=== PATIENT | male | born 1965 | race Caucasian/White ===

== ENCOUNTER → 2020-07-04 13:59 | Outpatient (BNVA) | payer OTHER, SELFPAY | PROVIDERS: PCP Internal Medicine; Visit Provider Internal Medicine | DX: I25.10 Atherosclerotic heart disease of native coronary artery without angina pectoris (principal); R06.02 Shortness of breath; E78.5 Hyperlipidemia, unspecified; I10 Essential (primary) hypertension; Z95.5 Presence of coronary angioplasty implant and graft | CPT/HCPCS: 93005; 99212 ==

== ENCOUNTER 2020-07-26 14:00 | Outpatient (RCR) | payer OTHER, SELFPAY ==
--- NOTE | 2020-06-22 17:19 | MHC.PT.EP ---
[facility] [place] Office [place] Office [place] Office [address] Last Garcia [address] [phone] F: [phone] F: [phone] F: [phone] F: [phone] Physical Therapy Plan of Care Date of Evaluation: 06/22/20 Date of Surgery: N/A Diagnosis: unspecified osteoarthritis, unspecified joint Assessment: pt presents to physical therapy with pain, decreased range of motion, decreased strength, impaired functional mobility, impaired postural awareness, and gait deviations. pt is a fair candidate for skilled PT due to age, potential remediation of impairments, typical disease/condition progression and prognosis, comorbidities, and motivation. pt would benefit from tailored strengthening and stretching exercise program, functional training, gait training, postural re-training, neuromuscular re-education, modalities as needed for pain, equipment safety demonstration. Frequency and Duration: The patient will be seen 2x/wk for 5 wks Short Term Goals: pt will be I w/ HEP to promote self-management of condition. pt will improve lumbar flexion by 15% to facilitate ease in reaching for objects on the ground. Senior Care Goals: pt will lift 15# object from knee height to waist level x5 reps to promote return to restrooms or lounges maid. pt will report statistically significant improvement in self-reported outcome measure, LEFI, to promote return to PLOF. Treatment Plan: Modalities to reduce pain, spasms and effusion. Manual therapy to restore motion and function. Therapeutic exercise to improve strength and flexibility. Neuromuscular re-education for posture and balance. Therapeutic activities to return to functional activities of daily living. Please sign and return to therapist. Thank you for your referral.
--- NOTE | 2020-07-31 09:54 | MHC.PT.DC ---
[facility] [place] Office [place] Office [employer] Office [address] Last Garcia [address] [phone] F: [phone] F: [phone] F: [phone] F: [phone] Physical Therapy Discharge Report Diagnosis: unspecified osteoarthritis, unspecified joint Date of Surgery: N/A Date of Evaluation: 06/22/20 Date of Discharge: 07/31/20 Treatments to Date: 9 Cancellations to Date: 2 No Shows to Date: 0 Discharge Status: Independent with HEP Recommend MD Follow-up Discharge Summary: The patient made little to no improvement regarding his back pain. He had significant difficulty with performance therapeutic exercises and activities in physical therapy due to poor cardiovascular endurance and poor tolerance for supine, hookyling, and prone positions. He reported best improvement of his symptoms with hot pack application so he was educated on hot pack use at home. He is independent with his home exercise program including posterior chain, core, and bilateral lower extremity strengthening and stretching. He would benefit from attending cardiac rehabilitation to work on his cardiovascular endurance to work on his functional mobility tolerance. He is discharged from this physical therapy plan of care at this time. Electronically signed by: Alma Delia Burgos PT, DPT Please sign and return to therapist. Thank you for your referral.
== END 2020-07-31 09:55 | disposition other institution (70) ==
LOC: HO.PT 14:00
PROVIDERS: PCP Internal Medicine; Visit Provider Internal Medicine
DX: M19.90 Unspecified osteoarthritis, unspecified site (principal)
CPT/HCPCS: 97110; 97112; 97140; 97162

== ENCOUNTER 2020-08-31 14:30 | Outpatient (RCR) | payer OTHER, SELFPAY ==
--- NOTE | 2020-09-01 10:25 | MHC.OT.DC ---
[address] [phone] F: [phone] Occupational Therapy Discharge Note Provider: DR. SALINAS Diagnosis: B/L CTS Date of Surgery: Date of Evaluation: 08/08/20 Date of Discharge: Treatments to Date: 6 Cancellations to Date: No Shows to Date: Discharge Status: Independent with HEP Recommend MD Follow-up Discharge Summary: Pt DENIES CTS SX AND REFUSES PRE HYACINTH AND CUSTOM NIGHT WRIST SPLINTS. C/O B/L MCPJ PAIN R >L UNCHANGED Pt IS AWARE OF JT PROTECTION PRINCIPLES AND HEP . REPORTS NO IMPROVEMENT WITH THERMAL MODALITIES OR THER EX. MAY BENEFIT FROM A CONSULT WITH RHEUMATOLOGY Electronically Signed By: MIRACLE JIMENEZ OT CHT CLT Reviewed/agree with student documentation: N/A Therapist: Please Sign and return to therapist, thank you for your referral.
== END 2020-09-01 10:20 | disposition other institution (70) ==
LOC: HO.OT 14:30
PROVIDERS: PCP Internal Medicine; Visit Provider Internal Medicine
DX: G56.03 Carpal tunnel syndrome, bilateral upper limbs (principal)
CPT/HCPCS: 29125; 97035; 97110; 97140; 97167; 97530; 97760

== ENCOUNTER 2020-10-24 10:50 | Outpatient (REF) | payer OTHER, SELFPAY ==
--- NOTE | ~2020-10-24 | XR_ITS ---
EXAMINATION: XR ELBOW, LEFT CLINICAL INFORMATION: Pain COMPARISON: None TECHNIQUE: AP, lateral, and oblique views of the left elbow. FINDINGS: Bone alignment is normal. No fracture or dislocation is seen. There is a small osteophyte at the coronoid process. The joint spaces are otherwise normal. There is no joint effusion. There is a small osteophyte at the triceps tendon insertion to the olecranon. There may be soft tissue calcification or ossification adjacent to the lateral humeral epicondyle. XR/XR elbow LT 2V IMPRESSION: Small coronoid process and olecranon osteophytes and soft tissue calcification or ossification adjacent to the lateral humeral epicondyle. Otherwise unremarkable exam.
--- NOTE | ~2020-10-24 | XR_ITS ---
EXAMINATION: XR CERVICAL SPINE CLINICAL INFORMATION: Pain COMPARISON: Previous x-ray most recent February 2020 TECHNIQUE: 4 views of the cervical spine were obtained. FINDINGS: There is mild curvature of the lower cervical and upper thoracic spine to the left. There is straightening of the cervical spine. Bone alignment is otherwise normal. No fracture or dislocation is seen. There is degenerative spondylosis and degenerative disc disease from C3-C4 to C6-C7. Prevertebral soft tissues are normal. There is a soft tissue calcification posteriorly in the suboccipital region. XR/XR cervical spine 2V IMPRESSION: Degenerative changes.
--- NOTE | ~2020-10-24 | XR_ITS ---
EXAMINATION: BILATERAL HAND X-RAY CLINICAL INFORMATION: Pain COMPARISON: Previous left hand x-ray December 2017 and right hand x-ray February 2009 TECHNIQUE: 3 views of each hand FINDINGS: Right: Bone alignment is normal. No fracture or dislocation is seen. There is arthritis at the first LONG-TERM joint. Joint spaces are otherwise normal. Soft tissues are normal. Left: Bone alignment is normal. No fracture or dislocation is seen. There is arthritis at the first LONG-TERM joint. Joint spaces are otherwise normal. Soft tissues are normal. XR/XR hand RT min 3V IMPRESSION: Bilateral arthritis at the first LONG-TERM joint.
--- NOTE | ~2020-10-24 | XR_ITS ---
EXAMINATION: BILATERAL HAND X-RAY CLINICAL INFORMATION: Pain COMPARISON: Previous left hand x-ray December 2017 and right hand x-ray February 2009 TECHNIQUE: 3 views of each hand FINDINGS: Right: Bone alignment is normal. No fracture or dislocation is seen. There is arthritis at the first SKILLED NURSING joint. Joint spaces are otherwise normal. Soft tissues are normal. Left: Bone alignment is normal. No fracture or dislocation is seen. There is arthritis at the first SKILLED NURSING joint. Joint spaces are otherwise normal. Soft tissues are normal. XR/XR hand LT min 3V IMPRESSION: Bilateral arthritis at the first SKILLED NURSING joint.
[2020-10-24 12:27] LABS: MANUAL DIFF FLAG NO
[2020-10-24 12:31] LABS: Basophils Percent Auto 0.6 % (0-2); Eosinophils Absolute Auto 0.3 X10*3/uL (0.0-0.4); Eosinophils Percent Auto 4.8 % (0-4); Hematocrit 45.7 % (42-52); Imm Gran Abs Auto 0.02 X10*3/uL (0.00-0.03); Imm Gran Pct Auto 0.3 % (0.0-0.4); Lymphocytes Absolute Auto 1.9 X10*3/uL (1.2-4.9); Lymphocytes Percent Auto 27.9 % (20-40); Mean Corpuscular HGB Conc 32.8 g/dl (31.0-36.0); Mean Corpuscular Hemoglobin 28.1 pg (27.0-33.0); Mean Corpuscular Volume 85.6 fL (80-98); Mean Platelet Volume 11.4 fL (9.4-12.4); Monocytes Absolute Auto 0.7 X10*3/uL (0.1-1.2); Monocytes Percent Auto 9.9 % (2-11); Neutrophils Absolute Auto 3.8 X10*3/uL (2.0-8.3); Neutrophils Percent Auto 56.5 % (45-73); Platelet Count 200 X10*3/uL (160-400); Red Blood Count 5.34 X10*6/uL (4.60-5.80); Red Cell Distribution Width 12.6 % (11.0-16.0); White Blood Count 6.6 X10*3/uL (4.8-10.8)
[2020-10-24 13:04] LABS: Alanine Aminotransferase 78 U/L (0-40); Albumin Level 4.5 g/dL (3.5-5.0); Alkaline Phosphatase 83 U/L (39-117); Anion Gap 12 (12-20); Aspartate Amino Transferase 39 U/L (5-37); Bilirubin Total 0.4 mg/dL (0.0-1.0); Blood Urea Nitrogen 13 mg/dL (9-16); C Reactive Protein 0.09 mg/dL (< or = 0.50); Calcium 9.6 mg/dL (8.4-10.2); Carbon Dioxide 26 mmol/L (22-29); Chloride 104 mmol/L (96-108); Estimated Glomerular Filt Rate > 60; Glucose Random 177 mg/dL (60-115); Potassium 4.5 mmol/L (3.3-5.1); Rheumatoid Factor < 15.0 IU/mL (<15.0); Sodium 137 mmol/L (135-145); Total Protein 7.4 g/dL (6.5-8.0)
[2020-10-24 13:25] LABS: Thyroid Stimulating Hormone 1.34 uIU/mL (0.32-4.0)
[2020-10-24 13:36] LABS: Erythrocyte Sedimentation Rate 5 MM/HR (0-15)
[2020-10-25 16:42] LABS: Cyclic Citrullinated Peptide <16 UNITS
[2020-10-28 13:06] LABS: Vitamin D 25-OH, D2 <4 ng/mL; Vitamin D 25-OH, D3 25 ng/mL; Vitamin D 25-OH, Total 25 ng/mL (30-100)
== END 2020-10-24 10:51 | disposition home or self-care (01) ==
LOC: HO.LAB 10:50
PROVIDERS: PCP Internal Medicine; Visit Provider Student in an Organized Health Care Education/Training Program
DX: M25.50 Pain in unspecified joint (principal); E66.9 Obesity, unspecified; Z79.899 Other long term (current) drug therapy
CPT/HCPCS: 36415; 72040; 73070; 73130; 80053; 82306; 84443; 85025; 85652; 86140; 86200; 86431; 99202

== ENCOUNTER → 2020-11-21 16:04 | Outpatient (BNVA) | payer OTHER, SELFPAY | PROVIDERS: Visit Provider Student in an Organized Health Care Education/Training Program | DX: M89.49 Other hypertrophic osteoarthropathy, multiple sites (principal) | CPT/HCPCS: 99212 ==

== ENCOUNTER 2021-01-02 11:55 | Outpatient (REF) | payer OTHER, SELFPAY ==
[2021-01-02 13:54] LABS: MANUAL DIFF FLAG NO
[2021-01-02 13:59] LABS: Glucose Urine UA NEG (NEG); Leukocyte Esterase Urine NEG (NEG); Nitrite Urine NEG (NEG); Specific Gravity - Urine 1.025 (1.005-1.025); Urine Blood NEG (NEG); Urine Ketones NEG (NEG); Urine Protein NEG (NEG-TRACE)
[2021-01-02 14:17] LABS: Appearance Urine CLEAR; Color Urine YELLOW
[2021-01-02 14:18] LABS: Basophils Percent Auto 0.6 % (0-2); Eosinophils Absolute Auto 0.3 X10*3/uL (0.0-0.4); Eosinophils Percent Auto 4.7 % (0-4); Hematocrit 46.8 % (42-52); Hemoglobin 15.3 g/dl (14.0-18.0); Imm Gran Abs Auto 0.02 X10*3/uL (0.00-0.03); Imm Gran Pct Auto 0.3 % (0.0-0.4); Lymphocytes Absolute Auto 2.1 X10*3/uL (1.2-4.9); Lymphocytes Percent Auto 29.2 % (20-40); Mean Corpuscular HGB Conc 32.7 g/dl (31.0-36.0); Mean Corpuscular Hemoglobin 28.3 pg (27.0-33.0); Mean Corpuscular Volume 86.5 fL (80-98); Mean Platelet Volume 11.6 fL (9.4-12.4); Monocytes Absolute Auto 0.7 X10*3/uL (0.1-1.2); Monocytes Percent Auto 10.2 % (2-11); Platelet Count 214 X10*3/uL (160-400); Red Blood Count 5.41 X10*6/uL (4.60-5.80); Red Cell Distribution Width 12.9 % (11.0-16.0); White Blood Count 7.3 X10*3/uL (4.8-10.8)
[2021-01-02 14:24] LABS: Estimated Average Glucose 157 mg/dL; Hemoglobin A1c % 7.1 %
[2021-01-02 14:27] LABS: Alanine Aminotransferase 66 U/L (0-40); Albumin Level 4.4 g/dL (3.5-5.0); Alkaline Phosphatase 79 U/L (39-117); Anion Gap 13 (12-20); Aspartate Amino Transferase 36 U/L (5-37); Bilirubin Total 0.6 mg/dL (0.0-1.0); Blood Urea Nitrogen 15 mg/dL (9-16); Calcium 9.6 mg/dL (8.4-10.2); Carbon Dioxide 24 mmol/L (22-29); Chloride 105 mmol/L (96-108); Cholesterol 132 mg/dL; Estimated Glomerular Filt Rate > 60; Glucose Random 139 mg/dL (60-115); HDL Cholesterol 32 mg/dL; LDL Cholesterol Calculated 64 mg/dl; Potassium 4.4 mmol/L (3.3-5.1); Sodium 138 mmol/L (135-145); Total Protein 7.3 g/dL (6.5-8.0); Triglycerides 184 mg/dL
[2021-01-02 14:37] LABS: Free T4 (Free Thyroxine) 0.85 ng/dL (0.71-1.85); Prostate Specific Antigen Scr 0.39 ng/mL (<0.05-4.0); Vitamin D 25-OH Total 25.5 ng/mL (>30)
[2021-01-02 14:49] LABS: RBC Urine 0 /HPF (0); Squamous Epithelial Cell Urine 1+ /LPF
[2021-01-02 14:50] LABS: Mucus Urine 2+ /LPF
[2021-01-02 14:52] LABS: Folate 10.7 ng/mL (> or = 4.0); Vitamin B12 499 pg/mL (200-900)
[2021-01-02 15:02] LABS: Creatinine Urine 262.26 mg/dL; Microalbum/Creatinine Ratio Ur 6.1 ug/mg cr
== END 2021-01-02 11:56 | disposition home or self-care (01) ==
LOC: HO.10HDL 11:55
PROVIDERS: Visit Provider Internal Medicine
DX: I25.10 Atherosclerotic heart disease of native coronary artery without angina pectoris (principal); I10 Essential (primary) hypertension; E78.5 Hyperlipidemia, unspecified; E78.00 Pure hypercholesterolemia, unspecified; Z95.5 Presence of coronary angioplasty implant and graft; Z79.899 Other long term (current) drug therapy; Z87.891 Personal history of nicotine dependence
CPT/HCPCS: 36415; 80053; 80061; 81001; 82043; 82306; 82607; 82746; 83036; 84153; 84439; 84443; 85025; 99212

== ENCOUNTER 2021-01-17 15:00 | Outpatient (RCR) | payer OTHER, SELFPAY ==
--- NOTE | 2021-01-05 13:44 | MHC.PT.EP ---
[facility] [place] [facility] [place] Office [place] Office [address] Last Garcia [address] [phone] F: [phone] F: [phone] F: [phone] F: [phone] Physical Therapy Plan of Care Date of Evaluation: Date of Surgery: Diagnosis: bilateral knee pain Assessment: The patient arrived reporting bilateral knee pain that has been slowly getting worse. He feels limited in almost all functional mobility such as squatting, getting up from chair, stairs, and getting dressed. The patient is severely deconditioned and he gets short of breath easily. The patient will benefit from skilled PT exercises that slowly and safely build activity tolerance and LE strength. Functional movements will be the focus to improve functional independence. Frequency and Duration: The patient will be seen 2x/week x 4 weeks Short Term Goals: 1. pt to be able to do all functional movements such as squatting, bending, and reaching overhead with good balance and motor control.. 2. Pt to be able to walk with a heel to toe reciprocal gait pattern with a symmetrical gait pattern. Prison Goals: 4 weeks. - to improve activity tolerance to help community ambulation distances demonstrated by tolerating at least 45 minutes of therapeutic activity with less than 3 resting breaks. 4 weeks- Pt will begin an exercise program that will facilitate weight loss. 4 weeks ? The patient to be able to participate in an exercise program greater than 45 min long to show improved activity tolerance. Treatment Plan: Modalities to reduce pain, spasms and effusion. Manual therapy to restore motion and function. Therapeutic exercise to improve strength and flexibility. Neuromuscular re-education for posture and balance. Therapeutic activities to return to functional activities of daily living. Electronically signed by: Jade Gonzales PT DPT Please sign and return to therapist. Thank you for your referral.
== END 2021-01-18 09:00 | disposition home or self-care (01) ==
LOC: HO.PT 15:00
PROVIDERS: PCP Student in an Organized Health Care Education/Training Program; Visit Provider Student in an Organized Health Care Education/Training Program
DX: M89.49 Other hypertrophic osteoarthropathy, multiple sites (principal)
CPT/HCPCS: 97110; 97162; 97530

== ENCOUNTER → 2021-05-25 11:03 | Outpatient (BNVA) | payer OTHER, SELFPAY | PROVIDERS: PCP Internal Medicine; Visit Provider Nurse Practitioner Family | DX: M89.49 Other hypertrophic osteoarthropathy, multiple sites (principal) | CPT/HCPCS: 99212 ==

== ENCOUNTER 2021-06-05 14:01 | Outpatient (REF) | payer OTHER, SELFPAY ==
--- NOTE | ~2021-06-05 | XR_ITS ---
EXAMINATION: XR KNEE, LEFT XR KNEE, RIGHT CLINICAL INFORMATION: Hypertrophic osteoarthropathy, multiple sites COMPARISON: None TECHNIQUE: Right knee, 4 views Left knee, 4 views FINDINGS: Left knee: Bones have normal alignment. The joint spaces are maintained. No fracture, subluxation or joint effusion. There are very small osteophytes of the patella. Bone island of the proximal tibial metaphysis. A well-corticated ossicle is noted near the patellar tendon attachment to the anterior tibial tubercle. Query if there is history of [place]-Schlatter disease during childhood. No acute osseous injury in this region. Right knee: Bones have normal alignment and joint spaces are maintained. Minimal osteophyte formation of the patella and medial tibial femoral compartment. No fracture, dislocation or joint effusion. No suspicious osseous lesion. XR/XR knee LT 4V IMPRESSION: * At the right knee, there is minimal osteoarthrosis of the patellofemoral and medial tibiofemoral compartments. * At the left knee, there is minimal osteoarthrosis of the patellofemoral compartment. * A prominent ossicle of the distal left patellar tendon is noted. Query if there is history of [place]-Schlatter disease during childhood.
--- NOTE | ~2021-06-05 | XR_ITS ---
EXAMINATION: XR KNEE, LEFT XR KNEE, RIGHT CLINICAL INFORMATION: Hypertrophic osteoarthropathy, multiple sites COMPARISON: None TECHNIQUE: Right knee, 4 views Left knee, 4 views FINDINGS: Left knee: Bones have normal alignment. The joint spaces are maintained. No fracture, subluxation or joint effusion. There are very small osteophytes of the patella. Bone island of the proximal tibial metaphysis. A well-corticated ossicle is noted near the patellar tendon attachment to the anterior tibial tubercle. Query if there is history of [place]-Schlatter disease during childhood. No acute osseous injury in this region. Right knee: Bones have normal alignment and joint spaces are maintained. Minimal osteophyte formation of the patella and medial tibial femoral compartment. No fracture, dislocation or joint effusion. No suspicious osseous lesion. XR/XR knee RT 4V IMPRESSION: * At the right knee, there is minimal osteoarthrosis of the patellofemoral and medial tibiofemoral compartments. * At the left knee, there is minimal osteoarthrosis of the patellofemoral compartment. * A prominent ossicle of the distal left patellar tendon is noted. Query if there is history of [place]-Schlatter disease during childhood.
== END 2021-06-05 14:02 | disposition home or self-care (01) ==
LOC: HO.XRAY 14:01
PROVIDERS: PCP Internal Medicine; Visit Provider Nurse Practitioner Family
DX: M89.49 Other hypertrophic osteoarthropathy, multiple sites (principal)
CPT/HCPCS: 73564

== ENCOUNTER → 2021-07-02 13:52 | Outpatient (BNVA) | payer OTHER, SELFPAY | PROVIDERS: PCP Internal Medicine; Visit Provider Anesthesiology | DX: M47.812 Spondylosis without myelopathy or radiculopathy, cervical region (principal); M47.816 Spondylosis without myelopathy or radiculopathy, lumbar region; G56.00 Carpal tunnel syndrome, unspecified upper limb | CPT/HCPCS: 99202 ==

== ENCOUNTER 2021-07-06 08:28 | Outpatient (REF) | payer OTHER, SELFPAY ==
--- NOTE | ~2021-07-06 | FL_ITS ---
EXAMINATION: XR FLUOROSCOPY UPPER GI WITH AIR CLINICAL INFORMATION: Gastroesophageal reflux disease without esophagitis. COMPARISON: None. TECHNIQUE: Routine upper GI air-contrast study was performed in upright and lying position. FINDINGS: Following oral administration of thick barium and effervescent granules, there is normal propagation of bolus from the oral cavity through the pharynx, esophagus into stomach without obstruction or narrowing. A slightly tight cricoesophageal sphincter is noted. It causes no obstruction. The mucosal pattern of the esophagus is normal. On placing patient supine and prone lying, the course, caliber and peristalsis of the stomach, duodenal bulb and the sweep is normal. The mucosal pattern of the stomach and the duodenum is normal. FLUOROSCOPY TIME: 1.6 minutes DOSE AREA PRODUCT: 42.482 uGy-m2 (microgray-meter squared) FL/FL upper GI w air IMPRESSION: Except for mild prominent cricoesophageal sphincter, the upper GI exam is unremarkable.
== END 2021-07-06 08:29 | disposition home or self-care (01) ==
LOC: HO.XRAY 08:28
PROVIDERS: Visit Provider Internal Medicine
DX: K21.9 Gastro-esophageal reflux disease without esophagitis (principal)
CPT/HCPCS: 74246

== ENCOUNTER 2021-09-03 08:01 | Outpatient (REF) | payer OTHER, SELFPAY ==
--- NOTE | ~2021-09-03 | US_ITS ---
EXAMINATION: US ABDOMEN COMPLETE CLINICAL INFORMATION: Other specified abnormal findings of blood chemistry. COMPARISON: Ultrasound abdomen complete dated 12/28/2008. TECHNIQUE: Real-time imaging of the abdominal viscera. FINDINGS: PANCREAS: Not well visualized due to bowel gas ABDOMINAL AORTA: The proximal, mid, and distal segments are normal in caliber. INFERIOR VENA CAVA: Visualized portions are normal. LIVER: Liver is enlarged. Liver echotexture is increased suggestive of fatty infiltration. There is a focal hypoechoic area adjacent to the gallbladder, characteristic location of focal fatty sparing. The liver contour is normal. There is a 1.3 x 0.6 x 1.2 cm peripheral or subcapsular cysts in the right lobe. No other focal liver lesion is seen. There is no intrahepatic biliary duct dilatation seen. GALLBLADDER: There are gallstones in the gallbladder neck. The gallbladder is otherwise normal. COMMON BILE DUCT: Normal in caliber measuring 0.3 cm in diameter. RIGHT KIDNEY: There are multiple cysts. The largest measures 4.3 x 3.9 x 3.7 cm. No hydronephrosis or renal calculi. The kidney measures 11.9 cm in maximum dimension. LEFT KIDNEY: There are multiple cysts. The largest measures 4.8 x 4.2 x 4.9 cm. No hydronephrosis or renal calculi. The kidney measures 13.7 cm in maximum dimension. SPLEEN: Normal. The spleen measures 12.3 cm in maximum dimension. FREE FLUID: None. US/US abdomen complete IMPRESSION: Gallstones. Enlarged echogenic liver suggestive of fatty infiltration. Small liver cyst. Bilateral renal cysts.
== END 2021-09-03 08:02 | disposition home or self-care (01) ==
LOC: HO.US 08:01
PROVIDERS: PCP Internal Medicine; Visit Provider Internal Medicine
DX: K21.9 Gastro-esophageal reflux disease without esophagitis (principal); K58.9 Irritable bowel syndrome, unspecified; R79.89 Other specified abnormal findings of blood chemistry
CPT/HCPCS: 76700

== ENCOUNTER 2021-09-03 08:38 | Outpatient (REF) | payer OTHER, SELFPAY ==
[2021-09-03 10:14] LABS: MANUAL DIFF FLAG NO
[2021-09-03 10:17] LABS: Basophils Percent Auto 0.5 % (0-2); Eosinophils Absolute Auto 0.5 X10*3/uL (0.0-0.4); Eosinophils Percent Auto 6.1 % (0-4); Hematocrit 44.4 % (42.0-52.0); Hemoglobin 14.7 g/dl (14.0-18.0); Imm Gran Abs Auto 0.02 X10*3/uL (0.00-0.03); Imm Gran Pct Auto 0.2 % (0.0-0.4); Lymphocytes Absolute Auto 2.3 X10*3/uL (1.2-4.9); Lymphocytes Percent Auto 28.7 % (20-40); Mean Corpuscular HGB Conc 33.1 g/dl (31.0-36.0); Mean Corpuscular Hemoglobin 28.7 pg (27.0-33.0); Mean Corpuscular Volume 86.7 fL (80.0-98.0); Mean Platelet Volume 11.9 fL (9.4-12.4); Monocytes Absolute Auto 0.8 X10*3/uL (0.1-1.2); Monocytes Percent Auto 9.9 % (2-11); Neutrophils Absolute Auto 4.4 x10*3/uL (2.0-8.3); Neutrophils Percent Auto 54.6 % (45-73); Platelet Count 213 X10*3/uL (160-400); Red Blood Count 5.12 X10*6/uL (4.60-5.80); Red Cell Distribution Width 12.7 % (11.0-16.0); White Blood Count 8.1 X10*3/uL (4.8-10.8)
[2021-09-03 10:26] LABS: Alanine Aminotransferase 57 U/L (0-40); Albumin Level 4.3 g/dL (3.5-5.0); Alkaline Phosphatase 75 U/L (39-117); Anion Gap 12 (12-20); Aspartate Amino Transferase 24 U/L (5-37); Bilirubin Total 0.5 mg/dL (0.0-1.0); Blood Urea Nitrogen 13 mg/dL (9-16); Calcium 9.5 mg/dL (8.4-10.2); Carbon Dioxide 25 mmol/L (22-29); Chloride 106 mmol/L (96-108); Cholesterol 117 mg/dL; Estimated Glomerular Filt Rate > 60; Glucose Random 118 mg/dL (60-115); HDL Cholesterol 29 mg/dL; LDL Cholesterol Calculated 55 mg/dl; Potassium 4.5 mmol/L (3.3-5.1); Sodium 138 mmol/L (135-145); Total Protein 7.1 g/dL (6.5-8.0); Triglycerides 166 mg/dL
[2021-09-03 10:36] LABS: Estimated Average Glucose 131 mg/dL; Hemoglobin A1c % 6.2 %
[2021-09-03 10:46] LABS: Free T4 (Free Thyroxine) 0.94 ng/dL (0.71-1.85); Thyroid Stimulating Hormone 1.35 uIU/mL (0.32-4.0)
[2021-09-03 11:14] LABS: Folate 7.6 ng/mL (> or = 4.0); Vitamin B12 366 pg/mL (200-900)
== END 2021-09-03 08:39 | disposition home or self-care (01) ==
LOC: HO.10HDL 08:38
PROVIDERS: Visit Provider Internal Medicine
DX: Z12.5 Encounter for screening for malignant neoplasm of prostate (principal); E78.00 Pure hypercholesterolemia, unspecified; E11.65 Type 2 diabetes mellitus with hyperglycemia
CPT/HCPCS: 36415; 80053; 80061; 82607; 82746; 83036; 84153; 84439; 84443; 85025

== ENCOUNTER 2021-10-22 09:27 | Outpatient (REF) | payer OTHER, SELFPAY ==
[2021-10-22 13:46] LABS: Blood Urea Nitrogen 14 mg/dL (9-16); Creatinine Clr Calc Pharmacy 131.9; Estimated Glomerular Filt Rate > 60
== END 2021-10-22 09:28 | disposition home or self-care (01) ==
LOC: HO.LNP 09:27
PROVIDERS: PCP Internal Medicine; Referring Provider Internal Medicine; Visit Provider Surgery
DX: K80.20 Calculus of gallbladder without cholecystitis without obstruction (principal); G89.29 Other chronic pain; R10.31 Right lower quadrant pain; R10.32 Left lower quadrant pain
CPT/HCPCS: 36415; 82565; 84520; 99202

== ENCOUNTER 2021-11-13 12:03 | Outpatient (REF) | payer OTHER, SELFPAY ==
--- NOTE | ~2021-11-13 | CT_ITS ---
EXAMINATION: CT ABDOMEN AND PELVIS WITH CONTRAST CLINICAL INFORMATION: Right lower quadrant pain. COMPARISON: None TECHNIQUE: Multidetector volumetric images were obtained from the superior aspect of the liver through the pubic symphysis following administration 85 mL of Omnipaque 350 intravenous contrast. Sagittal and coronal reformatted images were obtained on the technologist's workstation. Oral contrast: No This CT examination was performed using dose optimization techniques as appropriate, variously including the following: *Automated exposure control *Adjustment of mA and/or kV according to patient size (this includes techniques or standardized protocols for targeted exams where dose is matched to indication/reason for exam; i.e. extremities or head) *Use of iterative reconstruction technique DLP: 623 mGy-cm FINDINGS: LUNG BASES: The visualized lung bases are unremarkable. LIVER, GALLBLADDER, AND BILIARY TREE: The liver is normal in size, shape, and hypo-attenuation. No focal hepatic lesion or biliary ductal dilatation is present. There are several radiopaque gallstones with the largest gallstone measuring 5 mm. No gallbladder wall thickening seen. PANCREAS: Unremarkable. SPLEEN: Unremarkable. ADRENAL GLANDS: The left adrenal gland is slightly prominent without any focal nodule. The right adrenal gland is unremarkable. KIDNEYS AND URETERS: The kidneys are normal in size, shape, and attenuation. No hydronephrosis, hydroureter, or calculi seen. No perinephric stranding. There are bilateral non-enhancing renal cysts, largest in the upper pole left kidney measuring 5.6 cm in craniocaudad length. BLADDER: Unremarkable. GASTROINTESTINAL TRACT: There is scattered stool and gas seen throughout the colon without any distention. The small bowel loops are normal. Appendix is normal caliber. The stomach is nondistended and appears unremarkable. ABDOMINAL WALL: There is a small umbilical hernia containing fat. LYMPH NODES: Normal. VASCULAR: Unremarkable. PELVIC VISCERA: Unremarkable. OSSEOUS STRUCTURES: No lytic or sclerotic process seen. CT/CT abdomen pelvis w con IMPRESSION: 1. Hepatic steatosis without focal lesion. 2. Cholelithiasis. 3. Colonic diverticulosis without diverticulitis. Normal appendix with no inflammatory process seen in the abdomen. 4. Bilateral renal cysts. 5. Small umbilical hernia. Fleischner guidelines were followed.
[2021-11-13] MEDS: iohexoL 350 MG/ML 100 ML INFUS..BTL IV (13:04)
== END 2021-11-13 12:04 | disposition home or self-care (01) ==
LOC: HO.CT 12:03
PROVIDERS: PCP Internal Medicine; Visit Provider Surgery
DX: R10.31 Right lower quadrant pain (principal); R10.32 Left lower quadrant pain; G89.29 Other chronic pain
CPT/HCPCS: 74177; Q9967

== ENCOUNTER → 2021-11-21 15:04 | Outpatient (BNVA) | payer OTHER, SELFPAY | PROVIDERS: PCP Internal Medicine; Referring Provider Internal Medicine; Visit Provider Surgery | DX: R10.31 Right lower quadrant pain (principal); R10.32 Left lower quadrant pain; G89.29 Other chronic pain; E66.01 Morbid (severe) obesity due to excess calories; Z68.37 Body mass index [BMI] 37.0-37.9, adult | CPT/HCPCS: 99212 ==

== ENCOUNTER → 2021-11-22 12:25 | Outpatient (BNVA) | payer OTHER, SELFPAY | PROVIDERS: PCP Internal Medicine; Visit Provider Nurse Practitioner Family | DX: M89.49 Other hypertrophic osteoarthropathy, multiple sites (principal) | CPT/HCPCS: 99212 ==

== ENCOUNTER → 2022-01-03 13:12 | Outpatient (BNVA) | payer OTHER, SELFPAY | PROVIDERS: PCP Internal Medicine; Referring Provider Internal Medicine; Visit Provider Internal Medicine | DX: I25.10 Atherosclerotic heart disease of native coronary artery without angina pectoris (principal); I10 Essential (primary) hypertension; E11.8 Type 2 diabetes mellitus with unspecified complications; E78.5 Hyperlipidemia, unspecified; Z95.5 Presence of coronary angioplasty implant and graft | CPT/HCPCS: 93005; 99212 ==

== ENCOUNTER → 2022-05-24 12:07 | Outpatient (BNVA) | payer OTHER, SELFPAY | PROVIDERS: PCP Internal Medicine; Referring Provider Internal Medicine; Visit Provider Nurse Practitioner Family | DX: M79.671 Pain in right foot (principal); M79.672 Pain in left foot; M92.522 Juvenile osteochondrosis of tibia tubercle, left leg; M89.49 Other hypertrophic osteoarthropathy, multiple sites | CPT/HCPCS: 99212 ==

== ENCOUNTER 2022-10-11 11:17 | Outpatient (REF) | payer OTHER, SELFPAY ==
--- NOTE | ~2022-10-11 | XR_ITS ---
EXAMINATION: XR FEET, BILATERAL CLINICAL INDICATION: Bilateral foot pain. COMPARISON: Right ankle 12/13/2011. TECHNIQUE: 3 views each foot. FINDINGS: There is pes cavus bilaterally with a prominent arch. No fractures or significant degenerative changes are seen. Enthesopathy is present at the Achilles tendon insertion site on both sides. XR/XR foot LT 2V IMPRESSION: Bilateral pes cavus. No acute finding.
--- NOTE | ~2022-10-11 | XR_ITS ---
EXAMINATION: XR FEET, BILATERAL CLINICAL INDICATION: Bilateral foot pain. COMPARISON: Right ankle 12/13/2011. TECHNIQUE: 3 views each foot. FINDINGS: There is pes cavus bilaterally with a prominent arch. No fractures or significant degenerative changes are seen. Enthesopathy is present at the Achilles tendon insertion site on both sides. XR/XR foot RT 2V IMPRESSION: Bilateral pes cavus. No acute finding.
[2022-10-11 13:18] LABS: MANUAL DIFF FLAG NO
[2022-10-11 13:27] LABS: Basophils Absolute Auto 0.1 X10*3/uL (0.0-0.2); Basophils Percent Auto 0.5 % (0-2); Eosinophils Absolute Auto 0.5 X10*3/uL (0.0-0.4); Eosinophils Percent Auto 5.6 % (0-4); Hematocrit 46.1 % (42.0-52.0); Hemoglobin 15.2 g/dl (14.0-18.0); Imm Gran Abs Auto 0.01 X10*3/uL (0.00-0.03); Imm Gran Pct Auto 0.1 % (0.0-0.4); Lymphocytes Absolute Auto 1.9 X10*3/uL (1.2-4.9); Lymphocytes Percent Auto 21.2 % (20-40); Mean Corpuscular Volume 85.1 fL (80.0-98.0); Mean Platelet Volume 11.7 fL (9.4-12.4); Monocytes Absolute Auto 0.9 X10*3/uL (0.1-1.2); Monocytes Percent Auto 9.8 % (2-11); Neutrophils Absolute Auto 5.7 x10*3/uL (2.0-8.3); Neutrophils Percent Auto 62.8 % (45-73); Platelet Count 224 X10*3/uL (160-400); Red Blood Count 5.42 X10*6/uL (4.60-5.80); Red Cell Distribution Width 13.2 % (11.0-16.0); White Blood Count 9.1 X10*3/uL (4.8-10.8)
[2022-10-11 13:59] LABS: Creatinine Urine 340.91 mg/dL; Microalbum/Creatinine Ratio Ur 15.8 ug/mg cr
[2022-10-11 16:20] LABS: Alanine Aminotransferase 42 U/L (0-40); Albumin Level 4.4 g/dL (3.5-5.0); Alkaline Phosphatase 68 U/L (39-117); Anion Gap 17 (12-20); Aspartate Amino Transferase 24 U/L (5-37); Bilirubin Total 0.4 mg/dL (0.0-1.0); Blood Urea Nitrogen 12 mg/dL (9-16); Calcium 9.4 mg/dL (8.4-10.2); Carbon Dioxide 21 mmol/L (22-29); Chloride 107 mmol/L (96-108); Cholesterol 148 mg/dL; Estimated Glomerular Filt Rate > 60; Glucose Random 116 mg/dL (60-115); HDL Cholesterol 35 mg/dL; LDL Cholesterol Calculated 86 mg/dl; Potassium 4.1 mmol/L (3.3-5.1); Sodium 141 mmol/L (135-145); Total Protein 7.1 g/dL (6.5-8.0); Triglycerides 135 mg/dL
[2022-10-11 16:54] LABS: Free T4 (Free Thyroxine) 0.93 ng/dL (0.71-1.85); Thyroid Stimulating Hormone 2.01 uIU/mL (0.32-4.0); Vitamin B12 442 pg/mL (200-900)
[2022-10-11 20:27] LABS: Folate 10.9 ng/mL (> or = 4.0)
== END 2022-10-11 11:18 | disposition home or self-care (01) ==
LOC: HO.10HDL 11:17
PROVIDERS: Absent Provider Nurse Practitioner Family; PCP Internal Medicine; Visit Provider Internal Medicine
DX: E11.65 Type 2 diabetes mellitus with hyperglycemia (principal); M79.671 Pain in right foot; M79.672 Pain in left foot; E78.00 Pure hypercholesterolemia, unspecified; Z12.5 Encounter for screening for malignant neoplasm of prostate
CPT/HCPCS: 36415; 73620; 80053; 80061; 82043; 82607; 82746; 84153; 84439; 84443; 85025

== ENCOUNTER 2023-02-05 12:51 | Outpatient (REF) | payer OTHER, SELFPAY ==
[2023-02-05 15:28] LABS: Estimated Average Glucose 128 mg/dL; Hemoglobin A1c % 6.1 %
[2023-02-05 16:32] LABS: Creatinine Urine 218.83 mg/dL
[2023-02-06 02:37] LABS: Alanine Aminotransferase 45 U/L (0-40); Albumin Level 4.4 g/dL (3.5-5.0); Alkaline Phosphatase 68 U/L (39-117); Anion Gap 12 (12-20); Aspartate Amino Transferase 26 U/L (5-37); Bilirubin Total 0.4 mg/dL (0.0-1.0); Blood Urea Nitrogen 16 mg/dL (9-16); Calcium 9.7 mg/dL (8.4-10.2); Carbon Dioxide 24 mmol/L (22-29); Chloride 107 mmol/L (96-108); Cholesterol 118 mg/dL; Estimated Glomerular Filt Rate > 60; Glucose Random 102 mg/dL (60-115); HDL Cholesterol 35 mg/dL; LDL Cholesterol Calculated 56 mg/dl; Potassium 4.3 mmol/L (3.3-5.1); Sodium 139 mmol/L (135-145); Total Protein 7.3 g/dL (6.5-8.0); Triglycerides 137 mg/dL
== END 2023-02-05 12:52 | disposition home or self-care (01) ==
LOC: HO.LAB 12:51
PROVIDERS: PCP Internal Medicine; Visit Provider Internal Medicine
DX: E78.00 Pure hypercholesterolemia, unspecified (principal); E11.65 Type 2 diabetes mellitus with hyperglycemia
CPT/HCPCS: 36415; 80053; 80061; 83036

== ENCOUNTER 2023-02-10 13:30 | Outpatient (AMB) | payer OTHER, SELFPAY ==
[2023-02-10 13:50] VITALS: BP 130/80; PULSE 74; O2SAT 95; BMI 37.3
--- NOTE | 2023-02-10 13:50 | MHC.PC.OV ---
Vital Signs 02/10/23 13:50 Height 5 ft 10 in Weight 260 lb BMI 37.3 BP 130/80 Blood Pressure Location Lt brachial Position Sitting Pulse 74 Pulse Source Pulse Oximeter Pulse Oximetry (%) 95 Oxygen Delivery Method Room Air Intake Visit Reasons: 3mth f/u Allergies atorvastatin [Lipitor] Allergy (Unknown, Verified 02/10/23 13:51) does not remember fenofibric acid [Fibricor] Allergy (Unknown, Verified 02/10/23 13:51) does not remember Medication List - Last Reconciled 02/10/23 by Zahida King MD acetaminophen (Tylenol Extra Strength) 1,000 mg PO Q6H PRN amlodipine 5 mg PO DAILY 90 days aspirin (Adult Aspirin Regimen) 81 mg PO DAILY cane As directed carvedilol 6.25 mg PO BID 90 days dicyclomine 20 mg (2 x 10 mg) PO TID empagliflozin (Jardiance) 10 mg PO DAILY 90 days ezetimibe (Zetia) 10 mg PO DAILY fenofibrate 160 mg PO DAILY 90 days meloxicam 15 mg PO DAILY 90 days metformin 500 mg PO BID 90 days nitroglycerin 0.4 mg sublingual Q5M PRN omeprazole 40 mg PO DAILY rosuvastatin 40 mg PO DAILY 90 days Tobacco use date assessed: 11/11/22 Dental Screening Dental Screen Date: 02/10/23 Did you have a dental visit in the last 12 months?: Yes Did you have a dental problem in the last 6 months where you did not have access to dental care?: No Was dental information given to patient?: Patient has dentist HPI 3mth f/u HPI Details 57-year-old obese male with diabetes mellitus GERD hypertension coronary artery disease hypercholesterolemia and obstructive sleep apnea last seen in October 2022 patient is here for follow-up blood work was requested [facility] Medical History (Updated 11/11/22 @ 13:50 by Zahida King MD) Abdominal pain, chronic, bilateral lower quadrant Atherosclerotic cardiovascular disease CAD (coronary artery disease) Carpal tunnel syndrome Carpal tunnel syndrome on both sides Degenerative disc disease Depression Dislocation of ring finger Erectile dysfunction Essential hypertension GERD (gastroesophageal reflux disease) Hypercholesterolemia Morbid obesity Obesity (BMI 30-39.9) Obstructive sleep apnea [place]-Schlatter's disease of both knees Spondylosis of cervical spine Spondylosis of lumbar spine Type 2 diabetes mellitus Type 2 diabetes mellitus with unspecified complications Vitamin D deficiency Surgical History History of nasal surgery History of surgery History of vasectomy Stented coronary artery Family History (Updated 02/10/23 @ 13:52 by Lindy Singh CMA) Father Myocardial infarction Mother Myocardial infarction Social History Housing: House Alcohol intake: never Patient Tobacco Use Status: Former Tobacco user Quit Date: quit 2004 Tobacco use type: Cigarette e-Cigarette/Vaping Use: Never Used Second Hand Smoke Exposure: No service: No Current occupational status: employed Cognitive needs: No Hearing needs: No Vision needs: Yes Questionnaire PHQ-9 Over the last 2 weeks, how often have you been bothered by any of the following problems? 1. Little interest or pleasure in doing things: nearly every day 2. Feeling down, depressed, or hopeless: nearly every day 3. Trouble falling or staying asleep, or sleeping too much: not at all 4. Feeling tired or having little energy: not at all 5. Poor appetite or overeating: not at all 6. Feeling bad about yourself - or that you are a failure or have let yourself or your family down: not at all 7. Trouble concentrating on things, such as reading the newspaper or watching television: not at all 8. Moving or speaking so slowly that other people could have noticed. Or the opposite - being so fidgety or restless that you have been moving around a lot more than usual: not at all 9. Thoughts that you would be better off or of hurting yourself in some way: not at all Total score: 6 Depression Screening Interpretation: Positive Source: Developed by Drs. Blaise Lake, Vicki Hebert, Yordy Barnes and colleagues, with an educational kelsi from [employer]. Thrive Questionnaire Date Thrive assessed: 08/07/22 AUDIT C Alcohol Use Questionnaire (AUDIT-C) 1. How often do you have a drink containing alcohol?: Never 2. How many drinks containing alcohol do you have on a typical day when you are drinking?: 1 or 2 (0) 3. How often do you have six or more drinks on one occasion?: Never Total Score: 0 FLORENCIA-7 AMB Questionnaire FLORENCIA-7 Date FLORENCIA - 7 assessed: 08/07/22 Source: Developed by Drs. Blaise Lake, Vicki Hebert, Yordy Barnes and colleagues, with an educational kelsi from [employer]. Physical exam (Primary Care) Vital Signs: Last Vital Signs Pulse 74 02/10/23 13:50 BP 130/80 02/10/23 13:50 Pulse Ox 95 02/10/23 13:50 Oxygen Delivery Method Room Air 02/10/23 13:50 BMI result Body Mass Index 37.3 Tobacco/Smoking Status: Tobacco use Status Tobacco use date assessed 11/11/22 02/10/23 13:52 Patient Tobacco Use Status Former Tobacco user 02/10/23 13:52 Tobacco use type Cigarette 02/10/23 13:52 e-Cigarette/Vaping Use Never Used 02/10/23 13:52 PHQ-9: PHQ-9 Score PHQ-9: Total score 6 02/10/23 13:56 Depression Screening Interpretation: Positive Thrive Assessment: Date of Thrive Assessment Date Thrive assessed 08/07/22 02/10/23 13:52 Const General: alert; No acute distress Eyes Conjunctivae: conjunctivae normal Resp Auscultation: clear to auscultation bilaterally Cardio Rate: regular rate Rhythm: regular rhythm GI Inspection: Yes normal to inspection Extrem General: Yes normal to inspection and No edema Assessment and Plan Assessment & Plan (1) Morbid obesity: Code(s): E66.01 - Morbid (severe) obesity due to excess calories Plan: Diet and exercise noted weight loss continue (2) GERD (gastroesophageal reflux disease): Code(s): K21.9 - Gastro-esophageal reflux disease without esophagitis Plan: Avoid the foods that causes that usually spicy foods, tomato products, juices, coffee, soda and foods that your sensitive to. After eating do not lie down, allow 3-4 hours before in lie down. And keep the head of bed above 30 degrees to avoid the acid from going up. (3) Type 2 diabetes mellitus with hyperglycemia: Comment: Dr. 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 Hemoglobin A1c goal of less than 6.5 (4) Essential hypertension: Code(s): I10 - Essential (primary) hypertension Plan: Continue with blood pressure medication. Decrease salt intake and exercise patient is on amlodipine 5 mg once a day carvedilol 6.25 mg twice a day (5) Atherosclerotic cardiovascular disease: Code(s): I25.10 - Atherosclerotic heart disease of [place] coronary artery without angina pectoris Plan: Control the cholesterol, weight, blood pressure, diabetes (6) Hypercholesterolemia: Code(s): E78.00 - Pure hypercholesterolemia, unspecified Plan: Avoid fried foods, chicken skin, eggs, butter margarine, pastries and meat. Be it pork or beef they have a lot of cholesterol LDL goal of less than 70 patient is on rosuvastatin 40 mg once a day and Zetia Medications: New lisinopril 10 mg PO DAILY 90 tabs 2RF I10 - Essential (primary) hypertension Changed From metformin 500 mg (1/2 x 1,000 mg) PO BID 30 days 180 tabs 0RF E11.65 - Type 2 diabetes mellitus with hyperglycemia To metformin 500 mg PO BID 90 days 180 tabs 3RF E11.65 - Type 2 diabetes mellitus with hyperglycemia From empagliflozin (Jardiance) 10 mg PO DAILY 30 tabs 3RF E11.8 - Type 2 diabetes mellitus with unspecified complications To empagliflozin (Jardiance) 10 mg PO DAILY 90 days 90 tabs 3RF E11.8 - Type 2 diabetes mellitus with unspecified complications Refilled rosuvastatin 40 mg PO DAILY 90 days 90 tabs 3RF Discontinued amlodipine Discontinued Reason: Doctor's Order 5 mg PO DAILY 90 days 90 tabs 3RF I10 - Essential (primary) hypertension Coding Level of Care Code Est Pt Level 4 (70602) Diagnoses Morbid obesity E66.01 GERD (gastroesophageal reflux disease) K21.9 Type 2 diabetes mellitus with hyperglycemia E11.65 Diabetes mellitus 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
== END 2023-02-10 14:08 | disposition home or self-care (01) ==
PROVIDERS: PCP Internal Medicine; Visit Provider Internal Medicine
DX: K21.9 Gastro-esophageal reflux disease without esophagitis (principal); I10 Essential (primary) hypertension; E66.01 Morbid (severe) obesity due to excess calories; Z68.37 Body mass index [BMI] 37.0-37.9, adult; E11.65 Type 2 diabetes mellitus with hyperglycemia; I25.10 Atherosclerotic heart disease of native coronary artery without angina pectoris; E78.00 Pure hypercholesterolemia, unspecified
CPT/HCPCS: 99214

== ENCOUNTER 2023-02-11 12:16 | Outpatient (AMB) | payer OTHER, SELFPAY ==
[2023-02-11 12:33] VITALS: BP 118/70; PULSE 77; BMI 37.1
--- NOTE | 2023-02-11 12:33 | A.OFFVIS_ITS ---
Intake Vital Signs 02/11/23 12:33 Height 5 ft 10 in Weight 258 lb 6.108 oz BMI 37.1 BP 118/70 Blood Pressure Location Lt brachial Pulse 77 Intake Visit Reasons: 1 year follow up Intake Note: 1 year follow up w/ EKG Surveillance Dual Rate Officer Required: No Accompanied by: Self / Same As Patient Allergies atorvastatin [Lipitor] Allergy (Unknown, Verified 02/11/23 12:35) does not remember fenofibric acid [Fibricor] Allergy (Unknown, Verified 02/11/23 12:35) does not remember Medication List - Last Reconciled 02/11/23 by Ray Calzada MD acetaminophen (Tylenol Extra Strength) 1,000 mg PO Q6H PRN aspirin (Adult Aspirin Regimen) 81 mg PO DAILY cane As directed carvedilol 6.25 mg PO BID 90 days dicyclomine 20 mg (2 x 10 mg) PO TID empagliflozin (Jardiance) 10 mg PO DAILY 90 days ezetimibe (Zetia) 10 mg PO DAILY fenofibrate 160 mg PO DAILY 90 days lisinopril 10 mg PO DAILY meloxicam 15 mg PO DAILY 90 days metformin 500 mg PO BID 90 days nitroglycerin 0.4 mg sublingual Q5M PRN omeprazole 40 mg PO DAILY rosuvastatin 40 mg PO DAILY 90 days HPI HPI Comments History of Present Illness Details Blaise returns for follow-up regarding coronary disease. Overall, he is doing good. No cardiac symptoms whatsoever. [facility] Medical History (Updated 11/11/22 @ 13:50 by Zahida King MD) Abdominal pain, chronic, bilateral lower quadrant Atherosclerotic cardiovascular disease CAD (coronary artery disease) Carpal tunnel syndrome Carpal tunnel syndrome on both sides Degenerative disc disease Depression Dislocation of ring finger Erectile dysfunction Essential hypertension GERD (gastroesophageal reflux disease) Hypercholesterolemia Morbid obesity Obesity (BMI 30-39.9) Obstructive sleep apnea [place]-Schlatter's disease of both knees Spondylosis of cervical spine Spondylosis of lumbar spine Type 2 diabetes mellitus Type 2 diabetes mellitus with unspecified complications Vitamin D deficiency Surgical History History of nasal surgery History of surgery History of vasectomy Stented coronary artery Family History Father Myocardial infarction Mother Myocardial infarction Social History Housing: House Alcohol intake: never Patient Tobacco Use Status: Former Tobacco user Quit Date: quit 2004 Tobacco use type: Cigarette e-Cigarette/Vaping Use: Never Used Second Hand Smoke Exposure: No service: No Current occupational status: employed Cognitive needs: No Hearing needs: No Vision needs: Yes Review of Systems Const Denies weakness ENT Denies dizziness Card Denies chest pain, Denies chest pain with activity, Denies syncope, Denies rapid heart rate, Denies pedal edema, Denies edema, Denies leg edema, Denies lightheadedness, Denies palpitations, Denies dyspnea, Denies dyspnea on exertion and Denies orthopnea Resp Denies cough, Denies dyspnea and Denies dyspnea on exertion GI Denies hematochezia and Denies change in stool character Musc Denies abnormal gait, Denies muscle cramps, Denies muscle weakness, Denies numbness, Denies radiating pain into limb and Denies tingling Neuro Denies abnormal gait, Denies dizziness, Denies syncope, Denies numbness, Denies tingling and Denies weakness Endo Denies palpitations Physical Exam Vital Signs: Last Vital Signs Pulse 77 02/11/23 12:33 BP 118/70 02/11/23 12:33 BMI result Body Mass Index 37.1 Const General: comfortable and no acute distress Orientation/consciousness: patient oriented x3 HEENT Other: Unremarkable Head: Yes normal to inspection Neck Neck: Yes normal visual inspection Chest Chest palpation & inspection: normal inspection of the chest Resp Auscultation: clear to auscultation bilaterally Cardio Palpation: normal PMI Heart sounds: S1 normal heart sound present, S2 normal heart sound present, no gallops, no murmurs and no rubs GI Palpation (GI): Soft to palpation Back/Spine/Pelvis Other: unremarkable Skin General skin exam: no rashes or lesions noted Neuro General: patient oriented x3 Extrem General: Yes normal to inspection Psych Mental Status: mental status grossly normal Office Procedures EKG Details: EKG with sinus rhythm at 77/Min; no significant ST-T changes and otherwise [place]remarkable[place] [id number], Complete Assessment & Plan Assessment & Plan (1) Atherosclerotic cardiovascular disease: Code(s): I25.10 - Atherosclerotic heart disease of [place] coronary artery without angina pectoris (2) Stented coronary artery: Code(s): Z95.5 - Presence of coronary angioplasty implant and graft (3) Other and unspecified hyperlipidemia: Code(s): E78.5 - Hyperlipidemia, unspecified (4) Essential hypertension: Code(s): I10 - Essential (primary) hypertension (5) Type 2 diabetes mellitus with unspecified complications: Code(s): E11.8 - Type 2 diabetes mellitus with unspecified complications Plan Cardiac studies reviewed. In the past, myocardial perfusion imaging study showed basal and mid inferior wall ischemia in the right coronary artery territory. Cardiac catheterization showed 90% stenosis in the mid right coronary artery, stented with drug-eluting stent. No significant disease elsewhere. Overall, stable from cardiac. Continue long-term aspirin. Continue carvedilol/lisinopril for blood pressure. Blood pressure is normal range. Continue statins. LDL under good control. Last LDL is 56 mg/dL. Diabetes also well controlled on metformin. Most recent hemoglobin A1c is 6.1%. Coding Level of Care Code Est Pt Level 4 (08661) Diagnoses Atherosclerotic cardiovascular disease I25.10 Stented coronary artery Z95.5 Other and unspecified hyperlipidemia E78.5 Essential hypertension I10 Type 2 diabetes mellitus with unspecified complications E11.8 CPT Codes EKG - CPT: 06655-[id number], Complete ([id number])
== END 2023-02-11 12:50 | disposition home or self-care (01) ==
PROVIDERS: PCP Internal Medicine; Referring Provider Internal Medicine; Visit Provider Internal Medicine
DX: I25.10 Atherosclerotic heart disease of native coronary artery without angina pectoris (principal); Z95.5 Presence of coronary angioplasty implant and graft; E78.5 Hyperlipidemia, unspecified; I10 Essential (primary) hypertension; E11.8 Type 2 diabetes mellitus with unspecified complications
CPT/HCPCS: 93010; 99214

== ENCOUNTER → 2023-02-11 12:16 | Outpatient (BNVA) | payer OTHER, SELFPAY | PROVIDERS: PCP Internal Medicine; Referring Provider Internal Medicine; Visit Provider Internal Medicine | DX: I25.10 Atherosclerotic heart disease of native coronary artery without angina pectoris (principal); E78.5 Hyperlipidemia, unspecified; I10 Essential (primary) hypertension; E11.8 Type 2 diabetes mellitus with unspecified complications; Z79.84 Long term (current) use of oral hypoglycemic drugs; Z79.899 Other long term (current) drug therapy | CPT/HCPCS: 93005; 99212 ==

== ENCOUNTER 2023-05-22 13:51 | Outpatient (AMB) | payer OTHER, SELFPAY ==
--- NOTE | 2023-05-22 14:01 | MHC.PC.OV ---
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 Has diabetes mellitus controlled GERD hypertension coronary artery disease hypercholesterolemia. Last seen in January 2023. Patient is up-to-date with colonoscopy. Patient follows up with Cardiology doing good [facility] Medical History (Updated 11/11/22 @ 13:50 by Zahida King MD) Type 2 diabetes mellitus with unspecified complications Morbid obesity Abdominal pain, chronic, bilateral lower quadrant Carpal tunnel syndrome Spondylosis of lumbar spine Spondylosis of cervical spine Type 2 diabetes mellitus Essential hypertension Atherosclerotic cardiovascular disease Dislocation of ring finger [place]-Schlatter's disease of both knees Depression Degenerative disc disease CAD (coronary artery disease) Obstructive sleep apnea Vitamin D deficiency Erectile dysfunction GERD (gastroesophageal reflux disease) Hypercholesterolemia Obesity (BMI 30-39.9) Carpal tunnel syndrome on both sides Surgical History Stented coronary artery History of surgery History of vasectomy History of nasal surgery Family History Father Myocardial infarction Mother Myocardial infarction Social History Housing: House Alcohol intake: never Patient Tobacco Use Status: Former Tobacco user Quit Date: 2004 Tobacco use type: Cigarette e-Cigarette/Vaping Use: Never Used Second Hand Smoke Exposure: No service: No Current occupational status: employed Current occupational exposures/hazards: No Cognitive needs: No Hearing needs: No Vision needs: Yes Questionnaire Thrive Questionnaire Date Thrive assessed: 08/07/22 FLORENCIA-7 AMB Questionnaire FLORENCIA-7 Date FLORENCIA - 7 assessed: 08/07/22 Source: Developed by Drs. Blaise Lake, Vicki Hebert, Yordy Barnes and colleagues, with an educational kelsi from [employer]. Physical exam (Primary Care) Vital Signs: Last Vital Signs Pulse 85 05/22/23 14:12 BP 130/82 05/22/23 14:12 Pulse Ox 95 05/22/23 14:12 Oxygen Delivery Method Room Air 05/22/23 14:12 BMI result Body Mass Index 36.9 Tobacco/Smoking Status: Tobacco use Status Tobacco use date assessed 11/11/22 05/22/23 14:02 Patient Tobacco Use Status Former Tobacco user 05/22/23 14:02 Tobacco use type Cigarette 05/22/23 14:02 e-Cigarette/Vaping Use Never Used 05/22/23 14:02 Thrive Assessment: Date of Thrive Assessment Date Thrive assessed 08/07/22 05/22/23 14:02 Const General: alert; No acute distress Eyes Conjunctivae: conjunctivae normal Resp Auscultation: clear to auscultation bilaterally Cardio Rate: regular rate Rhythm: regular rhythm GI Inspection: Yes normal to inspection Extrem General: Yes normal to inspection and No edema Office Procedures Flu Questionnaire Does the patient have a severe egg allergy?: No Does the patient have severe life threatening allergies?: No Does the patient have a fever or illness today?: No Has the patient ever had Guillain-[place] Syndrome?: No Has the patient ever had any past reaction to a flu shot?: No Results AMB Hemoglobin A1c AMB Hemoglobin A1c 6.2 % Last Edit by FANTA Mariee on 05/22/23 14:21 Immunizations flu vacc [id number] 6mos up(PF) 60 mcg(15 mcgx4)/0.5 mL IM syringe Performing Provider: Zahida King MD Performing Location: [facility] Administered by: FANTA Mariee on 05/22/23 14:20 Dose Route Admin Location Dispensed Lot Number Expiration Date NDC Internal Consultant 0.5 mL IM Left Deltoid 0.5 mL [id number] 01/18/24 [id number] [employer] VIS Given Date VIS Provided VIS Publication Date 05/22/23 Single Vaccine 21 Eligibility Eligibility Date Funding Source Not VFC Eligible 05/22/23 Private Results Reviewed Results Reviewed: Laboratory Last Values Hgb A1c (Clinic) 6.2 % (4.0-6.0) H 05/22/23 14:20 Assessment and Plan Assessment & Plan (1) Type 2 diabetes mellitus with hyperglycemia: Comment: Dr. Hill Code(s): E11.65 - Type 2 diabetes mellitus with hyperglycemia Qualifiers: Diabetes mellitus nursing home insulin use: without intermediate school teacher use Qualified Code(s): E11.65 - Type 2 diabetes mellitus with hyperglycemia Plan: Decrease the amount of carbohydrate intake, pasta, bread, rice and potatoes are all sugar and that is aside from all the sweet stuff, remember that fruits are good but they are Sweet also. Hemoglobin A1c goal of less than 6.5 patient is taking metformin and Jardiance (2) Atherosclerotic cardiovascular disease: Code(s): I25.10 - Atherosclerotic heart disease of [place] coronary artery without angina pectoris Plan: Control the cholesterol, weight, blood pressure, diabetes (3) Hypercholesterolemia: Code(s): E78.00 - Pure hypercholesterolemia, unspecified Plan: Avoid fried foods, chicken skin, eggs, butter margarine, pastries and meat. Be it pork or beef they have a lot of cholesterol LDL goal of less than 70 and triglyceride of less than 150. Patient is on fenofibrate and rosuvastatin and Zetia January 2023 last blood work (4) Obstructive sleep apnea: Comment: cannot tolerate CPAP 02/2021 Code(s): G47.33 - Obstructive sleep apnea (adult) (pediatric) Plan: Discussed importance of sleep apnea treatment (5) Essential hypertension: Code(s): I10 - Essential (primary) hypertension Plan: Continue with blood pressure medication. Decrease salt intake and exercise patient takes lisinopril 10 mg once a day carvedilol 6.25 mg twice a day (6) Morbid obesity: Code(s): E66.01 - Morbid (severe) obesity due to excess calories Plan: Diet and exercise Orders: Orders Influenza [id number] Immunization Today Z23 - Encounter for immunization AMB Hemoglobin A1c Today E11.65 - Type 2 diabetes mellitus with hyperglycemia Coding Level of Care Code Est Pt Level 4 (54072) Diagnoses Type 2 diabetes mellitus with hyperglycemia, without long-term current use of insulin E11.65 Diabetes mellitus nursing home insulin use: without intermediate school teacher use Atherosclerotic cardiovascular disease I25.10 Hypercholesterolemia E78.00 Obstructive sleep apnea G47.33 Essential hypertension I10 Morbid obesity E66.01
[2023-05-22 14:12] VITALS: BP 130/82; PULSE 85; O2SAT 95; BMI 36.9
== END 2023-05-22 15:14 | disposition home or self-care (01) ==
PROVIDERS: PCP Internal Medicine; Visit Provider Internal Medicine
DX: Z23 Encounter for immunization (principal); E11.65 Type 2 diabetes mellitus with hyperglycemia; I25.10 Atherosclerotic heart disease of native coronary artery without angina pectoris; E66.01 Morbid (severe) obesity due to excess calories; Z68.36 Body mass index [BMI] 36.0-36.9, adult
CPT/HCPCS: 83036; 90471; 90686; 99214

== ENCOUNTER 2023-09-09 14:12 | Outpatient (AMB) | payer OTHER, SELFPAY ==
[2023-09-09 14:17] VITALS: BP 128/80; PULSE 76; O2SAT 94; BMI 36.3
--- NOTE | 2023-09-09 14:17 | MHC.PC.OV ---
Vital Signs 09/09/23 14:17 Height 5 ft 10 in Weight 253 lb BMI 36.3 BP 128/80 Blood Pressure Location Lt brachial Position Sitting Pulse 76 Pulse Source Pulse Oximeter Pulse Oximetry (%) 94 Oxygen Delivery Method Room Air Intake Visit Reasons: DM , Obesity Allergies atorvastatin [Lipitor] Allergy (Unknown, Verified 05/22/23 14:01) does not remember fenofibric acid [Fibricor] Allergy (Unknown, Verified 05/22/23 14:01) does not remember Tobacco use date assessed: 09/09/23 Dental Screening Dental Screen Date: 09/09/23 Did you have a dental visit in the last 12 months?: No Did you have a dental problem in the last 6 months where you did not have access to dental care?: No HPI DM , Obesity HPI Details 57-year-old obese male with controlled diabetes mellitus coronary artery disease hypercholesterolemia hypertension obstructive sleep apnea coming in for follow-up. Last seen in May 2023 patient is here for follow-up. [facility]- 08/05/2023 vomiting and chills , aches pain , diarrhea negative test- - x ray negative. , better now. cannot tolerate the CPAP [facility] Medical History (Updated 11/11/22 @ 13:50 by Zahida King MD) Type 2 diabetes mellitus with unspecified complications Morbid obesity Abdominal pain, chronic, bilateral lower quadrant Carpal tunnel syndrome Spondylosis of lumbar spine Spondylosis of cervical spine Type 2 diabetes mellitus Essential hypertension Atherosclerotic cardiovascular disease Dislocation of ring finger [place]-Schlatter's disease of both knees Depression Degenerative disc disease CAD (coronary artery disease) Obstructive sleep apnea Vitamin D deficiency Erectile dysfunction GERD (gastroesophageal reflux disease) Hypercholesterolemia Obesity (BMI 30-39.9) Carpal tunnel syndrome on both sides Surgical History (Updated 09/09/23 @ 14:21 by Zahida King MD) Stented coronary artery History of surgery History of vasectomy History of nasal surgery Family History Father Myocardial infarction Mother Myocardial infarction Social History Housing: House Alcohol intake: never Patient Tobacco Use Status: Former Tobacco user Quit Date: 2004 Tobacco use type: Cigarette e-Cigarette/Vaping Use: Never Used Second Hand Smoke Exposure: No service: No Current occupational status: employed Current occupational exposures/hazards: No Cognitive needs: No Hearing needs: No Vision needs: Yes Questionnaire Thrive Questionnaire Date Thrive assessed: 08/07/22 AUDIT C Alcohol Use Questionnaire (AUDIT-C) 1. How often do you have a drink containing alcohol?: Never 2. How many drinks containing alcohol do you have on a typical day when you are drinking?: 1 or 2 (0) 3. How often do you have six or more drinks on one occasion?: Never Total Score: 0 FLORENCIA-7 AMB Questionnaire FLORENCIA-7 Date FLORENCIA - 7 assessed: 08/07/22 Source: Developed by Drs. Blaise Lake, Vicki Hebert, Yordy Barnes and colleagues, with an educational kelsi from [employer]. Physical exam (Primary Care) Vital Signs: Last Vital Signs Pulse 76 09/09/23 14:17 BP 128/80 09/09/23 14:17 Pulse Ox 94 09/09/23 14:17 Oxygen Delivery Method Room Air 09/09/23 14:17 BMI result Body Mass Index 36.3 Tobacco/Smoking Status: Tobacco use Status Tobacco use date assessed 09/09/23 09/09/23 14:22 Patient Tobacco Use Status Former Tobacco user 09/09/23 14:22 Tobacco use type Cigarette 09/09/23 14:22 e-Cigarette/Vaping Use Never Used 09/09/23 14:22 Thrive Assessment: Date of Thrive Assessment Date Thrive assessed 08/07/22 09/09/23 14:22 Const General: alert; No acute distress Eyes Conjunctivae: conjunctivae normal Resp Auscultation: clear to auscultation bilaterally Cardio Rate: regular rate Rhythm: regular rhythm GI Inspection: Yes normal to inspection Extrem General: Yes normal to inspection and No edema Results AMB Hemoglobin A1c AMB Hemoglobin A1c 6.5 % Last Edit by FANTA Niño on 09/09/23 14:26 Immunizations Boostrix Tdap 2.5 Lf unit-8 mcg-5 Lf/0.5 mL intramuscular syringe Performing Provider: Zahida King MD Performing Location: 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 Hill Code(s): E11.65 - Type 2 diabetes mellitus with hyperglycemia Qualifiers: Diabetes mellitus senior living insulin use: without terminal clerk use Qualified Code(s): E11.65 - Type 2 diabetes mellitus with hyperglycemia Plan: Decrease the amount of carbohydrate intake, pasta, bread, rice and potatoes are all sugar and that is aside from all the sweet stuff, remember that fruits are good but they are Sweet also. Hemoglobin A1c goal of less than 6.5. Patient is on Jardiance 10 mg once a day metformin 500 mg twice a day (2) Hypercholesterolemia: Code(s): E78.00 - Pure hypercholesterolemia, unspecified Plan: Avoid fried foods, chicken skin, eggs, butter margarine, pastries and meat. Be it pork or beef they have a lot of cholesterol LDL goal of less than 70 and triglyceride of less than 150 on rosuvastatin 40 mg once a day fenofibrate 160 mg once a day and Zetia 10 mg once a day (3) CAD (coronary artery disease): Comment: RCA stent 05/2019 Code(s): I25.10 - Atherosclerotic heart disease of eagle coronary artery without angina pectoris Qualifiers: Associated angina: without angina Coronary Disease-Associated Artery/Lesion type: eagle artery [place] vs. transplanted heart: eagle heart Qualified Code(s): I25.10 - Atherosclerotic heart disease of eagle coronary artery without angina pectoris Plan: Control the cholesterol, weight, blood pressure, diabetes continue with aspirin 81 mg once a day (4) GERD (gastroesophageal reflux disease): Code(s): K21.9 - Gastro-esophageal reflux disease without esophagitis Plan: Avoid the foods that causes that usually spicy foods, tomato products, juices, coffee, soda and foods that your sensitive to. After eating do not lie down, allow 3-4 hours before in lie down. And keep the head of bed above 30 degrees to avoid the acid from going up. Orders: Orders TDaP Immunization Today Z23 - Encounter for immunization AMB Hemoglobin A1c Today E11.65 - Type 2 diabetes mellitus with hyperglycemia Medications: Changed From empagliflozin (Jardiance) 10 mg PO DAILY 90 days 90 tabs 3RF E11.8 - Type 2 diabetes mellitus with unspecified complications To empagliflozin 25 mg PO DAILY 90 tabs 3RF 90 days E11.8 - Type 2 diabetes mellitus with unspecified complications Coding Level of Care Code Est Pt Level 4 (38257) Diagnoses Type 2 diabetes mellitus with hyperglycemia, without long-term current use of insulin E11.65 Diabetes mellitus senior living insulin use: without terminal clerk use Hypercholesterolemia E78.00 Coronary artery disease involving eagle coronary artery of eagle heart without angina pectoris I25.10 Associated angina: without angina Coronary Disease-Associated Artery/Lesion type: eagle artery [place] vs. transplanted heart: eagle heart GERD (gastroesophageal reflux disease) K21.9
== END 2023-09-09 14:52 | disposition home or self-care (01) ==
PROVIDERS: PCP Internal Medicine; Visit Provider Internal Medicine
DX: E11.65 Type 2 diabetes mellitus with hyperglycemia (principal); E78.00 Pure hypercholesterolemia, unspecified; I25.10 Atherosclerotic heart disease of native coronary artery without angina pectoris; K21.9 Gastro-esophageal reflux disease without esophagitis; Z23 Encounter for immunization
CPT/HCPCS: 83036; 90471; 90715; 99214

== ENCOUNTER 2023-12-11 14:38 | Outpatient (AMB) | payer OTHER, SELFPAY ==
[2023-12-11 14:40] VITALS: BP 122/74; PULSE 87; O2SAT 98; BMI 37.4
--- NOTE | 2023-12-11 14:40 | A.OFFPC_ITS ---
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 Noted weight gain again 8 lb,scolded with the weight gain. [facility] Medical History (Updated 11/11/22 @ 13:50 by Zahida King MD) Type 2 diabetes mellitus with unspecified complications Morbid obesity Abdominal pain, chronic, bilateral lower quadrant Carpal tunnel syndrome Spondylosis of lumbar spine Spondylosis of cervical spine Type 2 diabetes mellitus Essential hypertension Atherosclerotic cardiovascular disease Dislocation of ring finger [place]-Schlatter's disease of both knees Depression Degenerative disc disease CAD (coronary artery disease) Obstructive sleep apnea Vitamin D deficiency Erectile dysfunction GERD (gastroesophageal reflux disease) Hypercholesterolemia Obesity (BMI 30-39.9) Carpal tunnel syndrome on both sides Surgical History (Updated 09/09/23 @ 14:21 by Zahida King MD) Stented coronary artery History of surgery History of vasectomy History of nasal surgery Family History Father Myocardial infarction Mother Myocardial infarction Social History Housing: House Alcohol intake: never Patient Tobacco Use Status: Former Tobacco user Quit Date: quit 2004 Tobacco use type: Cigarette e-Cigarette/Vaping Use: Never Used Second Hand Smoke Exposure: No service: No Current occupational status: employed Current occupational exposures/hazards: No Cognitive needs: No Hearing needs: No Vision needs: Yes Questionnaire PHQ-9 Over the last 2 weeks, how often have you been bothered by any of the following problems? 1. Little interest or pleasure in doing things: nearly every day 2. Feeling down, depressed, or hopeless: nearly every day 3. Trouble falling or staying asleep, or sleeping too much: not at all 4. Feeling tired or having little energy: not at all 5. Poor appetite or overeating: not at all 6. Feeling bad about yourself - or that you are a failure or have let yourself or your family down: not at all 7. Trouble concentrating on things, such as reading the newspaper or watching television: not at all 8. Moving or speaking so slowly that other people could have noticed. Or the opposite - being so fidgety or restless that you have been moving around a lot more than usual: not at all 9. Thoughts that you would be better off or of hurting yourself in some way: not at all Total score: 6 Depression Screening Interpretation: Positive Depression Screening Done: Yes Source: Developed by Drs. Blaise Lake, Vicki Hebert, Yordy Barnes and colleagues, with an educational kelsi from [employer]. Thrive Questionnaire Date Thrive assessed: 12/11/23 AUDIT C Alcohol Use Questionnaire (AUDIT-C) 1. How often do you have a drink containing alcohol?: Never 2. How many drinks containing alcohol do you have on a typical day when you are drinking?: 1 or 2 (0) 3. How often do you have six or more drinks on one occasion?: Never Total Score: 0 FLORENCIA-7 AMB Questionnaire FLORENCIA-7 Date FLORENCIA - 7 assessed: 12/11/23 Feeling nervous, anxious, or on edge: 0 = Not at all Not being able to stop or control worryin = Not at all Worrying too much about different things: 0 = Not at all Trouble relaxin = Not at all Being so restless that it is hard to sit still: 0 = Not at all Becoming easily annoyed or irritable: 0 = Not at all Feeling afraid as if something awful might happen: 0 = Not at all Total FLORENCIA-7 score (0-4 normal; 5-9 mild; 10-14 moderate; 15-21 severe): 0 Source: Developed by Drs. Blaise Lake, Yordy Bolanos and colleagues, with an educational kelsi from [employer]. FLORENCIA-7 Assessment Billing FLORENCIA-7 Assessment Tool: FLORENCIA-7 Assessment 94799 Physical exam (Primary Care) Vital Signs: Last Vital Signs Pulse 87 12/11/23 14:40 BP 122/74 12/11/23 14:40 Pulse Ox 98 12/11/23 14:40 Oxygen Delivery Method Room Air 12/11/23 14:40 BMI result Body Mass Index 37.4 Tobacco/Smoking Status: Tobacco use Status Tobacco use date assessed 12/11/23 12/11/23 14:41 Patient Tobacco Use Status Former Tobacco user 12/11/23 14:41 Tobacco use type Cigarette 12/11/23 14:41 e-Cigarette/Vaping Use Never Used 12/11/23 14:41 PHQ-9: PHQ-9 Score PHQ-9: Total score 6 12/11/23 15:15 Depression Screening Interpretation: Positive Thrive Assessment: Date of Thrive Assessment Date Thrive assessed 12/11/23 12/11/23 14:41 Const General: alert; No acute distress Eyes Conjunctivae: conjunctivae normal Resp Auscultation: clear to auscultation bilaterally Cardio Rate: regular rate Rhythm: regular rhythm GI Inspection: Yes normal to inspection Extrem General: Yes normal to inspection and No edema Results AMB Hemoglobin A1c AMB Hemoglobin A1c 6.1 % Last Edit by FANTA Niño on 12/11/23 14:53 Results Reviewed Results Reviewed: Laboratory Last Values Hgb A1c (Clinic) 6.1 % (4.0-6.0) H 12/11/23 13:51 Assessment and Plan Assessment & Plan Orders: Orders Complete Blood Count Auto Diff 3 Months I25.10 - Atherosclerotic heart disease of [place] coronary artery without angina pectoris Free T4 (Free Thyroxine) 3 Months I25.10 - Atherosclerotic heart disease of [place] coronary artery without angina pectoris Thyroid Stimulating Hormone 3 Months I25.10 - Atherosclerotic heart disease of [place] coronary artery without angina pectoris Prostate Specific Antigen Scr 3 Months I25.10 - Atherosclerotic heart disease of [place] coronary artery without angina pectoris Hemoglobin A1c 3 Months I25.10 - Atherosclerotic heart disease of [place] coronary artery without angina pectoris AMB Hemoglobin A1c Today E11.65 - Type 2 diabetes mellitus with hyperglycemia Comprehensive Met. Panel 3 Months I25.10 - Atherosclerotic heart disease of [place] coronary artery without angina pectoris Vitamin B12 and Folate 3 Months I25.10 - Atherosclerotic heart disease of [place] coronary artery without angina pectoris Lipid Panel 3 Months E78.00 - Pure hypercholesterolemia, unspecified, I25.10 - Atherosclerotic heart disease of [place] coronary artery without angina pectoris Coding Level of Care Code Est Pt Level 4 (14209) Additional Codes FLORENCIA-7 Assessment Billing - FLORENCIA-7 Assessment Tool: FLORENCIA-7 Assessment [id number] ([id number])
== END 2023-12-11 15:29 | disposition home or self-care (01) ==
PROVIDERS: PCP Internal Medicine; Visit Provider Internal Medicine
DX: E11.65 Type 2 diabetes mellitus with hyperglycemia (principal)
CPT/HCPCS: 83036; 99214

== ENCOUNTER 2024-02-03 09:13 | Outpatient (REF) | payer OTHER, SELFPAY ==
[2024-02-03 10:18] LABS: MANUAL DIFF FLAG NO
[2024-02-03 10:26] LABS: Basophils Percent Auto 0.4 % (0-2); Eosinophils Absolute Auto 0.4 X10*3/uL (0.0-0.4); Eosinophils Percent Auto 5.4 % (0-4); Hematocrit 46.5 % (42.0-52.0); Hemoglobin 15.5 g/dl (14.0-18.0); Imm Gran Abs Auto 0.01 X10*3/uL (0.00-0.03); Imm Gran Pct Auto 0.1 % (0.0-0.4); Lymphocytes Absolute Auto 2.4 X10*3/uL (1.2-4.9); Lymphocytes Percent Auto 33.3 % (20-40); Mean Corpuscular HGB Conc 33.3 g/dl (31.0-36.0); Mean Corpuscular Hemoglobin 28.5 pg (27.0-33.0); Mean Corpuscular Volume 85.6 fL (80.0-98.0); Mean Platelet Volume 11.2 fL (9.4-12.4); Monocytes Absolute Auto 0.7 X10*3/uL (0.1-1.2); Neutrophils Absolute Auto 3.6 x10*3/uL (2.0-8.3); Neutrophils Percent Auto 50.8 % (45-73); Platelet Count 203 X10*3/uL (160-400); Red Blood Count 5.43 X10*6/uL (4.60-5.80); White Blood Count 7.2 X10*3/uL (4.8-10.8)
[2024-02-03 10:36] LABS: Estimated Average Glucose 131 mg/dL; Hemoglobin A1c % 6.2 % (<6.0)
[2024-02-03 10:44] LABS: Alanine Aminotransferase 35 U/L (0-40); Albumin Level 4.4 g/dL (3.5-5.0); Alkaline Phosphatase 60 U/L (39-117); Anion Gap 14 (12-20); Aspartate Amino Transferase 21 U/L (5-37); Bilirubin Total 0.4 mg/dL (0.0-1.0); Blood Urea Nitrogen 16 mg/dL (9-16); Calcium 9.8 mg/dL (8.4-10.2); Carbon Dioxide 24 mmol/L (22-29); Chloride 106 mmol/L (96-108); Cholesterol 117 mg/dL (<200); Estimated Glomerular Filt Rate > 60; Glucose Random 118 mg/dL (60-115); HDL Cholesterol 34 mg/dL (>40); LDL Cholesterol Calculated 56 mg/dL (<100); Potassium 4.2 mmol/L (3.3-5.1); Sodium 140 mmol/L (135-145); Total Protein 7.2 g/dL (6.5-8.0); Triglycerides 137 mg/dL (<150)
[2024-02-03 10:54] LABS: Alanine Aminotransferase 35 U/L (0-40); Albumin Level 4.4 g/dL (3.5-5.0); Alkaline Phosphatase 61 U/L (39-117); Aspartate Amino Transferase 20 U/L (5-37); Bilirubin Direct 0.1 mg/dL (0.0-0.5); Bilirubin Total 0.4 mg/dL (0.0-1.0); Blood Urea Nitrogen 16 mg/dL (9-16); Estimated Glomerular Filt Rate > 60; Lipase 22 U/L (8-78); Total Protein 7.1 g/dL (6.5-8.0)
[2024-02-03 11:06] LABS: Free T4 (Free Thyroxine) 0.77 ng/dL (0.71-1.85); Thyroid Stimulating Hormone 1.88 uIU/mL (0.32-4.0)
[2024-02-03 11:22] LABS: Folate 8.8 ng/mL (> or = 4.0); Prostate Specific Antigen Scr 0.31 ng/mL (<0.05-4.0); Vitamin B12 373 pg/mL (200-900)
== END 2024-02-03 09:14 | disposition home or self-care (01) ==
LOC: HO.10HDL 09:13
PROVIDERS: Referring Provider Internal Medicine Gastroenterology; Visit Provider Internal Medicine
DX: I25.10 Atherosclerotic heart disease of native coronary artery without angina pectoris (principal); E78.00 Pure hypercholesterolemia, unspecified
CPT/HCPCS: 36415; 80053; 80061; 80076; 82565; 82607; 82746; 83036; 83690; 84153; 84439; 84443; 84520; 85025

== ENCOUNTER 2024-02-12 12:54 | Outpatient (AMB) | payer OTHER, SELFPAY ==
--- NOTE | 2024-02-12 12:55 | MHC.OFFVIS ---
Vital Signs 02/12/24 12:56 Height 5 ft 10 in Weight 256 lb 2.834 oz BMI 36.8 BP 116/80 Blood Pressure Location Lt brachial Position Sitting Pulse 74 Intake Visit Reasons: 1 yr f/up Delivery Driver Required: No Accompanied by: Spouse Allergies atorvastatin [Lipitor] Allergy (Unknown, Verified 12/11/23 14:45) does not remember fenofibric acid [Fibricor] Allergy (Unknown, Verified 12/11/23 14:45) does not remember Medication List - Last Reconciled 02/12/24 by Ray Calzada MD acetaminophen (Tylenol Extra Strength) 1,000 mg PO Q6H PRN aspirin (Adult Aspirin Regimen) 81 mg PO DAILY cane As directed carvedilol 6.25 mg PO BID 90 days dicyclomine 20 mg (2 x 10 mg) PO TID empagliflozin 25 mg PO DAILY 90 days ezetimibe (Zetia) 10 mg PO DAILY fenofibrate 160 mg PO DAILY 90 days lisinopril 10 mg PO DAILY meloxicam 15 mg PO DAILY 90 days metformin 500 mg PO BID 90 days nitroglycerin 0.4 mg sublingual Q5M PRN omeprazole 40 mg PO DAILY rosuvastatin 40 mg PO DAILY 90 days HPI Comments Details: Blaise returns for follow-up regarding coronary disease. Overall, no major concerns. He does get some shortness of breath off and on but he believes it is because of obesity and deconditioning. He really never exercises much. Otherwise, he also has obstructive sleep apnea and does not use CPAP. [facility] Medical History (Updated 11/11/22 @ 13:50 by Zahida King MD) Type 2 diabetes mellitus with unspecified complications Morbid obesity Abdominal pain, chronic, bilateral lower quadrant Carpal tunnel syndrome Spondylosis of lumbar spine Spondylosis of cervical spine Type 2 diabetes mellitus Essential hypertension Atherosclerotic cardiovascular disease Dislocation of ring finger [place]-Schlatter's disease of both knees Depression Degenerative disc disease CAD (coronary artery disease) Obstructive sleep apnea Vitamin D deficiency Erectile dysfunction GERD (gastroesophageal reflux disease) Hypercholesterolemia Obesity (BMI 30-39.9) Carpal tunnel syndrome on both sides Surgical History Stented coronary artery History of surgery History of vasectomy History of nasal surgery Family History Father Myocardial infarction Mother Myocardial infarction Social History Housing: House Alcohol intake: never Patient Tobacco Use Status: Former Tobacco user Tobacco use type: Cigarette e-Cigarette/Vaping Use: Never Used Second Hand Smoke Exposure: No service: No Current occupational status: employed Current occupational exposures/hazards: No Cognitive needs: No Hearing needs: No Vision needs: Yes Review of Systems Const Denies chills, Denies fever(s), Denies weight gain and Denies weight loss ENT Denies dizziness Card Denies chest pain, Denies leg edema, Denies lightheadedness, Denies palpitations, Reports dyspnea on exertion, Denies orthopnea and Denies other Resp Denies cough and Reports dyspnea on exertion GI Denies hematochezia and Denies change in stool character Musc Denies abnormal gait, Denies muscle weakness, Denies numbness, Denies radiating pain into limb and Denies tingling Neuro Denies abnormal gait, Denies dizziness, Denies numbness and Denies tingling Endo Denies palpitations Physical Exam Vital Signs: Last Vital Signs Pulse 74 02/12/24 12:56 BP 116/80 02/12/24 12:56 BMI result Body Mass Index 36.8 Const General: comfortable and no acute distress Orientation/consciousness: patient oriented x3 HEENT Other: Unremarkable Head: Yes normal to inspection Neck Neck: Yes normal visual inspection Chest Chest palpation & inspection: normal inspection of the chest Resp Auscultation: clear to auscultation bilaterally Cardio Palpation: normal PMI Heart sounds: S1 normal heart sound present, S2 normal heart sound present, no gallops, no murmurs and no rubs GI Palpation (GI): Soft to palpation Back/Spine/Pelvis Other: unremarkable Skin General skin exam: no rashes or lesions noted Neuro General: patient oriented x3 Extrem General: Yes normal to inspection Psych Mental Status: mental status grossly normal Office Procedures EKG Details: EKG with sinus rhythm at 74/Min; no significant ST-T changes; normal [place] corrected [place]. [place]. [id number], Complete Assessment & Plan Assessment & Plan (1) Atherosclerotic cardiovascular disease: Code(s): I25.10 - Atherosclerotic heart disease of [place] coronary artery without angina pectoris Category: Medical (2) Stented coronary artery: Code(s): Z95.5 - Presence of coronary angioplasty implant and graft Category: Surgical (3) Other and unspecified hyperlipidemia: Code(s): E78.5 - Hyperlipidemia, unspecified Category: Medical (4) Essential hypertension: Code(s): I10 - Essential (primary) hypertension Category: Medical (5) Type 2 diabetes mellitus with unspecified complications: Code(s): E11.8 - Type 2 diabetes mellitus with unspecified complications Category: Medical (6) Obstructive sleep apnea: Comment: cannot tolerate CPAP 02/2021 Code(s): G47.33 - Obstructive sleep apnea (adult) (pediatric) Category: Medical Plan Cardiac studies reviewed. In the past, myocardial perfusion imaging study showed basal and mid inferior wall ischemia in the right coronary artery territory. Cardiac catheterization showed 90% stenosis in the mid right coronary artery, stented with drug-eluting stent. No significant disease elsewhere. Overall, stable coronary disease. Long-term aspirin. Continue Coreg and lisinopril and blood pressure seems stable. For diabetes, on metformin. Hemoglobin A1c is 6.2%. He is on statins. LDL is 56 mg/dL. With regard to question of shortness of breath, probably all from deconditioning and obesity. We will check an echocardiogram but doubt cardiomyopathy. With regard to untreated LALI, consequences discussed. Recommend a repeat home sleep study and may refer back to sleep Medicine. Orders: Orders CA echo transthoracic complete Today I25.10 - Atherosclerotic heart disease of crow coronary artery without angina pectoris RT home sleep study Today G47.33 - Obstructive sleep apnea (adult) (pediatric) Coding Level of Care Code Est Pt Level 4 (52398) Diagnoses Atherosclerotic cardiovascular disease I25.10 Stented coronary artery Z95.5 Other and unspecified hyperlipidemia E78.5 Essential hypertension I10 Type 2 diabetes mellitus with unspecified complications E11.8 Obstructive sleep apnea G47.33 CPT Codes EKG - CPT: 10907-[id number], Complete ([id number])
[2024-02-12 12:56] VITALS: BP 116/80; PULSE 74; BMI 36.8
== END 2024-02-12 13:24 | disposition home or self-care (01) ==
PROVIDERS: PCP Internal Medicine; Visit Provider Internal Medicine
DX: I25.10 Atherosclerotic heart disease of native coronary artery without angina pectoris (principal); Z95.5 Presence of coronary angioplasty implant and graft; E78.5 Hyperlipidemia, unspecified; I10 Essential (primary) hypertension; E11.8 Type 2 diabetes mellitus with unspecified complications; G47.33 Obstructive sleep apnea (adult) (pediatric)
CPT/HCPCS: 93010; 99214

== ENCOUNTER → 2024-02-12 12:54 | Outpatient (BNVA) | payer OTHER, SELFPAY | PROVIDERS: PCP Internal Medicine; Visit Provider Internal Medicine | DX: I25.10 Atherosclerotic heart disease of native coronary artery without angina pectoris (principal); I10 Essential (primary) hypertension; I49.3 Ventricular premature depolarization; E11.8 Type 2 diabetes mellitus with unspecified complications; E78.5 Hyperlipidemia, unspecified; G47.33 Obstructive sleep apnea (adult) (pediatric); Z95.5 Presence of coronary angioplasty implant and graft | CPT/HCPCS: 93005; 99212 ==

== ENCOUNTER → 2024-03-10 09:50 | Outpatient (REF) | payer OTHER, SELFPAY ==
--- NOTE | 2024-03-10 09:55 | CA_ITS ---
Transthoracic Echocardiogram Patient (Last, First, Middle): Blaise Nagel W Gender: Male Date of : 1965 Age: 58 Procedure Date: 03/10/2024 Procedure Type: Transthoracic Echocardiogram Location: OP Height: 177.8 cm Weight: 117.94 kg BSA: 2.33 m2 Heart Rate: bpm BP: 134 / 90 mmHg Electrician Helper: RAMY Referring MD: Ray Calzada MD Transporter Driver: Rodriguez Jacobs MD Symptoms: I25.10 - Atherosclerotic heart disease of [place] coronary artery without... Study Quality: Fair, contrast ECG Rhythm: Sinus Conclusions: - 1. Normal LV ejection fraction of 60-65% with impaired relaxation filling pattern 2. Normal cardiac valvular Dopplers Findings Procedure Information Contrast agent, definity, is being given per protocol without apparent complications. Left Ventricle Normal left ventricular size, thickness, and systolic function. The visually estimated ejection fraction is between 60-65%. Spectral Doppler is indicative of an impaired relaxation filling pattern. E/E prime ratio is between 8 and 15 consistent with indeterminate filling pressures. Right Ventricle The right ventricle was not well visualized. Atria The left atrium is normal in size. Interatrial shunt cannot be excluded. The right atrium was not well visualized. Aortic Valve Normal aortic valve structure and function. There is no aortic valve stenosis. There is no aortic valve regurgitation. Mitral Valve Likely normal mitral valve structure and function. There is no mitral valve regurgitation. There is no mitral valve stenosis. Pulmonic Valve The pulmonic valve was not well visualized. Tricuspid Valve The tricuspid valve was not well visualized. The right ventricular systolic pressure is normal. Normal right atrial pressure. There is no evidence of pulmonary hypertension. Great Vessels The aorta was not well visualized. The pulmonary artery was not well visualized. Venous The inferior vena cava is normal in size. Pericardium/Pleural The pericardium was not well visualized. Prior Study Comparison No significant change compared to prior study dated: 05/28/2019. Measurements 2D Linear Measurements IVSd: 0.86 0.6-0.9/0.6-1.0 cm LVIDd: 4.51 3.9-5.3/4.2-5.9 cm LVIDd Index: 1.94 2.4-3.2/2.2-3.1 cm/m2 LVIDs: 2.98 2.0-3.6 cm LVPWd: 0.99 0.7-1.1 cm LA Diam: 3.60 2.7-3.8/3.0-4.0 cm LAIDs Index: 1.55 1.5-2.3 cm/m2 LV Mass: 172.02 67-162/88-224 g LV Mass Index: 73.83 43-95/49-115 g/m2 LVOT Diam: 2.30 3.0+(-)1.3 cm 2D Systolic Function EF 4C: 57.10 >55% EF 2C: 65.00 >55% EF BiP: 62.50 >55% Mitral Valve MV Pk E: 0.50 MV PK A: 0.79 MV Decel Time: 239.00 E/A: 0.60 E'Lateral: 11.00 E'Medial: 5.44 E/E' Med: 9.20 E/E' Lat: 4.60 PHT: 70.00 MVA PHT: 3.14 Decel Pratt: 2.10 Aortic Valve AoV Pk Kostas: 1.26 AoV Mn Kostas: 0.86 AoV VTI: 0.27 AoV Pk Grad: 6.00 Aov Mn Grad: 3.00 SURINDER Cont.VTI: 2.86 LVOT LVOT Pk Kostas: 0.88 LVOT Mn Kostas: 0.58 LVOT VTI: 0.19 LVOT Pk Grad: 3.00 LVOT Mn Grad: 2.00 LVOT Diam: 2.30 LVOT Area: 4.15 Diastolic Function MV Pk E: 0.50 MV Pk A: 0.79 E/A: 0.60 E'Medial: 5.44 E/E' Med: 9.20 E' Laterial: 11.00 E/E' Lat: 4.60 Right Ventricle TAPSE (mm): 19.30 TVS' Kostas: 12.40 Tricuspid Valve TR Pk Kostas: 1.76 TR Pk Grad: 12.00 RA Press: 3.00 RVSP: 15.00 Great Vessels Aorta Sinus of Valsalva: 3.94 2.0-3.[address] [place]: 2.70 1.7-3.4 cm Ao Asc: 3.50 2.1-3.4 cm Updated in Other Vendor System with Status of Final Rodriguez Jacobs MD electronically signed on 03/10/2024 1:14:27 PM with status of Final
== END ==
LOC: HO.CARD 09:50
PROVIDERS: PCP Internal Medicine; Visit Provider Internal Medicine
DX: I25.10 Atherosclerotic heart disease of native coronary artery without angina pectoris (principal)
CPT/HCPCS: 93306; Q9957

== ENCOUNTER → 2024-03-10 09:55 | Outpatient (BNV) | payer OTHER, SELFPAY | PROVIDERS: PCP Internal Medicine; Visit Provider Internal Medicine Cardiovascular Disease | DX: I25.10 Atherosclerotic heart disease of native coronary artery without angina pectoris (principal) | CPT/HCPCS: 93306 ==

== ENCOUNTER 2024-04-02 06:01 | Outpatient (REF) | payer OTHER, SELFPAY ==
--- NOTE | ~2024-04-02 | CT_ITS ---
EXAMINATION: CT ABDOMEN AND PELVIS WITH CONTRAST CLINICAL INFORMATION: Abdominal pain. COMPARISON: CT abdomen/pelvis 11/13/2021. TECHNIQUE: Multidetector volumetric images were obtained from the superior aspect of the liver through the pubic symphysis following administration 85 mL of Omnipaque 350 intravenous contrast. Sagittal and coronal reformatted images were obtained on the technologist's workstation. Oral contrast: No This CT examination was performed using dose optimization techniques as appropriate, variously including the following: *Automated exposure control *Adjustment of mA and/or kV according to patient size (this includes techniques or standardized protocols for targeted exams where dose is matched to indication/reason for exam; i.e. extremities or head) *Use of iterative reconstruction technique DLP: 631 mGy-cm FINDINGS: LUNG BASES: No focal consolidation or pleural effusion. LIVER, GALLBLADDER, AND BILIARY TREE: Enlarged liver measuring 20 cm craniocaudally with decreased parenchymal attenuation most consistent with hepatic steatosis. There is a 2.5 cm simple fluid attenuating cyst in the inferior right hepatic lobe (3:35), otherwise no focal liver lesion. No biliary ductal dilatation is present. Gallbladder calculi layering in the neck. No evidence of gallbladder wall thickening or pericholecystic inflammatory changes to suspect acute cholecystitis. PANCREAS: Unremarkable. SPLEEN: Unremarkable. ADRENAL GLANDS: Unremarkable. KIDNEYS AND URETERS: Multiple bilateral simple appearing cortical cysts, as well as multiple bilateral too small to characterize cortical hypodensities. No enhancing renal mass. Symmetric nephrograms. No nephrolithiasis. No hydronephrosis. No perinephric fat stranding. BLADDER: Unremarkable. GASTROINTESTINAL TRACT: The stomach and the small bowel are nondilated. Normal appendix. Colonic diverticulosis is without significant pericolonic inflammatory changes. No evidence of bowel obstruction. ABDOMINAL WALL: Small fat-containing umbilical hernia. LYMPH NODES: No lymphadenopathy. VASCULAR: Severe atherosclerotic disease. Normal caliber of the abdominal aorta. PELVIC VISCERA: Unremarkable. OSSEOUS STRUCTURES: No acute or aggressive appearing osseous findings. CT/CT abdomen pelvis w IV con IMPRESSION: 1. Hepatomegaly and hepatic steatosis. 2. Cholelithiasis but no evidence of acute cholecystitis. 3. Diverticulosis but no evidence of acute diverticulitis. 4. Small fat containing umbilical hernia. Electronically signed by: Yue Tolentino MD 04/02/2024 11:23 AM EDT
[2024-04-02] MEDS: Barium Sulfate Oral (Berry) 450 ML ORAL.SUSP PO (08:46)
[2024-04-02] MEDS: iohexoL 350 MG/ML 100 ML INFUS..BTL 85 ML IV (08:46)
[2024-04-05 08:11] LABS: GFR POC > 60
== END 2024-04-02 06:02 | disposition home or self-care (01) ==
LOC: HO.CT 06:01
PROVIDERS: PCP Internal Medicine; Visit Provider Internal Medicine Gastroenterology
DX: R10.84 Generalized abdominal pain (principal)
CPT/HCPCS: 74177; 82565; Q9967

== ENCOUNTER → 2024-04-05 09:04 | Outpatient (REF) | payer OTHER, SELFPAY | LOC: HO.SL 09:04 | PROVIDERS: PCP Internal Medicine; Visit Provider Internal Medicine | DX: G47.33 Obstructive sleep apnea (adult) (pediatric) (principal) | CPT/HCPCS: 95806 ==

== ENCOUNTER → 2024-04-07 09:47 | Outpatient (BNV) | payer OTHER, SELFPAY | PROVIDERS: PCP Internal Medicine; Visit Provider Psychiatry & Neurology Neurology | DX: G47.33 Obstructive sleep apnea (adult) (pediatric) (principal) | CPT/HCPCS: 95806 ==

== ENCOUNTER 2024-04-27 14:25 | Outpatient (AMB) | payer OTHER, SELFPAY ==
--- NOTE | 2024-04-27 14:36 | MHC.PC.OV ---
Vital Signs 04/27/24 14:37 Height 5 ft 10 in Weight 256 lb 4 oz BMI 36.8 BP 120/76 Blood Pressure Location Lt brachial Position Sitting Pulse 84 Pulse Source Pulse Oximeter Pulse Oximetry (%) 94 Oxygen Delivery Method Room Air Intake Visit Reasons: 3 MON FUP- NEEDS REPEAT PHQ9 Intake Note: Patient is here to follow up on DM, IBS, HTN. Hardwood Finisher Required: No Cigarette Paper Tester: Not Required per policy Accompanied by: Self / Same As Patient Allergies atorvastatin [Lipitor] Allergy (Unknown, Verified 04/27/24 14:37) does not remember fenofibric acid [Fibricor] Allergy (Unknown, Verified 04/27/24 14:37) does not remember Tobacco use date assessed: 04/27/24 Dental Screening Dental Screen Date: 09/09/23 HPI 3 MON FUP- NEEDS REPEAT PHQ9 HPI Details 58-year-old obese male with coronary artery disease hypercholesterolemia sleep apnea with degenerative disc disease hypertension diabetes mellitus GERD coming in for follow-up. Patient is up-to-date with colonoscopy. Patient had a sleep study done in 04/09/2024 showing severe degree of obstructive sleep apnea with an AHI of 34 and hector oxygen 76% patient is advised to get CPAP titration study patient had a CT scan done of the abdomen because of abdominal pain showing hepatomegaly with spasm hepatic steatosis with cholelithiasis no evidence of cholecystitis diverticulosis and a small umbilical hernia fat containing. Patient had echocardiogram in February 2024Normal LV ejection fraction of 60-65% with impaired relaxation filling pattern 2. Normal cardiac valvular Dopplers [facility] Medical History (Updated 04/27/24 @ 15:04 by Zahida King MD) Obesity (BMI 30-39.9) Type 2 diabetes mellitus with unspecified complications Morbid obesity Abdominal pain, chronic, bilateral lower quadrant Carpal tunnel syndrome Spondylosis of lumbar spine Spondylosis of cervical spine Type 2 diabetes mellitus Essential hypertension Atherosclerotic cardiovascular disease Dislocation of ring finger [place]atter's disease of both knees Depression Degenerative disc disease CAD (coronary artery disease) Obstructive sleep apnea Vitamin D deficiency Erectile dysfunction GERD (gastroesophageal reflux disease) Hypercholesterolemia Carpal tunnel syndrome on both sides Surgical History Stented coronary artery History of surgery History of vasectomy History of nasal surgery Family History Father Myocardial infarction Mother Myocardial infarction Social History Housing: House Alcohol intake: never Patient Tobacco Use Status: Former Tobacco user Tobacco use type: Cigarette e-Cigarette/Vaping Use: Never Used Second Hand Smoke Exposure: No service: No Current occupational status: employed Current occupational exposures/hazards: No Cognitive needs: No Hearing needs: No Vision needs: Yes Questionnaire PHQ-9 Over the last 2 weeks, how often have you been bothered by any of the following problems? 1. Little interest or pleasure in doing things: not at all 2. Feeling down, depressed, or hopeless: nearly every day 3. Trouble falling or staying asleep, or sleeping too much: not at all 4. Feeling tired or having little energy: several days 5. Poor appetite or overeating: not at all 6. Feeling bad about yourself - or that you are a failure or have let yourself or your family down: not at all 7. Trouble concentrating on things, such as reading the newspaper or watching television: not at all 8. Moving or speaking so slowly that other people could have noticed. Or the opposite - being so fidgety or restless that you have been moving around a lot more than usual: not at all 9. Thoughts that you would be better off or of hurting yourself in some way: not at all Total score: 4 Depression Screening Interpretation: Positive Depression Screening Done: Yes 96825 - PHQ-9 Billing: Yes Source: Developed by Drs. Blaise Lake, Yordy Bolanos and colleagues, with an educational kelsi from [employer]. Thrive Questionnaire Date Thrive assessed: 12/11/23 Are you currently unemployed and looking for a job?: I choose not to answer this question FLORENCIA-7 AMB Questionnaire FLORENCIA-7 Date FLORENCIA - 7 assessed: 12/11/23 Source: Developed by Drs. Blaise Lake, Yordy Bolanos and colleagues, with an educational kelsi from [employer]. Physical exam (Primary Care) Vital Signs: Last Vital Signs Pulse 84 04/27/24 14:37 BP 120/76 04/27/24 14:37 Pulse Ox 94 04/27/24 14:37 Oxygen Delivery Method Room Air 04/27/24 14:37 BMI result Body Mass Index 36.8 Tobacco/Smoking Status: Tobacco use Status Tobacco use date assessed 04/27/24 04/27/24 14:45 Patient Tobacco Use Status Former Tobacco user 04/27/24 14:45 Tobacco use type Cigarette 04/27/24 14:45 e-Cigarette/Vaping Use Never Used 04/27/24 14:45 PHQ-9: PHQ-9 Score PHQ-9: Total score 4 04/27/24 14:52 Depression Screening Interpretation: Positive Thrive Assessment: Date of Thrive Assessment Date Thrive assessed 12/11/23 04/27/24 14:45 Const General: alert; No acute distress Eyes Conjunctivae: conjunctivae normal Resp Auscultation: clear to auscultation bilaterally Cardio Rate: regular rate Rhythm: regular rhythm GI Inspection: Yes normal to inspection Extrem General: Yes normal to inspection and No edema Office Procedures Flu Questionnaire Does the patient have a severe egg allergy?: No Does the patient have severe life threatening allergies?: No Does the patient have a fever or illness today?: No Has the patient ever had Guillain-Susan Syndrome?: No Has the patient ever had any past reaction to a flu shot?: No Results AMB Hemoglobin A1c AMB Hemoglobin A1c 6.3 % Last Edit by FANTA Spann on 04/27/24 14:50 Immunizations Fluarix Triv [id number] (PF) 45 mcg (15 mcg x 3)/0.5 mL IM syringe Performing Provider: Zahida King MD [place] [facility] Administered by: Morelia Sandhu LPN on 04/27/24 14:51 Dose Route Admin Location Dispensed Lot Number Expiration Date NDC Adoption Coordinator 0.5 mL IM Left Deltoid 0.5 mL [id number] 01/17/25 [id number] [employer] VIS Given Date VIS Provided VIS Publication Date 04/27/24 Single Vaccine 21 Eligibility Eligibility Date Funding Source Not [facility] Eligible 04/27/24 Private Results Reviewed Results Reviewed: Laboratory Last Values Hgb A1c (Clinic) 6.3 % (4.0-6.0) H 04/27/24 14:36 Coding Level of Care Code Est Pt Level 4 (41609) Diagnoses Obstructive sleep apnea G47.33 Coronary artery disease involving [place] coronary artery of [place] heart without angina pectoris I25.10 Coronary Disease-Associated Artery/Lesion type: [place] artery [place] vs. transplanted heart: [place] heart Associated angina: without angina Essential hypertension I10 Type 2 diabetes mellitus with hyperglycemia, without long-term current use of insulin E11.65 Diabetes mellitus parts counterman insulin use: without [facility] use Cholelithiasis K80.20 Obesity (BMI 30-39.9) E66.9 Hypercholesterolemia E78.00 Generalized anxiety disorder F41.1 Assessment & Plan Assessment & Plan (1) Obstructive sleep apnea: Comment: cannot tolerate CPAP 02/2021, sleep study March 2024 AHI of 44 Code(s): G47.33 - Obstructive sleep apnea (adult) (pediatric) Category: Medical Plan: Patient had the sleep study repeated and advised CPAP titration. (2) CAD (coronary artery disease): Comment: RCA stent 05/2019 Code(s): I25.10 - Atherosclerotic heart disease of [place] coronary artery without angina pectoris Category: Medical Qualifiers: Coronary Disease-Associated Artery/Lesion type: [place] artery [place] vs. transplanted heart: [place] heart Associated angina: without angina Qualified Code(s): I25.10 - Atherosclerotic heart disease of [place] coronary artery without angina pectoris Plan: Control the cholesterol, weight, blood pressure, diabetes continue with aspirin 81 mg once a day (3) Essential hypertension: Code(s): I10 - Essential (primary) hypertension Category: Medical Plan: Continue with blood pressure medication. Decrease salt intake and exercise carvedilol 6.25 mg twice a day lisinopril 10 mg once a day (4) Type 2 diabetes mellitus with hyperglycemia: Comment: Dr. Hill Code(s): E11.65 - Type 2 diabetes mellitus with hyperglycemia Category: Medical Qualifiers: Diabetes mellitus parts counterman insulin use: without parts counterman use Qualified Code(s): E11.65 - Type 2 diabetes mellitus with hyperglycemia Plan: Decrease the amount of carbohydrate intake, pasta, bread, rice and potatoes are all sugar and that is aside from all the sweet stuff, remember that fruits are good but they are Sweet also. Hemoglobin A1c goal of less than 6.5. On metformin 500 mg twice a day Jardiance 25 mg once a day (5) Cholelithiasis: Comment: August 2021 Code(s): K80.20 - Calculus of gallbladder without cholecystitis without obstruction Category: Medical Plan: Low-fat diet and exercise (6) Obesity (BMI 30-39.9): Code(s): E66.9 - Obesity, unspecified Category: Medical Plan: Diet and exercise (7) Hypercholesterolemia: Code(s): E78.00 - Pure hypercholesterolemia, unspecified Category: Medical Plan: Avoid fried foods, chicken skin, eggs, butter margarine, pastries and meat. Be it pork or beef they have a lot of cholesterol LDL goal of less than 70 and triglyceride of less than 150. 02/07/2024 last test patient on fenofibrate and rosuvastatin and Zetia (8) Generalized anxiety disorder: Code(s): F41.1 - Generalized anxiety disorder Category: Medical Plan: declined referral for counselling or medication Orders: Orders AMB Hemoglobin A1c Today E11.65 - Type 2 diabetes mellitus with hyperglycemia Influenza [id number] Immunization Today Z23 - Encounter for immunization RT PSG in-lab sleep titration Today G47.33 - Obstructive sleep apnea (adult) (pediatric)
[2024-04-27 14:37] VITALS: BP 120/76; PULSE 84; O2SAT 94; BMI 36.8
== END 2024-04-27 15:09 | disposition home or self-care (01) ==
PROVIDERS: PCP Internal Medicine; Visit Provider Internal Medicine
DX: G47.33 Obstructive sleep apnea (adult) (pediatric) (principal); E11.65 Type 2 diabetes mellitus with hyperglycemia; E66.812 Obesity, class 2; Z68.36 Body mass index [BMI] 36.0-36.9, adult; I25.10 Atherosclerotic heart disease of native coronary artery without angina pectoris; I10 Essential (primary) hypertension; K80.20 Calculus of gallbladder without cholecystitis without obstruction; E78.00 Pure hypercholesterolemia, unspecified; F41.1 Generalized anxiety disorder; Z23 Encounter for immunization

== ENCOUNTER → 2024-04-27 14:25 | Outpatient (BNVA) | payer OTHER, SELFPAY | PROVIDERS: PCP Internal Medicine; Visit Provider Internal Medicine | DX: Z23 Encounter for immunization (principal); E11.65 Type 2 diabetes mellitus with hyperglycemia; I10 Essential (primary) hypertension; I25.10 Atherosclerotic heart disease of native coronary artery without angina pectoris; K80.20 Calculus of gallbladder without cholecystitis without obstruction; E78.00 Pure hypercholesterolemia, unspecified; F41.1 Generalized anxiety disorder; E66.9 Obesity, unspecified; Z68.36 Body mass index [BMI] 36.0-36.9, adult; G47.33 Obstructive sleep apnea (adult) (pediatric); Z71.3 Dietary counseling and surveillance | CPT/HCPCS: 83036; 90471; 90656; 96127; 99212 ==

== ENCOUNTER 2024-08-02 14:31 | Outpatient (AMB) | payer OTHER, SELFPAY ==
--- NOTE | 2024-08-02 14:31 | A.OFFPC_ITS ---
Vital Signs 08/02/24 14:32 Height 5 ft 10 in Weight 253 lb 2 oz BMI 36.3 BP 128/88 Blood Pressure Location Lt brachial Position Sitting Pulse 84 Pulse Source Pulse Oximeter Pulse Oximetry (%) 94 Oxygen Delivery Method Room Air Intake Visit Reasons: 3 Month F/U Allergies atorvastatin [Lipitor] Allergy (Unknown, Verified 08/02/24 14:38) does not remember fenofibric acid [Fibricor] Allergy (Unknown, Verified 08/02/24 14:38) does not remember Tobacco use date assessed: 08/02/24 Dental Screening Dental Screen Date: 08/02/24 Did you have a dental visit in the last 12 months?: No Did you have a dental problem in the last 6 months where you did not have access to dental care?: No Was dental information given to patient?: Patient has dentist HPI 3 Month F/U HPI Details The patient is a 58-year-old male presenting for a follow-up visit concerning the management of his chronic conditions, including Type 2 Diabetes Mellitus and hypertension, along with a recent medication review. The patient reports a current weight of 250 pounds, noting successful weight loss since the last visit. He cites a recent A1c level of 6.2%, indicating good glycemic control, and mentions stable blood pressure levels. The patient had previously experienced symptoms related to his Type 2 Diabetes such as intermittent blurry vision, which seemed to correlate with episodes of elevated blood glucose. However, since optimizing his diabetes management and shedding some weight, these symptoms have lessened. He has also reported an improvement in gastrointestinal symptoms after discontinuing meloxicam and dicyclomine, previously prescribed for muscle pain and irritable bowel syndrome, respectively. The patient notes a reduction in episodes of diarrhea and generally feels better with these medications stopped. Additionally, the patient indicates symptom relief with lifestyle modifications including dietary changes and increased physical activity, using a treadmill regularly. The patient's engagement in these healthy lifestyle habits demonstrates his commitment to managing his obesity. His current exercise level includes regular treadmill workouts, although he occasionally experiences some exertional fatigue. There is no mention of any new or worsening chest pain or respiratory symptoms. [facility] Medical History Obesity (BMI 30-39.9) Type 2 diabetes mellitus with unspecified complications Morbid obesity Abdominal pain, chronic, bilateral lower quadrant Carpal tunnel syndrome Spondylosis of lumbar spine Spondylosis of cervical spine Type 2 diabetes mellitus Essential hypertension Atherosclerotic cardiovascular disease Dislocation of ring finger Creola-Schlatter's disease of both knees Depression Degenerative disc disease CAD (coronary artery disease) Obstructive sleep apnea Vitamin D deficiency Erectile dysfunction GERD (gastroesophageal reflux disease) Hypercholesterolemia Carpal tunnel syndrome on both sides Surgical History Stented coronary artery History of surgery History of vasectomy History of nasal surgery Family History Father Myocardial infarction Mother Myocardial infarction Social History Housing: House Alcohol intake: never Patient Tobacco Use Status: Former Tobacco user Tobacco use type: Cigarette e-Cigarette/Vaping Use: Never Used Second Hand Smoke Exposure: No service: No Current occupational status: employed Current occupational exposures/hazards: No Cognitive needs: No Hearing needs: No Vision needs: Yes Questionnaire PHQ-9 Over the last 2 weeks, how often have you been bothered by any of the following problems? 1. Little interest or pleasure in doing things: not at all 2. Feeling down, depressed, or hopeless: nearly every day 3. Trouble falling or staying asleep, or sleeping too much: not at all 4. Feeling tired or having little energy: several days 5. Poor appetite or overeating: not at all 6. Feeling bad about yourself - or that you are a failure or have let yourself or your family down: not at all 7. Trouble concentrating on things, such as reading the newspaper or watching television: not at all 8. Moving or speaking so slowly that other people could have noticed. Or the opposite - being so fidgety or restless that you have been moving around a lot more than usual: not at all 9. Thoughts that you would be better off or of hurting yourself in some way: not at all Total score: 4 Source: Developed by Drs. Blaise Lake, Vicki Hebert, Yordy Barnes and colleagues, with an educational kelsi from [employer]. Thrive Questionnaire Date Thrive assessed: 08/02/24 I am a: Patient What is your living situation today?: I have a steady place to live Within the past 12 months, did the food you bought not last and you didn't have the money to get more?: Never true Within the past 12 months, did you worry whether your food would run out before you got money to buy more?: Never true Are you currently unemployed and looking for a job?: I choose not to answer this question THRIVE Score: 0 AUDIT C Alcohol Use Questionnaire (AUDIT-C) 1. How often do you have a drink containing alcohol?: Never 3. How often do you have six or more drinks on one occasion?: Never Total Score: 0 FLORENCIA-7 AMB Questionnaire FLORENCIA-7 Date FLORENCIA - 7 assessed: 12/11/23 Feeling nervous, anxious, or on edge: 0 = Not at all Not being able to stop or control worryin = Not at all Worrying too much about different things: 0 = Not at all Trouble relaxin = Not at all Being so restless that it is hard to sit still: 0 = Not at all Becoming easily annoyed or irritable: 0 = Not at all Feeling afraid as if something awful might happen: 0 = Not at all Total FLORENCIA-7 score (0-4 normal; 5-9 mild; 10-14 moderate; 15-21 severe): 0 Source: Developed by Drs. Blaise Lake, Vicki Hebert, Yordy Barnes and colleagues, with an educational kelsi from [employer]. Physical exam (Primary Care) Vital Signs: Last Vital Signs Pulse 84 08/02/24 14:32 BP 128/88 08/02/24 14:32 Pulse Ox 94 08/02/24 14:32 Oxygen Delivery Method Room Air 08/02/24 14:32 BMI result Body Mass Index 36.3 Tobacco/Smoking Status: Tobacco use Status Tobacco use date assessed 08/02/24 08/02/24 14:39 Patient Tobacco Use Status Former Tobacco user 08/02/24 14:39 Tobacco use type Cigarette 08/02/24 14:39 e-Cigarette/Vaping Use Never Used 08/02/24 14:39 PHQ-9: PHQ-9 Score PHQ-9: Total score 4 08/02/24 14:39 Thrive Assessment: Date of Thrive Assessment Date Thrive assessed 08/02/24 08/02/24 14:39 Const General: alert; No acute distress Eyes Conjunctivae: conjunctivae normal Resp Auscultation: clear to auscultation bilaterally Cardio Rate: regular rate Rhythm: regular rhythm GI Inspection: Yes normal to inspection Extrem General: Yes normal to inspection and No edema Results AMB Hemoglobin A1c AMB Hemoglobin A1c 6.2 % Last Edit by Amy Adair CMA on 08/02/24 14:43 Coding Level of Care Code Est Pt Level 4 (81633) Complex EM visit Add On G2211 Diagnoses Obesity (BMI 30-39.9) E66.9 Type 2 diabetes mellitus with hyperglycemia, without long-term current use of insulin E11.65 Diabetes mellitus correction insulin use: without correction use Hypercholesterolemia E78.00 Coronary artery disease involving [place] coronary artery of [place] heart without angina pectoris I25.10 Associated angina: without angina Coronary Disease-Associated Artery/Lesion type: [place] artery [place] vs. transplanted heart: [place] heart Essential hypertension I10 Assessment & Plan Assessment & Plan (1) Obesity (BMI 30-39.9): Code(s): E66.9 - Obesity, unspecified Category: Medical (2) Type 2 diabetes mellitus with hyperglycemia: Comment: Dr. Hill Code(s): E11.65 - Type 2 diabetes mellitus with hyperglycemia Category: Medical Qualifiers: Diabetes mellitus correction insulin use: without long term care pharmacist use Quali fied Code(s): E11.65 - Type 2 diabetes mellitus with hyperglycemia (3) Hypercholesterolemia: Code(s): E78.00 - Pure hypercholesterolemia, unspecified Category: Medical (4) CAD (coronary artery disease): Comment: RCA stent 05/2019 Code(s): I25.10 - Atherosclerotic heart disease of [place] coronary artery without angina pectoris Category: Medical Qualifiers: Associated angina: without angina Coronary Disease-Associated Artery/Lesion type: [place] artery [place] vs. transplanted heart: [place] heart Qualified Code(s): I25.10 - Atherosclerotic heart disease of [place] coronary artery without angina pectoris (5) Essential hypertension: Code(s): I10 - Essential (primary) hypertension Category: Medical Plan 1. 2%: - Maintain antihypertensive therapy to manage and monitor blood pressure effectively. - Recommend ongoing weight management strategies, emphasizing regular physical activity and dietary changes to address overweight/obesity. - Discontinue meloxicam and dicyclomine given the patient's improved symptoms, and monitor for any recurrence of muscle pain or gastrointestinal issues. - Consider prescribing ibuprofen 800 mg for as-needed pain relief related to muscle discomfort, taking care to limit its use due to potential gastrointestinal side effects. - Encourage adherence to healthy lifestyle modifications, including regular exercise on the treadmill and weight management. Orders: Orders AMB Hemoglobin A1c Today Z13.9 - Encounter for screening, unspecified Comprehensive Met. Panel 6 Months E11.65 - Type 2 diabetes mellitus with hyperglycemia Free T4 (Free Thyroxine) 6 Months E11.65 - Type 2 diabetes mellitus with hyperglycemia Lipid Panel 6 Months E11.65 - Type 2 diabetes mellitus with hyperglycemia, E78.00 - Pure hypercholesterolemia, unspecified Prostate Specific Antigen Scr 6 Months E11.65 - Type 2 diabetes mellitus with hyperglycemia Creatinine Urine 6 Months E11.65 - Type 2 diabetes mellitus with hyperglycemia Complete Blood Count Auto Diff 6 Months E11.65 - Type 2 diabetes mellitus with hyperglycemia Thyroid Stimulating Hormone 6 Months E11.65 - Type 2 diabetes mellitus with hyperglycemia Vitamin B12 and Folate 6 Months E11.65 - Type 2 diabetes mellitus with hyperglycemia Hemoglobin A1c 6 Months E11.65 - Type 2 diabetes mellitus with hyperglycemia Microalbumin, Random (w Creat) 6 Months E11.65 - Type 2 diabetes mellitus with hyperglycemia Medications: Refilled empagliflozin 25 mg PO DAILY 90 days 90 tabs 3RF E11.8 - Type 2 diabetes mellitus with unspecified complications Discontinued dicyclomine Discontinued Reason: Doctor's Order 20 mg (2 x 10 mg) PO TID 180 caps 0RF K58.9 - Irritable bowel syndrome, unspecified meloxicam Discontinued Reason: Patient Completed Course 15 mg PO DAILY 90 days 90 tabs 2RF M89.49 - Other hypertrophic osteoarthropathy, multiple sites
[2024-08-02 14:32] VITALS: BP 128/88; PULSE 84; O2SAT 94; BMI 36.3
--- OUTSIDE RECORDS SUMMARY | 2024-08-02 18:31 | XMS_ITS ---
Author Organization [facility] Address [address] [place] [address] Care Team Providers Care Studio Coordinator Name Role Phone Po Zahida MCGEE Primary Care Provider Jess Rodrigues Jr, Catracho Arrington [phone] scan MEDICATIONS Medication SIG (Take, Route, Fr equency, Duration) Notes Start Date End Date Status Readi-Cat 2 2.1 % as directed Orally 02/23/2024 Active Encounters Encounter Location Date Provider Diagnosis [facility] [address] [place] [address] 02/23/2024 Catracho Rodrigues Jr PLAN OF TREATMENT Medication Medication Name Sig Start Date Stop Date Notes Readi-Cat 2 2.1 % as directed Orally 02/23/2024 Next Appt Details Provider Name:Catracho huddleston Jr, 02/02/2025 11:10:00 AM, [address], [address], [place], [address],
--- OUTSIDE RECORDS SUMMARY | 2024-08-02 18:31 | XMS_ITS ---
Author Organization [facility] Address [address] [place] [address] Care Team Providers Care Warp Yarn Sorter Name Role Phone Po Zahida MCGEE Primary Care Provider Jess Rodrigues Jr, Catracho Arrington [phone] REASON FOR VISIT CAT scan Encounters Encounter Location Date Provider Diagnosis [facility] [address] [place] [address] 04/08/2024 Catracho Rodrigues Jr PLAN OF TREATMENT Next Appt Details Provider Name:Catracho huddleston Jr, 02/02/2025 11:10:00 AM, [address], [address], [place], [address],
--- OUTSIDE RECORDS SUMMARY | 2024-08-02 18:32 | XMS_ITS ---
Author Organization [facility] Address [address] [place] [address] Care Team Providers Care Hand Knitter Name Role Phone Po Zahida MCGEE Primary Care Provider Catracho Parra Jr REASON FOR VISIT authorization # Encounters Encounter Location Date Provider Diagnosis [facility] [address] [place] [address] 02/16/2024 Catracho Rodrigues Jr PLAN OF TREATMENT Next Appt Details Provider Name:Catracho huddleston Jr, 02/02/2025 11:10:00 AM, [address], [address], [place], [address],
--- OUTSIDE RECORDS SUMMARY | 2024-08-02 18:32 | XMS_ITS | Patient Health Record ---
Author Organization [facility] Address [address] [place] [address] Care Team Providers Care Field Coordinator Name Role Phone Zahida King MD Primary Care Provider Catracho Parra Jr ALLERGIES Allergen (clinical drug ingredient) Drug/Non Drug Allergy documented on EMR Reaction Allergy Type Onset Date Status fenofibrate Fibricor Unknown Drug Allergy Activ e atorvastatin Lipitor Unknown Drug Allergy Acti ve RESULTS Component Value Reference Range Notes Liver Panel Reviewed date:02/05/2024 08:36:41 AM Interpretation: Performing Lab:[facility], [address] [place] [phone] Notes/Report: Bilirubin Total 0.4 0.0-1.0 mg/dL Bilirubin Direct 0.1 0.0-0.5 mg/dL Aspartate Amino Transferase 20 5-37 U/L Alanine Aminotransferase 35 0-40 U/L Total Protein 7.1 6.5-8.0 g/dL Albumin Level 4.4 3.5-5.0 g/dL Alkaline Phosphatase 61 39-117 U/L Blood Urea Nitrogen Reviewed date:02/05/2024 08:36:35 AM Interpretation: Performing Lab:[facility], [address] [place] [phone] Notes/Report: Blood Urea Nitrogen 16 9-16 mg/dL Creatinine Reviewed date:02/05/2024 08:36:29 AM Interpretation: Performing Lab:[facility], [address] [place] [phone] Notes/Report: Creatinine 0.86 0.5-1.4 mg/dL Estimated Glomerular Filt Rate > 60 NOTE: For -[place] individuals, multiply the result by 1.210. Chronic Kidney Disease: Estimated GFR < 60 mL/min/1.73m2 Severe Kidney Disease: Estimated GFR < 15 mL/min/1.73m2 Lipase Reviewed date:02/05/2024 08:36:21 AM Interpretation: Performing Lab:[facility], [address] [place] [phone] Notes/Report: Lipase 22 8-78 U/L Creatinine GFR POC Reviewed date:04/08/2024 10:15:22 AM Interpretation: Performing Lab:[facility], [address] [place] [phone] Notes/Report: [id number] 0.95 >60 0819 HO.THEBODA Creatinine POC 1.0 0.5-1.4 mg/dL GFR POC > 60 Chronic Kidney Disease: Estimated GFR < 60 mL/min/1.73m2 Severe Kidney Disease: Estimated GFR < 15 mL/min/1.73m2 CT abdomen pelvis w con Reviewed date:04/08/2024 10:18:10 AM Interpretation: Performing Lab: Notes/Report: [address] [address] [address] Scan Report Signed Patient: Theresa Nagel MR#: [id number] : 1965 Acct:[id number] Age/Sex: 58 / M ADM Date: 04/02/24 Loc: HO.CT Attending Dr: Catracho Rodrigues MD Ordering Physician: Catracho Rodrigues MD Date of Service: 04/02/24 Procedure(s): CT abdomen pelvis w IV con Accession Number(s): [id number] cc: Catracho Rodrigues MD; Zahida King MD EXAMINATION: CT ABDOMEN AND PELVIS WITH CONTRAST CLINICAL INFORMATION: Abdominal pain. COMPARISON: CT abdomen/pelvis 11/13/2021. TECHNIQUE: Multidetector volumetric images were obtained from the superior aspect of the liver through the pubic symphysis following administration 85 mL of Omnipaque 350 intravenous contrast. Sagittal and coronal reformatted images were obtained on the technologist's workstation. Oral contrast: No This CT examination was performed using dose optimization techniques as appropriate, variously including the following: *Automated exposure control *Adjustment of mA and/or kV according to patient size (this includes techniques or standardized protocols for targeted exams where dose is matched to indication/reason for exam; i.e. extremities or head) *Use of iterative reconstruction technique DLP: 631 mGy-cm FINDINGS: LUNG BASES: No focal consolidation or pleural effusion. LIVER, GALLBLADDER, AND BILIARY TREE: Enlarged liver measuring 20 cm craniocaudally with decreased parenchymal attenuation most consistent with hepatic steatosis. There is a 2.5 cm simple fluid attenuating cyst in the inferior right hepatic lobe (3:35), otherwise no focal liver lesion. No biliary ductal dilatation is present. Gallbladder calculi layering in the neck. No evidence of gallbladder wall thickening or pericholecystic inflammatory changes to suspect acute cholecystitis. PANCREAS: Unremarkable. SPLEEN: Unremarkable. ADRENAL GLANDS: Unremarkable. KIDNEYS AND URETERS: Multiple bilateral simple appearing cortical cysts, as well as multiple bilateral too small to characterize cortical hypodensities. No enhancing renal mass. Symmetric nephrograms. No nephrolithiasis. No hydronephrosis. No perinephric fat stranding. BLADDER: Unremarkable. GASTROINTESTINAL TRACT: The stomach and the small bowel are nondilated. Normal appendix. Colonic diverticulosis is without significant pericolonic inflammatory changes. No evidence of bowel obstruction. ABDOMINAL WALL: Small fat-containing umbilical hernia. LYMPH NODES: No lymphadenopathy. VASCULAR: Severe atherosclerotic disease. Normal caliber of the abdominal aorta. PELVIC VISCERA: Unremarkable. OSSEOUS STRUCTURES: No acute or aggressive appearing osseous findings. CT/CT abdomen pelvis w IV con IMPRESSION: 1. Hepatomegaly and hepatic steatosis. 2. Cholelithiasis but no evidence of acute cholecystitis. 3. Diverticulosis but no evidence of acute diverticulitis. 4. Small fat containing umbilical hernia. Electronically signed by: Yue Tolentino MD 04/02/2024 11:23 AM EDT Dictated By: Yue Tolentino Signed By: <Electronically signed by Yue Tolentino in OV> 04/02/24 1123 DD/ 0829 TD/TT: 04/02/24 0849 Separator Inserter: REASON FOR REFERRAL No Information MEDICATIONS Medication SIG (Take, Route, Frequency, Duration) Notes Start Date End Date Status Cane - as directed Active Omeprazole 40 MG 1 capsule Orally Onc e a day Active Jardiance 10 MG Oral for 30 Ac tive amLODIPine Besylate 5 MG Oral for 90 Active Meloxicam 15 MG Oral for 90 Ac tive Readi-Cat 2 2.1 % as directed Orally 02/23/2024 Active Fenofibrate 160 MG 1 capsule with a carmelo l Orally Once a day Active Dicyclomine HCl 20 MG TAKE 1 TABLET BY M OUTH 2 TO 4 TIMES DAILY. for 90 Active Carvedilol 6.25 MG Oral for 90 Active Fish Oil 1000 MG 1 capsule Orally Thr ee times a day for 30 day(s) Active Omeprazole 40 MG Oral for 90 A ctive Nitroglycerin Active metFORMIN HCl ER 500 MG Oral for 90 Active Vitamin D 400 UNIT 2 capsules Orally On ce a day for 30 day(s) Active metFORMIN HCl 1000 MG TAKE 1 TABLET BY M OUTH TWICE A DAY Oral for 90 Active Vitamin C & D3/Katelyn Hips 500-1000-20 MG-UNIT-MG as directed Orally Active Rosuvastatin Calcium 40 MG Oral for 90 Active Aspir-81 Active IMMUNIZATIONS Vaccine Route Administration Date Status Comme nts Influenza Unknown 03/21/2021 Administered Influenza Unknown 04/20/2022 Administered Influenza Unknown 05/13/2023 Administered SOCIAL HISTORY Tobacco Use: Social History Observation Description Date Details (start date - stop date) Former Smoker NA - NA Sex Assigned At : Social History Observation Description Sex Assigned At Unknown Tobacco Use/Smoking Question Answer Notes Patient is a former smoker How long has it been since you last smoked? > 10 years Alcohol Screen Question Answer Notes Did you have a drink containing alcohol in the p ast year? No Points 0 Interpretation Negative PROBLEMS Problem Type ICD Code Onset Dates Problem Status W/U Status Risk SNOMED Code Notes Problem Colon cancer screening (Z12.11) Active confirmed 412872430 Problem Gastroesophageal reflux disease without esophagitis (K21.9) Active confirmed 178430980 Problem Generalized abdominal pain (R10.84) Active confirmed 229669356 Problem Irritable bowel syndrome, unspecified type (K58.9) Active confirmed 11117165 VITAL SIGNS Temperature 97.5 degrees Fahrenheit 02/02/2024 Blood pressure diastolic 00 mm Hg 02/02/2024 Height 70 in 02/02/2024 Blood pressure systolic 000 mm Hg 02/02/2024 Weight 258 lb 6 oz lbs 02/02/2024 BMI 37.07 kg/m2 02/02/2024 Encounters Encounter Location Date Provider Diagnosis [facility] [address] [facility] [place] [address] 10/01/2023 Catracho Rodrigues Jr [facility] [address] [facility] [place] [address] 02/02/2024 Catracho Rodrigues Jr Generalized abdominal pain R10.84 ; Gastroesophageal reflux disease without esophagitis K21.9 and Irritable bowel syndrome, unspecified type K58.9 [facility] [address] [place] [address] 10/01/2023 Catracho Rodrigues Jr [facility] [address] [facility] [place] [address] 02/02/2024 Catracho Rodrigues Jr [facility] [address] [place] [address] 02/05/2024 Catracho Rodrigues Jr [facility] [address] [place] [address] 02/16/2024 Catracho Rodrigues Jr [facility] [address] [place] [address] 02/23/2024 Catracho Rodrigues Jr [facility] [address] [facility] [place] [address] 04/08/2024 Catracho Rodrigues Jr ASSESSMENTS Encounter Date Diagnosis Assessment Notes Treatment Notes Treatment Clinical Notes 02/02/2024 Generalized abdomina l pain (ICD-10 - R10.84) 02/02/2024 Gastroesophageal ref lux disease without esophagitis (ICD-10 - K21.9) 02/02/2024 Irritable bowel syndrome, unspecified type (ICD-10 - K58.9) PLAN OF TREATMENT Pending Test Test Name Order Date BUN 02/02/2024 CREATININE 02/02/2024 LIVER PROFILE 02/02/2024 LIPASE 02/02/2024 CBC w/o DIFF 02/02/2024 CT ABD & PELVIS WITH CONTRAST 02/02/2024 Future Test Test Name Order Date COLONOSCOPY 03/25/2018 Next Appt Details Provider Name:Catracho huddleston Jr, 02/02/2025 11:10:00 AM, [address], [address], [place], [address], Insurance Providers Payer Name Payer Address Payer Phone Subscriber Number Group Number Insured Name Patient Relationship to Insured Coverage Start Date Coverage End Date [facility] [address] [address] [place], [place] [id number] THERESA NAGEL Self - patient is the insured MEDICAID OF [facility] [address] [place] [address] [id number] THERESA NAGEL Self - patient is the insured MEDICAL (GENERAL) HISTORY Medical History History ICD Code elevated cholesterol sleep apnea gastroesophageal reflux dise ase, EGD 02/26/08, no Sultana's esophagus or H. pylori depression fatty liver allergic rhinitis [place]-Schlatter disease Coronary artery disease Hiatal hernia carpal tunnel gallstones type II diabetes Colonoscopy 07/05/18, hyperplastic polyp , ten-year followup Surgical History Surgery Date(Month/Year) deviated septum repair vasectomy Cardiac stent placement x3
== END 2024-08-02 15:01 | disposition home or self-care (01) ==
PROVIDERS: PCP Internal Medicine; Visit Provider Internal Medicine
DX: E11.65 Type 2 diabetes mellitus with hyperglycemia (principal); E66.9 Obesity, unspecified; Z68.36 Body mass index [BMI] 36.0-36.9, adult; E78.00 Pure hypercholesterolemia, unspecified; I25.10 Atherosclerotic heart disease of native coronary artery without angina pectoris; I10 Essential (primary) hypertension

== ENCOUNTER → 2024-08-02 14:31 | Outpatient (BNVA) | payer OTHER, SELFPAY | PROVIDERS: PCP Internal Medicine; Visit Provider Internal Medicine | DX: E66.9 Obesity, unspecified (principal); E11.65 Type 2 diabetes mellitus with hyperglycemia; E78.00 Pure hypercholesterolemia, unspecified; I25.10 Atherosclerotic heart disease of native coronary artery without angina pectoris; I10 Essential (primary) hypertension | CPT/HCPCS: 83036; 99212 ==

== ENCOUNTER 2025-01-27 10:46 | Outpatient (REF) | payer OTHER, SELFPAY ==
--- OUTSIDE RECORDS SUMMARY | 2023-10-01 07:15 | XMS_ITS ---
Author Organization [facility] Address [address] [place] [address] [place] [phone] Care Team Providers Care Spinner Hand Name Role Phone Zahida King MD Primary Care Provider Catracho Parra Jr REASON FOR VISIT Patient presents today for gerd Encounters Encounter Location Date Provider Diagnosis [facility] [address] [place] [address] [place] [phone] 10/01/2023 Catracho Rodrigues Jr Plan Of Treatment Next Appt Details Provider Name:Catracho huddleston Jr, 02/02/2025 11:00:00 AM, [address] [place] [address], Suite [facility], [place], [phone], Progress Notes * THERESA URBANO WDOB: [birth year] (59 yo M)Acc No.[id number]:10/01/2023 Progress Notes Patient: THERESA ESPINOZA Provider: Kenneth Rodrigues MD :1965 A ge:57 Y S ex:Male Date:10/01/2023 Address:[address] [place], [place] [id number] Pcp:Zahida King MD Subjective: * Chief Complaints: * 1 . Patient presents today for gerd. * Medical History: Objective: * Vitals: Assessment: Plan: * Treatment: * * The named appointment provid er may or may not be the originator of this progress note, and it is not deemed complete until electronically signed by the appointment provider. Sign off status: Pending * Provider: Kenneth Rodrigues MD Date: 0 10/01/2023 Generated for Eric melara/Mauricio/Terry on: 0 01/27/2025 11:26 AM EDT
[2025-01-27 13:06] LABS: MANUAL DIFF FLAG NO
[2025-01-27 13:09] LABS: Hematocrit 46.4 % (42.0-52.0); Hemoglobin 15.5 g/dl (14.0-18.0); Imm Gran Abs Auto 0.01 X10*3/uL (0.00-0.03); Imm Gran Pct Auto 0.1 % (0.0-0.4); Lymphocytes Absolute Auto 1.9 X10*3/uL (1.2-4.9); Mean Corpuscular HGB Conc 33.4 g/dl (31.0-36.0); Mean Corpuscular Hemoglobin 28.4 pg (27.0-33.0); Mean Corpuscular Volume 85.0 fL (80.0-98.0); NRBC Abs Auto 0.000 X10*3/uL (0.0-0.012); NRBC Pct Auto 0.0 /100WBC (0.0-0.2); Platelet Count 206 X10*3/uL (160-400); Red Blood Count 5.46 X10*6/uL (4.60-5.80); White Blood Count 6.8 X10*3/uL (4.8-10.8)
[2025-01-27 13:24] LABS: Hemoglobin A1C 178.1266 umol/L; Total Hemoglobin (HGBA1C) 4075.6889 umol/L
[2025-01-27 13:30] LABS: Alanine Aminotransferase 38 U/L (0-40); Albumin Level 4.5 g/dL (3.5-5.0); Alkaline Phosphatase 55 U/L (39-117); Anion Gap 9 (12-20); Aspartate Amino Transferase 33 U/L (5-37); Blood Urea Nitrogen 14 mg/dL (9-16); Calcium 9.2 mg/dL (8.4-10.2); Carbon Dioxide 24 mmol/L (22-29); Chloride 107 mmol/L (96-108); Cholesterol 108 mg/dL (<200); Estimated Glomerular Filt Rate > 60; HDL Cholesterol 34 mg/dL (>40); Potassium 4.4 mmol/L (3.3-5.1); Sodium 136 mmol/L (135-145); Total Protein 7.0 g/dL (6.5-8.0); Triglycerides 120 mg/dL (<150)
[2025-01-27 13:45] LABS: Free T4 (Free Thyroxine) 0.96 ng/dL (0.71-1.85); Thyroid Stimulating Hormone 2.35 uIU/mL (0.32-4.0)
[2025-01-27 13:56] LABS: Folate 8.9 ng/mL (> or = 4.0); Vitamin B12 470 pg/mL (200-900)
== END 2025-01-27 10:47 | disposition home or self-care (01) ==
LOC: HO.10HDL 10:46
PROVIDERS: Visit Provider Internal Medicine
DX: E11.65 Type 2 diabetes mellitus with hyperglycemia (principal); E78.00 Pure hypercholesterolemia, unspecified
CPT/HCPCS: 36415; 80053; 80061; 82570; 82607; 82746; 83036; 84153; 84439; 84443; 85025

== ENCOUNTER 2025-01-31 14:11 | Outpatient (AMB) | payer OTHER, SELFPAY ==
--- OUTSIDE RECORDS SUMMARY | 2023-10-01 07:15 | XMS_ITS ---
Author Organization [facility] Address [address] [facility] [address] [place] [phone] Care Team Providers Care Animal Treatment Investigator Name Role Phone Zahida King MD Primary Care Provider Catracho Parra Jr [phone] REASON FOR VISIT Patient presents today for gerd Encounters Encounter Location Date Provider Diagnosis [facility] [address] [place] [address] [place] [phone] 10/01/2023 Catracho Rodrigues Jr Plan Of Treatment Next Appt Details Provider Name:Catracho huddleston Jr, 02/02/2025 11:00:00 AM, [address] [place] [address], Suite [facility], [place], [phone], Progress Notes * THERESA URBANO WDOB: [birth year] (59 yo M)Acc No.[id number]:10/01/2023 Progress Notes Patient: THERESA ESPINOZA Provider: Kenneth Rodrigues MD :1965 A ge:57 Y S ex:Male Date:10/01/2023 Address:[address] [place], [place] [id number] Pcp:Zahida King MD Subjective: * Chief Complaints: [...] 10/01/2023 Generated for Eric melara/Mauricio/Terry on: 0 01/31/2025 03:33 PM EDT
[2025-01-31 14:13] VITALS: BP 94/68; PULSE 87; O2SAT 93; BMI 35.5
--- NOTE | 2025-01-31 14:13 | MHC.PC.OV ---
Vital Signs 01/31/25 14:13 Height 5 ft 10 in Weight 247 lb 8 oz BMI 35.5 BP 94/68 Blood Pressure Location Lt brachial Position Sitting Pulse 87 Pulse Source Pulse Oximeter Pulse Oximetry (%) 93 Oxygen Delivery Method Room Air Intake Visit Reasons: HTN, DM Health Teacher Required: No Accompanied by: Self / Same As Patient Allergies atorvastatin (Lipitor) Allergy (Unknown, Verified 01/31/25 14:39) does not remember fenofibric acid (Fibricor) Allergy (Unknown, Verified 01/31/25 14:39) does not remember Medication List - Last Reconciled 01/31/25 by Zahida King MD acetaminophen (Tylenol Extra Strength) 1,000 mg PO Q6H PRN aspirin (Adult Aspirin Regimen) 81 mg PO DAILY cane As directed carvedilol 6.25 mg PO BID 90 days empagliflozin 25 mg PO DAILY 90 days ezetimibe 10 mg PO DAILY fenofibrate 160 mg PO DAILY 90 days lisinopril 10 mg PO DAILY metformin 500 mg PO BID 90 days nitroglycerin 0.4 mg sublingual Q5M PRN omeprazole 40 mg PO DAILY rosuvastatin 40 mg PO DAILY 90 days tirzepatide (Mounjaro) 2.5 mg (0.5 mL) subcut QWEEK Tobacco use date assessed: 08/02/24 Dental Screening Dental Screen Date: 08/02/24 [facility] Medical History (Reviewed 08/02/24 @ 14:39 by Amy Adair [facility]) Obesity (BMI 30-39.9) Type 2 diabetes mellitus with unspecified complications Morbid obesity Abdominal pain, chronic, bilateral lower quadrant Carpal tunnel syndrome Spondylosis of lumbar spine Spondylosis of cervical spine Type 2 diabetes mellitus Essential hypertension Atherosclerotic cardiovascular disease Dislocation of ring finger Bear-Schlatter's disease of both knees Depression Degenerative disc disease CAD (coronary artery disease) Obstructive sleep apnea Vitamin D deficiency Erectile dysfunction GERD (gastroesophageal reflux disease) Hypercholesterolemia Carpal tunnel syndrome on both sides Surgical History Stented coronary artery History of surgery History of vasectomy History of nasal surgery Family History Father Myocardial infarction Mother Myocardial infarction Social History Housing: House Alcohol intake: never Patient Tobacco Use Status: Former Tobacco user Tobacco use type: Cigarette e-Cigarette/Vaping Use: Never Used Second Hand Smoke Exposure: No service: No Current occupational status: employed Current occupational exposures/hazards: No Cognitive needs: No Hearing needs: No Vision needs: Yes Questionnaire Thrive Questionnaire Date Thrive assessed: 08/02/24 FLORENCIA-7 AMB Questionnaire FLORENCIA-7 Date FLORENCIA - 7 assessed: 12/11/23 Source: Developed by Drs. Blaise Lake, Vicki Hebert, Yordy Barnes and colleagues, with an educational kelsi from [employer]. Physical exam (Primary Care) Vital Signs: Last Vital Signs Pulse 87 01/31/25 14:13 BP 94/68 01/31/25 14:13 Pulse Ox 93 01/31/25 14:13 Oxygen Delivery Method Room Air 01/31/25 14:13 BMI result Body Mass Index 35.5 Tobacco/Smoking Status: Tobacco use Status Tobacco use date assessed 08/02/24 01/31/25 14:13 Patient Tobacco Use Status Former Tobacco user 01/31/25 14:13 Tobacco use type Cigarette 01/31/25 14:13 e-Cigarette/Vaping Use Never Used 01/31/25 14:13 Thrive Assessment: Date of Thrive Assessment Date Thrive assessed 08/02/24 01/31/25 14:13 Const General: alert; No acute distress Eyes Conjunctivae: conjunctivae normal Resp Auscultation: clear to auscultation bilaterally Cardio Rate: regular rate Rhythm: regular rhythm GI Inspection: Yes normal to inspection Extrem General: Yes normal to inspection and No edema Coding Level of Care Code Est Pt Level 4 (00929) Complex EM visit Add On G2211 Diagnoses Coronary artery disease involving [place] coronary artery of [place] heart without angina pectoris I25.10 Associated angina: without angina Coronary Disease-Associated Artery/Lesion type: [place]key artery [place] vs. transplanted heart: pam[place]key heart Hypercholesterolemia E78.00 Essential hypertension I10 Type 2 diabetes mellitus with hyperglycemia, without long-term current use of insulin E11.65 Diabetes mellitus custodial insulin use: without custodial use Obesity (BMI 30-39.9) E66.9 GERD (gastroesophageal reflux disease) K21.9 Palpable mass of neck R22.1 Assessment & Plan Assessment & Plan (1) CAD (coronary artery disease): Comment: RCA stent 05/2019 Code(s): I25.10 - Atherosclerotic heart disease of [place] coronary artery without angina pectoris Category: Medical Qualifiers: Associated angina: without angina Coronary Disease-Associated Artery/Lesion type: [place] artery [place] vs. transplanted heart: [place]key heart Qualified Code(s): I25.10 - Atherosclerotic heart disease of [place] coronary artery without angina pectoris Plan: Control the cholesterol, weight, blood pressure, diabetes continue with aspirin 81 mg once a day (2) Hypercholesterolemia: Code(s): E78.00 - Pure hypercholesterolemia, unspecified Category: Medical Plan: Avoid fried foods, chicken skin, eggs, butter margarine, pastries and meat. Be it pork or beef they have a lot of cholesterol LDL goal of less than 70 and triglyceride of less than 150 on Zetia fenofibrate and rosuvastatin. January 2025 last blood work (3) Essential hypertension: Code(s): I10 - Essential (primary) hypertension Category: Medical Plan: Continue with blood pressure medication. Decrease salt intake and exercise on lisinopril 10 mg once a day carvedilol 6.25 mg twice a day (4) Type 2 diabetes mellitus with hyperglycemia: Comment: Dr. Hill Code(s): E11.65 - Type 2 diabetes mellitus with hyperglycemia Category: Medical Qualifiers: Diabetes mellitus custodial insulin use: without custodial use Qualified Code(s): E11.65 - Type 2 diabetes mellitus with hyperglycemia Plan: Decrease the amount of carbohydrate intake, pasta, bread, rice and potatoes are all sugar and that is aside from all the sweet stuff, remember that fruits are good but they are Sweet also. Hemoglobin A1c goal of less than 6.5. Patient on Jardiance 25 mg once a day metformin 500 mg twice a day (5) Obesity (BMI 30-39.9): Code(s): E66.9 - Obesity, unspecified Category: Medical Plan: Continue with diet and exercise (6) GERD (gastroesophageal reflux disease): Code(s): K21.9 - Gastro-esophageal reflux disease without esophagitis Category: Medical Plan: Avoid the foods that causes that usually spicy foods, tomato products, juices, coffee, soda and foods that your sensitive to. After eating do not lie down, allow 3-4 hours before in lie down. And keep the head of bed above 30 degrees to avoid the acid from going up. (7) Palpable mass of neck: Code(s): R22.1 - Localized swelling, mass and lump, neck Category: Medical Plan History of Present Illness The patient is a 59-year-old male presenting for management of chronic conditions including obesity, obstructive sleep apnea, hypercholesterolemia, coronary artery disease, diabetes mellitus, and gastroesophageal reflux disease. The patient has a history of obesity, with a recent weight loss of 6 pounds, but continues to struggle with weight management. He has obstructive sleep apnea but is unable to tolerate CPAP therapy. The patient has been diagnosed with hypercholesterolemia and coronary artery disease. His LDL cholesterol is well-controlled at 50 mg/dL, and he is on medications including Zetia, fenofibrate, and rosuvastatin to manage his lipid levels. The patient has diabetes mellitus with a hemoglobin A1c of 6.2, indicating good control. He is currently on Jardiance and metformin, and continues to follow a diet and exercise regimen. The patient also has gastroesophageal reflux disease and cholelithiasis. He is up to date with ophthalmology visits and has been noted to have cataracts, although they are not currently significant. His last colonoscopy was in 2018, and his recent blood work from January 27 showed normal blood count, electrolytes, renal function, and liver function. Health Maintenance - Colonoscopy last performed in 2017 - Ophthalmology follow-up is current - Blood work from January 27 shows normal results Social History Review of Systems Physical Exam Results - Labs: Normal blood count, electrolytes, renal function, liver function, hemoglobin A1c at 6.2, LDL at 50 mg/dL Plan The management plan for the patient's chronic conditions includes continuing current medications and lifestyle modifications. For coronary artery disease, the patient is advised to continue aspirin 81 mg daily and maintain LDL cholesterol below 70 mg/dL with the use of Zetia, fenofibrate, and rosuvastatin. For diabetes mellitus, the goal is to keep hemoglobin A1c below 6.5, with the patient continuing on Jardiance 25 mg daily and metformin 500 mg twice daily, along with diet and exercise. Blood pressure management includes lisinopril 10 mg daily and carvedilol 6.25 mg twice daily. Patient was informed and verbally consented to the use of an ambient scribe for clinic note documentation during this visit. Discussion Notes Patient Instructions - Continue taking all prescribed medications as directed. - Maintain a healthy diet and regular exercise routine. - Follow up with your healthcare provider as scheduled. Orders: Referrals General Surgery Referral R22.1 - Localized swelling, mass and lump, neck Medications: New tirzepatide (Mounjaro) for 4 weeks 2.5 mg (0.5 mL) subcut QWEEK 2 mL 2RF E11.65 - Type 2 diabetes mellitus with hyperglycemia
== END 2025-01-31 15:02 | disposition home or self-care (01) ==
LOC: HO.HMCH 14:12
PROVIDERS: PCP Internal Medicine; Visit Provider Internal Medicine
DX: I25.10 Atherosclerotic heart disease of native coronary artery without angina pectoris (principal); E11.65 Type 2 diabetes mellitus with hyperglycemia; E66.9 Obesity, unspecified; Z68.35 Body mass index [BMI] 35.0-35.9, adult; E78.00 Pure hypercholesterolemia, unspecified; I10 Essential (primary) hypertension; K21.9 Gastro-esophageal reflux disease without esophagitis; R22.1 Localized swelling, mass and lump, neck

== ENCOUNTER → 2025-01-31 14:11 | Outpatient (BNVA) | payer OTHER, SELFPAY | PROVIDERS: PCP Internal Medicine; Visit Provider Internal Medicine | DX: I25.10 Atherosclerotic heart disease of native coronary artery without angina pectoris (principal); E78.00 Pure hypercholesterolemia, unspecified; I10 Essential (primary) hypertension; E11.65 Type 2 diabetes mellitus with hyperglycemia; E66.9 Obesity, unspecified; K21.9 Gastro-esophageal reflux disease without esophagitis; R22.1 Localized swelling, mass and lump, neck; Z79.82 Long term (current) use of aspirin; Z79.84 Long term (current) use of oral hypoglycemic drugs; Z79.899 Other long term (current) drug therapy | CPT/HCPCS: 99212 ==

== ENCOUNTER 2025-02-10 12:43 | Outpatient (AMB) | payer OTHER, SELFPAY ==
--- NOTE | 2025-02-10 12:46 | A.OFFVIS_ITS ---
Vital Signs 02/10/25 12:47 Height 5 ft 11 in Weight 242 lb 8.136 oz BMI 33.8 BP 120/68 Blood Pressure Location Lt brachial Position Sitting Pulse 90 Pulse Source Monitor Intake Visit Reasons: 1 yr follow up Allergies atorvastatin (Lipitor) Allergy (Unknown, Verified 01/31/25 14:39) does not remember fenofibric acid (Fibricor) Allergy (Unknown, Verified 01/31/25 14:39) does not remember Medication List - Last Reconciled 02/10/25 by Ray Calzada MD acetaminophen (Tylenol Extra Strength) 1,000 mg PO Q6H PRN aspirin (Adult Aspirin Regimen) 81 mg PO DAILY cane As directed carvedilol 6.25 mg PO BID 90 days empagliflozin 25 mg PO DAILY 90 days ezetimibe 10 mg PO DAILY fenofibrate 160 mg PO DAILY 90 days lisinopril 10 mg PO DAILY metformin 500 mg PO BID 90 days nitroglycerin 0.4 mg sublingual Q5M PRN omeprazole 40 mg PO DAILY rosuvastatin 40 mg PO DAILY 90 days tirzepatide (Mounjaro) 2.5 mg (0.5 mL) subcut QWEEK HPI Comments Details: Blaise returns for follow-up regarding coronary disease. For the most part he is feeling fine. He has had subjective feelings of shortness of breath for a long time and he is just about the same as before. No clear-cut angina. No exertional symptoms of concern. Many comorbidities. Trying to lose weight. [facility] Medical History Obesity (BMI 30-39.9) Type 2 diabetes mellitus with unspecified complications Morbid obesity Abdominal pain, chronic, bilateral lower quadrant Carpal tunnel syndrome Spondylosis of lumbar spine Spondylosis of cervical spine Type 2 diabetes mellitus Essential hypertension Atherosclerotic cardiovascular disease Dislocation of ring finger Shelia-Schlatter's disease of both knees Depression Degenerative disc disease CAD (coronary artery disease) Obstructive sleep apnea Vitamin D deficiency Erectile dysfunction GERD (gastroesophageal reflux disease) Hypercholesterolemia Carpal tunnel syndrome on both sides Surgical History Stented coronary artery History of surgery History of vasectomy History of nasal surgery Family History Father Myocardial infarction Mother Myocardial infarction Social History Housing: House Alcohol intake: never Patient Tobacco Use Status: Former Tobacco user Tobacco use type: Cigarette e-Cigarette/Vaping Use: Never Used Second Hand Smoke Exposure: No service: No Current occupational status: employed Current occupational exposures/hazards: No Cognitive needs: No Hearing needs: No Vision needs: Yes Review of Systems Const Denies weakness ENT Denies dizziness Card Denies chest pain, Denies chest pain with activity, Denies syncope, Denies rapid heart rate, Denies pedal edema, Denies edema, Denies leg edema, Denies lightheadedness, Denies palpitations, Denies dyspnea, Denies dyspnea on exertion and Denies orthopnea Resp Denies cough, Denies dyspnea and Denies dyspnea on exertion GI Denies hematochezia and Denies change in stool character Musc Denies abnormal gait, Denies muscle cramps, Denies muscle weakness, Denies numbness, Denies radiating pain into limb and Denies tingling Neuro Denies abnormal gait, Denies dizziness, Denies syncope, Denies numbness, Denies tingling and Denies weakness Endo Denies palpitations Physical Exam Vital Signs: Last Vital Signs Pulse 90 02/10/25 12:47 BP 120/68 02/10/25 12:47 BMI result Body Mass Index 33.8 Const General: comfortable and no acute distress Orientation/consciousness: patient oriented x3 HEENT Other: Unremarkable Head: Yes normal to inspection Neck Neck: Yes normal visual inspection Chest Chest palpation & inspection: normal inspection of the chest Resp Auscultation: clear to auscultation bilaterally Cardio Palpation: normal PMI Heart sounds: S1 normal heart sound present, S2 normal heart sound present, no gallops, no murmurs and no rubs GI Palpation (GI): Soft to palpation Back/Spine/Pelvis Other: unremarkable Skin General skin exam: no rashes or lesions noted Neuro General: patient oriented x3 Extrem General: Yes normal to inspection Psych Mental Status: mental status grossly normal Office Procedures EKG Details: EKG with underlying sinus rhythm at 90/Min; rightward axis; no ischemic changes; [place] [address]-[id number], Complete Assessment & Plan Assessment & Plan (1) Atherosclerotic cardiovascular disease: Code(s): I25.10 - Atherosclerotic heart disease of [place] coronary artery without angina pectoris Category: Medical (2) Stented coronary artery: Code(s): Z95.5 - Presence of coronary angioplasty implant and graft Category: Surgical (3) Essential hypertension: Code(s): I10 - Essential (primary) hypertension Category: Medical (4) Type 2 diabetes mellitus with unspecified complications: Code(s): E11.8 - Type 2 diabetes mellitus with unspecified complications Category: Medical (5) Other and unspecified hyperlipidemia: Code(s): E78.5 - Hyperlipidemia, unspecified Category: Medical (6) Obstructive sleep apnea: Comment: cannot tolerate CPAP 02/2021, sleep study March 2024 AHI of 44 Code(s): G47.33 - Obstructive sleep apnea (adult) (pediatric) Category: Medical Plan Cardiac catheterization showed 90% stenosis in the mid right coronary artery, s/p drug-eluting stent. No significant disease elsewhere. Overall, stable coronary disease. Long-term aspirin. Continue statins. Last LDL 50 mg/dL and triglycerides 120 mg/dL. Blood pressure is stable and he is on carvedilol, lisinopril. For diabetes, on Metformin, Tirzepatide. Hemoglobin A1c is 6.2%. He is on statins. LDL is 50 mg/dL. Untreated sleep apnea. Shortness of breath most likely related to weight, deconditioning. There is no evidence of cardiomyopathy in the last echocardiogram. He is attempting to lose weight and that would definitely help. We will follow up in one year. In the interim, call with concerns. Discussion Notes During the consultation, I discussed the importance of weight management in alleviating symptoms of dyspnea and sleep apnea with the patient. We reviewed the potential benefits of dietary changes and further weight loss on respiratory function. I advised the patient to attempt using the CPAP mask again, highlighting that weight loss might improve its effectiveness and comfort. Patient was informed and verbally consented to the use of an ambient scribe for clinic note documentation during this visit. Patient Instructions: - Continue with weight loss. - Attempt using the CPAP mask again for sleep apnea management. - Monitor breathing and report any changes or worsening symptoms. Coding Level of Care Code Est Pt Level 4 (03258) Complex EM visit Add On G2211 Diagnoses Atherosclerotic cardiovascular disease I25.10 Stented coronary artery Z95.5 Essential hypertension I10 Type 2 diabetes mellitus with unspecified complications E11.8 Other and unspecified hyperlipidemia E78.5 Obstructive sleep apnea G47.33 CPT Codes EKG - CPT: 41816-Xkrzreljdroqgmhhp, Complete ([id number])
[2025-02-10 12:47] VITALS: BP 120/68; PULSE 90; BMI 33.8
--- OUTSIDE RECORDS SUMMARY | 2025-02-10 12:59 | XMS_ITS | Patient Health Record ---
Author Organization [facility] Address [address] [place] [address] Care Team Providers Care Salon Designer Name Role Phone Zahida King MD Primary Care Provider Catracho Parra Jr [phone] Allergies Allergen (clinical drug ingredient) Drug/Non Drug Allergy documented on EMR Reaction Allergy Type Onset Date Status Fibricor Unknown Drug Allergy Active atorvastatin Lipitor Unknown Drug Allergy Acti ve Results Component Value Reference Range Notes CT abdomen pelvis w con Reviewed date:04/08/2024 10:18:10 AM Interpretation: Performing Lab: Notes/Report: [facility] [address] [place] [address] CT Scan Report Signed Patient: Theresa Nagel MR#: [id number] : 1965 Acct:[id number] Age/Sex: 58 / M ADM Date: 04/02/24 Loc: HO.CT Attending Dr: Catracho Rodrigues MD Ordering Physician: Catracho Rodrigues MD Date of Service: 04/02/24 Procedure(s): CT abdomen pelvis w IV con Accession Number(s): [id number] cc: Catracho Rodrigues MD; Zahida King MD [...] 04/02/24 1123 DD/ 0829 TD/TT: 04/02/24 0849 Infectious Disease Technician: Creatinine GFR POC Reviewed date:04/08/2024 10:15:22 AM Interpretation: Performing Lab:[facility], [address] [facility], [place] [address] Notes/Report: [id number] 0.95 >60 0819 HOMandoTHEBODA Creatinine POC 1.0 0.5-1.4 mg/dL GFR POC > 60 Chronic Kidney Disease: Estimated GFR < 60 mL/min/1.73m2 Severe Kidney Disease: Estimated GFR < 15 mL/min/1.73m2 Reason For Referral No Information Medications Medication SIG (Take, Route, Frequency, Duration) Notes Start Date End Date Status Vitamin C & D3/Katelyn Hips 500-1000-20 MG-UNIT-MG as directed Orally Active Fish Oil 1000 MG 1 capsule Orally Thr ee times a day for 30 day(s) Active Nitroglycerin Active Aspir-81 Active Cane - as directed Active Omeprazole 40 MG 1 capsule Orally Onc e a day Active Fenofibrate 160 MG 1 capsule with a carmelo l Orally Once a day Active Carvedilol 6.25 MG Oral for 90 Active amLODIPine Besylate 5 MG Oral for 90 Active Mounjaro 2.5 MG/0.5ML as directed Subcutaneous Active Meloxicam 15 MG Oral for 90 Ac tive Vitamin D 400 UNIT 2 capsules Orally On ce a day for 30 day(s) Active metFORMIN HCl 1000 MG TAKE 1 TABLET BY M OUTH TWICE A DAY Oral for 90 Active Rosuvastatin Calcium 40 MG Oral for 90 Active Omeprazole 40 MG Oral for 90 A ctive metFORMIN HCl ER 500 MG Oral for 90 Active Jardiance 10 MG Oral for 30 Ac tive Readi-Cat 2 2.1 % as directed Orally 02/23/2024 Active Dicyclomine HCl 20 MG TAKE 1 TABLET BY M OUTH 2 TO 4 TIMES DAILY. for 90 Active Immunizations Vaccine Route Administration Date Status Comme nts Influenza Unknown 03/21/2021 Administered Influenza Unknown 04/20/2022 Administered Influenza Unknown 05/13/2023 Administered Influenza Unknown 05/12/2024 Administered Social History Tobacco Use: Social History Observation Description Date Details (start date - stop date) Former Smoker NA - NA Tobacco Use/Smoking Question Answer Notes Patient is a former smoker How long has it been since you last smoked? > 10 years Alcohol Screen Question Answer Notes Did you have a drink containing alcohol in the p ast year? No Points 0 Interpretation Negative Problems Problem Type SNOMED Code ICD Code Onset Dates Problem Status W/U Status Risk Notes Problem 174959183 Colon cancer screening (Z12.11) Active confirmed Problem 207709785 Generalized abdominal pain (R10.84) Active confirmed Problem 204311252 Gastroesophageal reflux disease without esophagitis (K21.9) Active confirmed Problem 84518172 Irritable bowel syndrome, unspecified type (K58.9) Active confirmed Vital Signs Temperature 98.7 degrees Fahrenheit 02/02/2025 Blood pressure diastolic 01 mm Hg 02/02/2025 Height 70 in 02/02/2025 Blood pressure systolic 001 mm Hg 02/02/2025 Weight 249.4 lbs 02/02/2025 BMI 35.78 kg/m2 02/02/2025 Encounters Encounter Location Date Provider Diagnosis [facility] [address] [place] [phone] 02/02/2025 Catracho Rodrigues Jr Gastroesophageal reflux disease without esophagitis K21.9 ; Irritable bowel syndrome, unspecified type K58.9 and Colon cancer screening Z12.11 [facility] [address] [place] [phone] 02/16/2024 Catracho Rodrigues Jr [facility] [address] [place] [phone] 02/23/2024 Catracho Rodrigues Jr [facility] [address] [place] [phone] 04/08/2024 Catracho Rodrigues Jr Assessments Encounter Date Diagnosis (ICD Code) Assessment Notes Treatment Notes Treatment Clinical Notes Section Notes 02/02/2025 Gastroesophageal reflux disease without esophagitis (ICD-10 - K21.9) At this time, he is doing well. Reflux symptoms are under good control. He will continue his present regimen of 40 mg daily. He is up-to-date on colorectal cancer screening. Follow-up is due in 2027. We reviewed this today. IBS symptoms are under good control. We discussed diet and foods to avoid that trigger his symptoms. Follow-up will be in 12 months, sooner if necessary. Today's visit was 30 minutes. 02/02/2025 Irritable bowel syndrome, unspecified type (ICD-10 - K58.9) At this time, he is doing well. Reflux symptoms are under good control. He will continue his present regimen of 40 mg daily. He is up-to-date on colorectal cancer screening. Follow-up is due in 2027. We reviewed this today. IBS symptoms are under good control. We discussed diet and foods to avoid that trigger his symptoms. Follow-up will be in 12 months, sooner if necessary. Today's visit was 30 minutes. 02/02/2025 Colon cancer screening (ICD-10 - Z12.11) At this time, he is doing well. Reflux symptoms are under good control. He will continue his present regimen of 40 mg daily. He is up-to-date on colorectal cancer screening. Follow-up is due in 2027. We reviewed this today. IBS symptoms are under good control. We discussed diet and foods to avoid that trigger his symptoms. Follow-up will be in 12 months, sooner if necessary. Today's visit was 30 minutes. Plan Of Treatment Pending Test Test Name Order Date BUN 02/02/2024 CREATININE 02/02/2024 LIVER PROFILE 02/02/2024 LIPASE 02/02/2024 CBC w/o DIFF 02/02/2024 CT ABD & PELVIS WITH CONTRAST 02/02/2024 Future Test Test Name Order Date COLONOSCOPY 03/25/2018 Next Appt Details Provider Name:Catracho huddleston Jr, 02/02/2026 01:55:00 PM, [address] [place] [address], [address], [place], [address], Insurance Providers Payer Name Payer Address Payer Phone Subscriber Number Group Number Insured Name Patient Relationship to Insured Coverage Start Date Coverage End Date [facility] [address] [address] [place], [place] [id number] THERESA NAGEL Self - patient is the insured MEDICAID OF [facility] [address] [place] [address] [id number] THERESA NAGEL Self - patient is the insured Medical (General) History Medical History History ICD Code elevated cholesterol sleep apnea gastroesophageal reflux dise ase, EGD 02/26/08, no Sultana's esophagus or H. pylori depression fatty liver allergic rhinitis Shelia-Schlatter disease Coronary artery disease Hiatal hernia carpal tunnel gallstones type II diabetes Colonoscopy 12/16/18, hyperplastic polyp , ten-year followup Surgical History Surgery Date(Month/Year) Cardiac stent placement x3 vasectomy deviated septum repair
== END 2025-02-10 13:17 | disposition home or self-care (01) ==
LOC: HO.HCS 12:43
PROVIDERS: PCP Internal Medicine; Visit Provider Internal Medicine
DX: I25.10 Atherosclerotic heart disease of native coronary artery without angina pectoris (principal); Z95.5 Presence of coronary angioplasty implant and graft; I10 Essential (primary) hypertension; E11.8 Type 2 diabetes mellitus with unspecified complications; E78.5 Hyperlipidemia, unspecified; G47.33 Obstructive sleep apnea (adult) (pediatric)
CPT/HCPCS: 93010; 99214; G2211

== ENCOUNTER → 2025-02-10 12:43 | Outpatient (BNVA) | payer OTHER, SELFPAY | PROVIDERS: PCP Internal Medicine; Visit Provider Internal Medicine | DX: I25.10 Atherosclerotic heart disease of native coronary artery without angina pectoris (principal); I10 Essential (primary) hypertension; E11.8 Type 2 diabetes mellitus with unspecified complications; E78.5 Hyperlipidemia, unspecified; G47.33 Obstructive sleep apnea (adult) (pediatric); Z95.5 Presence of coronary angioplasty implant and graft; M54.9 Dorsalgia, unspecified | CPT/HCPCS: 93005; 99212 ==

== ENCOUNTER 2025-02-10 13:28 | Outpatient (AMB) | payer OTHER, SELFPAY ==
[2025-02-10 13:38] VITALS: BP 102/90; PULSE 88; TEMP 36.6; O2SAT 96; BMI 33.7
--- NOTE | 2025-02-10 13:38 | MHC.OFFWIV ---
Intake Vital Signs 02/10/25 13:38 Height 5 ft 11 in Weight 242 lb BMI 33.7 BP 102/90 H Blood Pressure Location Lt brachial Position Standing Pulse 88 Pulse Source Pulse Oximeter Temp 97.9 F Temp Source Oral Pulse Oximetry (%) 96 Oxygen Delivery Method Room Air Intake Visit Reasons: EP-mid back pain Intake Note: presents with right mid-upper back pain Patient Tobacco Use Status: Former Tobacco user Allergies atorvastatin (Lipitor) Allergy (Unknown, Verified 01/31/25 14:39) does not remember fenofibric acid (Fibricor) Allergy (Unknown, Verified 01/31/25 14:39) does not remember Do you need a note to return to daycare/school/sports/work: No HPI HPI Comments History of Present Illness Details History - The patient is a 59-year-old male presenting with back pain. - The patient reports pulling something in his back, with the onset of symptoms occurring on Friday. - The pain is localized to the right side of the mid-back, with occasional exacerbation upon deep breathing. - The patient has attempted using leftover medications, including oxycodone with minimal relief. - He denies lower back pain, CP, SOB, dysuria, hematuria, fever, or chills. - He has no known injury or falls - He is not currently working. Physical Exam General: cooperative, healthy appearing and comfortable, patient oriented x3 Head: Normal to inspection, normocephalic/atraumatic Effort & Inspection: Normal respiratory effort and able to speak in complete sentences. Cardiac: RRR, no M/R/G noted. Normal S1 and S2. Respiratory: Clear to auscultation bilaterally. No w/r/r noted. Back/spine: No CVA tenderness bilaterally. Cervical, thoracic and lumbar spine normal to inspection. Cervical ROM normal, no midline spinous tenderness noted. Thoracic ROM normal, lumbar ROM normal. No midline vertebral spinous tenderness noted. No step offs noted. TTP of the right thoracic paravertebral, rhomboid, and lattisimus. No TTP of the lumbar paraspinous or paravertebral muscles. DTR are 2+ on the lower extremities noted. Ambulates with a steady gait. Neuro: Sensation intact. Patient was informed and verbally consented to the use of an ambient scribe for clinic note documentation during this visit. [facility]LY [facility] Medical History Obesity (BMI 30-39.9) Type 2 diabetes mellitus with unspecified complications Morbid obesity Abdominal pain, chronic, bilateral lower quadrant Carpal tunnel syndrome Spondylosis of lumbar spine Spondylosis of cervical spine Type 2 diabetes mellitus Essential hypertension Atherosclerotic cardiovascular disease Dislocation of ring finger [place]-Schlatter's disease of both knees Depression Degenerative disc disease CAD (coronary artery disease) Obstructive sleep apnea Vitamin D deficiency Erectile dysfunction GERD (gastroesophageal reflux disease) Hypercholesterolemia Carpal tunnel syndrome on both sides Surgical History Stented coronary artery History of surgery History of vasectomy History of nasal surgery Family History Father Myocardial infarction Mother Myocardial infarction Social History Housing: House Alcohol intake: never Patient Tobacco Use Status: Former Tobacco user Tobacco use type: Cigarette e-Cigarette/Vaping Use: Never Used Second Hand Smoke Exposure: No service: No Current occupational status: employed Current occupational exposures/hazards: No Cognitive needs: No Hearing needs: No Vision needs: Yes Review of Systems Const All systems reviewed & are unremarkable except as noted in HPI and below Physical Exam Vital Signs: Last Vital Signs Temp 97.9 F 02/10/25 13:38 Pulse 88 02/10/25 13:38 BP 102/90 H 02/10/25 13:38 Pulse Ox 96 02/10/25 13:38 Oxygen Delivery Method Room Air 02/10/25 13:38 BMI result Body Mass Index 33.7 Assessment & Plan Assessment & Plan (1) Mid back pain on right side: Code(s): M54.9 - Dorsalgia, unspecified Plan Most likely Muscle Strain vs spasm Plan - Rest, heat and/or ice to the area - Mobic, Flexeril as needed - Prednisone burst for 5 days - Consideration of muscle relaxants and pain management options. - follow up with PCP if no better Medications: New prednisone 50 mg PO QAM 5 tabs 0RF meloxicam 15 mg PO DAILY 14 tabs 0RF cyclobenzaprine 10 mg (2 x 5 mg) PO Q8H PRN 21 tabs 0RF Muscle Spasm 7 days Coding Level of Care Code Est Pt Level 4 (52614) Diagnoses Mid back pain on right side M54.9
== END 2025-02-10 15:48 | disposition home or self-care (01) ==
PROVIDERS: PCP Internal Medicine; Visit Provider Physician Assistant Medical
DX: M54.9 Dorsalgia, unspecified (principal)

== ENCOUNTER 2025-02-12 10:48 | Inpatient (IN) | payer OTHER, SELFPAY ==
[2025-02-12] VITALS (8 sets, daily range): BP systolic 108–153; BP diastolic 68–105; PULSE 69–101; RESP 16–19; TEMP 36.3–36.7; O2SAT 93–99; BMI 34.4; BMI 34.5
--- NOTE | ~2025-02-12 | CT_ITS ---
CLINICAL HISTORY: Left face and arm numbness Exam: CTA head and neck with IV contrast, 3D post-processing Comparison: None provided Findings: CTA neck: Three-vessel aortic arch. No focal occlusion. Mild atherosclerotic calcification of the included aortic arch and origins of left subclavian artery, innominate artery and left carotid bulb/ICA origin. Severe calcification of the right carotid bulb, origins of ICA/CCA, causing severe stenosis of the right carotid bulb and focal nearly occlusive stenosis of the ICA origin. The aortic arch, arch vessel origins, left common carotid and internal carotid arteries, bilateral vertebral arteries are patent, no aneurysm, dissection or flow-limiting stenosis. Mild left ICA origin stenosis less than 50%. Medialization course of bilateral distal CCA to proximal ICA without reaching midline. CTA head: Moderate atherosclerotic calcification of intracranial internal carotid arteries from cavernous to terminal segments, mild atherosclerotic calcification of the left vertebral artery V4, they are patent, no flow-limiting stenosis. Patent anterior and posterior circulation, no aneurysm, dissection or flow-limiting stenosis. Size asymmetry of anterior cerebral arteries, left is mildly smaller when compared to the right, variant anatomy. Others: Dural venous sinuses are patent. No abnormal intracranial enhancement. Please see separate CT head without IV contrast report. Mucoperiosteal thickening ethmoid sinuses and maxillary sinuses, mucous retention cysts of the maxillary sinuses. Subcutaneous lipoma of the right posterior neck 3.0 x 4.7 x 3.3 cm at the mandible level. The imaged neck soft tissue demonstrates no acute finding. Left thyroid nodules with calcification. Lung apices clear. Degenerative changes of cervical spine. No acute osseous abnormality. Impression: 1. No focal occlusion, aneurysm or dissection of major arteries in the head or neck. 2. Nearly occlusive stenosis of right ICA origin, severe stenosis of the right carotid bulb due to calcification. 3. Mild left ICA origin stenosis less than 50%. 4. Left thyroid nodules. 5. Additional ancillary findings. Carotid stenosis and measurements are in accordance with NASCET criteria. This document has been electronically signed by: Nicole Mattson MD on 02/12/2025 13:19:07
--- NOTE | ~2025-02-12 | CT_ITS ---
CLINICAL HISTORY: Left face and arm numbness CT head without contrast Comparison: None provided Findings: No intra-axial mass, midline shift, hydrocephalus, or acute hemorrhage. Cortical orellana-white differentiation is preserved. No significant atrophy-like change or white matter disease. Mucous retention cyst in the right maxillary sinus. Mild mucosal thickening of the ethmoid air cells. The orbits are unremarkable. No skull fracture. Wall calcifications in the carotid siphons. IMPRESSION: 1. No acute intracranial findings. This document has been electronically signed by: Nik Tyler MD on 02/12/2025 12:07:18
--- NOTE | ~2025-02-12 | CT_ITS ---
CLINICAL HISTORY: left side numbness; left facial droop CT head without contrast Comparison:02/12/2025 Findings: No intra-axial mass, midline shift, hydrocephalus, or acute hemorrhage. No significant atrophy-like change or white matter disease. Bilateral maxillary sinus polyp/retention cyst mild bilateral ethmoid sinus mucosal thickening The orbits are unremarkable. Small right occipital subcutaneous fat likely dystrophic calcification. No skull fracture. IMPRESSION: 1. No acute intracranial findings. This document has been electronically signed by: Brittaney Martinez MD on 02/13/2025 09:33:18
--- NOTE | ~2025-02-12 | MR_ITS ---
CLINICAL HISTORY: Left facial and left arm numbness MR Brain without gadolinium Comparison: CT/SR - VASCULAR CTA_STROKE (ADULT) - 02/12/25 11:[address]/SR - CT HEAD FOR STROKE - 02/12/25 11:44 EDT Findings: No restricted diffusion. No intra-axial mass or hemorrhage. No midline shift. No hydrocephalus. Vascular flow voids are intact. Small chronic lacunar infarct in the right cerebellum. The orbits are normal. Mild mucosal thickening in the maxillary sinuses. No focal bone lesion. IMPRESSION: No acute findings. This document has been electronically signed by: Richard Sampson MD on 02/12/2025 19:00:35
--- NOTE | ~2025-02-12 | US_ITS ---
EXAMINATION: US Soft Tiss Head And/or Neck CLINICAL INFORMATION: Right neck swelling Postendarterectomy performed today. COMPARISON: None available. TECHNIQUE: Linear transducer orellana-scale and color Doppler examination with attention to the region of the neck. FINDINGS: There is a heterogeneous isoechoic lobulated mass in the right neck measuring 6.0 x 2.6 x 4.4 cm (CC by AP by transverse). There is no central blood flow within the mass on color Doppler. US/US soft tiss head and/or neck IMPRESSION: Right neck mass favoring hematoma. Area was not optimally visualized due to bandages in this region. The patient's nurse informed the cardiac cath technologist that the bandages could not be removed for the study. Electronically signed by: Alec Lopez MD 02/14/2025 05:20 PM EDT
--- NOTE | 2025-02-12 11:02 | ECG_ITS ---
Test Reason : cp Blood Pressure : */* mmHG Vent. Rate : 81 BPM Atrial Rate : 81 BPM P-R Int : 182 ms QRS Dur : 94 ms QT Int : 340 ms P-R-T Axes : 42 67 70 degrees QTcB Int : 394 ms Normal sinus rhythm Normal ECG When compared with ECG of 08-Apr-2019 13:46, No significant change was found Referred By: Generic ED Physician Electronically Signed By: Ravi Ha
--- NOTE | 2025-02-12 11:07 | ED.NEUROSD ---
HPI - Neuro Symptoms/Deficit General Chief Complaint: Neuro Symptoms/Deficit Stated Complaint: fell at home left side numb Time Seen by Provider: 02/12/25 11:07 Source: patient and family (Girlfriend-Kayla) Mode of arrival: ambulatory Limitations: no limitations History of Present Illness ED Provider: Dr. Juan J Ibarra HPI Narrative: 59-year-old male with a history of diabetes mellitus, hypertension, hyperlipidemia, coronary artery disease with 3 stents, GERD, IBS, recent treatment with GLP 1 3 weeks prior who presents emergency department for evaluation of sudden onset of left arm and face numbness with incoordination of left arm. Patient states he was pulling on a socks at 10:20 when he had a sudden onset of numbness in the left side of his face and left arm. He states that he also developed left anterior chest pain but is vague in describing the pain. The pain did not radiate to his back. Patient states that he could not use his left arm and fell forward onto the bed. He was able to call his girlfriend who then brought him to the emergency department. At the time my evaluation he states the chest pain is resolved. The facial numbness in his were all resolved but he still having numbness to his left arm with no lack of coordination. He states that 2 weeks prior he may have had numbness to the left side of his face which resolved and he did not seek treatment. Patient does take 81 mg aspirin daily and he took today's dose. Related Data Home Medications ?Medication ?Instructions ?Recorded ?Confirmed aspirin 81 mg tablet,delayed 81 mg PO DAILY 06/12/20 02/12/25 release (Adult Aspirin Regimen) nitroglycerin 0.4 mg sublingual 0.4 mg sublingual Q5M PRN Chest 06/12/20 02/12/25 tablet Pain acetaminophen 500 mg tablet 1,000 mg PO Q6H PRN Fever Or Pain 10/24/20 02/12/25 (Tylenol Extra Strength) cholecalciferol (vitamin D3) 50 50 mcg PO DAILY 02/12/25 02/12/25 mcg (2,000 unit) tablet (Vitamin D3) empagliflozin 25 mg tablet 25 mg PO DAILY 02/12/25 02/12/25 (Jardiance) omeprazole 40 mg capsule,delayed 40 mg PO DAILY@0630 02/12/25 02/12/25 release prednisone 50 mg tablet 50 mg PO DAILY 02/12/25 02/12/25 tirzepatide 2.5 mg/0.5 mL 2.5 mg subcut MO 02/12/25 02/12/25 subcutaneous pen injector ([place]) Previous Rx's ?Medication ?Instructions ?Recorded cane #1 ea 05/25/21 rosuvastatin 40 mg tablet 40 mg PO DAILY 90 days #90 tabs 03/17/24 metformin 500 mg tablet 500 mg PO BID 90 days #180 tabs 04/28/24 lisinopril 10 mg tablet 10 mg PO DAILY #90 tabs 07/07/24 ezetimibe 10 mg tablet 10 mg PO DAILY #90 tabs 10/18/24 carvedilol 6.25 mg tablet 6.25 mg PO BID 90 days #180 tabs 12/15/24 fenofibrate 160 mg tablet 160 mg PO DAILY 90 days #90 tabs 01/13/25 cyclobenzaprine 5 mg tablet 10 mg (2 x 5 mg) PO Q8H PRN Muscle 02/10/25 Spasm 7 days #21 tabs meloxicam 15 mg tablet 15 mg PO DAILY #14 tabs 02/10/25 Allergies Allergy/AdvReac Type Severity Reaction Status Date / Time atorvastatin (Lipitor) Allergy Unknown does not Verified 02/12/25 10:59 remember fenofibric acid (Fibricor) Allergy Unknown does not Verified 02/12/25 10:59 remember Review of Systems Review of Systems: Yes all other systems are reviewed and are negative [facility] Past Medical History [facility] Narrative: Social history: He denies tobacco, alcohol and drug use Medical History Obesity (BMI 30-39.9) Type 2 diabetes mellitus with unspecified complications Morbid obesity Abdominal pain, chronic, bilateral lower quadrant Carpal tunnel syndrome Spondylosis of lumbar spine Spondylosis of cervical spine Type 2 diabetes mellitus Essential hypertension Atherosclerotic cardiovascular disease Dislocation of ring finger [place]-Schlatter's disease of both knees Depression Degenerative disc disease CAD (coronary artery disease) Obstructive sleep apnea Vitamin D deficiency Erectile dysfunction GERD (gastroesophageal reflux disease) Hypercholesterolemia Carpal tunnel syndrome on both sides Surgical History Stented coronary artery History of surgery History of vasectomy History of nasal surgery Family History Family History Father Myocardial infarction Mother Myocardial infarction Social History Social History Housing: House Alcohol intake: never Patient Tobacco Use Status: Former Tobacco user Tobacco use type: Cigarette Smoked in Last 30 Days: No e-Cigarette/Vaping Use: Never Used Second Hand Smoke Exposure: No Use of substances other than those prescribed or required for medical reasons: No Advance Directives: No Advance Directives Information Provided: No service: No Current occupational status: employed Current occupational exposures/hazards: No Cognitive needs: No Hearing needs: No Vision needs: Yes Physical Exam Vital Signs: Vital Signs: Last Vital Signs Temp 97.6 F 02/12/25 10:57 Pulse 98 02/12/25 12:05 Resp 18 02/12/25 12:05 BP 109/70 02/12/25 12:05 Pulse Ox 93 02/12/25 12:05 O2 Del Method Room Air 02/12/25 12:05 BMI result Body Mass Index 34.4 Vital signs revealed an elevated heart rate of 101 otherwise unremarkable Exam: General: Awake, alert in no distress Head: Normocephalic, atraumatic EENT: PERRL, Lids normal, sclera normal, conjunctiva normal, nose normal , ears normal, throat without erythema or exudates Neck: Supple, no adenopathy Lung: breath sounds symmetric, no wheezing, rales or rhonchi Chest: symmetric movement, nontender Heart: regular rate and rhythm, normal S1, S2 no murmurs or rubs Abdomen: soft, non-tender, nondistended, normal bowel sounds Back: no vertebral tenderness, no CVAT Extremities: no deformities, moves all extremities symmetrically Neuro: General: ?Awake, alert, oriented, normal speech Cranial nerves: ?Cranial nerves ?intact Strength: ?Moves all extremities symmetrically, strength 5/5 Cerebellar: ?Good hquckt-lc-axhf-to-finger, good rapid finger movement, normal heel to tatum Sensory: Normal light touch and normal noxious stimuli-symmetric Psych: Pleasant, cooperative Medications Administered Discontinued Medications Generic Name Dose Route Start Last Admin Trade Name Freq PRN Reason Stop Dose Admin Aspirin 243 mg 02/12/25 13:23 02/12/25 13:38 Aspirin 81 Mg Tab.Chew PO 02/12/25 13:24 243 mg ONCE ONE Administration Iohexol 70 ml 02/12/25 12:18 02/12/25 12:18 Iohexol 350 Mg/Ml 100 Ml Infus..Btl IV 02/12/25 12:19 70 ml ONCE ONE Administration Midazolam HCl 4 mg 02/12/25 11:47 02/12/25 12:02 Midazolam Hcl 2 Mg/2 Ml Vial IVPUSH 02/12/25 11:48 4 mg ONCE ONE Administration Medical Decision Making Medical Decision Making [facility] Narrative: 59-year-old male with a history of diabetes mellitus, hypertension, hyperlipidemia, coronary artery disease with 3 stents, GERD, IBS, recent treatment with GLP 1 3 weeks prior who presents emergency department for evaluation of sudden onset of left arm and face numbness with incoordination of left arm. Patient states he was pulling on a socks at 10:20 when he had a sudden onset of numbness in the left side of his face and left arm. He states that he also developed left anterior chest pain but is vague in describing the pain. The pain did not radiate to his back. Patient states that he could not use his left arm and fell forward onto the bed. He was able to call his girlfriend who then brought him to the emergency department. At the time my evaluation he states the chest pain is resolved. The facial numbness in his were all resolved but he still having numbness to his left arm with no lack of coordination.He states that 2 weeks prior he may have had numbness to the left side of his face which resolved and he did not seek treatment. Patient does take 81 mg aspirin daily and he took today's dose. Exam was unremarkable with no sensory deficit detectable. NIH stroke scale was 0. Differential diagnosis: ?Includes but is not limited to TIA, stroke, myocardial infarction, myocardial ischemia, anemia, electrolyte abnormalities Course: 11:42 The patient's presenting symptoms with left facial numbness and left arm numbness with incoordination of the left arm is concerning for possible stroke. The patient is within the TNK window therefore I ordered a stroke protocol CT of the head and CT angiogram. Patient's 12 EKG was normal with no ST segment elevation or depression no evidence for atrial fibrillation at this time. 13:29 My independent interpretation patient's laboratory evaluation is as follows: WBC elevated 12,500. BUN elevated 18. Coags were normal. Troponin less than 2.7-repeat 2 hour due at 13:30 hours. The patient is claustrophobic at CT scan and was treated with Versed 4 mg IV. When he returned from CT scan he states that his facial numbness completely resolved. The patient's CT scan without IV contrast revealed no acute findings. CT angiogram head and neck revealed no retrievable large vessel cerebral clot. The patient has nearly occlusive stenosis of the right ICA origin with severe stenosis of the right carotid bulb due to calcification. Patient has nonsignificant mid left IC origin stenosis less than 50%. The patient had left-sided numbness 1 or 2 weeks prior and left-sided numbness of his face and arm with uncoordination in his left arm today. CT scan was negative for stroke however CT angiogram head and neck is concerning for high-grade stenosis of the right ICA which could explain his left-sided symptoms. Patient may have had a small stroke versus TIA. Given the high-grade stenosis in the patient's right ICA, I believe the patient should be admitted for workup of stroke versus TIA and I did discuss this with the covering hospitalist, Dr. Damaso Saeed. She did evaluate the patient here in the emergency department. Patient did take his 81 mg aspirin today. Patient was ordered to get aspirin 243 mg orally. Patient will be admitted to the hospitalist service for further treatment and diagnostic workup. Given his resolution of symptoms and his NIH stroke scale of 0, the patient is not a TNK candidate. 14:01 I did discuss the patient's CT angiogram of the neck with our covering vascular surgeon, Dr. Bee and he recommended admitting the patient for further evaluation. He is also available to consult on the patient and he recommended that the patient be medically cleared for carotid artery surgery during this admission. I did discuss this recommendation over tiger text with the covering hospitalist, Dr. Damaso Saeed. Admission/Observation Consideration of admission/observation: Escalation of care including admission/observation considered Consult Healthcare Provider Management of the patient was discussed with: Hospitalist (Dr. Damaso Saeed) and Supervisor Film Processing (Vascular surgeon, Dr. Bee) Lab Data MDM Lab Attestation statement: I reviewed the patient's lab results. 02/12/25 11:40 02/12/25 11:40 Labs: Lab Results 02/12/25 02/12/25 02/12/25 Range/Units 11:40 13:39 13:49 WBC 12.5 H (4.8-10.8) X10*3/uL RBC 5.64 (4.60-5.80) X10*6/uL Hgb 16.0 (14.0-18.0) g/dl Hct 47.8 (42.0-52.0) % MCV 84.8 (80.0-98.0) fL MCH 28.4 (27.0-33.0) pg MCHC 33.5 (31.0-36.0) g/dl RDW 13.0 (11.0-16.0) % Plt Count 212 (160-400) X10*3/uL MPV 10.8 (9.4-12.4) fL Immature Gran % (Auto) 0.3 (0.0-0.4) % Neut % (Auto) 71.2 (45-73) % Lymph % (Auto) 17.9 L (20-40) % [place] % (Auto) 9.1 (2-11) % Eos % (Auto) 1.3 (0-4) % Baso % (Auto) 0.2 (0-2) % Lymph # (Auto) 2.2 (1.2-4.9) X10*3/uL [place] # (Auto) 1.1 (0.1-1.2) X10*3/uL Eos # (Auto) 0.2 (0.0-0.4) X10*3/uL Baso # (Auto) 0.0 (0.0-0.2) X10*3/uL Abs Immat Gran (auto) 0.04 H (0.00-0.03) X10*3/uL Absolute Neuts (auto) 8.9 H (2.0-8.3) x10*3/uL Absolute Nucleated RBC 0.000 (0.0-0.012) X10*3/uL Nucleated RBC % (auto) 0.0 (0.0-0.2) /100WBC PT 11.4 (10.9-12.4) SEC INR 1.0 (0.9-1.1) APTT 26.1 (26.0-36.8) SEC Sodium 138 (135-145) mmol/L Potassium 4.3 (3.3-5.1) mmol/L Chloride 108 (96-108) mmol/L Carbon Dioxide 22 (22-29) mmol/L Anion Gap 12 (12-20) BUN 18 H (9-16) mg/dL Creatinine 0.86 (0.5-1.4) mg/dL Estim Creat Clear Calc 115.6 Estimated GFR > 60 POC Glucose 101 (60-115) mg/dL Random Glucose 105 (60-115) mg/dL Calcium 9.7 (8.4-10.2) mg/dL Troponin I High Sens < 2.7 < 2.7 (<3.5-35.0) ng/L Triglycerides 116 (<150) mg/dL Cholesterol 101 (<200) mg/dL LDL Cholesterol, Calc 44 (<100) mg/dL HDL Cholesterol 34 L (>40) mg/dL Independent Interpretation I performed an independent interpretation of an: EKG Interpretation: My independent interpretation patient's 12 EKG done on 02/12/2025 at 11:00 hours is as follows: Normal sinus rhythm rate of 81, normal FL interval, QRS duration QTC interval, no ST segment elevation, no ST segment depression, no significant T-wave abnormalities, no PACs, no PVCs Radiology Impression Discussion of test interpretation with radiology: I discussed test interpretation with the radiologist and I have reviewed the radiologist's reading. Radiologist Impression: CT head without contrast Comparison: None provided Findings: No intra-axial mass, midline shift, hydrocephalus, or acute hemorrhage. Cortical orellana-white differentiation is preserved. No significant atrophy-like change or white matter disease. Mucous retention cyst in the right maxillary sinus. Mild mucosal thickening of the ethmoid air cells. The orbits are unremarkable. No skull fracture. Wall calcifications in the carotid siphons. IMPRESSION: 1. No acute intracranial findings. This document has been electronically signed by: Nik Tyler MD on 02/12/2025 12:07:18 Exam: CTA head and neck with IV contrast, 3D post-processing Impression: 1. No focal occlusion, aneurysm or dissection of major arteries in the head or neck. 2. Nearly occlusive stenosis of right ICA origin, severe stenosis of the right carotid bulb due to calcification. 3. Mild left ICA origin stenosis less than 50%. 4. Left thyroid nodules. 5. Additional ancillary findings. Carotid stenosis and measurements are in accordance with NASCET criteria. This document has been electronically signed by: Nicole Mattson MD on 02/12/2025 13:19:07 Independent Historian Clinical information obtained from an independent historian. History obtained from or confirmed by: Other (Girlfriend/significant other Kayla) Chronic Conditions Patient?s care impacted by: Diabetes, Hypertension and Other (Coronary artery disease) NIH Stroke Scale Internal: Initial- Upon Arrival Level of Consciousness: Alert Level of Consciousness Questions: Answers both questions correctly Level of Consciousness Commands: Performs both tasks correctly Best Gaze: Normal Visual: No visual loss Facial Palsy: Normal Motor Arm (Right): No drift Motor Arm (Left): No drift Motor Leg (Right): No drift Motor Leg (Left): No drift Limb Ataxia: Absent Sensory: Normal Best Language: No aphasia Dysarthia: Normal Extinction and Inattention: No abnormality Score: 0 Critical Care Time Critical Care Time Critical Care Time: Yes Total Critical Care Time: 45 Attestation: Critical Care: The patient was critically ill with a high probability of imminent or life threatening deterioration. I spent greater than 30 minutes of discontinuous time evaluating the patient,delivering critical care at the bedside, discussing and evaluating pertinent data with consultants. Critical care time does not include time spent performing separately billable procedures or teaching. Total time spent performing critical care was 45 minutes. Discharge Plan Discharge Clinical Impression: Transient ischemic attack Internal carotid artery stenosis Qualifiers: Laterality: right Qualified Code(s): I65.21 - Occlusion and stenosis of right carotid artery Patient Disposition: Admitted As Inpatient
--- OUTSIDE RECORDS SUMMARY | 2025-02-12 11:34 | XMS_ITS | Patient Health Record ---
Author Organization [facility] Address [address] [place] [address] Care Team Providers Care Sap Business Objects Developer Name Role Phone Zahida King MD Primary Care Provider Catracho Parra Jr Allergies Allergen (clinical drug ingredient) Drug/Non Drug Allergy documented on EMR Reaction Allergy Type Onset Date Status Fibricor Unknown Drug Allergy Active atorvastatin Lipitor Unknown Drug Allergy Acti ve Results Component Value Reference Range Notes CT abdomen pelvis w con Reviewed date:04/08/2024 10:18:10 AM Interpretation: Performing Lab: Notes/Report: [facility] [address] [place] [address] CT Scan Report Signed Patient: Theresa Nagel MR#: [id number] : 1965 Acct:[id number] Age/Sex: 58 / M ADM Date: 04/02/24 Loc: HO.CT Attending Dr: Catracho Rodrigues MD Ordering Physician: Catracho Rodrigues MD Date of Service: 04/02/24 Procedure(s): CT abdomen pelvis w IV con Accession Number(s): [id number] cc: Catracho Rodrigues MD; Zahida King MD [...] 04/02/24 1123 DD/ 0829 TD/TT: 04/02/24 0849 Jewel Bearing Grinder: Creatinine GFR POC Reviewed date:04/08/2024 10:15:22 AM Interpretation: Performing Lab:[facility], [address] [facility] [facility], [place] [address] Notes/Report: [phone] 0.95 >60 0819 [email or web address] Creatinine POC 1.0 [...] Problem Status W/U Status Risk Notes Problem 868724062 Colon cancer screening (Z12.11) Active confirmed Problem 215666928 Generalized abdominal pain (R10.84) Active confirmed Problem 121882095 Gastroesophageal reflux disease without esophagitis (K21.9) Active confirmed Problem 62074242 Irritable bowel syndrome, unspecified type (K58.9) Active confirmed Vital Signs Temperature 98.7 degrees Fahrenheit 02/02/2025 Blood pressure diastolic 01 mm Hg 02/02/2025 Height 70 in 02/02/2025 Blood pressure systolic 001 mm Hg 02/02/2025 Weight 249.4 lbs 02/02/2025 BMI 35.78 kg/m2 02/02/2025 Encounters Encounter Location Date Provider Diagnosis [facility] [address] [place] [phone] 02/02/2025 Catracho Rodrigues Jr Gastroesophageal reflux disease without esophagitis K21.9 ; Irritable bowel syndrome, unspecified type K58.9 and Colon cancer screening Z12.11 [facility] [address] [place] [id number] 02/16/2024 Catracho Rodrigues Jr [facility] [address] [place] [phone] 02/23/2024 Catracho Rodrigues Jr [facility] [address] [place] [phone] 04/08/2024 Catracho Rodrigues Jr Assessments Encounter Date [...] Provider Name:Catracho huddleston Jr, 02/02/2026 01:55:00 PM, [address] [place] [address], [address], [place], [address], Insurance Providers Payer Name Payer Address Payer Phone Subscriber Number Group Number Insured Name Patient Relationship to Insured Coverage Start Date Coverage End Date [facility] [address] [address] [place], [place] [id number] THERESA NAGEL Self - patient is the insured MEDICAID OF [facility] [address] [place] [address] [phone] [id number] THERESA NAGEL Self - patient is the [...]
[2025-02-12 11:45] LABS: MANUAL DIFF FLAG NO
[2025-02-12 11:50] LABS: Hematocrit 47.8 % (42.0-52.0); Hemoglobin 16.0 g/dl (14.0-18.0); Imm Gran Abs Auto 0.04 X10*3/uL (0.00-0.03); Imm Gran Pct Auto 0.3 % (0.0-0.4); Lymphocytes Absolute Auto 2.2 X10*3/uL (1.2-4.9); Mean Corpuscular HGB Conc 33.5 g/dl (31.0-36.0); Mean Corpuscular Hemoglobin 28.4 pg (27.0-33.0); Mean Corpuscular Volume 84.8 fL (80.0-98.0); NRBC Abs Auto 0.000 X10*3/uL (0.0-0.012); NRBC Pct Auto 0.0 /100WBC (0.0-0.2); Platelet Count 212 X10*3/uL (160-400); Red Blood Count 5.64 X10*6/uL (4.60-5.80); White Blood Count 12.5 X10*3/uL (4.8-10.8)
[2025-02-12 11:54] LABS: INTERNATIONAL NORM RATIO 1.0 (0.9-1.1); Prothrombin Time 11.4 SEC (10.9-12.4)
[2025-02-12 11:57] LABS: Partial Thromboplastin Time 26.1 SEC (26.0-36.8)
[2025-02-12 12:00] LABS: Stroke Lab Use COMPLETE
[2025-02-12 12:17] LABS: Anion Gap 12 (12-20); Blood Urea Nitrogen 18 mg/dL (9-16); Calcium 9.7 mg/dL (8.4-10.2); Carbon Dioxide 22 mmol/L (22-29); Chloride 108 mmol/L (96-108); Cholesterol 101 mg/dL (<200); Creatinine Clr Calc Pharmacy 115.6; Estimated Glomerular Filt Rate > 60; HDL Cholesterol 34 mg/dL (>40); Potassium 4.3 mmol/L (3.3-5.1); Sodium 138 mmol/L (135-145); Triglycerides 116 mg/dL (<150)
--- NOTE | 2025-02-12 12:17 | PC.NURSE ---
Pt to ED 2 from triage, reports left sided numbness and tingling. MD at bedside. Pt A/O x 3, PERRLA. Equal strength and sensation in bilateral upper/lower extremities. States at approx 1020 pt has sharp stabbing pain to left chest with numbness/tingling to left arm and face. EKG and labs obtained. #20 IV placed to R AC. Pt accompanied to CT scan. Pt unable to stay still for scan, MD notified and new medication ordered. Administered and pt able to tolerate scan well, results pending.
[2025-02-12] MEDS: iohexoL 350 MG/ML 100 ML INFUS..BTL 70 ML IV (12:18)
[2025-02-12 12:26] LABS: Troponin-I High Sensitivity < 2.7 ng/L (<3.5-35.0)
[2025-02-12 13:44] LABS: Glucose, Whole Blood 101 mg/dL (60-115)
--- NOTE | 2025-02-12 15:00 | PHA.MEDREC ---
Addendum entered by Diaz Coulter RPh 02/12/25 15:12: MED REC REVIEWED BY [facility] Original Note: Pharmacy Consult ? Medication Reconciliation Pharmacy has completed the medication reconciliation. Spoke to patient at bedside to confirm med list. had a list of patient medications on her phone. Patient confirmed Mounjaro 2.5 mg ever Friday, last dose 02/07/25. Prednisone 50 mg daily. patient has 3 days left. Patient had all his morning medications today.
[2025-02-12 15:09] LABS: Troponin-I High Sensitivity < 2.7 ng/L (<3.5-35.0)
--- NOTE | 2025-02-12 15:34 | PM.IMHP ---
History of Present Illness Date of Service: 02/12/25 Attending physician on admission: Carole Saeed Chief Complaint: Left face and upper extremity numbness Blaise Nagel is a 59 years old man with past medical history significant for CAD s/p stenting, type 2 diabetes mellitus on metformin, Jardiance and Mounjaro, hyperlipidemia, essential hypertension, GERD, LALI unable to tolerate CPAP and obesity presents to the ED after experiencing left facial and left upper extremity numbness that started around 10 20 a.m. while he was putting on his socks. He also experienced dizziness and fell forward onto his bed. He denied any witnessed to his left leg. He denied experiencing any headache, double vision, slurred speech, facial droop, drooling, swallowing difficulty or loss of consciousness. He mentioned that he has been experiencing events of blurry vision for a while and that he had a similar event one-week ago but not this severe. He called his girlfriend to ask for help. He denied any shortness on breath but was experiencing vague left-sided chest discomfort that resolved. He took his baby aspirin this morning. Patient has lost 30 lb over the last year. He was recently prescribed with prednisone and Flexeril for a lower back pain. He is a former tobacco smoker and quit many years ago. He does not have issues with alcohol abuse or illicit drug use. In the ED, his vital signs were found to be stable. His last BP is 109/70. Blood workup showed leukocytosis of 12.5. Hemoglobin and platelets are normal. INR is 1.0. There are no significant electrolyte imbalances. BUN is 18 and creatinine 0.86. His glucose 105. Troponin is < 2.7 x2. Lipid panel: Triglycerides 116, cholesterol 101, LDL [address] scan without IV contrast showed no acute intracranial findings. Head and neck CTA showed no focal occlusion, and a worrisome or dissection of major arteries in the head and neck. There is a nearly occlusive stenosis of the are ICA origin, severe stenosis of the right carotid bulb due to calcification. It also showed mild left ICA origin stenosis less than 50% and left thyroid nodules. ECG showed normal sinus rhythm without ischemic changes. ED tx: Versed 4 mg IV, aspirin 243 mg PO [facility] Medical History Obesity (BMI 30-39.9) Type 2 diabetes mellitus with unspecified complications Morbid obesity Abdominal pain, chronic, bilateral lower quadrant Carpal tunnel syndrome Spondylosis of lumbar spine Spondylosis of cervical spine Type 2 diabetes mellitus Essential hypertension Atherosclerotic cardiovascular disease Dislocation of ring finger [place]-Schlatter's disease of both knees Depression Degenerative disc disease CAD (coronary artery disease) Obstructive sleep apnea Vitamin D deficiency Erectile dysfunction GERD (gastroesophageal reflux disease) Hypercholesterolemia Carpal tunnel syndrome on both sides Family History Father Myocardial infarction Mother Myocardial infarction Surgical History Stented coronary artery History of surgery History of vasectomy History of nasal surgery Social History Housing: House Alcohol intake: never Patient Tobacco Use Status: Former Tobacco user Tobacco use type: Cigarette Smoked in Last 30 Days: No e-Cigarette/Vaping Use: Never Used Second Hand Smoke Exposure: No Use of substances other than those prescribed or required for medical reasons: No Advance Directives: No Advance Directives Information Provided: No service: No Current occupational status: employed Current occupational exposures/hazards: No Cognitive needs: No Hearing needs: No Vision needs: Yes Meds Allergies Allergy/AdvReac Type Severity Reaction Status Date / Time atorvastatin (Lipitor) Allergy Unknown does not Verified 02/12/25 10:59 remember fenofibric acid (Fibricor) Allergy Unknown does not Verified 02/12/25 10:59 remember Active Medications: Current Medications Acetaminophen (Acetaminophen 325 Mg Tablet) 975 mg PO Q6H PRN PRN Reason: Pain, Mild 1-3,fever,headache Aspirin (Aspirin Enteric Coated 81 Mg Tablet.Dr) 81 mg PO DAILY [facility] Carvedilol (Carvedilol 6.25 Mg Tablet) 6.25 mg PO BID SUMAYA; Protocol Cyclobenzaprine HCl (Cyclobenzaprine Hcl 10 Mg Tablet) 10 mg PO Q8H PRN PRN Reason: Muscle Spasm Dextrose (Dextrose 50 % 25 Gm/50 Ml Syringe) 25 gm IVPUSH Q15M PRN; Protocol PRN Reason: per Hypoglycemia Standing Ord. Ezetimibe (Ezetimibe 10 Mg Tablet) 10 mg PO DAILY [facility] Empagliflozin (Empagliflozin 25 Mg Tablet) 25 mg PO DAILY [facility] Fenofibrate (Fenofibrate 160 Mg Tablet) 160 mg PO DAILY [facility] Glucose (Glucose Gel 15 Gm Gel..Gram.) 15 gm PO Q15M PRN; Protocol PRN Reason: per Hypoglycemia Standing Ord. Insulin Human Lispro (Insulin Lispro 100 Unit/Ml 3 Ml Vial) 0 unit SUBCUT QIDACHS SUMAYA; Protocol Lisinopril (Lisinopril 10 Mg Tablet) 10 mg PO DAILY [facility]; Protocol Lorazepam (Lorazepam 1 Mg Tablet) 1 mg PO ONCE PRN PRN Reason: 15 minutes before MANUEL Nitroglycerin (Nitroglycerin 0.4 Mg Tab.Subl) 0.4 mg SUBLINGUAL Q5M PRN PRN Reason: Chest Pain Non-Formulary Medication (Rosuvastatin) 40 mg PO DAILY [facility] Omeprazole (Omeprazole 40 Mg Capsule.Dr) 40 mg PO DAILY@629 [facility] Vitamin D (Cholecalciferol (Vitamin D3) 25 Mcg Tablet) 50 mcg PO DAILY [facility] Home Medications ?Medication ?Instructions ?Recorded ?Confirmed ?Last Taken ?Type aspirin 81 mg tablet,delayed 81 mg PO DAILY 06/12/20 02/12/25 02/12/25 History release (Adult Aspirin Regimen) nitroglycerin 0.4 mg sublingual 0.4 mg sublingual Q5M PRN Chest 06/12/20 02/12/25 Unknown History tablet Pain acetaminophen 500 mg tablet 1,000 mg PO Q6H PRN Fever Or Pain 10/24/20 02/12/25 Unknown History (Tylenol Extra Strength) cholecalciferol (vitamin D3) 50 50 mcg PO DAILY 02/12/25 02/12/25 02/12/25 History mcg (2,000 unit) tablet (Vitamin D3) empagliflozin 25 mg tablet 25 mg PO DAILY 02/12/25 02/12/25 02/12/25 History (Jardiance) omeprazole 40 mg capsule,delayed 40 mg PO DAILY@30 02/12/25 02/12/25 02/12/25 History release prednisone 50 mg tablet 50 mg PO DAILY 02/12/25 02/12/25 02/12/25 History tirzepatide 2.5 mg/0.5 mL 2.5 mg subcut MO 02/12/25 02/12/25 02/07/25 History subcutaneous pen injector ([place]) Physical Exam Vital Signs and Narrative: Vital Signs: Last Vital Signs Temp 97.6 F 02/12/25 10:57 Pulse 98 02/12/25 12:05 Resp 18 02/12/25 12:05 BP 109/70 02/12/25 12:05 Pulse Ox 93 02/12/25 12:05 O2 Del Method Room Air 02/12/25 12:05 BMI result Body Mass Index 34.4 Results Labs 02/12/25 11:40 02/12/25 11:40 Labs: Laboratory Results - last 24 hr 02/12/25 02/12/25 11:40 13:39 MCV 84.8 MCH 28.4 MCHC 33.5 RDW 13.0 Plt Count 212 MPV 10.8 Immature Gran % (Auto) 0.3 Neut % (Auto) 71.2 Lymph % (Auto) 17.9 L [place] % (Auto) 9.1 Eos % (Auto) 1.3 Baso % (Auto) 0.2 Lymph # (Auto) 2.2 [place] # (Auto) 1.1 Eos # (Auto) 0.2 Baso # (Auto) 0.0 Abs Immat Gran (auto) 0.04 H Absolute Neuts (auto) 8.9 H Absolute Nucleated RBC 0.000 Nucleated RBC % (auto) 0.0 PT 11.4 INR 1.0 APTT 26.1 Anion Gap 12 Estim Creat Clear Calc 115.6 Estimated GFR > 60 POC Glucose 101 Random Glucose 105 Calcium 9.7 Triglycerides 116 Cholesterol 101 LDL Cholesterol, Calc 44 HDL Cholesterol 34 L Assessment and Plan (1) Transient ischemic attack: Status: Acute (2) Essential hypertension: Status: Acute Plan Blaise Nagel is a 59 y/o man presents with: Transient ischemic attack, rule out stroke, nearly occlusive stenosis of the right ICA and right carotid bulb. Symptoms resolved. Telemetry. Neuro checks every 2 hours. Continue aspirin and statin. PT/OT evaluation. TIA/stroke education. Check TTE and brain MRI with IV contrast. Neurology and vascular surgery consult (Dr. Bee contacted and will perform surgery). Type 2 diabetes mellitus. BG checks before meals and bedtime. Hold metformin (got IV constrast). Continue Jardiance. Patient received injections on Mounjaro -last dose February 07. Insulin sliding scale. Diabetic diet. Essential hypertension. Continue lisinopril and carvedilol. Hyperlipidemia. Continue rosuvastatin, Zetia and fenofibrate. GERD. Continue omeprazole. Obesity. BMI 34.4 kg/m2. Patient has been losing weight since using Mounjaro injection. Obstructive sleep apnea. Not tolerating CPAP. Back pain. Has been using prednisone, hold for now. Continue Flexeril as needed. DVT prophylaxis: Lovenox Code status: Full Patient will need hospitalization for at least 2 midnights for TIA symptoms + evaluation and treatment. Patient will need close monitoring of neurological status and evaluation by vascular surgeon for surgery. Quality Stroke Does the patient have a stroke diagnosis?: No VTE Prior VTE?: No VTE Risk Level:: Medical - moderate - high VTE Device Contraindication: Treatment Not Indicated VTE Drug Contraindication: N/A - Med Ordered
[2025-02-12 18:31] LABS: Glucose, Whole Blood 113 mg/dL (60-115)
[2025-02-12 20:47] LABS: Glucose, Whole Blood 139 mg/dL (60-115)
[2025-02-12] MEDS: PT OWN (Rosuvastatin 40 mg tablet) 40 EACH PO (22:05)
[2025-02-13 04:00] VITALS: BP 139/76; PULSE 71; RESP 16; TEMP 36.3; O2SAT 95
[2025-02-13 06:30] LABS: Anion Gap 13 (12-20); Blood Urea Nitrogen 20 mg/dL (9-16); Calcium 9.3 mg/dL (8.4-10.2); Carbon Dioxide 22 mmol/L (22-29); Chloride 106 mmol/L (96-108); Creatinine Clr Calc Pharmacy 119.9; Estimated Glomerular Filt Rate > 60; Potassium 4.1 mmol/L (3.3-5.1); Sodium 137 mmol/L (135-145)
[2025-02-13 06:34] LABS: Hemoglobin A1C 171.9795 umol/L; Total Hemoglobin (HGBA1C) 3942.5685 umol/L
[2025-02-13 07:09] VITALS: BP 139/88; PULSE 68; RESP 18; TEMP 36.4; O2SAT 97
[2025-02-13 07:18] LABS: Glucose, Whole Blood 85 mg/dL (60-115)
[2025-02-13] MEDS: Aspirin Enteric Coated 81 MG TABLET.DR PO (08:11)
[2025-02-13] MEDS: diazePAM 10 MG/2 ML CARTRIDGE 2.5 MG IVPUSH (09:03)
--- NOTE | 2025-02-13 09:41 | MHC.CM.PN ---
Pt. lives with his girlfriend, PCP confirmed: Dr. King. HCP discussed, form to be completed and added to chart, naming: Sharonda. Pt. does not use home health services, he has CPAP machine, does not use it. He can arrange transport home at [place]. DCP: home, self care, CM to follow for DC needs.
[2025-02-13 10:05] VITALS: BMI 34.2
--- NOTE | 2025-02-13 10:17 | PM.NEUROCN ---
History of Present Illness Data of Consult Service Date: 02/13/25 Primary Care Provider: Zahida King MD [facility] Reason for consult: TIA 59 years old man with obesity, diabetes, coronary artery disease status post bypass came to hospital with left-sided symptoms. He said that his left side of the face and arm got numb and weak to the point that he was using his right hand to lifted up. Symptoms lasted for few minutes. Since then symptoms have recurred few times including today. There was no associated pain or headache. There was no speech or language difficulty or recent trauma. Review of Systems Review of Systems: No associated cardiac symptoms PMFSH Past Medical History Medical History Obesity (BMI 30-39.9) Type 2 diabetes mellitus with unspecified complications Morbid obesity Abdominal pain, chronic, bilateral lower quadrant Carpal tunnel syndrome Spondylosis of lumbar spine Spondylosis of cervical spine Type 2 diabetes mellitus Essential hypertension Atherosclerotic cardiovascular disease Dislocation of ring finger [place]-Schlatter's disease of both knees Depression Degenerative disc disease CAD (coronary artery disease) Obstructive sleep apnea Vitamin D deficiency Erectile dysfunction GERD (gastroesophageal reflux disease) Hypercholesterolemia Carpal tunnel syndrome on both sides Family History Family History Father Myocardial infarction Mother Myocardial infarction Surgical History Surgical History Stented coronary artery History of surgery History of vasectomy History of nasal surgery Social History Social History Household Members: Spouse Housing: House Do you presently have visiting nurse or other home services: No Alcohol intake: never Patient Tobacco Use Status: Former Tobacco user Tobacco use type: Cigarette e-Cigarette/Vaping Use: Never Used Second Hand Smoke Exposure: No service: No Current occupational status: employed Current occupational exposures/hazards: No Cognitive needs: No Hearing needs: No Vision needs: Yes Meds Allergies Allergy/AdvReac Type Severity Reaction Status Date / Time atorvastatin (Lipitor) Allergy Unknown does not Verified 02/12/25 10:59 remember fenofibric acid (Fibricor) Allergy Unknown does not Verified 02/12/25 10:59 remember Active Medications: Current Medications Acetaminophen (Acetaminophen 325 Mg Tablet) 975 mg PO Q6H PRN PRN Reason: Pain, Mild 1-3,fever,headache Aspirin (Aspirin Enteric Coated 81 Mg Tablet.Dr) 81 mg PO DAILY [facility] Last Admin: 02/13/25 08:11 Dose: 81 mg Carvedilol (Carvedilol 6.25 Mg Tablet) 6.25 mg PO BID [facility]; Protocol Last Admin: 02/13/25 08:11 Dose: 6.25 mg Cyclobenzaprine HCl (Cyclobenzaprine Hcl 10 Mg Tablet) 10 mg PO Q8H PRN PRN Reason: Muscle Spasm Dextrose (Dextrose 50 % 25 Gm/50 Ml Syringe) 25 gm IVPUSH Q15M PRN; Protocol PRN Reason: per Hypoglycemia Standing Ord. Ezetimibe (Ezetimibe 10 Mg Tablet) 10 mg PO DAILY [facility] Last Admin: 02/13/25 08:11 Dose: 10 mg Empagliflozin (Empagliflozin 25 Mg Tablet) 25 mg PO DAILY [facility] On Hold: 02/13/25 09:05 Last Admin: 02/13/25 08:11 Dose: Not Given Fenofibrate (Fenofibrate 160 Mg Tablet) 160 mg PO DAILY [facility] Last Admin: 02/13/25 08:10 Dose: 160 mg Glucose (Glucose Gel 15 Gm Gel..Gram.) 15 gm PO Q15M PRN; Protocol PRN Reason: per Hypoglycemia Standing Ord. Heparin Sodium (Porcine) (Heparin Sodium,Porcine 5,000 Unit/Ml Vial) 4,300 unit 40 unit/kg (4300 unit) IVPUSH PROTOCOL BOLUS PRN; Protocol PRN Reason: 40 unit/kg - Heparin Protocol Heparin Sodium (Porcine) (Heparin Sodium,Porcine 5,000 Unit/Ml Vial) 8,600 unit 80 unit/kg (8600 unit) IVPUSH PROTOCOL BOLUS PRN; Protocol PRN Reason: 80 unit/kg - Heparin Protocol Heparin Sodium/Sodium Chloride (Heparin Sodium,Porcine/1/2ns) 25,000 unit in 250 mls @ 0 mls/hr IVCONT .Q0M [facility]; Protocol Insulin Human Lispro (Insulin Lispro 100 Unit/Ml 3 Ml Vial) 0 unit SUBCUT QIDACHS [facility]; Protocol Last Admin: 02/13/25 07:26 Dose: Not Given Lisinopril (Lisinopril 10 Mg Tablet) 10 mg PO DAILY [facility]; Protocol Last Admin: 02/13/25 08:11 Dose: 10 mg Lorazepam (Lorazepam 1 Mg Tablet) 1 mg PO ONCE PRN PRN Reason: 15 minutes before MANUEL Last Admin: 02/12/25 17:26 Dose: 1 mg Nitroglycerin (Nitroglycerin 0.4 Mg Tab.Subl) 0.4 mg SUBLINGUAL Q5M PRN PRN Reason: Chest Pain Pt Own (Rosuvastatin (40 Mg Tablet)) 40 mg PO BEDTIME [facility] Last Admin: 02/12/25 22:05 Dose: 40 mg Omeprazole (Omeprazole 40 Mg Capsule.Dr) 40 mg PO DAILY@06 [facility] Last Admin: 02/13/25 06:22 Dose: Not Given Vitamin D (Cholecalciferol (Vitamin D3) 25 Mcg Tablet) 50 mcg PO DAILY [facility] Last Admin: 02/13/25 08:11 Dose: 50 mcg Home Medications ?Medication ?Instructions ?Recorded ?Confirmed ?Last Taken ?Type aspirin 81 mg tablet,delayed 81 mg PO DAILY 06/12/20 02/12/25 02/12/25 History release (Adult Aspirin Regimen) nitroglycerin 0.4 mg sublingual 0.4 mg sublingual Q5M PRN Chest 06/12/20 02/12/25 Unknown History tablet Pain acetaminophen 500 mg tablet 1,000 mg PO Q6H PRN Fever Or Pain 10/24/20 02/12/25 Unknown History (Tylenol Extra Strength) cholecalciferol (vitamin D3) 50 50 mcg PO DAILY 02/12/25 02/12/25 02/12/25 History mcg (2,000 unit) tablet (Vitamin D3) empagliflozin 25 mg tablet 25 mg PO DAILY 02/12/25 02/12/25 02/12/25 History (Jardiance) omeprazole 40 mg capsule,delayed 40 mg PO DAILY@0630 02/12/25 02/12/25 02/12/25 History release prednisone 50 mg tablet 50 mg PO DAILY 02/12/25 02/12/25 02/12/25 History tirzepatide 2.5 mg/0.5 mL 2.5 mg subcut MO 02/12/25 02/12/25 02/07/25 History subcutaneous pen injector ([place]) Physical Exam Vital Signs: Vital Signs: Last Vital Signs Temp 97.5 F 02/13/25 07:09 Pulse 68 02/13/25 07:09 Resp 18 02/13/25 07:09 BP 139/88 02/13/25 07:09 Pulse Ox 97 02/13/25 07:09 O2 Del Method Room Air 02/13/25 07:09 BMI result Body Mass Index 34.2 Neuro: Other: He is alert and awake with normal spontaneity of speech fluency comprehension and affect. Face is symmetrical. Visual ludwig are full. There was no pronator drift. Deep tendon reflexes are trace to absent with flexor plantars. Speech is normal. Results Labs 02/12/25 11:40 02/13/25 05:43 Labs: Short CBC 02/12/25 Range/Units 11:40 WBC 12.5 H (4.8-10.8) X10*3/uL Hgb 16.0 (14.0-18.0) g/dl Hct 47.8 (42.0-52.0) % Plt Count 212 (160-400) X10*3/uL BMP 02/12/25 02/13/25 11:40 05:43 Sodium 138 137 Potassium 4.3 4.1 Chloride 108 106 Carbon Dioxide 22 22 BUN 18 H 20 H Creatinine 0.86 0.83 Calcium 9.7 9.3 CTA of brain and MRI of brain did not reveal any acute abnormality. Minimal chronic microvascular ischemic changes were noted. CTA revealed near occlusion of right internal carotid artery. Assessment and Plan (1) Transient ischemic attack: Status: Acute 59 years old man with multiple stereotypical episodes resulting in left face and arm numbness and weakness associated with near occlusion of right internal carotid artery with MRI not revealing any acute lesion. These set of symptoms are suggestive of hemodynamic transient ischemic attack from hypoperfusion resulting from internal carotid artery disease. My recommendation is to discontinue his blood pressure medicines as much as possible and avoid hypotension. Baby aspirin daily is recommended an urgent vascular surgery consultation is needed to take care of his right carotid. Risk of stroke is relatively high at this stage. Procedures Date of Service Date of Service: 02/13/25
[2025-02-13 10:27] LABS: INTERNATIONAL NORM RATIO 1.0 (0.9-1.1); Prothrombin Time 11.5 SEC (10.9-12.4)
[2025-02-13 10:30] LABS: PTT Heparin Drip 32.7 SEC (53-77.9)
[2025-02-13 10:47] LABS: Hematocrit 48.3 % (42.0-52.0); Hemoglobin 16.1 g/dl (14.0-18.0); Mean Corpuscular HGB Conc 33.3 g/dl (31.0-36.0); Mean Corpuscular Hemoglobin 28.2 pg (27.0-33.0); Mean Corpuscular Volume 84.6 fL (80.0-98.0); NRBC Abs Auto 0.000 X10*3/uL (0.0-0.012); NRBC Pct Auto 0.0 /100WBC (0.0-0.2); Platelet Count 214 X10*3/uL (160-400); Red Blood Count 5.71 X10*6/uL (4.60-5.80); White Blood Count 10.8 X10*3/uL (4.8-10.8)
--- NOTE | 2025-02-13 10:53 | MHC.SLORD ---
Speech Language Pathology Order Status: TELEVISION NEWS PHOTOGRAPHER swallow eval ordered this morning, RN swallow screen documented shortly afterwards indicating patient had passed. Patient presently NPO, neuro consult stating an urgent vascular surgery consultation is needed. Per PA, TELEVISION NEWS PHOTOGRAPHER consult ordered in error and no longer needed, order to be cancelled. Please re-refer if needed.
[2025-02-13 11:13] VITALS: BP 125/90; PULSE 63; RESP 18; TEMP 36.3; O2SAT 97
[2025-02-13] MEDS: Heparin Sodium,Porcine/1/2NS 25,000 UNIT/250 ML IV.SOLN 15.12 UNIT IVCONT (11:16)
[2025-02-13 11:27] LABS: Glucose, Whole Blood 86 mg/dL (60-115)
[2025-02-13] MEDS: Lactated Ringers 1,000 ML 100 ML IVCONT ×2 (11:49→21:26)
--- NOTE | 2025-02-13 12:26 | P.DS_ITS ---
DS: Providers Provider Date of Service: 02/13/25 Date of admission: 02/12/25 14:23 Date of discharge: 02/13/25 Primary care physician: Zahida King MD Consults: 02/12/25 14:23 Consult to Vascular Surgery Routine Consulting Provider: [facility] Reason for consultation: TIA, right ICA stenosis 02/12/25 14:25 Consult to Neurology Routine Consulting Provider: Braulio Bond Reason for consultation: TIA, right ICA near occlusion Has provider been notified: No 02/13/25 07:36 Consult to Cardiology Routine Consulting Provider: [facility] Reason for consultation: preop eval; TIA, ICA stenosis Attending physician on discharge: [facility] [place] Discharging clinician: Lindy Castro DS: Diagnosis Discharge Diagnosis (1) Transient ischemic attack: Status: Acute (2) Internal carotid artery stenosis: Status: Acute DS: Summary Hospital Course Hospital Course: From H&P on the day of admission Blaise Nagel is a 59 years old man with past medical history significant for CAD s/p stenting, type 2 diabetes mellitus on m etformin, Jardiance and Mounjaro, hyperlipidemia, essential hypertension, GERD, LALI unable to tolerate CPAP and obesity presents to the ED after experiencing left facial and left upper extremity numbness that started around 10 20 a.m. while he was putting on his socks. He also experienced dizziness and fell forward onto his bed. He denied any witnessed to his left leg. He denied experiencing any headache, double vision, slurred speech, facial droop, drooling, swallowing difficulty or loss of consciousness. He mentioned that he has been experiencing events of blurry vision for a while and that he had a similar event one-week ago but not this severe. He called his girlfriend to ask for help. He denied any shortness on breath but was experiencing vague left- sided chest discomfort that resolved. He took his baby aspirin this morning. Patient has lost 30 lb over the last year. He was recently prescribed with prednisone and Flexeril for a lower back pain. He is a former tobacco smoker and quit many years ago. He does not have issues with alcohol abuse or illicit drug use. In the ED, his vital signs were found to be stable. His last BP is 109/70. Blood workup showed leukocytosis of 12.5. Hemoglobin and platelets are normal. INR is 1.0. There are no significant electrolyte imbalances. BUN is 18 and creatinine 0.86. His glucose 105. Troponin is < 2.7 x2. Lipid panel: Triglycerides 116, cholesterol 101, LDL [address] scan without IV contrast showed no acute intracranial findings. Head and neck CTA showed no focal occlusion, and a worrisome or dissection of major arteries in the head and neck. There is a nearly occlusive stenosis of the are ICA origin, severe stenosis of the right carotid bulb due to calcification. It also showed mild left ICA origin stenosis less than 50% and left thyroid nodules. ECG showed normal sinus rhythm without ischemic changes. ED tx: Versed 4 mg IV, aspirin 243 mg PO Crescendo TIAs Patient presented to the emergency department with intermittent episodes of left-sided facial and left upper extremity numbness, symptoms intermittent over the past 1-2 weeks. head/neck CTA showing nearly occlusive stenosis of the right ICA and right carotid bulb. Brain MRI negative for acute stroke. Continued on aspirin and statin and admitted for planned carotid endarterectomy. Unfortunately patient began having multiple episodes of recurrent symptoms with left-sided facial and left arm numbness intermittent left facial droop consistent with crescendo TIAs. Anesthesia team unavailable for urgent surgery today and he will be transferred to outside facility for urgery surgery. Type 2 diabetes mellitus. Hold metformin (got IV constrast), hold Jardiance. Patient received injections on Mounjaro -last dose February 07 continue Insulin sliding scale. Diabetic diet. Essential hypertension. Continued on carvedilol, dose lowered to 3.125 and lisinpril placed on hold to prevent hypotension. Hyperlipidemia. Continue rosuvastatin, Zetia and fenofibrate. GERD. Continue omeprazole. Obesity. BMI 34.4 kg/m2. Patient has been losing weight since using Mounjaro injection. Obstructive sleep apnea. Not compliant with CPAP. Back pain. Has been using prednisone, hold for now. Continue Flexeril as needed. Time Attestation Discharge Coordination Time (in mins): 40 Quality: Safe Use of Opioids Does Pt have an Active Cancer Diagnosis on the Problem List?: No Quality: Stroke Does the patient have a stroke diagnosis?: No Physical Exam Vital Signs: Vital Signs: Last Vital Signs Temp 97.4 F 02/13/25 11:13 Pulse 63 02/13/25 11:13 Resp 18 07/27/25 11:13 BP 125/90 H 02/13/25 11:13 Pulse Ox 97 02/13/25 11:13 O2 Del Method Room Air 02/13/25 11:13 BMI result Body Mass Index 34.2 Const: General: cooperative Nutritional Appearance: overweight Orientation/consciousness: patient oriented x3 Eyes: Pupils: Equal, round and reactive pupils present Resp: Effort & Inspection: normal respiratory effort, able to speak in complete sentences, no respiratory distress and no use of accessory muscles Neuro: Other: intermittent left facial and LUE numbness, intermittent left facial droop speech clear General: patient oriented x3 and moves all extremities Cranial nerves: Yes Equal, round and reactive pupils present Extrem: General: No pedal edema DS: Data Data Completed and Pending Labs on day of discharge: Laboratory Results - last 24 hr 02/12/25 02/12/25 02/12/25 11:40 13:39 13:49 WBC RBC Hgb Hct MCV MCH MCHC RDW Plt Count MPV Absolute Nucleated RBC Nucleated RBC % (auto) PT INR aPTT Heparin Protocol Sodium Potassium Chloride Carbon Dioxide Anion Gap BUN Creatinine Estim Creat Clear Calc Estimated GFR POC Glucose 101 Random Glucose Estimat Average Glucose Hemoglobin A1c % Calcium Troponin I High Sens < 2.7 < 2.7 02/12/25 02/12/25 02/13/25 18:27 20:43 05:43 WBC RBC Hgb Hct MCV MCH MCHC RDW Plt Count MPV Absolute Nucleated RBC Nucleated RBC % (auto) PT INR aPTT Heparin Protocol Sodium 137 Potassium 4.1 Chloride 106 Carbon Dioxide 22 Anion Gap 13 BUN 20 H Creatinine 0.83 Estim Creat Clear Calc 119.9 Estimated GFR > 60 POC Glucose 113 139 H Random Glucose 86 Estimat Average Glucose 128 Hemoglobin A1c % 6.1 H Calcium 9.3 Troponin I High Sens 02/13/25 02/13/25 02/13/25 07:14 09:50 10:39 WBC 10.8 RBC 5.71 Hgb 16.1 Hct 48.3 MCV 84.6 MCH 28.2 MCHC 33.3 RDW 13.2 Plt Count 214 MPV 10.4 Absolute Nucleated RBC 0.000 Nucleated RBC % (auto) 0.0 PT 11.5 INR 1.0 aPTT Heparin Protocol 32.7 L Sodium Potassium Chloride Carbon Dioxide Anion Gap BUN Creatinine Estim Creat Clear Calc Estimated GFR POC Glucose 85 Random Glucose Estimat Average Glucose Hemoglobin A1c % Calcium Troponin I High Sens 02/13/25 11:04 WBC RBC Hgb Hct MCV MCH MCHC RDW Plt Count MPV Absolute Nucleated RBC Nucleated RBC % (auto) PT INR aPTT Heparin Protocol Sodium Potassium Chloride Carbon Dioxide Anion Gap BUN Creatinine Estim Creat Clear Calc Estimated GFR POC Glucose 86 Random Glucose Estimat Average Glucose Hemoglobin A1c % Calcium Troponin I High Sens Discharge Plan Discharge Anticipated Discharge Date/Time: 02/13/25 12:44 Patient Disposition: Xfer Acute Care Hospital Discharge Diagnosis: Crescendo TIAs with nearly occlusive right ICA stenosis Referrals: Po,Zahida Lopez MD [Primary Care Provider, Internal Medicine] - 1 Week Discharge Medications: New heparin (porcine) 5,000 unit/mL Solution 4,300 unit IVPUSH PROTOCOL BOLUS PRN (Reason: 40 Unit/Kg - Heparin Protocol) Qty: 25 0RF heparin (porcine) 5,000 unit/mL Solution 8,600 unit IVPUSH PROTOCOL BOLUS PRN (Reason: 80 Unit/Kg - Heparin Protocol) Qty: 25 0RF heparin(porcine) in 0.45% NaCl 25,000 unit/250 mL Parenteral Solution 25,000 unit continuous IV infusion .Q0M Qty: 6000 0RF carvedilol 3.125 mg Tablet 3.125 mg PO BID Qty: 1 0RF Protocol: Hold for SBP/HR < HOLD for SBP < : 90 HOLD for HR < : 60 Continued rosuvastatin 40 mg tablet 40 mg PO DAILY 90 Days Qty: 90 3RF ezetimibe 10 mg tablet 10 mg PO DAILY Qty: 90 1RF fenofibrate 160 mg tablet 160 mg PO DAILY 90 Days Qty: 90 2RF omeprazole 40 mg capsule,delayed release(DR/EC) 40 mg PO DAILY@0630 cholecalciferol (vitamin D3) [Vitamin D3] 50 mcg (2,000 unit) Tablet 50 mcg PO DAILY aspirin [Adult Aspirin Regimen] 81 mg tablet,delayed release (DR/EC) 81 mg PO DAILY acetaminophen [Tylenol Extra Strength] 500 mg tablet 1,000 mg PO Q6H PRN (Reason: Fever Or Pain) meloxicam 15 mg tablet 15 mg PO DAILY Qty: 14 0RF cyclobenzaprine 5 mg tablet 10 mg PO Q8H PRN (Reason: Muscle Spasm) 7 Days Qty: 21 0RF Held metformin 500 mg tablet 500 mg PO BID 90 Days Qty: 180 3RF Hold Instructions: hold due to recent IV contrast lisinopril 10 mg tablet 10 mg PO DAILY Qty: 90 2RF Hold Instructions: hold to prevent hypotension in the setting of severe right internal carotid stenosis Jardiance 25 mg tablet 25 mg PO DAILY Hold Instructions: Hold for surgery Mounjaro 2.5 mg/0.5 mL pen injector 2.5 mg SUBCUT MO Hold Instructions: hold inpatient prednisone 50 mg tablet 50 mg PO DAILY Hold Instructions: has been taking for back pain, resume as indicated nitroglycerin 0.4 mg tablet, sublingual 0.4 mg sublingual Q5M PRN (Reason: Chest Pain) Hold Instructions: Holter prevent hypotension Rx Instructions: do not exceed 3 doses per episode Discontinued carvedilol 6.25 mg tablet 6.25 mg PO BID 90 Days Qty: 180 2RF Rx Instructions: must administer with a meal/food No Action (DME) cane Device See Rx Instructions .Route Qty: 1 0RF Rx Instructions: As directed Diet: NPO Activity on Discharge: As tolerated Stand Alone Forms: Patient Portal Discharge page Print Language: Portuguese Care Plan Goals: See below Health Concerns: Crescendo TIAs with nearly occlusive right internal carotid stenosis Plan of Treatment: Continue aspirin statin, heparin drip Lisinopril placed on hold and Coreg dose reduced to 3.125 mg b.i.d. in order to prevent hypotension Transfer to tertiary care facility for urgent surgery due to ongoing symptoms Assessment: See discharge summary
--- NOTE | 2025-02-13 12:34 | P.CONCA_ITS ---
History of Present Illness History of Present Illness Date of Service: 02/13/25 Chief complaint: transient ischemic attack, right ICA stenosis Narrative: [age] year gentleman presenting with TIA and severe right internal carotid artery stenosis. We have been asked to see him for perioperative cardiovascular risk assessment. He has been experiencing left-sided facial numbness and arm numbness over the last few weeks. Yesterday had a severe episode where he had weakness in the left arm and shaking episode. He said these symptoms lasted only came to the ER. In the ER he had CTA performed which showed severe internal carotid artery stenosis on the right side and he has been seen by Neurology and it was felt that his symptoms are due to internal carotid artery stenosis. He had multiple TIAs in the last week. He has known history of coronary disease with previous PCI to right coronary artery. He has no anginal symptoms. In the last week or so he has walked with his close to 10,000 steps without any symptoms. [facility] Past Medical History Medical History Obesity (BMI 30-39.9) Type 2 diabetes mellitus with unspecified complications Morbid obesity Abdominal pain, chronic, bilateral lower quadrant Carpal tunnel syndrome Spondylosis of lumbar spine Spondylosis of cervical spine Type 2 diabetes mellitus Essential hypertension Atherosclerotic cardiovascular disease Dislocation of ring finger Shelia-Schlatter's disease of both knees Depression Degenerative disc disease CAD (coronary artery disease) Obstructive sleep apnea Vitamin D deficiency Erectile dysfunction GERD (gastroesophageal reflux disease) Hypercholesterolemia Carpal tunnel syndrome on both sides Family History Family History Father Myocardial infarction Mother Myocardial infarction Surgical History Surgical History Stented coronary artery History of surgery History of vasectomy History of nasal surgery Social History Social History Household Members: Spouse Housing: House Do you presently have visiting nurse or other home services: No Alcohol intake: never Patient Tobacco Use Status: Former Tobacco user Tobacco use type: Cigarette e-Cigarette/Vaping Use: Never Used Second Hand Smoke Exposure: No service: No Current occupational status: employed Current occupational exposures/hazards: No Cognitive needs: No Hearing needs: No Vision needs: Yes Meds Allergies Allergy/AdvReac Type Severity Reaction Status Date / Time atorvastatin (Lipitor) Allergy Unknown does not Verified 02/12/25 10:59 remember fenofibric acid (Fibricor) Allergy Unknown does not Verified 02/12/25 10:59 remember Active Medications: Current Medications Acetaminophen (Acetaminophen 325 Mg Tablet) 975 mg PO Q6H PRN PRN Reason: Pain, Mild 1-3,fever,headache Aspirin (Aspirin Enteric Coated 81 Mg Tablet.Dr) 81 mg PO DAILY [facility] Last Admin: 02/13/25 08:11 Dose: 81 mg Carvedilol (Carvedilol 3.125 Mg Tablet) 3.125 mg PO BID [facility]; Protocol Cyclobenzaprine HCl (Cyclobenzaprine Hcl 10 Mg Tablet) 10 mg PO Q8H PRN PRN Reason: Muscle Spasm Dextrose (Dextrose 50 % 25 Gm/50 Ml Syringe) 25 gm IVPUSH Q15M PRN; Protocol PRN Reason: per Hypoglycemia Standing Ord. Ezetimibe (Ezetimibe 10 Mg Tablet) 10 mg PO DAILY [facility] Last Admin: 02/13/25 08:11 Dose: 10 mg Fenofibrate (Fenofibrate 160 Mg Tablet) 160 mg PO DAILY [facility] Last Admin: 02/13/25 08:10 Dose: 160 mg Glucose (Glucose Gel 15 Gm Gel..Gram.) 15 gm PO Q15M PRN; Protocol PRN Reason: per Hypoglycemia Standing Ord. Heparin Sodium (Porcine) (Heparin Sodium,Porcine 5,000 Unit/Ml Vial) 4,300 unit 40 unit/kg (4300 unit) IVPUSH PROTOCOL BOLUS PRN; Protocol PRN Reason: 40 unit/kg - Heparin Protocol Heparin Sodium (Porcine) (Heparin Sodium,Porcine 5,000 Unit/Ml Vial) 8,600 unit 80 unit/kg (8600 unit) IVPUSH PROTOCOL BOLUS PRN; Protocol PRN Reason: 80 unit/kg - Heparin Protocol Heparin Sodium/Sodium Chloride (Heparin Sodium,Porcine/1/2ns) 25,000 unit in 250 mls @ 0 mls/hr IVCONT .Q0M SUMAYA; Protocol Last Admin: 02/13/25 11:16 Dose: 14 units/kg/hr, 15.12 mls/hr Lactated Ringer's (Lr) 1,000 mls @ 100 mls/hr IVCONT .Q10H SUMAYA Last Admin: 02/13/25 11:49 Dose: 100 mls/hr Insulin Human Lispro (Insulin Lispro 100 Unit/Ml 3 Ml Vial) 0 unit SUBCUT QIDACHS [facility]; Protocol Last Admin: 02/13/25 11:50 Dose: Not Given Lorazepam (Lorazepam 1 Mg Tablet) 1 mg PO ONCE PRN PRN Reason: 15 minutes before MANUEL Last Admin: 02/12/25 17:26 Dose: 1 mg Pt Own (Rosuvastatin (40 Mg Tablet)) 40 mg PO BEDTIME [facility] Last Admin: 02/12/25 22:05 Dose: 40 mg Omeprazole (Omeprazole 40 Mg Capsule.) 40 mg PO DAILY@0630 [facility] Last Admin: 02/13/25 06:22 Dose: Not Given Vitamin D (Cholecalciferol (Vitamin D3) 25 Mcg Tablet) 50 mcg PO DAILY [facility] Last Admin: 02/13/25 08:11 Dose: 50 mcg Home Medications ?Medication ?Instructions ?Recorded ?Confirmed ?Last Taken ?Type aspirin 81 mg tablet,delayed 81 mg PO DAILY 06/12/20 0 02/12/25 02/12/25 History release (Adult Aspirin Regimen) nitroglycerin 0.4 mg sublingual 0.4 mg sublingual Q5M PRN Chest 06/12/20 02/12/25 Unknown History tablet Pain Held on 02/13/25. Instructions: Holter prevent hypotension acetaminophen 500 mg tablet 1,000 mg PO Q6H PRN Fever Or Pain 10/24/20 02/12/25 Unknown History (Tylenol Extra Strength) cholecalciferol (vitamin D3) 50 50 mcg PO DAILY 02/12/25 02/12/25 History mcg (2,000 unit) tablet (Vitamin D3) empagliflozin 25 mg tablet 25 mg PO DAILY 02/12/2502/12/25 History (Jardiance) Held on 02/13/25. Instructions: Hold for surgery omeprazole 40 mg capsule,delayed 40 mg PO DAILY@0630 0 02/12/25 02/12/25 02/12/25 History release prednisone 50 mg tablet 50 mg PO DAILY 02/12/2501/1902/12/25 History Held on 02/13/25. Instructions: has been taking for back pain, resume as indicated tirzepatide 2.5 mg/0.5 mL 2.5 mg subcut MO 02/12/2502/07/25 History subcutaneous pen injector ([place]) Held on 02/13/25. Instructions: hold inpatient Physical Exam 2 Vital Signs: Vital Signs: Last Vital Signs Temp 97.4 F 02/13/25 11:13 Pulse 63 02/13/25 11:13 Resp 18 02/13/25 11:13 BP 125/90 H 02/13/25 11:13 Pulse Ox 97 02/13/25 11:13 O2 Del Method Room Air 02/13/25 11:13 BMI result Body Mass Index 34.2 GENERAL APPEARANCE: in no acute distress, pleasant. NECK: no carotid bruit, no jugular venous distention. SKIN: no suspicious lesions, warm and dry. HEART: no murmurs, regular rate and rhythm. LUNGS: clear to auscultation bilaterally. ABDOMEN: soft, nontender. EXTREMITIES: no edema. PERIPHERAL PULSES: equal. NEUROLOGIC: Left-sided facial droop, alert and oriented x3. Objective Labs and Meds 02/13/25 10:39 02/13/25 05:43 Lab results: Laboratory Results - last 24 hr 02/12/25 02/12/25 02/12/25 13:39 13:49 18:27 WBC RBC Hgb Hct MCV MCH MCHC RDW Plt Count MPV Absolute Nucleated RBC Nucleated RBC % (auto) PT INR aPTT Heparin Protocol Sodium Potassium Chloride Carbon Dioxide Anion Gap BUN Creatinine Estim Creat Clear Calc Estimated GFR POC Glucose 101 113 Random Glucose Estimat Average Glucose Hemoglobin A1c % Calcium Troponin I High Sens < 2.7 02/12/25 02/13/25 02/13/25 20:43 05:43 07:14 WBC RBC Hgb Hct MCV MCH MCHC RDW Plt Count MPV Absolute Nucleated RBC Nucleated RBC % (auto) PT INR aPTT Heparin Protocol Sodium 137 Potassium 4.1 Chloride 106 Carbon Dioxide 22 Anion Gap 13 BUN 20 H Creatinine 0.83 Estim Creat Clear Calc 119.9 Estimated GFR > 60 POC Glucose 139 H 85 Random Glucose 86 Estimat Average Glucose 128 Hemoglobin A1c % 6.1 H Calcium 9.3 Troponin I High Sens 02/13/25 02/13/25 02/13/25 09:50 10:39 11:04 WBC 10.8 RBC 5.71 Hgb 16.1 Hct 48.3 MCV 84.6 MCH 28.2 MCHC 33.3 RDW 13.2 Plt Count 214 MPV 10.4 Absolute Nucleated RBC 0.000 Nucleated RBC % (auto) 0.0 PT 11.5 INR 1.0 aPTT Heparin Protocol 32.7 L Sodium Potassium Chloride Carbon Dioxide Anion Gap BUN Creatinine Estim Creat Clear Calc Estimated GFR POC Glucose 86 Random Glucose Estimat Average Glucose Hemoglobin A1c % Calcium Troponin I High Sens Assessment and Plan (1) Internal carotid artery stenosis: Qualifiers: Laterality: right Qualified Code(s): I65.21 - Occlusion and stenosis of right carotid artery Status: Acute (2) Preop cardiovascular exam: Status: Acute Plan 59-year-old gentleman presenting with recurrent TIA and diagnosed with severe right ICA stenosis. He is on aspirin and heparin gtt is added. He has no anginal symptoms. He is intermediate risk for perioperative complications. Continue aspirin. I discussed with neurology for adding Plavix and neurology recommendation was to try heparin and aspirin currently. Avoid hypotension. If blood pressure is low then he may need pressors to keep his blood pressure up. I think we stopped all antihypertensives including beta-blockers currently. We will follow along with you. Thank you for allowing me to participate in the care of your patient. Please feel free to contact me if you have any questions. Procedures Date of Service Date of Service: 02/13/25
--- NOTE | 2025-02-13 14:03 | P.CONGS_ITS ---
History of Present Illness Consult details Consult date: 02/13/25 Reason for consult: other (Carotid stenosis) Narrative: Very pleasant 51-year-old gentleman with a history of diabetes and coronary artery disease presented to the hospital yesterday with an episode of left facial tingling and left arm weakness. He actually had an episode approximately 10 days prior which was not nearly as severe. He was okay in the interim and actually had an outpatient visit with his primary care doctor Dr. Maier in addition to his artifacts conservator Dr. Calzada. Yesterday a proximally 10:00 he had an acute event of left facial tingling and left arm weakness. It was to the point where he was requiring the use of his right arm to function. He subsequently presented to the emergency room for workup. On workup he was noted to have high-grade right carotid stenosis with no evidence of stroke. He now presents to us for vascular evaluation. At the time of my exam he reported no difficulty in any upper extremities and his face felt normal to him. Review of Systems 2 Review of Systems: Yes all other systems are reviewed and are negative Constitutional: Constitutional: Reports no additional constitutional complaints ENT: Reports Normal hearing present Cardiovascular: Cardiovascular: Denies chest pain, Denies chest pain at rest, Denies chest pain with activity and Denies pedal edema Respiratory: Respiratory: Denies cough Gastrointestinal: Gastrointestinal: Denies abdominal pain Musculoskeletal: Musculoskeletal: Denies abnormal gait, Denies muscle cramps and Denies radiating pain into limb Integumentary/Breasts: Skin/Breast: Denies skin ulcer and Denies wounds Neurologic: Reports Normal hearing present and Denies abnormal gait Psychiatric: Psychiatric: Reports no additional psychiatric complaints [facility] Past Medical History Medical History Obesity (BMI 30-39.9) Type 2 diabetes mellitus with unspecified complications Morbid obesity Abdominal pain, chronic, bilateral lower quadrant Carpal tunnel syndrome Spondylosis of lumbar spine Spondylosis of cervical spine Type 2 diabetes mellitus Essential hypertension Atherosclerotic cardiovascular disease Dislocation of ring finger Shelia-Schlatter's disease of both knees Depression Degenerative disc disease CAD (coronary artery disease) Obstructive sleep apnea Vitamin D deficiency Erectile dysfunction GERD (gastroesophageal reflux disease) Hypercholesterolemia Carpal tunnel syndrome on both sides Family History Family History Father Myocardial infarction Mother Myocardial infarction Surgical History Surgical History Stented coronary artery History of surgery History of vasectomy History of nasal surgery Social History Social History Household Members: Spouse Housing: House Do you presently have visiting nurse or other home services: No Alcohol intake: never Patient Tobacco Use Status: Former Tobacco user Tobacco use type: Cigarette e-Cigarette/Vaping Use: Never Used Second Hand Smoke Exposure: No service: No Current occupational status: employed Current occupational exposures/hazards: No Cognitive needs: No Hearing needs: No Vision needs: Yes Meds Allergies Allergy/AdvReac Type Severity Reaction Status Date / Time atorvastatin (Lipitor) Allergy Unknown does not Verified 02/12/25 10:59 remember fenofibric acid (Fibricor) Allergy Unknown does not Verified 02/12/25 10:59 remember Active Medications: Current Medications Acetaminophen (Acetaminophen 325 Mg Tablet) 975 mg PO Q6H PRN PRN Reason: Pain, Mild 1-3,fever,headache Aspirin (Aspirin Enteric Coated 81 Mg Tablet.Dr) 81 mg PO DAILY COUNT INCLUDES THE [facility] Last Admin: 02/13/25 08:11 Dose: 81 mg Cyclobenzaprine HCl (Cyclobenzaprine Hcl 10 Mg Tablet) 10 mg PO Q8H PRN PRN Reason: Muscle Spasm Dextrose (Dextrose 50 % 25 Gm/50 Ml Syringe) 25 gm IVPUSH Q15M PRN; Protocol PRN Reason: per Hypoglycemia Standing Ord. Ezetimibe (Ezetimibe 10 Mg Tablet) 10 mg PO DAILY COUNT INCLUDES THE [facility] Last Admin: 02/13/25 08:11 Dose: 10 mg Fenofibrate (Fenofibrate 160 Mg Tablet) 160 mg PO DAILY COUNT INCLUDES THE [facility] Last Admin: 02/13/25 08:10 Dose: 160 mg Glucose (Glucose Gel 15 Gm Gel..Gram.) 15 gm PO Q15M PRN; Protocol PRN Reason: per Hypoglycemia Standing Ord. Heparin Sodium (Porcine) (Heparin Sodium,Porcine 5,000 Unit/Ml Vial) 4,300 unit 40 unit/kg (4300 unit) IVPUSH PROTOCOL BOLUS PRN; Protocol PRN Reason: 40 unit/kg - Heparin Protocol Heparin Sodium (Porcine) (Heparin Sodium,Porcine 5,000 Unit/Ml Vial) 8,600 unit 80 unit/kg (8600 unit) IVPUSH PROTOCOL BOLUS PRN; Protocol PRN Reason: 80 unit/kg - Heparin Protocol Heparin Sodium/Sodium Chloride (Heparin Sodium,Porcine/1/2ns) 25,000 unit in 250 mls @ 0 mls/hr IVCONT .Q0M COUNT INCLUDES THE [facility]; Protocol Last Admin: 02/13/25 11:16 Dose: 14 units/kg/hr, 15.12 mls/hr Lactated Ringer's (Lr) 1,000 mls @ 100 mls/hr IVCONT .Q10H COUNT INCLUDES THE [facility] Last Admin: 02/13/25 11:49 Dose: 100 mls/hr Insulin Human Lispro (Insulin Lispro 100 Unit/Ml 3 Ml Vial) 0 unit SUBCUT QIDACHS COUNT INCLUDES THE [facility]; Protocol Last Admin: 02/13/25 11:50 Dose: Not Given Lorazepam (Lorazepam 1 Mg Tablet) 1 mg PO ONCE PRN PRN Reason: 15 minutes before MANUEL Last Admin: 02/12/25 17:26 Dose: 1 mg Pt Own (Rosuvastatin (40 Mg Tablet)) 40 mg PO BEDTIME COUNT INCLUDES THE [facility] Last Admin: 02/12/25 22:05 Dose: 40 mg Omeprazole (Omeprazole 40 Mg Capsule.Dr) 40 mg PO DAILY@0630 COUNT INCLUDES THE [facility] Last Admin: 02/13/25 06:22 Dose: Not Given Vitamin D (Cholecalciferol (Vitamin D3) 25 Mcg Tablet) 50 mcg PO DAILY COUNT INCLUDES THE [facility] Last Admin: 02/13/25 08:11 Dose: 50 mcg Home Medications ?Medication ?Instructions ?Recorded ?Confirmed ?Last Taken ?Type aspirin 81 mg tablet,delayed 81 mg PO DAILY 06/12/20 0 02/12/25 02/12/25 History release (Adult Aspirin Regimen) nitroglycerin 0.4 mg sublingual 0.4 mg sublingual Q5M PRN Chest 06/12/20 02/12/25 Unknown History tablet Pain Held on 02/13/25. Instructions: Holter prevent hypotension acetaminophen 500 mg tablet 1,000 mg PO Q6H PRN Fever Or Pain 10/24/20 02/12/25 Unknown History (Tylenol Extra Strength) cholecalciferol (vitamin D3) 50 50 mcg PO DAILY 02/12/25 02/12/25 History mcg (2,000 unit) tablet (Vitamin D3) empagliflozin 25 mg tablet 25 mg PO DAILY 02/12/2502/12/25 History (Jardiance) Held on 02/13/25. Instructions: Hold for surgery omeprazole 40 mg capsule,delayed 40 mg PO DAILY@0630 0 02/12/25 02/12/25 02/12/25 History release prednisone 50 mg tablet 50 mg PO DAILY 02/12/25 07/01/1202/12/25 History Held on 02/13/25. Instructions: has been taking for back pain, resume as indicated tirzepatide 2.5 mg/0.5 mL 2.5 mg subcut MO 02/12/2502/07/25 History subcutaneous pen injector ([place]) Held on 02/13/25. Instructions: hold inpatient Physical Exam 2 Vital Signs: Vital Signs: Last Vital Signs Temp 97.4 F 02/13/25 11:13 Pulse 63 02/13/25 11:13 Resp 18 02/13/25 11:13 BP 125/90 H 02/13/25 11:13 Pulse Ox 97 02/13/25 11:13 O2 Del Method Room Air 02/13/25 11:13 BMI result Body Mass Index 34.2 Const: General: cooperative, healthy appearing and comfortable O rientation/consciousness: oriented to person, oriented to place and oriented to time HEENT: Head: Yes normal to inspection Neck: Neck: Yes normal visual inspection Carotids: no bruits Chest: Chest palpation & inspection: normal inspection of the chest Resp: Effort & Inspection: normal respiratory effort and able to speak in complete sentences Auscultation: clear to auscultation bilaterally, no crackles, no rales, no rhonchi and no wheezes Cardio: Rate: regular rate Rhythm: regular rhythm Heart sounds: S1 normal heart sound present and S2 normal heart sound present Bruits: no carotid bruits Peripheral pulses: Peripheral pulses 2+ throughout GI: Inspection: Yes normal to inspection Skin: Wounds: no wounds Hair: normal Neuro: General: oriented to person, oriented to place and oriented to time Cranial nerves: Yes CN's II-XII intact bilaterally and Yes Normal hearing present Cognition (Neuro): normal cognition Motor exam (neuro): 5/5 motor strength present throughout Extrem: Other: Full motor and strength bilateral upper extremities. General: No clubbing, No cyanosis and No edema Psych: Appearance: grossly normal Mental Status: mental status grossly normal Speech and movement: Normal speech and movement present Results Labs 02/13/25 10:39 02/13/25 05:43 Labs: Abnormal lab results 02/12/25 02/13/25 02/13/25 Range/Units 20:43 05:43 09:50 aPTT Heparin Protocol 32.7 L (53-77.9) SEC BUN 20 H (9-16) mg/dL POC Glucose 139 H (60-115) mg/dL Hemoglobin A1c % 6.1 H (<6.0) % Short CBC 02/13/25 Range/Units 10:39 WBC 10.8 (4.8-10.8) X10*3/uL Hgb 16.1 (14.0-18.0) g/dl Hct 48.3 (42.0-52.0) % Plt Count 214 (160-400) X10*3/uL BMP 02/13/25 05:43 Sodium 137 Potassium 4.1 Chloride 106 Carbon Dioxide 22 BUN 20 H Creatinine 0.83 Calcium 9.3 All other labs normal. Imaging Additional studies: CT scan reviewed demonstrates high-grade right carotid stenosis Assessment and Plan (1) Carotid stenosis, right: Status: Acute In short patient has high-grade right carotid stenosis. Although not clear the concern is that the patient is having crescendo TIAs. It is increasing in frequency as he did have an episode overnight and another episode during the day today. He has been seen by the cardiology team and deemed intermediate risk for cardiac complications. The patient will require right carotid endarterectomy. Patient's family was at bedside. Risks benefits complications including but not limited to bleeding infection stroke and were discussed in detail with the patient. He does recognize that he is at an increased risk of stroke with these TIAs. In addition he is at increased risk of cardiac complications with out a full cardiac workup. Due to the crescendo TIAs this would be deemed as emergent surgery. Patient is in agreement and would like to move forward. Thank you for allowing us to assist in his care. If there are any questions or concerns please do not hesitate to contact us. (2) CAD (coronary artery disease): Qualifiers: Coronary Disease-Associated Artery/Lesion type: [place] artery [place] vs. transplanted heart: wainwright heart Associated angina: without angina Q ualified Code(s): I25.10 - Atherosclerotic heart disease of [place] coronary artery without angina pectoris Status: Acute Procedures Date of Service Date of Service: 02/13/25
[2025-02-13 15:01] VITALS: BP 154/84; PULSE 66; RESP 18; TEMP 36.2; O2SAT 95
[2025-02-13 15:07] LABS: Glucose, Whole Blood 77 mg/dL (60-115)
--- NOTE | 2025-02-13 15:07 | HO.PM.IMPN ---
Subjective Subjective Date of Service: 02/13/25 Interval History: Seen and examined this morning Follow-up for TIA During evaluation patient reported left-sided numbness and tingling in his left arm and left side of face. Left-sided facial droop was noted. Patient sent for stat brain CT which was ultimately negative for stroke. Had multiple recurrent episodes of symptoms throughout the morning Review of Systems Review of Systems: Yes all other systems are reviewed and are negative Constitutional Constitutional: Denies chills and Denies fever(s) Cardiovascular Cardiovascular: Denies chest pain and Denies dyspnea Respiratory Respiratory: Denies dyspnea Gastrointestinal Gastrointestinal: Denies abdominal pain and Denies vomiting Physical Exam Vital Signs: Vital Signs: Last Vital Signs Temp 97.2 F 02/13/25 15:01 Pulse 66 02/13/25 15:01 Resp 18 02/13/25 15:01 BP 154/84 H 02/13/25 15:01 Pulse Ox 95 02/13/25 15:01 O2 Del Method Room Air 02/13/25 15:01 BMI result Body Mass Index 34.2 Const: General: comfortable, alert and awake Nutritional Appearance: overweight Orientation/consciousness: patient oriented x3 Resp: Effort & Inspection: normal respiratory effort, able to speak in complete sentences, no respiratory distress and no use of accessory muscles Cardio: Rate: regular rate GI: Inspection: No distended Palpation (GI): Soft to palpation and nontender Neuro: Other: left side transient/intermittent mild facial droop, sensation changes to left face and left arm no pronator drift, tongue midline, speech clear; strength equal bilaterally General: patient oriented x3 Objective Data Active Medications Acetaminophen (Acetaminophen 325 Mg Tablet) 975 mg PO Q6H PRN PRN Reason: Pain, Mild 1-3,fever,headache Aspirin (Aspirin Enteric Coated 81 Mg Tablet.) 81 mg PO DAILY [facility] Last Admin: 02/13/25 08:11 Dose: 81 mg Documented By: DAYANARA Cyclobenzaprine HCl (Cyclobenzaprine Hcl 10 Mg Tablet) 10 mg PO Q8H PRN PRN Reason: Muscle Spasm Dextrose (Dextrose 50 % 25 Gm/50 Ml Syringe) 25 gm IVPUSH Q15M PRN; Protocol PRN Reason: per Hypoglycemia Standing Ord. Ezetimibe (Ezetimibe 10 Mg Tablet) 10 mg PO DAILY [facility] Last Admin: 02/13/25 08:11 Dose: 10 mg Documented By: DAYANARA Fenofibrate (Fenofibrate 160 Mg Tablet) 160 mg PO DAILY [facility] Last Admin: 02/13/25 08:10 Dose: 160 mg Documented By: DAYANARA Glucose (Glucose Gel 15 Gm Gel..Gram.) 15 gm PO Q15M PRN; Protocol PRN Reason: per Hypoglycemia Standing Ord. Heparin Sodium (Porcine) (Heparin Sodium,Porcine 5,000 Unit/Ml Vial) 4,300 unit 40 unit/kg (4300 unit) IVPUSH PROTOCOL BOLUS PRN; Protocol PRN Reason: 40 unit/kg - Heparin Protocol Heparin Sodium (Porcine) (Heparin Sodium,Porcine 5,000 Unit/Ml Vial) 8,600 unit 80 unit/kg (8600 unit) IVPUSH PROTOCOL BOLUS PRN; Protocol PRN Reason: 80 unit/kg - Heparin Protocol Heparin Sodium/Sodium Chloride (Heparin Sodium,Porcine/1/2ns) 25,000 unit in 250 mls @ 0 mls/hr IVCONT .Q0M [facility]; Protocol Last Admin: 02/13/25 11:16 Dose: 14 units/kg/hr, 15.12 mls/hr Documented By: DAYANARA Co-signed By: RUSS Lactated Ringer's (Lr) 1,000 mls @ 100 mls/hr IVCONT .Q10H [facility] Last Admin: 02/13/25 11:49 Dose: 100 mls/hr Documented By: DAYANARA Insulin Human Lispro (Insulin Lispro 100 Unit/Ml 3 Ml Vial) 0 unit SUBCUT QIDACHS [facility]; Protocol Last Admin: 02/13/25 11:50 Dose: Not Given Documented By: DAYANARA Non-Admin Reason: No Insulin Coverage Lorazepam (Lorazepam 1 Mg Tablet) 1 mg PO ONCE PRN PRN Reason: 15 minutes before MANUEL Last Admin: 02/12/25 17:26 Dose: 1 mg Documented By: YANI Pt Own (Rosuvastatin (40 Mg Tablet)) 40 mg PO BEDTIME [facility] Last Admin: 02/12/25 22:05 Dose: 40 mg Documented By: SYLWIA Omeprazole (Omeprazole 40 Mg Capsule.Dr) 40 mg PO DAILY@0630 [facility] Last Admin: 02/13/25 06:22 Dose: Not Given Documented By: SYLWIA Non-Admin Reason: NPO Vitamin D (Cholecalciferol (Vitamin D3) 25 Mcg Tablet) 50 mcg PO DAILY [facility] Last Admin: 02/13/25 08:11 Dose: 50 mcg Documented By: DAYANARA Labs 02/13/25 10:39 02/13/25 05:43 Labs: Laboratory Results - last 24 hr 02/12/25 02/12/25 02/13/25 18:27 20:43 05:43 MCV MCH MCHC RDW Plt Count MPV Absolute Nucleated RBC Nucleated RBC % (auto) PT INR aPTT Heparin Protocol Anion Gap 13 Estim Creat Clear Calc 119.9 Estimated GFR > 60 POC Glucose 113 139 H Random Glucose 86 Estimat Average Glucose 128 Hemoglobin A1c % 6.1 H Calcium 9.3 Blood Type Antibody Screen 02/13/25 02/13/25 02/13/25 07:14 09:50 10:39 MCV 84.6 MCH 28.2 MCHC 33.3 RDW 13.2 Plt Count 214 MPV 10.4 Absolute Nucleated RBC 0.000 Nucleated RBC % (auto) 0.0 PT 11.5 INR 1.0 aPTT Heparin Protocol 32.7 L Anion Gap Estim Creat Clear Calc Estimated GFR POC Glucose 85 Random Glucose Estimat Average Glucose Hemoglobin A1c % Calcium Blood Type Antibody Screen 02/13/25 02/13/25 11:04 13:47 MCV MCH MCHC RDW Plt Count MPV Absolute Nucleated RBC Nucleated RBC % (auto) PT INR aPTT Heparin Protocol Anion Gap Estim Creat Clear Calc Estimated GFR POC Glucose 86 Random Glucose Estimat Average Glucose Hemoglobin A1c % Calcium Blood Type O Positive Antibody Screen NEGATIVE Assessment and Plan (1) Transient ischemic attack: Status: Acute Plan This is a 59 y/o male with h/o coronary artery disease status post stent placement, type 2 diabetes, hypertension, hyperlipidemia, LALI noncompliant with CPAP who presents to the emergency department with left facial and left arm tingling found to have occlusive stenosis of the right ICA and concern for crescendo TIAs. TIA MRI negative for stroke nearly occlusive stenosis of the right ICA and right carotid bulb. Continue aspirin and statin Continue heparin drip seen by neurology, recommend to avoid hypotension, will hold lisinopril and decrease coreg seen by vascular surgery, plan for right carotid endarterectomy 02/14 NPO at midnight initially attempted transfer to tertiary care facility, but no bed availability at this time, as per vascular no urgent transfer required at this time Type 2 diabetes mellitus BG checks before meals and bedtime Hold metformin (got IV constrast) hold Jardiance last injections of Mounjaro -last dose February 07 Insulin sliding scale. Diabetic diet. Essential hypertension. Hold lisinopril for now Reduced dose of Coreg for now as above Hyperlipidemia. Continue rosuvastatin, Zetia and fenofibrate. GERD. Continue omeprazole. Obesity. BMI 34.4 kg/m2. Patient has been losing weight since using Mounjaro injection. Obstructive sleep apnea. Not tolerating CPAP. Back pain. Has been using prednisone, hold for now. Continue Flexeril as needed. DVT prophylaxis: heparin drip Code status: Full Requires ongoing inpatient stay for management of TIA including urgent surgical intervention/right carotid endarterectomy Quality Stroke Does the patient have a stroke diagnosis?: No VTE Prior VTE?: No VTE Risk Level:: Medical - moderate - high VTE Device Contraindication: Treatment Not Indicated VTE Drug Contraindication: N/A - Med Ordered
[2025-02-13 17:36] LABS: PTT Heparin Drip 58.0 SEC (53-77.9)
[2025-02-13 19:47] VITALS: BP 127/81; PULSE 72; RESP 18; TEMP 36.4; O2SAT 95
[2025-02-13 20:14] LABS: Glucose, Whole Blood 98 mg/dL (60-115)
[2025-02-13] MEDS: PT OWN (Rosuvastatin 40 mg tablet) 40 EACH PO (21:26)
[2025-02-13 23:58] VITALS: BP 129/84; PULSE 73; RESP 18; TEMP 36.3; O2SAT 93
[2025-02-13 23:58] LABS: PTT Heparin Drip 65.2 SEC (53-77.9)
[2025-02-14] VITALS (23 sets, daily range): BP systolic 97–169; BP diastolic 55–101; PULSE 55–103; RESP 13–20; TEMP 36–36.6; O2SAT 94–98
[2025-02-14] MEDS: Heparin Sodium,Porcine/1/2NS 25,000 UNIT/250 ML IV.SOLN 15.12 UNIT IVCONT (01:21)
[2025-02-14] MEDS: Lactated Ringers 1,000 ML 100 ML IVCONT ×2 (06:23→13:21)
[2025-02-14 06:51] LABS: Hematocrit 47.9 % (42.0-52.0); Hemoglobin 15.9 g/dl (14.0-18.0); Mean Corpuscular HGB Conc 33.2 g/dl (31.0-36.0); Mean Corpuscular Hemoglobin 28.6 pg (27.0-33.0); Mean Corpuscular Volume 86.2 fL (80.0-98.0); NRBC Abs Auto 0.000 X10*3/uL (0.0-0.012); NRBC Pct Auto 0.0 /100WBC (0.0-0.2); Platelet Count 175 X10*3/uL (160-400); Red Blood Count 5.56 X10*6/uL (4.60-5.80); White Blood Count 8.1 X10*3/uL (4.8-10.8)
[2025-02-14 07:06] LABS: INTERNATIONAL NORM RATIO 1.0 (0.9-1.1); Prothrombin Time 11.8 SEC (10.9-12.4)
[2025-02-14 07:09] LABS: PTT Heparin Drip 57.6 SEC (53-77.9)
[2025-02-14 07:11] LABS: Glucose, Whole Blood 93 mg/dL (60-115)
--- NOTE | 2025-02-14 07:13 | PC.NURSE ---
Received report for this pt during change of shift. Was told during report pt went down for surgery around 0650 and would be going to ICU post surgery. Pt off unit at this time.
--- NOTE | 2025-02-14 07:36 | HO.ANESPROP2 ---
HPI - Anesthesia Eval Consult details Narrative: right carotid endarterectomy , emergent Anesthesia Pre-Procedure Meds If yes to any meds - educate patient: Pt education - increased risk of aspiration and/or euvolemic DKA [facility] Active Problems Active Problems: All Active Problems Carotid stenosis, right (Acute) Preop cardiovascular exam (Acute) Internal carotid artery stenosis (Acute) Transient ischemic attack (Acute) Palpable mass of neck (Acute) Generalized anxiety disorder (Acute) Obesity (BMI 30-39.9) (Acute) Pes cavus of both feet (Acute) Morbid obesity (Acute) Abdominal pain, chronic, bilateral lower quadrant (Acute) Cholelithiasis (Acute) Dysuria (Acute) Irritable bowel syndrome (Acute) GERD (gastroesophageal reflux disease) (Acute) Carpal tunnel syndrome (Acute) Spondylosis of lumbar spine (Acute) Spondylosis of cervical spine (Acute) Back pain (Acute) Erectile dysfunction (Acute) Type 2 diabetes mellitus with hyperglycemia (Acute) Primary osteoarthritis involving multiple joints (Acute) Polyarthralgia (Acute) Essential hypertension (Acute) Precordial chest pain (Acute) Atherosclerotic cardiovascular disease (Acute) Degenerative disc disease (Acute) CAD (coronary artery disease) (Acute) Obstructive sleep apnea (Acute) Hypercholesterolemia (Acute) Carpal tunnel syndrome on both sides (Acute) Past Medical History Medical History Obesity (BMI 30-39.9) Type 2 diabetes mellitus with unspecified complications Morbid obesity Abdominal pain, chronic, bilateral lower quadrant Carpal tunnel syndrome Spondylosis of lumbar spine Spondylosis of cervical spine Type 2 diabetes mellitus Essential hypertension Atherosclerotic cardiovascular disease Dislocation of ring finger Shelia-Schlatter's disease of both knees Depression Degenerative disc disease CAD (coronary artery disease) Obstructive sleep apnea Vitamin D deficiency Erectile dysfunction GERD (gastroesophageal reflux disease) Hypercholesterolemia Carpal tunnel syndrome on both sides Family History Family History Father Myocardial infarction Mother Myocardial infarction Family history of problems with anesthesia: No Surgical History Surgical History Stented coronary artery History of surgery History of vasectomy History of nasal surgery History of Problems with Anesthesia: No Social History Social History Household Members: Spouse Housing: House Do you presently have visiting nurse or other home services: No Alcohol intake: never Comment: Patient declining bed alarm but has been ringing appropirately before walk Patient Tobacco Use Status: Former Tobacco user Tobacco use type: Cigarette e-Cigarette/Vaping Use: Never Used Second Hand Smoke Exposure: No service: No Current occupational status: employed Current occupational exposures/hazards: No Cognitive needs: No Hearing needs: No Vision needs: Yes Meds Allergies Allergy/AdvReac Type Severity Reaction Status Date / Time atorvastatin (Lipitor) Allergy Unknown does not Verified 02/12/25 10:59 remember fenofibric acid (Fibricor) Allergy Unknown does not Verified 02/12/25 10:59 remember Active Medications: Current Medications Acetaminophen (Acetaminophen 325 Mg Tablet) 975 mg PO Q6H PRN PRN Reason: Pain, Mild 1-3,fever,headache Aspirin (Aspirin Enteric Coated 81 Mg Tablet.Dr) 81 mg PO DAILY [facility] Last Admin: 02/13/25 08:11 Dose: 81 mg Cyclobenzaprine HCl (Cyclobenzaprine Hcl 10 Mg Tablet) 10 mg PO Q8H PRN PRN Reason: Muscle Spasm Dextrose (Dextrose 50 % 25 Gm/50 Ml Syringe) 25 gm IVPUSH Q15M PRN; Protocol PRN Reason: per Hypoglycemia Standing Ord. Ezetimibe (Ezetimibe 10 Mg Tablet) 10 mg PO DAILY [facility] Last Admin: 02/13/25 08:11 Dose: 10 mg Fenofibrate (Fenofibrate 160 Mg Tablet) 160 mg PO DAILY [facility] Last Admin: 02/13/25 08:10 Dose: 160 mg Glucose (Glucose Gel 15 Gm Gel..Gram.) 15 gm PO Q15M PRN; Protocol PRN Reason: per Hypoglycemia Standing Ord. Heparin Sodium (Porcine) (Heparin Sodium,Porcine 5,000 Unit/Ml Vial) 4,300 unit 40 unit/kg (4300 unit) IVPUSH PROTOCOL BOLUS PRN; Protocol PRN Reason: 40 unit/kg - Heparin Protocol Heparin Sodium (Porcine) (Heparin Sodium,Porcine 5,000 Unit/Ml Vial) 8,600 unit 80 unit/kg (8600 unit) IVPUSH PROTOCOL BOLUS PRN; Protocol PRN Reason: 80 unit/kg - Heparin Protocol Heparin Sodium/Sodium Chloride (Heparin Sodium,Porcine/1/2ns) 25,000 unit in 250 mls @ 0 mls/hr IVCONT .Q0M [facility]; Protocol Last Titration: 02/14/25 06:58 Dose: 14 units/kg/hr, 15.12 mls/hr Lactated Ringer's (Lr) 1,000 mls @ 100 mls/hr IVCONT .Q10H [facility] Last Admin: 02/14/25 06:23 Dose: 100 mls/hr Insulin Human Lispro (Insulin Lispro 100 Unit/Ml 3 Ml Vial) 0 unit SUBCUT QIDACHS [facility]; Protocol Last Admin: 02/13/25 21:26 Dose: Not Given Lorazepam (Lorazepam 1 Mg Tablet) 1 mg PO ONCE PRN PRN Reason: 15 minutes before MANUEL Last Admin: 02/12/25 17:26 Dose: 1 mg Pt Own (Rosuvastatin (40 Mg Tablet)) 40 mg PO BEDTIME [facility] Last Admin: 02/13/25 21:26 Dose: 40 mg Omeprazole (Omeprazole 40 Mg Capsule.) 40 mg PO DAILY@0630 [facility] Last Admin: 02/14/25 06:07 Dose: Not Given Vitamin D (Cholecalciferol (Vitamin D3) 25 Mcg Tablet) 50 mcg PO DAILY [facility] Last Admin: 02/13/25 08:11 Dose: 50 mcg Home Medications ?Medication ?Instructions ?Recorded ?Confirmed ?Last Taken ?Type aspirin 81 mg tablet,delayed 81 mg PO DAILY 06/12/20 02/12/25 02/12/25 History release (Adult Aspirin Regimen) nitroglycerin 0.4 mg sublingual 0.4 mg sublingual Q5M PRN Chest 06/12/20 02/12/25 Unknown History tablet Pain Held on 02/13/25. Instructions: Holter prevent hypotension acetaminophen 500 mg tablet 1,000 mg PO Q6H PRN Fever Or Pain 10/24/20 02/12/25 Unknown History (Tylenol Extra Strength) cholecalciferol (vitamin D3) 50 50 mcg PO DAILY 02/12/25 02/12/25 02/12/25 History mcg (2,000 unit) tablet (Vitamin D3) empagliflozin 25 mg tablet 25 mg PO DAILY 02/12/25 02/12/25 02/12/25 History (Jardiance) Held on 02/13/25. Instructions: Hold for surgery omeprazole 40 mg capsule,delayed 40 mg PO DAILY@0630 02/12/25 02/12/25 02/12/25 History release prednisone 50 mg tablet 50 mg PO DAILY 02/12/25 02/12/25 02/12/25 History Held on 02/13/25. Instructions: has been taking for back pain, resume as indicated tirzepatide 2.5 mg/0.5 mL 2.5 mg subcut MO 02/12/25 02/12/25 02/07/25 History subcutaneous pen injector ([place]) Held on 02/13/25. Instructions: hold inpatient Exam Height,Weight and Vital Signs: Height 5 ft 10 in Weight 108 kg Last Vital Signs Temp 97.8 F 02/14/25 07:03 Pulse 79 02/14/25 07:03 Resp 20 02/14/25 07:03 BP 169/101 H 02/14/25 07:03 Pulse Ox 96 02/14/25 07:03 O2 Del Method Room Air 02/14/25 07:03 Pertinent Lab Results Pertinent Lab Results: Laboratory Tests 02/12/25 02/12/25 02/12/25 11:40 13:39 13:49 WBC 12.5 H RBC 5.64 Hgb 16.0 Hct 47.8 MCV 84.8 MCH 28.4 MCHC 33.5 RDW 13.0 Plt Count 212 MPV 10.8 Immature Gran % (Auto) 0.3 Neut % (Auto) 71.2 Lymph % (Auto) 17.9 L [place] % (Auto) 9.1 Eos % (Auto) 1.3 Baso % (Auto) 0.2 Lymph # (Auto) 2.2 [place] # (Auto) 1.1 Eos # (Auto) 0.2 Baso # (Auto) 0.0 Abs Immat Gran (auto) 0.04 H Absolute Neuts (auto) 8.9 H Absolute Nucleated RBC 0.000 Nucleated RBC % (auto) 0.0 PT 11.4 INR 1.0 APTT 26.1 aPTT Heparin Protocol Sodium 138 Potassium 4.3 Chloride 108 Carbon Dioxide 22 Anion Gap 12 BUN 18 H Creatinine 0.86 Estim Creat Clear Calc 115.6 Estimated GFR > 60 POC Glucose 101 Random Glucose 105 Estimat Average Glucose Hemoglobin A1c % Calcium 9.7 Troponin I High Sens < 2.7 < 2.7 Triglycerides 116 Cholesterol 101 LDL Cholesterol, Calc 44 HDL Cholesterol 34 L Blood Type Antibody Screen 02/12/25 02/12/25 02/13/25 18:27 20:43 05:43 WBC RBC Hgb Hct MCV MCH MCHC RDW Plt Count MPV Immature Gran % (Auto) Neut % (Auto) Lymph % (Auto) [place] % (Auto) Eos % (Auto) Baso % (Auto) Lymph # (Auto) [place] # (Auto) Eos # (Auto) Baso # (Auto) Abs Immat Gran (auto) Absolute Neuts (auto) Absolute Nucleated RBC Nucleated RBC % (auto) PT INR APTT aPTT Heparin Protocol Sodium 137 Potassium 4.1 Chloride 106 Carbon Dioxide 22 Anion Gap 13 BUN 20 H Creatinine 0.83 Estim Creat Clear Calc 119.9 Estimated GFR > 60 POC Glucose 113 139 H Random Glucose 86 Estimat Average Glucose 128 Hemoglobin A1c % 6.1 H Calcium 9.3 Troponin I High Sens Triglycerides Cholesterol LDL Cholesterol, Calc HDL Cholesterol Blood Type Antibody Screen 02/13/25 02/13/25 02/13/25 07:14 09:50 10:39 WBC 10.8 RBC 5.71 Hgb 16.1 Hct 48.3 MCV 84.6 MCH 28.2 MCHC 33.3 RDW 13.2 Plt Count 214 MPV 10.4 Immature Gran % (Auto) Neut % (Auto) Lymph % (Auto) [place] % (Auto) Eos % (Auto) Baso % (Auto) Lymph # (Auto) [place] # (Auto) Eos # (Auto) Baso # (Auto) Abs Immat Gran (auto) Absolute Neuts (auto) Absolute Nucleated RBC 0.000 Nucleated RBC % (auto) 0.0 PT 11.5 INR 1.0 APTT aPTT Heparin Protocol 32.7 L Sodium Potassium Chloride Carbon Dioxide Anion Gap BUN Creatinine Estim Creat Clear Calc Estimated GFR POC Glucose 85 Random Glucose Estimat Average Glucose Hemoglobin A1c % Calcium Troponin I High Sens Triglycerides Cholesterol LDL Cholesterol, Calc HDL Cholesterol Blood Type Antibody Screen 02/13/25 02/13/25 02/13/25 11:04 13:47 15:03 WBC RBC Hgb Hct MCV MCH MCHC RDW Plt Count MPV Immature Gran % (Auto) Neut % (Auto) Lymph % (Auto) [place] % (Auto) Eos % (Auto) Baso % (Auto) Lymph # (Auto) [place] # (Auto) Eos # (Auto) Baso # (Auto) Abs Immat Gran (auto) Absolute Neuts (auto) Absolute Nucleated RBC Nucleated RBC % (auto) PT INR APTT aPTT Heparin Protocol Sodium Potassium Chloride Carbon Dioxide Anion Gap BUN Creatinine Estim Creat Clear Calc Estimated GFR POC Glucose 86 77 Random Glucose Estimat Average Glucose Hemoglobin A1c % Calcium Troponin I High Sens Triglycerides Cholesterol LDL Cholesterol, Calc HDL Cholesterol Blood Type O Positive Antibody Screen NEGATIVE 02/13/25 02/13/25 02/13/25 17:00 20:04 23:39 WBC RBC Hgb Hct MCV MCH MCHC RDW Plt Count MPV Immature Gran % (Auto) Neut % (Auto) Lymph % (Auto) [place] % (Auto) Eos % (Auto) Baso % (Auto) Lymph # (Auto) [place] # (Auto) Eos # (Auto) Baso # (Auto) Abs Immat Gran (auto) Absolute Neuts (auto) Absolute Nucleated RBC Nucleated RBC % (auto) PT INR APTT aPTT Heparin Protocol 58.0 D 65.2 Sodium Potassium Chloride Carbon Dioxide Anion Gap BUN Creatinine Estim Creat Clear Calc Estimated GFR POC Glucose 98 Random Glucose Estimat Average Glucose Hemoglobin A1c % Calcium Troponin I High Sens Triglycerides Cholesterol LDL Cholesterol, Calc HDL Cholesterol Blood Type Antibody Screen 02/14/25 02/14/25 06:15 06:57 WBC 8.1 RBC 5.56 Hgb 15.9 Hct 47.9 MCV 86.2 MCH 28.6 MCHC 33.2 RDW 12.9 Plt Count 175 MPV 10.9 Immature Gran % (Auto) Neut % (Auto) Lymph % (Auto) [place] % (Auto) Eos % (Auto) Baso % (Auto) Lymph # (Auto) [place] # (Auto) Eos # (Auto) Baso # (Auto) Abs Immat Gran (auto) Absolute Neuts (auto) Absolute Nucleated RBC 0.000 Nucleated RBC % (auto) 0.0 PT 11.8 INR 1.0 APTT aPTT Heparin Protocol 57.6 Sodium Potassium Chloride Carbon Dioxide Anion Gap BUN Creatinine Estim Creat Clear Calc Estimated GFR POC Glucose 93 Random Glucose Estimat Average Glucose Hemoglobin A1c % Calcium Troponin I High Sens Triglycerides Cholesterol LDL Cholesterol, Calc HDL Cholesterol Blood Type Antibody Screen Airway Heart: rrr Lungs: cta Assessment and Plan Assessment Anesthesia Assessment: Anesthesia Plan Discussed and Chart Reviewed Final Anesthetic Review Family History of Problems with Anesthesia: No History of Problems with Anesthesia: No NPO: Yes ASA Class: III and Emergency Final Preanesthetic Review: No Changes in Pt Med Stat, Meds/Allgs Chart Reviewed, Consent Obtained/Reviewed and Anes Risks/Benef Reviewed Patient Risk: High Procedure Risk: High Anesthetic Plan Anesthetic Plan: GA and Agree w/ Assess. and Plan Disposition: Inp. Admit - [facility]
--- NOTE | 2025-02-14 07:38 | PC.NURSE ---
telepack sent back to floor
--- NOTE | 2025-02-14 07:42 | MHC.SHP ---
Pre-Procedural Eval Section A - 24 Hr Update-Section A only Date of Service: 02/14/25 The patient is an INPATIENT: Yes Changes since office visit: Yes Patient answered all questions The patient has been examined within 24 hours of the surgical procedure. The History & Physical has been completed within 30 days and I have reviewed it.: Yes Section B - Complete if H&P > 30 days Chief Complaint: transient ischemic attack, right ICA stenosis Allergies: Allergies Allergy/AdvReac Type Severity Reaction Status Date / Time atorvastatin (Lipitor) Allergy Unknown does not Verified 02/12/25 10:59 remember fenofibric acid (Fibricor) Allergy Unknown does not Verified 02/12/25 10:59 remember Plan I have reviewed the history and physical and performed a pertinent physical examination on my patient. No changes have occurred unless specified. Time Spent With Patient Time: Total time managing care of this patient today ____ minutes.
--- NOTE | 2025-02-14 07:52 | PC.NURSE ---
0550 Report provided to short stay Tatum Cummins RN. Report updated at 0650 as PTT drawn but results are pending. Pt voiding at 0645 and surgical rn transporting patient to surgery. Pt alert and oriented, verbalizing readiness for surgery. Pt reporting he no longer has any left facial numbness and no neurological deficits in left arm.
--- NOTE | 2025-02-14 11:15 | W.PM.OPN ---
Operative Note Operative Note Date of Service: 02/14/25 Narrative: Operative note by [facility] Preoperative diagnosis:1. Right Carotid stenosis 2. Crescendo TIA Postoperative diagnosis: Same Procedure: Right Carotid endarterectomy with patch angioplasty Surgeon:Bakari Bee M.D. Belt Loop Cutter: Al LARSON Anesthesia: General Specimens: 1 Drains: 1 Estimated blood loss: 100 mL Indications: Very pleasant 51-year-old gentleman who presented to the hospital with TIA episodes. It actually happened a week prior to admission and it increased in intensity on Friday night. He had recurrent events throughout the weekend. He was seen by Cardiology and now presents for right carotid endarterectomy. The patient has signed the informed consent after reviewing risks, complications, benefits, and alternatives previously discussed with the patient. The patient was given the opportunity to ask any additional questions or voice any concerns. All questions were answered to the patient's satisfaction. Procedure in detail: Patient was taken to the operating room and placed in a supine position and prepped and draped in sterile manner with ChloraPrep. Longitudinal incision was made along the anterior border of the right sternocleidomastoid carried down through the subcutaneous fat and fascia. Hemostasis was obtained with electrocautery. The platysma muscle was then divided. The carotid sheath was identified in open. The vagus nerve, Ancef cervicalis, and hypoglossal nerves were identified and avoided. The common internal and external carotids were then freed from the surrounding tissue. At this point, 8000 units of heparin was administered and allowed to circulate for 5 minutes time to take effect. The internal, common, external carotids were clamped in that order. Once this was accomplished, we proceeded with the procedure. The carotid bulb was opened with an 11 blade and extended with Martinez scissors through the very tight lesion into normal internal carotid artery. This was then extended down into the common carotid artery. We then placed a Stubbs shunt. Then the plaque was sharply excised proximally and an eversion endarterectomy was performed successfully at the external. The plaque tapered nicely on to the internal and no tacking sutures were necessary. Heparinized saline was injected and no evidence of flapping or other debris was noted. The remaining carotid was examined, which showed no debris or flaps present. At this point a XenoSure patch was brought on to the field. This was anastomosed to the artery using a 6 0 Prolene in a running fashion. Once approximately 4/5 of the patch was sewn in the shunt was then removed. Prior to the last stitch the internal carotid was back bled through this. Heparinized saline was instilled into the carotid. The last stitch was tied. Hemostasis was excellent. The internal carotid was gently occluded while while of the external and internal were open in that order. Finally the internal was then opened and flow was restored to the entire system. Hemostasis was achieved with interrupted 7-0 Prolene sutures. The wound was irrigated thoroughly. Vistaseal was then used for hemostasis. Deep layer was reapproximated using a 2-0 poly Sorb and finally the superficial layer with a 3-0 Polysorb. The skin was closed in a subcuticular manner. The patient awoke and neurologic status was checked and appeared to be intact. Sponge, needle and instrument counts were correct. The patient tolerated the procedure well. Returned to recovery with stable vitals. This note is constructed using voice recognition software. While every effort has been made to ensure accuracy, marketing analytics manager errors may have been included. Thank you for allowing me to participate in the care of your patient. Yours sincerely, Bakari Bee MD, FACS, R.P.V.I.
[2025-02-14 11:51] LABS: Glucose, Whole Blood 109 mg/dL (60-115)
[2025-02-14] MEDS: oxyCODONE HCl Immed Release 5 MG TABLET PO ×2 (12:25→20:43)
[2025-02-14 13:33] LABS: Glucose, Whole Blood 101 mg/dL (60-115)
--- NOTE | 2025-02-14 13:36 | PC.NURSE ---
Addendum entered by Ankita Schmitz RN 02/14/25 16:37: Patient c/o 10/10 pain to R side of neck - Pt stating swallowing/neck feel tighter - Dressing C/D/I - ? slight increased swelling to right side of neck. Penciller notified and at bedside - Dr Bee notified of patient complaints and picture of neck edema sent via tigertext. Patient medicated with PRN Morphine - okay to administer early per Dr Stone. Stat carotid U/S ordered - ultrasound called to bedside and pending arrival. HR 86, sinus, RR12-15, 126/81 (106), 100% on 2L NC. Care ongoing. Original Note: Patient arrived to unit via bed from PACU at 1330. 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 SR, HR 80-90's; SBP maintaining 130-140's. Positive pulses. Patient c/o 10/10 pain to right surgical site - no relief from previous administration of PRN Oxycodone - MD notified - PRN Morphine administered - pending effectiveness. LS dim throughout - 99% on RA. Abdomen large, soft, no c/o N/V - last BM 02/13. Tolerating PO thin liquids - POC 101. Alvarez patent, draining pale yellow, approx 45cc/hr. No skin integrity concerns. Dressing to R neck C/D/I. High fall risk precautions in place. Family at bedside. Care ongoing.
[2025-02-14] MEDS: 0.9 % Sodium Chloride Flush 3 ML SYRINGE IVFLUSH (16:02)
[2025-02-14 16:10] LABS: Glucose, Whole Blood 94 mg/dL (60-115)
--- NOTE | 2025-02-14 16:45 | P.CONCC_ITS ---
History of Present Illness Data of Consult Service Date: 02/14/25 Primary Care Provider: MD CHRISTIE Stovall Reason for consult: Post carotid endarterectomy 59-year-old male with past medical history of hypertension, diabetes mellitus, CAD, obesity, LALI admitted to the hospitalist with symptoms of TIA. He had multiple episodes of right-sided weakness with facial droop yesterday for which CT head was done which was negative, further imaging showed near total occlusive carotid artery stenosis. So he was emergently taken for carotid endarterectomy this morning, transferred to ICU postprocedure for close monitoring. Review of Systems 2 Constitutional: Constitutional: Denies body ache(s), Denies chills and Reports weakness Eyes: Eyes: Reports blurry vision, Denies exophthalmos and Denies change in vision ENT: Reports Normal hearing present, Denies bleeding gums, Denies vertigo and Reports dizziness Cardiovascular: Cardiovascular: Denies Abdominal Cramping after Meds, Denies Abdominal Distension, Denies chest pain and Denies chest pain at rest Respiratory: Respiratory: Denies change in phlegm color and Denies cough Gastrointestinal: Gastrointestinal: Denies abdominal pain and Denies belching Genitourinary: Genitourinary: Denies change in libido and Denies hematuria Musculoskeletal: Musculoskeletal: Denies back pain, Denies myalgias and Reports numbness Neurologic: Reports Normal hearing present, Denies vertigo, Reports dizziness, Reports numbness, Reports Sensory deficit (Neuro) and Reports weakness Psychiatric: Psychiatric: Denies change in libido Endocrine: Endocrine: Denies change in libido [facility] Past Medical History Medical History Obesity (BMI 30-39.9) Type 2 diabetes mellitus with unspecified complications Morbid obesity Abdominal pain, chronic, bilateral lower quadrant Carpal tunnel syndrome Spondylosis of lumbar spine Spondylosis of cervical spine Type 2 diabetes mellitus Essential hypertension Atherosclerotic cardiovascular disease Dislocation of ring finger [place]-Schlatter's disease of both knees Depression Degenerative disc disease CAD (coronary artery disease) Obstructive sleep apnea Vitamin D deficiency Erectile dysfunction GERD (gastroesophageal reflux disease) Hypercholesterolemia Carpal tunnel syndrome on both sides Family History Family History Father Myocardial infarction Mother Myocardial infarction Surgical History Surgical History Stented coronary artery History of surgery History of vasectomy History of nasal surgery Social History Social History Household Members: Spouse Housing: House Do you presently have visiting nurse or other home services: No Alcohol intake: never Comment: COUNTS CORRECT Patient Tobacco Use Status: Former Tobacco user Tobacco use type: Cigarette e-Cigarette/Vaping Use: Never Used Second Hand Smoke Exposure: No service: No Current occupational status: employed Current occupational exposures/hazards: No Cognitive needs: No Hearing needs: No Vision needs: Yes Meds Allergies Allergy/AdvReac Type Severity Reaction Status Date / Time atorvastatin (Lipitor) Allergy Unknown does not Verified 02/12/25 10:59 remember fenofibric acid (Fibricor) Allergy Unknown does not Verified 02/12/25 10:59 remember Active Medications: Current Medications Acetaminophen (Acetaminophen 325 Mg Tablet) 975 mg PO Q6H PRN PRN Reason: Pain, Mild 1-3,fever,headache Aspirin (Aspirin Enteric Coated 81 Mg Tablet.Dr) 81 mg PO DAILY [facility] Last Admin: 02/14/25 13:12 Dose: Not Given Calcium Carbonate (Calcium Carbonate 750 Mg Tab.Chew) 750 mg PO Q4H PRN PRN Reason: Heartburn Cyclobenzaprine HCl (Cyclobenzaprine Hcl 10 Mg Tablet) 10 mg PO Q8H PRN PRN Reason: Muscle Spasm Dextrose (Dextrose 50 % 25 Gm/50 Ml Syringe) 25 gm IVPUSH Q15M PRN; Protocol PRN Reason: per Hypoglycemia Standing Ord. Ezetimibe (Ezetimibe 10 Mg Tablet) 10 mg PO DAILY [facility] Last Admin: 02/14/25 13:13 Dose: Not Given Fenofibrate (Fenofibrate 160 Mg Tablet) 160 mg PO DAILY [facility] Last Admin: 02/14/25 13:13 Dose: Not Given Glucose (Glucose Gel 15 Gm Gel..Gram.) 15 gm PO Q15M PRN; Protocol PRN Reason: per Hypoglycemia Standing Ord. Hydromorphone HCl (Hydromorphone Hcl 0.5 Mg/0.5 Ml Syringe) 0.5 mg IVPUSH Q4H PRN; Protocol PRN Reason: Pain, Severe (Pain Scale 7-10) Last Admin: 02/14/25 14:08 Dose: 0.5 mg Lactated Ringer's (Lr) 1,000 mls @ 100 mls/hr IVCONT .Q10H [facility] Last Admin: 02/14/25 13:21 Dose: 100 mls/hr Insulin Human Lispro (Insulin Lispro 100 Unit/Ml 3 Ml Vial) 0 unit SUBCUT QIDACHS [facility]; Protocol Last Admin: 02/14/25 16:12 Dose: Not Given Lorazepam (Lorazepam 1 Mg Tablet) 1 mg PO ONCE PRN PRN Reason: 15 minutes before MANUEL Last Admin: 02/12/25 17:26 Dose: 1 mg Melatonin (Melatonin 3 Mg Tablet) 6 mg PO BEDTIME PRN PRN Reason: Insomnia Morphine Sulfate (Morphine Sulfate 2 Mg/Ml Cartridge) 2 mg IVPUSH Q4H PRN; Protocol PRN Reason: Pain, Severe (Pain Scale 7-10) Last Admin: 02/14/25 16:30 Dose: 2 mg Pt Own (Rosuvastatin (40 Mg Tablet)) 40 mg PO BEDTIME [facility] Last Admin: 02/13/25 21:26 Dose: 40 mg Omeprazole (Omeprazole 40 Mg Capsule.Dr) 40 mg PO DAILY@0630 [facility] Last Admin: 02/14/25 06:07 Dose: Not Given Ondansetron HCl (Ondansetron Hcl 4 Mg/2 Ml Vial) 4 mg IVPUSH Q4H PRN PRN Reason: Nausea and Vomiting Last Admin: 02/14/25 14:21 Dose: 4 mg Oxycodone HCl (Oxycodone Hcl Immed Release 5 Mg Tablet) 5 mg PO Q4H PRN PRN Reason: Pain, Moderate(Pain Scale 4-6) Last Admin: 02/14/25 12:25 Dose: 5 mg Sodium Chloride (0.9 % Sodium Chloride Flush 3 Ml Syringe) 3 ml IVFLUSH QSHIFT [facility] Last Admin: 02/14/25 16:02 Dose: 3 ml Vitamin D (Cholecalciferol (Vitamin D3) 25 Mcg Tablet) 50 mcg PO DAILY [facility] On Hold: 02/14/25 13:11 Last Admin: 02/14/25 13:13 Dose: Not Given Home Medications ?Medication ?Instructions ?Recorded ?Confirmed ?Last Taken ?Type aspirin 81 mg tablet,delayed 81 mg PO DAILY 06/12/20 0 02/12/25 02/12/25 History release (Adult Aspirin Regimen) nitroglycerin 0.4 mg sublingual 0.4 mg sublingual Q5M PRN Chest 06/12/20 02/12/25 Unknown History tablet Pain Held on 02/13/25. Instructions: Holter prevent hypotension acetaminophen 500 mg tablet 1,000 mg PO Q6H PRN Fever Or Pain 10/24/20 02/12/25 Unknown History (Tylenol Extra Strength) cholecalciferol (vitamin D3) 50 50 mcg PO DAILY 02/12/25 02/12/25 History mcg (2,000 unit) tablet (Vitamin D3) empagliflozin 25 mg tablet 25 mg PO DAILY 02/12/2502/12/25 History (Jardiance) Held on 02/13/25. Instructions: Hold for surgery omeprazole 40 mg capsule,delayed 40 mg PO DAILY@0630 0 02/12/25 02/12/25 02/12/25 History release prednisone 50 mg tablet 50 mg PO DAILY 02/12/25 07/01/1202/12/25 History Held on 02/13/25. Instructions: has been taking for back pain, resume as indicated tirzepatide 2.5 mg/0.5 mL 2.5 mg subcut MO 02/12/2502/07/25 History subcutaneous pen injector (Mounjaro) Held on 02/13/25. Instructions: hold inpatient Physical Exam 2 Exam: Exam: General: Elderly male in severe acute distress, ill appearing and tired appearing Nutritional Appearance: well nourished and overweight Eyes: appearance normal, both eyes and all related structures; Alignment and Position: alignment normal and position normal Neck: No lymphadenopathy, no thyromegaly Resp: bilateral air entry equal, breath sounds slightly distended due to obesity Cardio: Regular rate, regular rhythm; Heart sounds: S1 normal heart sound present and S2 normal heart sound present GI: soft, nontender, no guarding, no hepatosplenomegaly : bladder normal to inspection, bladder normal to palpation, no renal angle tenderness Skin: no rashes or lesions noted and elasticity normal Neuro: oriented to person, oriented to place, oriented to time and moves all extremities Vital Signs: Vital Signs: Last Vital Signs Temp 96.8 F 02/14/25 16:00 Pulse 62 02/14/25 16:00 Resp 14 02/14/25 16:00 BP 120/69 02/14/25 16:00 Pulse Ox 95 02/14/25 16:00 O2 Del Method Nasal Cannula 02/14/25 16:00 O2 Flow Rate 2 02/14/25 16:00 BMI result Body Mass Index 34.2 Neuro: Cranial nerves: Yes Normal hearing present Sensory Exam: Sensory deficit (Neuro) Results Labs 02/14/25 06:15 02/13/25 05:43 Labs: Short CBC 02/14/25 Range/Units 06:15 WBC 8.1 (4.8-10.8) X10*3/uL Hgb 15.9 (14.0-18.0) g/dl Hct 47.9 (42.0-52.0) % Plt Count 175 (160-400) X10*3/uL Assessment and Plan (1) Essential hypertension: Status: Acute (2) Type 2 diabetes mellitus with hyperglycemia: Qualifiers: Diabetes mellitus terminal carman insulin use: without fdc use Q ualified Code(s): E11.65 - Type 2 diabetes mellitus with hyperglycemia Status: Acute (3) Morbid obesity: Status: Acute (4) Palpable mass of neck: Status: Acute (5) Transient ischemic attack: Status: Acute Plan Recurrent TIA: CT and MRI of the brain was normal CTA neck showed near total occlusion of right carotid Given his ongoing multiple symptoms patient was taken for emergent right carotid endarterectomy this morning. Procedure completed uneventful. Currently admitted to medical ICU for close neurological status monitoring Aspirin withheld this morning for the procedure, we will restart tomorrow if okay by vascular surgery We will closely monitor for any signs of neck hematoma or airway obstruction. Continue statins and ezetimibe Diabetes mellitus: Sugars under control, continue sliding scale insulin LALI: Not using home BiPAP, we will continue to closely monitor Prophylaxis: Anticoagulation witheld for surgery, SCD
[2025-02-14 17:36] LABS: Hematocrit 42.5 % (42.0-52.0); Hemoglobin 14.5 g/dl (14.0-18.0); Mean Corpuscular HGB Conc 34.1 g/dl (31.0-36.0); Mean Corpuscular Hemoglobin 29.0 pg (27.0-33.0); Mean Corpuscular Volume 85.0 fL (80.0-98.0); NRBC Abs Auto 0.000 X10*3/uL (0.0-0.012); NRBC Pct Auto 0.0 /100WBC (0.0-0.2); Platelet Count 164 X10*3/uL (160-400); Red Blood Count 5.00 X10*6/uL (4.60-5.80); White Blood Count 10.4 X10*3/uL (4.8-10.8)
[2025-02-14 21:22] LABS: Glucose, Whole Blood 95 mg/dL (60-115)
[2025-02-14] MEDS: PT OWN (Rosuvastatin 40 mg tablet) 40 EACH PO (21:33)
[2025-02-14 23:34] LABS: Hematocrit 41.1 % (42.0-52.0); Hemoglobin 14.0 g/dl (14.0-18.0)
[2025-02-14 23:55] LABS: Alanine Aminotransferase 30 U/L (0-40); Albumin Level 3.9 g/dL (3.5-5.0); Alkaline Phosphatase 49 U/L (39-117); Anion Gap 11 (12-20); Aspartate Amino Transferase 24 U/L (5-37); Blood Urea Nitrogen 12 mg/dL (9-16); Calcium 8.9 mg/dL (8.4-10.2); Carbon Dioxide 27 mmol/L (22-29); Chloride 106 mmol/L (96-108); Creatinine Clr Calc Pharmacy 117.9; Estimated Glomerular Filt Rate > 60; Potassium 4.6 mmol/L (3.3-5.1); Sodium 139 mmol/L (135-145); Total Protein 6.3 g/dL (6.5-8.0)
[2025-02-15] VITALS (15 sets, daily range): BP systolic 108–147; BP diastolic 46–95; PULSE 56–122; RESP 11–20; TEMP 36.1–36.4; O2SAT 93–97
[2025-02-15] MEDS: Lactated Ringers 1,000 ML 100 ML IVCONT (00:16)
[2025-02-15] MEDS: 0.9 % Sodium Chloride Flush 3 ML SYRINGE IVFLUSH ×2 (00:43→07:17)
[2025-02-15 05:30] LABS: MANUAL DIFF FLAG NO
[2025-02-15 05:34] LABS: Hematocrit 41.2 % (42.0-52.0); Hemoglobin 13.4 g/dl (14.0-18.0); Imm Gran Abs Auto 0.02 X10*3/uL (0.00-0.03); Imm Gran Pct Auto 0.3 % (0.0-0.4); Lymphocytes Absolute Auto 1.6 X10*3/uL (1.2-4.9); Mean Corpuscular HGB Conc 32.5 g/dl (31.0-36.0); Mean Corpuscular Hemoglobin 28.0 pg (27.0-33.0); Mean Corpuscular Volume 86.2 fL (80.0-98.0); NRBC Abs Auto 0.000 X10*3/uL (0.0-0.012); NRBC Pct Auto 0.0 /100WBC (0.0-0.2); Platelet Count 149 X10*3/uL (160-400); Red Blood Count 4.78 X10*6/uL (4.60-5.80); White Blood Count 7.4 X10*3/uL (4.8-10.8)
[2025-02-15 05:42] LABS: PTT Heparin Drip 29.2 SEC (53-77.9)
[2025-02-15 05:50] LABS: Anion Gap 11 (12-20); Blood Urea Nitrogen 10 mg/dL (9-16); Calcium 8.7 mg/dL (8.4-10.2); Carbon Dioxide 26 mmol/L (22-29); Chloride 106 mmol/L (96-108); Creatinine Clr Calc Pharmacy 128.6; Estimated Glomerular Filt Rate > 60; Potassium 4.3 mmol/L (3.3-5.1); Sodium 139 mmol/L (135-145)
[2025-02-15] MEDS: oxyCODONE HCl Immed Release 5 MG TABLET PO (05:50)
--- NOTE | 2025-02-15 07:00 | CA_ITS ---
Transthoracic Echocardiogram Patient (Last, First, Middle): Blaise Nagel W Gender: Male Date of : 1965 Age: 59 Procedure Date: 02/15/2025 Procedure Type: Transthoracic Echocardiogram Location: ICU Height: 177.8 cm Weight: 107.96 kg BSA: 2.25 m2 Heart Rate: bpm BP: 122 / 75 mmHg Unclaimed Property Manager: NEVAEH Referring MD: Lindy LARSON Substance Abuse Prevention Coordinator: Rodriguez Jacobs MD Symptoms: TIA/ Bubble done to assess pfo Study Quality: Adequate w Contrast ECG Rhythm: Sinus Conclusions: - 1. Normal LV ejection fraction of 65-70% with mild LVH with grade 1 diastolic dysfunction 2. Normal cardiac valvular Dopplers 3. Normal measured RV systolic pressure Findings Left Ventricle Normal left ventricular size and systolic function. There is mildly increased left ventricular wall thickness. The visually estimated ejection fraction is between 65-70%. Spectral Doppler is indicative of an impaired relaxation filling pattern. E/E prime ratio is <8, consistent with normal filling pressures. Evidence suggests grade I (mild) diastolic dysfunction. Right Ventricle Normal right ventricular cavity size. Atria The left atrium is likely dilated. There is no evidence of interatrial shunt by agitated saline. The right atrium was not well visualized. Aortic Valve The aortic valve structure and function is likely normal. There is no aortic valve stenosis. There is no aortic valve regurgitation. Mitral Valve Normal mitral valve structure and function. There is trace mitral valve regurgitation. There is no mitral valve stenosis. Pulmonic Valve The pulmonic valve was not well visualized. Tricuspid Valve Likely normal tricuspid valve structure and function. There is trace tricuspid valve regurgitation. The right ventricular systolic pressure is normal. The right ventricular systolic pressure is 19 mmHg. Normal right atrial pressure. There is no evidence of pulmonary hypertension. Great Vessels All visible segments of the aorta are normal in size. The pulmonary artery was not well visualized. Venous The inferior vena cava is normal in size and collapses greater than 50% with inspiration. Pericardium/Pleural The pericardium was not well visualized. Prior Study Comparison No significant change compared to prior study dated: 03/10/2024. Measurements 2D Linear Measurements IVSd: 1.24 0.6-0.9/0.6-1.0 cm LVIDd: 4.89 3.9-5.3/4.2-5.9 cm LVIDd Index: 2.17 2.4-3.2/2.2-3.1 cm/m2 LVIDs: 2.68 2.0-3.6 cm LVPWd: 1.23 0.7-1.1 cm Ao Root: 3.60 2.1-3.5 cm LA Diam: 3.70 2.7-3.8/3.0-4.0 cm LAIDs Index: 1.64 1.5-2.3 cm/m2 LV Mass: 293.03 67-162/88-224 g LV Mass Index: 130.23 43-95/49-115 g/m2 LVOT Diam: 2.40 3.0+(-)1.3 cm Mitral Valve MV Pk E: 0.64 MV PK A: 0.92 MV Decel Time: 163.00 E/A: 0.70 E'Lateral: 13.80 E'Medial: 6.09 E/E' Med: 10.60 E/E' Lat: 4.70 PHT: 48.00 MVA PHT: 4.58 Decel [place]: 3.94 Aortic Valve AoV Pk Kostas: 1.62 AoV Mn Kostas: 1.09 AoV VTI: 0.37 AoV Pk Grad: 10.00 Aov Mn Grad: 6.00 SURINDER Cont.VTI: 2.79 LVOT LVOT Pk Kostas: 1.02 LVOT Mn Kostas: 0.59 LVOT VTI: 0.23 LVOT Pk Grad: 4.00 LVOT Mn Grad: 2.00 LVOT Diam: 2.40 LVOT Area: 4.52 Diastolic Function MV Pk E: 0.64 MV Pk A: 0.92 E/A: 0.70 E'Medial: 6.09 E/E' Med: 10.60 E' Laterial: 13.80 E/E' Lat: 4.70 Tricuspid Valve TR Pk Kostas: 2.00 TR Pk Grad: 16.00 RA Press: 3.00 RVSP: 19.00 Great Vessels Aorta Ao Root-2D: 3.60 2.0-3.7 cm Ao Asc: 3.50 2.1-3.4 cm Pulmonary Valve PV Pk Kostas: 1.13 Peak PV Grad: 5.00 Updated in Other Vendor System with Status of Final Rodriguez Jacobs MD electronically signed on 02/15/2025 11:31:18 AM with status of Final
[2025-02-15 07:18] LABS: Glucose, Whole Blood 96 mg/dL (60-115)
--- NOTE | 2025-02-15 07:19 | PC.NURSE ---
pt alert and oriented x4, VS as noted in chart. Pt NSR to sinus michael on the monitor. Pt's R neck dsg remains c/d/i. It is notably swollen and measures at 59.5 cm and remained unchanged with several checks. Neck appears more swollen at times based on pt position. Pt states he feels like the swelling is going down and he required only 2 doses of oxycodone overnight and stated good pain relief. He refuses pillows to offset him from coccyx/buttocks but allows heels to be elevated and repositions himself frequently. no pressure related breakdown noted. air loss device in use.
--- NOTE | 2025-02-15 08:10 | HO.POSTANES ---
Post Anesthesia Evaluation Post Anesthesia Evaluation Date of Service: 02/15/25 Vital Signs: Vital Signs Temp Pulse Resp BP Pulse Ox O2 Del Method O2 Flow Rate 02/15/25 07:00 61 15 147/87 H 95 Room Air 02/15/25 06:00 75 11 L 129/80 97 Nasal Cannula 2 02/15/25 05:00 68 13 140/77 H 97 Nasal Cannula 2 02/15/25 04:00 97.0 F 92 15 112/63 94 Nasal Cannula 2 02/15/25 03:00 57 12 126/65 94 Nasal Cannula 2 02/15/25 02:00 61 12 118/65 96 Nasal Cannula 2 02/15/25 01:00 56 13 108/70 95 Nasal Cannula 2 02/15/25 00:00 96.9 F 70 15 125/77 96 Nasal Cannula 2 02/14/25 23:00 76 15 107/55 L 98 Nasal Cannula 2 02/14/25 22:00 55 13 106/62 96 Nasal Cannula 2 02/14/25 21:00 73 14 97/61 97 Nasal Cannula 2 Anesthesia: General Mental Status: Awake Pain Control: Satisfactory Nausea/Vomiting: None Hydration: Adequate Anesthesia-Related Issues: No Anes. Related Issues
[2025-02-15] MEDS: Aspirin Enteric Coated 81 MG TABLET.DR PO (08:49)
--- NOTE | 2025-02-15 08:59 | P.PNCC_ITS ---
Subjective Subjective Date of Service: 02/15/25 Interval History: No new events overnight Hemoglobin trend stable Critical Care Time (minutes): 8 Physical Exam 2 Vital Signs: Vital Signs: Last Vital Signs Temp 97.4 F 02/15/25 08:00 Pulse 57 02/15/25 08:00 Resp 20 02/15/25 08:00 BP 137/76 02/15/25 08:00 Pulse Ox 95 02/15/25 08:00 O2 Del Method Room Air 02/15/25 08:00 O2 Flow Rate 2 02/15/25 06:00 BMI result Body Mass Index 34.2 General: Elderly male not in any acute distress, ill appearing and tired appearing Nutritional Appearance: well nourished and overweight Eyes: appearance normal, both eyes and all related structures; Alignment and Position: alignment normal and position normal Neck: No lymphadenopathy, no thyromegaly Resp: bilateral air entry equal, occasional added sounds present Cardio: Regular rate, regular rhythm; Heart sounds: S1 normal heart sound present and S2 normal heart sound present GI: soft, nontender, no guarding, no hepatosplenomegaly : bladder normal to inspection, bladder normal to palpation, no renal angle tenderness Skin: no rashes or lesions noted and elasticity normal Neuro: oriented to person, oriented to place, oriented to time and moves all extremities Objective Data Labs 02/15/25 05:14 02/15/25 05:14 Labs: Laboratory Results - last 24 hr 02/14/25 02/14/25 02/14/25 11:40 13:20 16:06 WBC RBC Hgb Hct MCV MCH MCHC RDW Plt Count MPV Immature Gran % (Auto) Neut % (Auto) Lymph % (Auto) [facility] % (Auto) Eos % (Auto) Baso % (Auto) Lymph # (Auto) [facility] # (Auto) Eos # (Auto) Baso # (Auto) Abs Immat Gran (auto) Absolute Neuts (auto) Absolute Nucleated RBC Nucleated RBC % (auto) aPTT Heparin Protocol Sodium Potassium Chloride Carbon Dioxide Anion Gap BUN Creatinine Estim Creat Clear Calc Estimated GFR POC Glucose 109 101 94 Random Glucose Calcium Total Bilirubin AST ALT Alkaline Phosphatase Total Protein Albumin 02/14/25 02/14/25 02/14/25 17:17 21:19 23:18 WBC 10.4 RBC 5.00 Hgb 14.5 14.0 Hct 42.5 41.1 L MCV 85.0 MCH 29.0 MCHC 34.1 RDW 12.8 Plt Count 164 MPV 10.7 Immature Gran % (Auto) Neut % (Auto) Lymph % (Auto) [facility] % (Auto) Eos % (Auto) Baso % (Auto) Lymph # (Auto) [facility] # (Auto) Eos # (Auto) Baso # (Auto) Abs Immat Gran (auto) Absolute Neuts (auto) Absolute Nucleated RBC 0.000 Nucleated RBC % (auto) 0.0 aPTT Heparin Protocol Sodium 139 Potassium 4.6 Chloride 106 Carbon Dioxide 27 Anion Gap 11 L BUN 12 Creatinine 0.84 Estim Creat Clear Calc 117.9 Estimated GFR > 60 POC Glucose 95 Random Glucose 99 Calcium 8.9 Total Bilirubin 0.4 AST 24 ALT 30 Alkaline Phosphatase 49 Total Protein 6.3 L Albumin 3.9 02/15/25 02/15/25 05:14 07:14 WBC 7.4 RBC 4.78 Hgb 13.4 L Hct 41.2 L MCV 86.2 MCH 28.0 MCHC 32.5 RDW 13.0 Plt Count 149 L MPV 10.7 Immature Gran % (Auto) 0.3 Neut % (Auto) 62.9 Lymph % (Auto) 21.2 [facility] % (Auto) 13.5 H Eos % (Auto) 1.8 Baso % (Auto) 0.3 Lymph # (Auto) 1.6 [facility] # (Auto) 1.0 Eos # (Auto) 0.1 Baso # (Auto) 0.0 Abs Immat Gran (auto) 0.02 Absolute Neuts (auto) 4.7 Absolute Nucleated RBC 0.000 Nucleated RBC % (auto) 0.0 aPTT Heparin Protocol 29.2 L D Sodium 139 Potassium 4.3 Chloride 106 Carbon Dioxide 26 Anion Gap 11 L BUN 10 Creatinine 0.77 Estim Creat Clear Calc 128.6 Estimated GFR > 60 POC Glucose 96 Random Glucose 95 Calcium 8.7 Total Bilirubin AST ALT Alkaline Phosphatase Total Protein Albumin Progress Note: A&P Assessment and plan (1) Essential hypertension: Status: Acute (2) Type 2 diabetes mellitus with hyperglycemia: Status: Acute (3) Morbid obesity: Status: Acute (4) Transient ischemic attack: Status: Acute Plan Recurrent TIA: CT and MRI of the brain was normal CTA neck showed near total occlusion of right carotid Given his ongoing multiple symptoms patient was taken for emergent right carotid endarterectomy on 02/14/2025. Procedure completed uneventful. Currently admitted to medical ICU for close neurological status monitoring, he remained stable overnight. Hemoglobin trend stable Continue aspirin, statins and ezetimibe Diabetes mellitus: Sugars under control, continue sliding scale insulin LALI: Not using home BiPAP, we will continue to closely monitor Prophylaxis: Anticoagulation witheld for surgery, SCD Quality Stroke Does the patient have a stroke diagnosis?: No VTE Prior VTE?: No VTE Risk Level:: Medical - moderate - high VTE Device Contraindication: Treatment Not Indicated VTE Drug Contraindication: N/A - Med Ordered
--- NOTE | 2025-02-15 09:56 | PM.PNCARD ---
Subjective Subjective Date of Service: 02/15/25 Principal diagnosis: CAD status post carotid endarterectomy Interval history: Patient underwent carotid endarterectomy urgently yesterday for recurrent TIAs and significant right carotid stenosis. Tolerated well. Hemodynamically stable. He has no palpitations. No overnight arrhythmias. No chest pain. Has pain at the site with swelling suggestive of hematoma. Off heparin drip right now Review of Systems Constitutional: Reports no additional constitutional complaints Reports throat swelling Cardiovascular: Reports no additional cardiovascular complaints Respiratory: Reports no additional respiratory complaints Gastrointestinal: Reports no additional gastrointestinal complaints Genitourinary: Reports no additional male genitourinary complaints Musculoskeletal: Reports no additional musculoskeletal complaints Skin/Breast: Reports system reviewed and no additional complaints, except as docu Reports system reviewed and no additional complaints, except as documented Allergic/Immunologic: Reports throat swelling Physical Exam Vital Signs: Last Vital Signs Temp 97.4 F 02/15/25 08:00 Pulse 112 H 02/15/25 09:00 Resp 16 02/15/25 09:00 BP 127/86 02/15/25 09:00 Pulse Ox 93 02/15/25 09:00 O2 Del Method Room Air 02/15/25 09:00 O2 Flow Rate 2 02/15/25 06:00 BMI result Body Mass Index 34.2 Const General: cooperative, comfortable, no acute distress, alert and awake Nutritional Appearance: obese Orientation/consciousness: patient oriented x3 Neck Neck: Yes other (Significant swelling of the right carotid endarterectomy side with ecchymos) Resp Effort & Inspection: normal respiratory effort Auscultation: clear to auscultation bilaterally Cardio Jugular venous distension: no JVD Rate: regular rate Rhythm: regular rhythm Heart sounds: S1 normal heart sound present, S2 normal heart sound present, no click, no gallops and no murmurs Skin General skin exam: no rashes or lesions noted Neuro General: patient oriented x3 and no focal motor deficits Extrem General: Yes no clubbing, cyanosis or edema Objective Labs and Meds 02/15/25 05:14 02/15/25 05:14 Lab results: Laboratory Results - last 24 hr 02/14/25 02/14/25 02/14/25 11:40 13:20 16:06 WBC RBC Hgb Hct MCV MCH MCHC RDW Plt Count MPV Immature Gran % (Auto) Neut % (Auto) Lymph % (Auto) [place] % (Auto) Eos % (Auto) Baso % (Auto) Lymph # (Auto) [place] # (Auto) Eos # (Auto) Baso # (Auto) Abs Immat Gran (auto) Absolute Neuts (auto) Absolute Nucleated RBC Nucleated RBC % (auto) aPTT Heparin Protocol Sodium Potassium Chloride Carbon Dioxide Anion Gap BUN Creatinine Estim Creat Clear Calc Estimated GFR POC Glucose 109 101 94 Random Glucose Calcium Total Bilirubin AST ALT Alkaline Phosphatase Total Protein Albumin 02/14/25 02/14/25 02/14/25 17:17 21:19 23:18 WBC 10.4 RBC 5.00 Hgb 14.5 14.0 Hct 42.5 41.1 L MCV 85.0 MCH 29.0 MCHC 34.1 RDW 12.8 Plt Count 164 MPV 10.7 Immature Gran % (Auto) Neut % (Auto) Lymph % (Auto) [place] % (Auto) Eos % (Auto) Baso % (Auto) Lymph # (Auto) [place] # (Auto) Eos # (Auto) Baso # (Auto) Abs Immat Gran (auto) Absolute Neuts (auto) Absolute Nucleated RBC 0.000 Nucleated RBC % (auto) 0.0 aPTT Heparin Protocol Sodium 139 Potassium 4.6 Chloride 106 Carbon Dioxide 27 Anion Gap 11 L BUN 12 Creatinine 0.84 Estim Creat Clear Calc 117.9 Estimated GFR > 60 POC Glucose 95 Random Glucose 99 Calcium 8.9 Total Bilirubin 0.4 AST 24 ALT 30 Alkaline Phosphatase 49 Total Protein 6.3 L Albumin 3.9 02/15/25 02/15/25 05:14 07:14 WBC 7.4 RBC 4.78 Hgb 13.4 L Hct 41.2 L MCV 86.2 MCH 28.0 MCHC 32.5 RDW 13.0 Plt Count 149 L MPV 10.7 Immature Gran % (Auto) 0.3 Neut % (Auto) 62.9 Lymph % (Auto) 21.2 [place] % (Auto) 13.5 H Eos % (Auto) 1.8 Baso % (Auto) 0.3 Lymph # (Auto) 1.6 [place] # (Auto) 1.0 Eos # (Auto) 0.1 Baso # (Auto) 0.0 Abs Immat Gran (auto) 0.02 Absolute Neuts (auto) 4.7 Absolute Nucleated RBC 0.000 Nucleated RBC % (auto) 0.0 aPTT Heparin Protocol 29.2 L D Sodium 139 Potassium 4.3 Chloride 106 Carbon Dioxide 26 Anion Gap 11 L BUN 10 Creatinine 0.77 Estim Creat Clear Calc 128.6 Estimated GFR > 60 POC Glucose 96 Random Glucose 95 Calcium 8.7 Total Bilirubin AST ALT Alkaline Phosphatase Total Protein Albumin Imaging Radiologist's impression: Impressions Head/Neck Ultrasound 02/14/25 16:52 IMPRESSION: Right neck mass favoring hematoma. Area was not optimally visualized due to bandages in this region. The patient's nurse informed the pharmacy technologist that the bandages could not be removed for the study. Electronically signed by: Alec Lopez MD 02/14/2025 05:20 PM EDT RP Progress Note: A&P Assessment and plan (1) CAD (coronary artery disease): Status: Acute Assessment and Plan: Diffuse and significant atherosclerotic disease with prior CAD with RCA stent and now with critical right carotid stenosis undergoing right carotid endarterectomy with despite extremely well optimized LDL. Will need to consider further optimization of LDL cholesterol and will discuss outpatient. Given his recurrent TIA suggest unstable plaque in the carotid system would consider dual antiplatelet therapy with aspirin and Plavix for at least 6 months. Continue aggressive blood pressure control. Currently not having any cardiac complication. Continues usual cardiac medications. Continue aggressive diabetes management as well. Will sign of the case and will follow as need be. Will set up for outpatient follow up in 2-4 weeks Time Spent With Patient Time: Total time managing care of this patient today ____ minutes. Progress Note: Quality Stroke Does the patient have a stroke diagnosis?: No Procedures Date of Service Date of Service: 02/15/25
[2025-02-15 11:22] LABS: Glucose, Whole Blood 150 mg/dL (60-115)
--- NOTE | 2025-02-15 13:34 | MHC.CM.PN ---
Pt will d/c to home today with outpt and family support. Spouse will transport.
--- NOTE | 2025-02-20 11:32 | P.DS_ITS ---
DS: Providers Provider Date of Service: 02/15/25 Date of admission: 02/12/25 14:23 Date of discharge: 02/15/25 Primary care physician: Zahida King MD Consults: 02/12/25 14:23 Consult to Vascular Surgery Routine Consulting Provider: [facility] Reason for consultation: TIA, right ICA stenosis 02/12/25 14:25 Consult to Neurology Routine Consulting Provider: Braulio Bond Reason for consultation: TIA, right ICA near occlusion Has provider been notified: No 02/13/25 07:36 Consult to Cardiology Routine Consulting Provider: [facility] Reason for consultation: preop eval; TIA, ICA stenosis DS: Diagnosis Discharge Diagnosis (1) CAD (coronary artery disease): Status: Acute DS: Summary Hospital Course Hospital Course: 59-year-old male with past medical history of hypertension, diabetes mellitus, CAD, obesity, LALI admitted to the hospitalist with symptoms of TIA. He had multiple episodes of right-sided weakness with facial droop on 02/13/[address] head was done which was negative, further imaging showed near total occlusive carotid artery stenosis. So he was emergently taken for carotid endarterectomy 02/14/2025, transferred to ICU postprocedure for close monitoring. He did well postoperative with no complications and hemoglobin remained stable. He is discharged home on 02/15/2025 Status at Discharge Functional status at discharge: independent ambulation Time Attestation Total time managing care of this patient today: 35 mintues. Discharge Coordination Time (in mins): 35 Quality: Safe Use of Opioids Does Pt have an Active Cancer Diagnosis on the Problem List?: No Quality: Stroke Does the patient have a stroke diagnosis?: Yes Reason for No Anti-thrombotic at DC: N/A - Med Ordered Reason for No Anticoagulant at DC: N/A - Med Ordered Reason Not Initiating IV-Tpa: N/A - Med Ordered Reason for No Anti-thrombotic by Day Two: N/A - Med Ordered Reason for No Statin at DC: N/A - Med Ordered Physical Exam Vital Signs: Vital Signs: Last Vital Signs Temp 97.5 F 02/15/25 12:00 Pulse 108 H 02/15/25 13:00 Resp 20 02/15/25 13:00 BP 137/95 H 02/15/25 13:00 Pulse Ox 95 02/15/25 13:00 O2 Del Method Room Air 02/15/25 13:00 O2 Flow Rate 2 02/15/25 06:00 BMI result Body Mass Index 34.2 General: Middle-aged male in no distress, comfortable sitting in the chair Nutritional Appearance: well nourished and overweight Eyes: appearance normal, both eyes and all related structures; Alignment and Position: alignment normal and position normal Neck: No lymphadenopathy, no thyromegaly Resp: bilateral air entry equal, no added sounds present Cardio: Regular rate, regular rhythm; Heart sounds: S1 normal heart sound present and S2 normal heart sound present GI: soft, nontender, no guarding, no hepatosplenomegaly : bladder normal to inspection, bladder normal to palpation, no renal angle tenderness Skin: no rashes or lesions noted and elasticity normal Neuro: oriented to person, oriented to place, oriented to time and moves all extremities, mild facial droop DS: Data Data Completed and Pending Completed studies during hospitalization [Text1]: Pending at discharge 02/14/25 09:39 Surgical [PTH] Routine Discharge Plan Discharge Anticipated Discharge Date/Time: 02/13/25 12:44 Patient Disposition: Home, Self-Care Discharge Diagnosis: Crescendo TIAs with nearly occlusive right ICA stenosis Referrals: Po,Zahida Lopez MD [Primary Care Provider, Internal Medicine] - 1 Week Discharge Medications: New carvedilol 3.125 mg Tablet 3.125 mg PO BID Qty: 1 0RF Protocol: Hold for SBP/HR < HOLD for SBP < : 90 HOLD for HR < : 60 oxycodone-acetaminophen [Percocet] 5-325 mg tablet 1 tab PO Q8H PRN (Reason: pain) Qty: 10 0RF Rx Instructions: Partial Fill upon patient request. Continued rosuvastatin 40 mg tablet 40 mg PO DAILY 90 Days Qty: 90 3RF ezetimibe 10 mg tablet 10 mg PO DAILY Qty: 90 1RF fenofibrate 160 mg tablet 160 mg PO DAILY 90 Days Qty: 90 2RF omeprazole 40 mg capsule,delayed release(DR/EC) 40 mg PO DAILY@0630 cholecalciferol (vitamin D3) [Vitamin D3] 50 mcg (2,000 unit) Tablet 50 mcg PO DAILY aspirin [Adult Aspirin Regimen] 81 mg tablet,delayed release (DR/EC) 81 mg PO DAILY acetaminophen [Tylenol Extra Strength] 500 mg tablet 1,000 mg PO Q6H PRN (Reason: Fever Or Pain) meloxicam 15 mg tablet 15 mg PO DAILY Qty: 14 0RF cyclobenzaprine 5 mg tablet 10 mg PO Q8H PRN (Reason: Muscle Spasm) 7 Days Qty: 21 0RF Held metformin 500 mg tablet 500 mg PO BID 90 Days Qty: 180 3RF Hold Instructions: hold due to recent IV contrast lisinopril 10 mg tablet 10 mg PO DAILY Qty: 90 2RF Hold Instructions: hold to prevent hypotension in the setting of severe right internal carotid stenosis Jardiance 25 mg tablet 25 mg PO DAILY Hold Instructions: Hold for surgery Mounjaro 2.5 mg/0.5 mL pen injector 2.5 mg SUBCUT MO Hold Instructions: hold inpatient prednisone 50 mg tablet 50 mg PO DAILY Hold Instructions: has been taking for back pain, resume as indicated nitroglycerin 0.4 mg tablet, sublingual 0.4 mg sublingual Q5M PRN (Reason: Chest Pain) Hold Instructions: Holter prevent hypotension Rx Instructions: do not exceed 3 doses per episode Discontinued carvedilol 6.25 mg tablet 6.25 mg PO BID 90 Days Qty: 180 2RF Rx Instructions: must administer with a meal/food No Action (DME) cane Device See Rx Instructions .Route Qty: 1 0RF Rx Instructions: As directed Discharge Orders: Discharge Order (Routine); Ordered 02/15/25 Ordered By: Bakari Bee Diet: Advance to usual diet Activity on Discharge: As tolerated Print Language: Belarusian Activity Restrictions/Additional Instructions: Steri-Strips was used and you may shower as early as tomorrow. Take it easy today and you may ambulate around the house. Within 24 hours you can resume normal activity You may climb a flight of stairs as tolerated Do not lift anything heavier than a gallon of milk for [address] Bee in follow-up in approximately 2 weeks time. You should already have an appointment if not please call my office at [phone] Please take Tylenol as needed for pain and if needed Percocet If you notice excessive bleeding from the neck please immediately call my office or return to the emergency room. Care Plan Goals: Postop care Health Concerns: Crescendo TIAs with nearly occlusive right internal carotid stenosis Plan of Treatment: Postop care Assessment: See discharge summary Discharge Date/Time: 02/15/25 13:44
== END 2025-02-15 13:44 | disposition home or self-care (01) | DRG 24 ==
LOC: HO.ED 13:34 → HO.EDOVER 14:36 → HO.IMC 19:49 → HO.ICU 02-14 12:36
PROVIDERS: Internal Medicine; Physician Assistant Medical; Surgery Vascular Surgery; Admitting Provider Internal Medicine; Emergency Provider Emergency Medicine Emergency Medical Services; PCP Internal Medicine; Visit Provider Internal Medicine Critical Care Medicine
PROC: 03CH0ZZ Extirpation of Matter from Right Common Carotid Artery, Open Approach (ICD-10-PCS; CPT 35301; principal; 2025-02-14 07:30)
DX: I65.21 Occlusion and stenosis of right carotid artery (principal); E11.9 Type 2 diabetes mellitus without complications; E66.01 Morbid (severe) obesity due to excess calories; E78.5 Hyperlipidemia, unspecified; K21.9 Gastro-esophageal reflux disease without esophagitis; G47.33 Obstructive sleep apnea (adult) (pediatric); I10 Essential (primary) hypertension; Z68.34 Body mass index [BMI] 34.0-34.9, adult; I25.10 Atherosclerotic heart disease of native coronary artery without angina pectoris; Z71.3 Dietary counseling and surveillance; Z95.5 Presence of coronary angioplasty implant and graft; Z79.52 Long term (current) use of systemic steroids; Z79.82 Long term (current) use of aspirin; Z79.85 Long-term (current) use of injectable non-insulin antidiabetic drugs; Z87.891 Personal history of nicotine dependence; Z79.899 Other long term (current) drug therapy
CPT/HCPCS: 36415; 70450; 70496; 70498; 70552; 76536; 80048; 80053; 80061; 82947; 83036; 84484; 85014; 85018; 85025; 85027; 85610; 85730; 86850; 86900; 86901; 88304; 88311; 93005; 93306; 97162; 97166; 99285; C1768; C9250; J0131; J0690; J1171; J1644; J1650; J2003; J2250; J2270; J2371; J2405; J2704; J2795; J3010; J3360; J7120; Q9957; Q9967

== ENCOUNTER → 2025-02-12 11:30 | Outpatient (BNV) | payer OTHER, SELFPAY | PROVIDERS: Emergency Provider Emergency Medicine Emergency Medical Services; PCP Internal Medicine; Visit Provider Radiology Diagnostic Radiology | DX: R20.2 Paresthesia of skin (principal); I65.21 Occlusion and stenosis of right carotid artery; J33.8 Other polyp of sinus | CPT/HCPCS: 70450; 70496; 70498; 70552 ==

== ENCOUNTER 2025-02-12 14:23 | Outpatient (BNV) | payer OTHER, SELFPAY | END 2025-02-13 08:53 | PROVIDERS: Admitting Provider Internal Medicine; Emergency Provider Emergency Medicine Emergency Medical Services; PCP Internal Medicine; Visit Provider Radiology Diagnostic Radiology | DX: R29.810 Facial weakness (principal) | CPT/HCPCS: 70450 ==

== ENCOUNTER 2025-02-12 14:23 | Outpatient (BNV) | payer OTHER, SELFPAY | END 2025-02-14 16:52 | PROVIDERS: Admitting Provider Internal Medicine; Emergency Provider Emergency Medicine Emergency Medical Services; PCP Internal Medicine; Visit Provider Radiology Diagnostic Radiology | DX: R22.1 Localized swelling, mass and lump, neck (principal) | CPT/HCPCS: 76536 ==

== ENCOUNTER 2025-02-12 14:23 | Outpatient (BNV) | payer OTHER, SELFPAY | END 2025-02-15 07:00 | PROVIDERS: Admitting Provider Internal Medicine; Emergency Provider Emergency Medicine Emergency Medical Services; PCP Internal Medicine; Visit Provider Internal Medicine Cardiovascular Disease | DX: I51.89 Other ill-defined heart diseases (principal) | CPT/HCPCS: 93306 ==

== ENCOUNTER → 2025-02-12 14:23 | Outpatient (BNV) | payer OTHER, SELFPAY | PROVIDERS: Admitting Provider Internal Medicine; Emergency Provider Emergency Medicine Emergency Medical Services; PCP Internal Medicine; Visit Provider Internal Medicine Cardiovascular Disease | DX: I65.21 Occlusion and stenosis of right carotid artery (principal); Z01.810 Encounter for preprocedural cardiovascular examination | CPT/HCPCS: 93010; 99223 ==

== ENCOUNTER → 2025-02-12 14:23 | Outpatient (BNV) | payer OTHER, SELFPAY | PROVIDERS: Admitting Provider Internal Medicine; Emergency Provider Emergency Medicine Emergency Medical Services; PCP Internal Medicine; Visit Provider Surgery Vascular Surgery | DX: I65.21 Occlusion and stenosis of right carotid artery (principal) | CPT/HCPCS: 35301; 99222 ==

== ENCOUNTER → 2025-02-12 14:23 | Outpatient (BNV) | payer OTHER, SELFPAY | PROVIDERS: Admitting Provider Internal Medicine; Emergency Provider Emergency Medicine Emergency Medical Services; PCP Internal Medicine; Visit Provider Internal Medicine Critical Care Medicine | DX: I10 Essential (primary) hypertension (principal); E11.65 Type 2 diabetes mellitus with hyperglycemia; E66.01 Morbid (severe) obesity due to excess calories; G45.9 Transient cerebral ischemic attack, unspecified | CPT/HCPCS: 99232; 99233 ==

== ENCOUNTER → 2025-02-12 14:23 | Outpatient (BNV) | payer OTHER, SELFPAY | PROVIDERS: Admitting Provider Internal Medicine; Emergency Provider Emergency Medicine Emergency Medical Services; PCP Internal Medicine; Visit Provider Internal Medicine | DX: G45.9 Transient cerebral ischemic attack, unspecified (principal) | CPT/HCPCS: 99223; 99233 ==

== ENCOUNTER → 2025-02-12 14:23 | Outpatient (BNV) | payer OTHER, SELFPAY | PROVIDERS: Admitting Provider Internal Medicine; Emergency Provider Emergency Medicine Emergency Medical Services; PCP Internal Medicine; Visit Provider Psychiatry & Neurology Neurology | DX: G45.9 Transient cerebral ischemic attack, unspecified (principal) | CPT/HCPCS: 99223 ==

== ENCOUNTER 2025-03-03 14:38 | Outpatient (AMB) | payer OTHER, SELFPAY ==
--- NOTE | 2025-03-03 14:40 | A.OFFVIS_ITS ---
Intake Visit Reasons: 2 wk post CEA 02/14/25 Intake Note: 2 wk follow up Right CEA 02/14/25. Pt states he feels okay but has high anxiety about getting another TIA. Pt does have swelling on right neck Accompanied by: Self / Same As Patient Allergies atorvastatin (Lipitor) Allergy (Unknown, Verified 03/03/25 14:47) does not remember fenofibric acid (Fibricor) Allergy (Unknown, Verified 03/03/25 14:47) does not remember HPI HPI 2 wk post CEA 02/14/25: Details: The patient is a 59-year-old male presenting with a follow-up regarding his carotid artery surgery and associated symptoms. The patient initially presented with crescendo transient ischemic attacks (TIAs), leading to an emergent carotid artery surgery on February 14, 2025. Post- surgery, the patient reports doing well with minor complications such as slight swelling and bruising, which are resolving. The patient experiences anxiety, which he describes as significant and affecting his perception of his health status. He has been advised to work with his primary care physician and consider therapy to develop coping mechanisms. The patient reports episodes of blurred vision and facial numbness, which he associates with nerve damage post-surgery. He also experiences tingling in his arm, which was noted prior to the surgery. The patient's past cardiac history includes the placement of three stents and a family history of cardiac issues, including open-heart surgeries in both parents. He is currently on carvedilol, although there is some confusion regarding the correct dosage post-discharge. [facility] Medical History Transient ischemic attack Obesity (BMI 30-39.9) Type 2 diabetes mellitus with unspecified complications Morbid obesity Abdominal pain, chronic, bilateral lower quadrant Carpal tunnel syndrome Spondylosis of lumbar spine Spondylosis of cervical spine Type 2 diabetes mellitus Essential hypertension Atherosclerotic cardiovascular disease Dislocation of ring finger Shelia-Schlatter's disease of both knees Depression Degenerative disc disease CAD (coronary artery disease) Obstructive sleep apnea Vitamin D deficiency Erectile dysfunction GERD (gastroesophageal reflux disease) Hypercholesterolemia Carpal tunnel syndrome on both sides Surgical History Stented coronary artery History of surgery History of vasectomy History of nasal surgery Family History Father Myocardial infarction Mother Myocardial infarction Social History Household Members: Spouse Housing: House Do you presently have visiting nurse or other home services: No Alcohol intake: never Comment: COUNTS CORRECT Patient Tobacco Use Status: Former Tobacco user Tobacco use type: Cigarette e-Cigarette/Vaping Use: Never Used Second Hand Smoke Exposure: No service: No Current occupational status: employed Current occupational exposures/hazards: No Cognitive needs: No Hearing needs: No Vision needs: Yes Review of Systems Const All systems reviewed & are unremarkable except as noted in HPI and below Reports no additional complaints ENT Reports Normal hearing present Card Denies chest pain, Denies chest pain at rest, Denies chest pain with activity and Denies pedal edema Resp Denies cough GI Denies abdominal pain Musc Denies abnormal gait, Denies muscle cramps and Denies radiating pain into limb Skin/Breast Denies skin ulcer and Denies wounds Neuro Reports Normal hearing present and Denies abnormal gait Psych Reports no additional complaints Physical Exam Const General: cooperative, healthy appearing and comfortable Orientation/consciousness: oriented to person, oriented to place and oriented to time HEENT Head: Yes normal to inspection Neck Neck: Yes normal visual inspection Carotids: no bruits Chest Chest palpation & inspection: normal inspection of the chest Resp Effort & Inspection: normal respiratory effort and able to speak in complete sentences Auscultation: clear to auscultation bilaterally, no crackles, no rales, no rhonchi and no wheezes Cardio Rate: regular rate Rhythm: regular rhythm Heart sounds: S1 normal heart sound present and S2 normal heart sound present Bruits: no carotid bruits Peripheral pulses: Peripheral pulses 2+ throughout GI Inspection: Yes normal to inspection Skin Other: Right neck incision healing well Wounds: no wounds Hair: normal Neuro General: oriented to person, oriented to place and oriented to time Cranial nerves: Yes CN's II-XII intact bilaterally and Yes Normal hearing present Cognition (Neuro): normal cognition Motor exam (neuro): 5/5 motor strength present throughout Extrem Other: venous exam: No significant superficial varicosities or spider telangiectasias, minimal edema General: No clubbing, No cyanosis and No edema Psych Appearance: grossly normal Mental Status: mental status grossly normal Speech and movement: Normal speech and movement present Assessment & Plan Assessment & Plan (1) Carotid stenosis, right: Comment: 02/14/2025 - right carotid endarterectomy Code(s): I65.21 - Occlusion and stenosis of right carotid artery Category: Medical Plan: In short patient underwent emergent carotid endarterectomy due to the thoughts that this may be secondary to TIAs. In hind site this symptoms of his left face and arm tingling and numbness may be secondary to anxiety. Nonetheless due to the high-grade carotid stenosis the endarterectomy needed to be done. He has done well from a carotid standpoint. We did discuss the pathophysiology of carotid disease. He will need a three-month surveillance carotid ultrasound. (2) Generalized anxiety disorder: Code(s): F41.1 - Generalized anxiety disorder Category: Medical Plan: I do think his anxiety is significantly increasing. He may need referral to a therapist or psychiatry to develop better coping mechanisms for his anxiety. This was relayed in detail with the patient. He does seem to be doing relatively well post surgery. Once again we will continue to follow him for his carotid disease. Thank you for allowing us to assist in his care. Orders: Orders US carotid duplex BI 3 Months I65.21 - Occlusion and stenosis of right carotid artery Coding Level of Care Code Est Pt Level 4 (45682) Diagnoses Carotid stenosis, right I65.21 Generalized anxiety disorder F41.1
--- OUTSIDE RECORDS SUMMARY | 2025-03-03 15:19 | XMS_ITS | Patient Health Record ---
Author Organization [facility] Address [address] [place] [address] Care Team Providers Care School Cook Name Role Phone Zahida King MD Primary Care Provider Catracho Parra Jr Allergies Allergen (clinical drug ingredient) Drug/Non Drug Allergy documented on EMR Reaction Allergy Type Onset Date Status Fibricor Unknown Drug Allergy Active atorvastatin Lipitor Unknown Drug Allergy Acti ve Results Component Value Reference Range Notes CT abdomen pelvis w con Reviewed date:04/08/2024 10:18:10 AM Interpretation: Performing Lab: Notes/Report: [facility] [address] [place] [address] CT Scan Report Signed Patient: Theresa Nagel MR#: [id number] : 1965 Acct:[id number] Age/Sex: 58 / M ADM Date: 04/02/24 Loc: HO.CT Attending Dr: Catracho Rodrigues MD Ordering Physician: Catracho Rodrigues MD Date of Service: 04/02/24 Procedure(s): CT abdomen pelvis w IV con Accession Number(s): [id number] cc: Catracho Rodrigues MD; Zahida King MD [...] 04/02/24 1123 DD/ 0829 TD/TT: 04/02/24 0849 Gauge Machine Operator: Creatinine GFR POC Reviewed date:04/08/2024 10:15:22 AM Interpretation: Performing Lab:[facility], [address] [facility], [place] [address] Notes/Report: [id number] 0.95 >60 0819 [email or web address] Creatinine POC 1.0 [...] Problem Status W/U Status Risk Notes Problem 073236852 Colon cancer screening (Z12.11) Active confirmed Problem 934666725 Generalized abdominal pain (R10.84) Active confirmed Problem 390573994 Gastroesophageal reflux disease without esophagitis (K21.9) Active confirmed Problem 63154581 Irritable bowel syndrome, unspecified type (K58.9) Active confirmed Vital Signs Temperature 98.7 degrees Fahrenheit 02/02/2025 Blood pressure diastolic 01 mm Hg 02/02/2025 Height 70 in 02/02/2025 Blood pressure systolic 001 mm Hg 02/02/2025 Weight 249.4 lbs 02/02/2025 BMI 35.78 kg/m2 02/02/2025 Encounters Encounter Location Date Provider Diagnosis [facility] [address] [place] [phone] 02/02/2025 Catracho Rodrigues Jr Gastroesophageal reflux disease without esophagitis K21.9 ; Irritable bowel syndrome, unspecified type K58.9 and Colon cancer screening Z12.11 [facility] [address] [place] [phone] 04/08/2024 Catracho Rodrigues Jr Assessments Encounter Date [...] Provider Name:Catracho huddleston Jr, 02/02/2026 01:55:00 PM, [address] [place] [address], [address], [place], [phone], Insurance Providers Payer Name Payer Address Payer Phone Subscriber Number Group Number Insured Name Patient Relationship to Insured Coverage Start Date Coverage End Date [facility] [address] [address] [place], [place] [id number] THERESA NAGEL Self - patient is the insured MEDICAID OF [facility] [address] [place] [address] [id number] THERESA NAGEL Self - patient is the [...]
== END 2025-03-03 15:29 | disposition home or self-care (01) ==
LOC: HO.HVS 14:39
PROVIDERS: PCP Internal Medicine; Visit Provider Surgery Vascular Surgery
DX: I65.21 Occlusion and stenosis of right carotid artery (principal); F41.1 Generalized anxiety disorder; Z09 Encounter for follow-up examination after completed treatment for conditions other than malignant neoplasm
CPT/HCPCS: 99024

== ENCOUNTER → 2025-03-03 14:38 | Outpatient (BNVA) | payer OTHER, SELFPAY | PROVIDERS: PCP Internal Medicine; Visit Provider Surgery Vascular Surgery | DX: I65.21 Occlusion and stenosis of right carotid artery (principal); F41.1 Generalized anxiety disorder | CPT/HCPCS: 99212 ==

== ENCOUNTER 2025-03-04 15:42 | Outpatient (AMB) | payer OTHER, SELFPAY ==
--- NOTE | 2025-03-04 15:45 | A.OFFPC_ITS ---
Vital Signs 03/04/25 15:46 Height 5 ft 10 in Weight 238 lb 6 oz BMI 34.2 BP 112/60 Blood Pressure Location Lt brachial Position Sitting Pulse 87 Pulse Source Pulse Oximeter Temp 97.3 F Temp Source Temporal Artery Scan Pulse Oximetry (%) 96 Oxygen Delivery Method Room Air Intake Visit Reasons: follow up stroke Intake Note: Patient is here to follow up on Stroke . Accounts Payable Associate Required: No Animal Cytologist: Present Accompanied by: Spouse Allergies atorvastatin (Lipitor) Allergy (Unknown, Verified 03/04/25 15:46) does not remember fenofibric acid (Fibricor) Allergy (Unknown, Verified 03/04/25 15:46) does not remember Tobacco use date assessed: 03/04/25 Dental Screening Dental Screen Date: 08/02/24 [facility] Medical History Transient ischemic attack Obesity (BMI 30-39.9) Type 2 diabetes mellitus with unspecified complications Morbid obesity Abdominal pain, chronic, bilateral lower quadrant Carpal tunnel syndrome Spondylosis of lumbar spine Spondylosis of cervical spine Type 2 diabetes mellitus Essential hypertension Atherosclerotic cardiovascular disease Dislocation of ring finger [place]-Schlatter's disease of both knees Depression Degenerative disc disease CAD (coronary artery disease) Obstructive sleep apnea Vitamin D deficiency Erectile dysfunction GERD (gastroesophageal reflux disease) Hypercholesterolemia Carpal tunnel syndrome on both sides Surgical History Stented coronary artery History of surgery History of vasectomy History of nasal surgery Family History Father Myocardial infarction Mother Myocardial infarction Social History Household Members: Spouse Housing: House Do you presently have visiting nurse or other home services: No Alcohol intake: never Comment: COUNTS CORRECT Patient Tobacco Use Status: Former Tobacco user Tobacco use type: Cigarette e-Cigarette/Vaping Use: Never Used Second Hand Smoke Exposure: Yes service: No Current occupational status: employed Current occupational exposures/hazards: No Cognitive needs: No Hearing needs: No Vision needs: Yes Questionnaire Thrive Questionnaire Date Thrive assessed: 02/13/25 FLORENCIA-7 AMB Questionnaire FLORENCIA-7 Date FLORENCIA - 7 assessed: 03/04/25 Feeling nervous, anxious, or on edge: 0 = Not at all Not being able to stop or control worryin = Not at all Worrying too much about different things: 0 = Not at all Trouble relaxin = Not at all Being so restless that it is hard to sit still: 0 = Not at all Becoming easily annoyed or irritable: 0 = Not at all Feeling afraid as if something awful might happen: 0 = Not at all Total FLORENCIA-7 score (0-4 normal; 5-9 mild; 10-14 moderate; 15-21 severe): 0 Source: Developed by Drs. Blaise Lake, Vicki Hebert, Yordy Barnes and colleagues, with an educational kelsi from [employer]. Physical exam (Primary Care) Vital Signs: Last Vital Signs Temp 97.3 F 03/04/25 15:46 Pulse 87 03/04/25 15:46 BP 112/60 03/04/25 15:46 Pulse Ox 96 03/04/25 15:46 Oxygen Delivery Method Room Air 03/04/25 15:46 BMI result Body Mass Index 34.2 Tobacco/Smoking Status: Tobacco use Status Tobacco use date assessed 03/04/25 03/04/25 15:54 Patient Tobacco Use Status Former Tobacco user 03/04/25 15:54 Tobacco use type Cigarette 03/04/25 15:54 e-Cigarette/Vaping Use Never Used 03/04/25 15:54 Thrive Assessment: Date of Thrive Assessment Date Thrive assessed 02/13/25 03/04/25 15:54 Const General: alert; No acute distress Eyes Conjunctivae: conjunctivae normal Resp Auscultation: clear to auscultation bilaterally Cardio Rate: regular rate Rhythm: regular rhythm GI Inspection: Yes normal to inspection Extrem General: Yes normal to inspection and No edema Coding Level of Care Code Est Pt Level 4 (51519) Complex EM visit Add On G2211 Diagnoses Coronary artery disease involving [place] coronary artery of [place] heart without angina pectoris I25.10 Associated angina: without angina Coronary Disease-Associated Artery/Lesion type: [place] artery [place] vs. transplanted heart: [place]oon heart Carotid stenosis, right I65.21 Hypercholesterolemia E78.00 Type 2 diabetes mellitus with hyperglycemia, without long-term current use of insulin E11.65 Diabetes mellitus manager long term care insulin use: without manager long term care use Obesity (BMI 30-39.9) E66.9 GERD (gastroesophageal reflux disease) K21.9 Obstructive sleep apnea G47.33 Generalized anxiety disorder F41.1 Essential hypertension I10 Assessment & Plan Assessment & Plan (1) CAD (coronary artery disease): Comment: RCA stent 05/2019 Code(s): I25.10 - Atherosclerotic heart disease of [place] coronary artery without angina pectoris Category: Medical Qualifiers: Associated angina: without angina Coronary Disease-Associated Artery/Lesion type: [place] artery [place] vs. transplanted heart: [place] heart Qualified Code(s): I25.10 - Atherosclerotic heart disease of [place] coronary ar anna without angina pectoris Plan: Control the cholesterol, weight, blood pressure, diabetes continue with aspirin 81 mg once a day (2) Carotid stenosis, right: Comment: 02/14/2025 - right carotid endarterectomy Code(s): I65.21 - Occlusion and stenosis of right carotid artery Category: Medical Plan: Patient follows up with vascular presently on aspirin (3) Hypercholesterolemia: Code(s): E78.00 - Pure hypercholesterolemia, unspecified Category: Medical Plan: Avoid fried foods, chicken skin, eggs, butter margarine, pastries and meat. Be it pork or beef they have a lot of cholesterol LDL goal of less than 70 and triglyceride of less than 150 patient's last blood work was November (4) Type 2 diabetes mellitus with hyperglycemia: Comment: Dr. Hill Code(s): E11.65 - Type 2 diabetes mellitus with hyperglycemia Category: Medical Qualifiers: Diabetes mellitus manager long term care insulin use: without manager long term care use Qualified Code(s): E11.65 - Type 2 diabetes mellitus with hyperglycemia Plan: Decrease the amount of carbohydrate intake, pasta, bread, rice and potatoes are all sugar and that is aside from all the sweet stuff, remember that fruits are good but they are Sweet also. Hemoglobin A1c goal of less than 6.5. Patient on metformin [place] (5) Obesity (BMI 30-39.9): Code(s): E66.9 - Obesity, unspecified Category: Medical Plan: Diet and exercise (6) GERD (gastroesophageal reflux disease): Code(s): K21.9 - Gastro-esophageal reflux disease without esophagitis Category: Medical Plan: Avoid the foods that causes that usually spicy foods, tomato products, juices, coffee, soda and foods that your sensitive to. After eating do not lie down, allow 3-4 hours before in lie down. And keep the head of bed above 30 degrees to avoid the acid from going up. (7) Obstructive sleep apnea: Comment: cannot tolerate CPAP 02/2021, sleep study March 2024 AHI of 44 Code(s): G47.33 - Obstructive sleep apnea (adult) (pediatric) Category: Medical Plan: Discussed importance of treating obstructive sleep apnea (8) Generalized anxiety disorder: Code(s): F41.1 - Generalized anxiety disorder Category: Medical Plan: Discussed about counseling and therapy (9) Essential hypertension: Code(s): I10 - Essential (primary) hypertension Category: Medical Plan: Continue with blood pressure medication. Decrease salt intake and exercise patient on lisinopril 10 mg once a day carvedilol 3.125 mg twice a day Plan History of Present Illness The patient is a 59-year-old male presenting for a follow-up visit after a right carotid endarterectomy and to manage multiple chronic conditions. The patient has a history of diabetes mellitus, which has been managed with metformin, Mounjaro, and Jardiance, alongside dietary modifications and exercise. His last hemoglobin A1c was 6.1% as of February 13, 2025, indicating good glycemic control. He also has hypercholesterolemia, with a recent LDL cholesterol level of 44 mg/dL, which is below the target of less than 70 mg/dL. The patient is on a cholesterol management plan that includes dietary changes and medication. The patient suffers from obstructive sleep apnea but is unable to tolerate CPAP therapy. Weight loss has been discussed as a potential intervention to alleviate symptoms. He has a history of coronary artery disease and underwent drug-eluting stent placement in the mid-right coronary artery. The patient is currently on aspirin therapy and follows up with cardiology regularly. Hypertension is another chronic condition, managed with lisinopril and carvedilol. Recent adjustments were made to his medication regimen due to low blood pressure readings. The patient has cervical and lumbar spondylosis, contributing to episodes of mid-back pain. Gastroesophageal reflux disease (GERD) and irritable bowel syndrome are managed with dietary modifications and medications. The patient has a history of cholelithiasis and generalized anxiety disorder, the latter of which is being addressed with psychiatric support and medication. Symptoms of anxiety include tingling and numbness in the left face and arm, which may be exacerbated by stress. In January 2025, the patient experienced multiple episodes of transient ischemic attacks (TIA), characterized by right-sided weakness and facial droop. A CT scan was negative, but further imaging revealed near-total occlusion of the carotid artery, necessitating surgical intervention. The patient's last blood work showed mild anemia, with normal electrolytes, renal, and liver function. Health Maintenance - Discussed weight management and dietary modifications to manage diabetes and hypercholesterolemia - Emphasized the importance of treating obstructive sleep apnea - Recommended psychiatric support for anxiety management Social History - Exercise: Engages in regular physical activity as part of diabetes management - Diet: Following dietary modifications to manage diabetes, hypercholesterolemia, and GERD - Weight management: Actively working on weight loss to improve overall health and manage obstructive sleep apnea Review of Systems - Neurological: Reports tingling and numbness in the left face and arm - Cardiovascular: Denies chest pain or palpitations - Respiratory: Denies dyspnea or cough Physical Exam - Neurological: Observed facial and arm tingling and numbness Results - Labs: Hemoglobin A1c at 6.1% as of February 13, 2025 - Labs: LDL cholesterol at 44 mg/dL - Labs: Mild anemia noted in recent blood work - Imaging: CT scan negative for acute findings, but further imaging showed near- total occlusion of the carotid artery Plan The patient will continue with aspirin 81 mg daily as part of the management for coronary artery disease and to prevent further cardiovascular events. The cholesterol management plan aims for an LDL goal of less than 70 mg/dL, with the patient's last LDL being 44 mg/dL, indicating effective control. For diabetes management, the patient is on metformin, Mounjaro, and Jardiance, with a hemoglobin A1c goal of less than 6.5%. Diet and exercise are emphasized as part of the management strategy. The patient is advised to continue with lisinopril 5 mg and carvedilol 3.125 mg twice daily for hypertension management, with adjustments made due to low blood pressure readings. For anxiety, the patient is prescribed alprazolam for acute episodes and BuSpar for long-term management. Psychiatric support is recommended to address anxiety symptoms. The importance of treating obstructive sleep apnea was discussed, with weight loss as a potential intervention to improve symptoms. Patient was informed and verbally consented to the use of an ambient scribe for clinic note documentation during this visit. Discussion Notes I discussed with the patient the importance of continuing aspirin therapy to prevent further cardiovascular events and maintaining cholesterol levels with a target LDL of less than 70 mg/dL. We reviewed the diabetes management plan, emphasizing the role of diet and exercise alongside medications such as m etformin, Mounjaro, and Jardiance. For hypertension, I advised continuing lisinopril and carvedilol, with recent dose adjustments due to low blood pressure readings. We addressed anxiety management, prescribing alprazolam for acute episodes and BuSpar for long-term control, and recommended psychiatric support. The significance of treating obstructive sleep apnea was highlighted, with weight loss as a potential intervention. Patient Instructions - Continue taking aspirin 81 mg daily as prescribed. - Follow the cholesterol management plan and aim for an LDL goal of less than 70 mg/dL. - Maintain diabetes management with metformin, Mounjaro, and Jardiance, and aim for a hemoglobin A1c of less than 6.5%. - Engage in regular diet and exercise as part of diabetes and overall health management. - Continue lisinopril 5 mg and carvedilol 3.125 mg twice daily for hypertension management. - Use alprazolam for acute anxiety episodes and take BuSpar regularly for long- term anxiety management. - Seek psychiatric support for anxiety management. - Focus on weight loss to help manage obstructive sleep apnea. Medications: New lisinopril 5 mg PO DAILY 90 tabs 1RF I10 - Essential (primary) hypertension buspirone 5 mg PO BID 60 tabs 2RF F41.1 - Generalized anxiety disorder alprazolam 0.25 mg PO TID PRN 20 tabs 0RF anxiety F41.1 - Generalized anxiety disorder Refilled carvedilol 3.125 mg See Protocol PO BID 180 tabs 0RF I10 - Essential (primary) hypertension Discontinued lisinopril Discontinued Reason: Doctor's Order 10 mg PO DAILY 90 tabs 2RF I10 - Essential (primary) hypertension
--- OUTSIDE RECORDS SUMMARY | 2025-03-04 15:45 | XMS_ITS | Patient Health Record ---
Author Organization [facility] Address [address] [place] [address] Care Team Providers [facility] Director Name Role Phone Zahida King MD Primary Care Provider Catracho Parra Jr [phone] Allergies Allergen (clinical drug ingredient) Drug/Non Drug Allergy documented on EMR Reaction Allergy Type Onset Date Status Fibricor Unknown Drug Allergy Active atorvastatin Lipitor Unknown Drug Allergy Acti ve Results Component Value Reference Range Notes CT abdomen pelvis w con Reviewed date:04/08/2024 10:18:10 AM Interpretation: Performing Lab: Notes/Report: [facility] [address] [place] [address] CT Scan Report Signed Patient: Theresa Nagel MR#: [id number] : 1965 Acct:[id number] Age/Sex: 58 / M ADM Date: 04/02/24 Loc: HO.CT Attending Dr: Catracho Rodrigues MD Ordering Physician: Catracho Rodrigues MD Date of Service: 04/02/24 Procedure(s): CT abdomen pelvis w IV con Accession Number(s): [id number] cc: Catracho Rodrigues MD; Zahida King MD [...] 04/02/24 1123 DD/ 0829 TD/TT: 04/02/24 0849 Dogman/Woman: Creatinine GFR POC Reviewed date:04/08/2024 10:15:22 AM Interpretation: Performing Lab:[facility], [address], [place] [address] Notes/Report: [id number] 0.95 >60 0819 [email or web address] Creatinine POC 1.0 [...] Problem Status W/U Status Risk Notes Problem 151423293 Colon cancer screening (Z12.11) Active confirmed Problem 037485378 Generalized abdominal pain (R10.84) Active confirmed Problem 778046032 Gastroesophageal reflux disease without esophagitis (K21.9) Active confirmed Problem 63588550 Irritable bowel syndrome, unspecified type (K58.9) Active confirmed Vital Signs Temperature 98.7 degrees Fahrenheit 02/02/2025 Blood pressure diastolic 01 mm Hg 02/02/2025 Height 70 in 02/02/2025 Blood pressure systolic 001 mm Hg 02/02/2025 Weight 249.4 lbs 02/02/2025 BMI 35.78 kg/m2 02/02/2025 Encounters Encounter Location Date Provider Diagnosis [facility] [address] [place] [id number] 02/02/2025 Catracho Rodrigues Jr Gastroesophageal reflux disease without esophagitis K21.9 ; Irritable bowel syndrome, unspecified type K58.9 and Colon cancer screening Z12.11 [facility] [address] [place] [id number] 04/08/2024 Catracho Rodrigues Jr Assessments Encounter Date [...] Provider Name:Catracho huddleston Jr, 02/02/2026 01:55:00 PM, [address] [place] [address], [address], [place], [address], Insurance Providers Payer Name Payer Address Payer Phone Subscriber Number Group Number Insured Name Patient Relationship to Insured Coverage Start Date Coverage End Date [facility] [address] [address] [place], [place] [id number] THERESA NAGEL Self - patient is the insured MEDICAID OF [facility] [address] [place] [address] [id number] THERESA NAGEL Self - patient is the [...]
[2025-03-04 15:46] VITALS: BP 112/60; PULSE 87; TEMP 36.3; O2SAT 96; BMI 34.2
== END 2025-03-04 16:33 | disposition home or self-care (01) ==
LOC: HO.HMCH 15:43
PROVIDERS: PCP Internal Medicine; Visit Provider Internal Medicine
DX: E11.65 Type 2 diabetes mellitus with hyperglycemia (principal); E66.9 Obesity, unspecified; Z68.34 Body mass index [BMI] 34.0-34.9, adult; I25.10 Atherosclerotic heart disease of native coronary artery without angina pectoris; I65.21 Occlusion and stenosis of right carotid artery; E78.00 Pure hypercholesterolemia, unspecified; K21.9 Gastro-esophageal reflux disease without esophagitis; G47.33 Obstructive sleep apnea (adult) (pediatric); F41.1 Generalized anxiety disorder; I10 Essential (primary) hypertension

== ENCOUNTER → 2025-03-04 15:42 | Outpatient (BNVA) | payer OTHER, SELFPAY | PROVIDERS: PCP Internal Medicine; Visit Provider Internal Medicine | DX: I25.10 Atherosclerotic heart disease of native coronary artery without angina pectoris (principal); I65.21 Occlusion and stenosis of right carotid artery; E78.00 Pure hypercholesterolemia, unspecified; E11.65 Type 2 diabetes mellitus with hyperglycemia; E66.9 Obesity, unspecified; K21.9 Gastro-esophageal reflux disease without esophagitis; G47.33 Obstructive sleep apnea (adult) (pediatric); F41.1 Generalized anxiety disorder; I10 Essential (primary) hypertension; Z86.73 Personal history of transient ischemic attack (TIA), and cerebral infarction without residual deficits; Z79.899 Other long term (current) drug therapy | CPT/HCPCS: 99212 ==

== ENCOUNTER 2025-03-15 14:44 | Outpatient (AMB) | payer OTHER, SELFPAY ==
[2025-03-15 14:46] VITALS: BP 114/82; PULSE 78; BMI 35.2
--- NOTE | 2025-03-15 14:46 | MHC.OFFVIS ---
Vital Signs 03/15/25 14:46 Height 5 ft 10 in Weight 245 lb 2.464 oz BMI 35.2 BP 114/82 Blood Pressure Location Lt brachial Position Sitting Pulse 78 Pulse Source Pulse Oximeter Intake Visit Reasons: f/up [facility] [place] Public Information Coordinator Required: No Medical Device Sales Representative: Medical Device Sales Representative Present Allergies atorvastatin (Lipitor) Allergy (Unknown, Verified 03/15/25 14:48) does not remember fenofibric acid (Fibricor) Allergy (Unknown, Verified 03/15/25 14:48) does not remember Medication List - Last Reconciled 03/15/25 by Garrett Cai NP acetaminophen (Tylenol Extra Strength) 1,000 mg PO Q6H PRN alprazolam 0.25 mg PO TID PRN aspirin (Adult Aspirin Regimen) 81 mg PO DAILY cane As directed carvedilol 3.125 mg See Protocol PO BID cholecalciferol (vitamin D3) (Vitamin D3) 50 mcg PO DAILY empagliflozin (Jardiance) 25 mg PO DAILY Held on 02/13/25. Instructions: Hold for surgery ezetimibe 10 mg PO DAILY fenofibrate 160 mg PO DAILY 90 days lisinopril 5 mg PO DAILY metformin 500 mg PO BID 90 days Held on 02/13/25. Instructions: hold due to recent IV contrast nitroglycerin 0.4 mg sublingual Q5M PRN Held on 02/13/25. Instructions: Holter prevent hypotension omeprazole 40 mg PO DAILY@0630 oxycodone-acetaminophen 5-325 mg (Percocet) 1 tab PO Q8H PRN rosuvastatin 40 mg PO DAILY 90 days tirzepatide (Mounjaro) 2.5 mg (0.5 mL) subcut QWEEK HPI Comments Details: This is a 59-year-old male patient coming in for a hospital discharge follow-up, accompanied by his . Patient with a history of hypertension, hyperlipidemia, coronary artery disease with prior RCA stent, diabetes, obesity, and untreated sleep apnea. Patient was recently in the hospital for multiple TIAs and underwent emergent right carotid endarterectomy on 02/14/2025. Patient states that he has been having a lot of palpitations with racing heart intermittently which has been ongoing for couple of months now. Patient states that he gets diaphoretic with these but denies any exertional chest discomfort, shortness of breath, dizziness, orthopnea, PND, leg edema, presyncope, or syncope. Patient is reporting compliance with all his medications. [facility] Medical History Transient ischemic attack Obesity (BMI 30-39.9) Type 2 diabetes mellitus with unspecified complications Morbid obesity Abdominal pain, chronic, bilateral lower quadrant Carpal tunnel syndrome Spondylosis of lumbar spine Spondylosis of cervical spine Type 2 diabetes mellitus Essential hypertension Atherosclerotic cardiovascular disease Dislocation of ring finger [place]-Schlatter's disease of both knees Depression Degenerative disc disease CAD (coronary artery disease) Obstructive sleep apnea Vitamin D deficiency Erectile dysfunction GERD (gastroesophageal reflux disease) Hypercholesterolemia Carpal tunnel syndrome on both sides Surgical History Stented coronary artery History of surgery History of vasectomy History of nasal surgery Family History Father Myocardial infarction Mother Myocardial infarction Social History Household Members: Spouse Housing: House Do you presently have visiting nurse or other home services: No Alcohol intake: never Comment: COUNTS CORRECT Patient Tobacco Use Status: Former Tobacco user Tobacco use type: Cigarette e-Cigarette/Vaping Use: Never Used Second Hand Smoke Exposure: Yes service: No Current occupational status: employed Current occupational exposures/hazards: No Cognitive needs: No Hearing needs: No Vision needs: Yes Review of Systems ENT Reports dizziness Card Denies chest pain, Denies chest pain at rest, Denies chest pain with activity, Denies rapid heart rate, Denies pedal edema, Denies edema, Denies leg edema, Denies lightheadedness, Denies palpitations, Denies dyspnea, Denies dyspnea on exertion and Denies orthopnea Resp Denies cough, Denies dyspnea and Denies dyspnea on exertion GI Denies hematochezia and Denies change in stool character Musc Denies abnormal gait, Reports limited range of motion, Reports muscle cramps, Denies muscle weakness, Denies numbness, Denies radiating pain into limb, Denies stiffness and Denies tingling Neuro Denies abnormal gait, Reports dizziness, Denies numbness and Denies tingling Endo Denies palpitations Physical Exam Vital Signs: Last Vital Signs Pulse 78 03/15/25 14:46 BP 114/82 03/15/25 14:46 BMI result Body Mass Index 35.2 Const General: cooperative, healthy appearing, comfortable and no acute distress Orientation/consciousness: patient oriented x3 HEENT Head: Yes normal to inspection Neck Neck: Yes normal visual inspection, Yes trachea midline and Yes supple Chest Chest palpation & inspection: normal inspection of the chest Resp Effort & Inspection: normal respiratory effort Auscultation: clear to auscultation bilaterally, no crackles, no rales, no rhonchi and no wheezes Cardio Jugular venous distension: no JVD Palpation: normal PMI Rate: regular rate Rhythm: regular rhythm Heart sounds: S1 normal heart sound present, S2 normal heart sound present, no click, no gallops, no murmurs and no rubs Peripheral pulses: Peripheral pulses 2+ throughout GI Inspection: Yes normal to inspection Palpation (GI): Soft to palpation Auscultation: normal bowel sounds Skin General skin exam: no rashes or lesions noted Neuro General: patient oriented x3 Extrem General: Yes normal to inspection, No no pedal edema and No calf tenderness Psych Appearance: grossly normal Mental Status: mental status grossly normal Speech and movement: Normal speech and movement present Assessment & Plan Assessment & Plan (1) Palpitations: Code(s): R00.2 - Palpitations Category: Medical Plan: Patient underwent emergent right carotid endarterectomy on 02/14/[address] Bee. Patient has been healing well and is following with Dr. Bee. Given ongoing untreated sleep apnea and ongoing symptoms of palpitations with diaphoresis, we will proceed with a Holter study to look for any potential arrhythmias. Treatment based on findings. Emphasized on the need to use CPAP machine. Patient verbalizes understanding. (2) CAD (coronary artery disease): Comment: RCA stent 05/2019 Code(s): I25.10 - Atherosclerotic heart disease of [place] coronary artery without angina pectoris Category: Medical Qualifiers: Coronary Disease-Associated Artery/Lesion type: [place] artery [place] vs. transplanted heart: [place] heart Associated angina: without angina Qualified Code(s): I25.10 - Atherosclerotic heart disease of [place] coronary artery without angina pectoris Plan: History of coronary artery disease with previous PCI to the RCA. Most recent LDL within goal of less than 70. Continue statin and Zetia therapy. Continue lifelong aspirin therapy. (3) Essential hypertension: Code(s): I10 - Essential (primary) hypertension Category: Medical Plan: Blood pressure is well-controlled. Continue current regimen. Advised monitoring blood pressures at home with a goal less than 130/80. (4) Hypercholesterolemia: Code(s): E78.00 - Pure hypercholesterolemia, unspecified Category: Medical Plan: As above (5) Type 2 diabetes mellitus with hyperglycemia: Comment: Dr. Hill Code(s): E11.65 - Type 2 diabetes mellitus with hyperglycemia Category: Medical Qualifiers: Diabetes mellitus prison insulin use: without marine oil terminal superintendent use Qualified Code(s): E11.65 - Type 2 diabetes mellitus with hyperglycemia Plan: Continue diabetes management. (6) Obesity (BMI 30-39.9): Code(s): E66.9 - Obesity, unspecified Category: Medical Plan: Patient recently started back on Mounjaro with his PCP. Continue to focus on weight loss. (7) Obstructive sleep apnea: Comment: cannot tolerate CPAP 02/2021, sleep study March 2024 AHI of 44 Code(s): G47.33 - Obstructive sleep apnea (adult) (pediatric) Category: Medical Plan: Patient does not use a CPAP machine due to intolerance. Emphasize the need to treat sleep apnea for his cardiovascular as well as overall well-being. (8) Hospital discharge follow-up: Code(s): Z09 - Encounter for follow-up examination after completed treatment for conditions other than malignant neoplasm Plan: As above. Advised heart healthy diet, regular exercise, losing weight, med compliance, and aggressive management of vascular risk factors. Follow up in 3-4 months. In the interim, patient will call the office with any concerns or change in symptoms. This note was generated using voice recognition software. While every effort has been made to ensure accuracy and proper dope sprayer, there may be occasional errors that could affect the content or meaning of the described symptoms. Orders: Orders ECG 7 day holter monitor Today R00.2 - Palpitations Medications: New tirzepatide (Mounjaro) from PCP 2.5 mg (0.5 mL) subcut QWEEK 2 mL 0RF Coding Level of Care Code Est Pt Level 4 (73445) Complex EM visit Add On G2211 Diagnoses Palpitations R00.2 Coronary artery disease involving [place] coronary artery of [place] heart without angina pectoris I25.10 Coronary Disease-Associated Artery/Lesion type: [place] artery [place] vs. transplanted heart: [place] heart Associated angina: without angina Essential hypertension I10 Hypercholesterolemia E78.00 Type 2 diabetes mellitus with hyperglycemia, without long-term current use of insulin E11.65 Diabetes mellitus marine oil terminal superintendent insulin use: without prison use Obesity (BMI 30-39.9) E66.9 Obstructive sleep apnea G47.33 Hospital discharge follow-up Z09 Time Spent (min) 32 Comment Time spent in reviewing the chart, test results, assessment, counseling and documentation.
--- OUTSIDE RECORDS SUMMARY | 2025-03-15 15:37 | XMS_ITS | Patient Health Record ---
Author Organization [facility] Address [address] [place] [address] Care Team Providers Care Director Of Accounts Receivable Name Role Phone Zahida King MD Primary Care Provider Catracho Parra Jr Allergies Allergen (clinical drug ingredient) Drug/Non Drug Allergy documented on EMR Reaction Allergy Type Onset Date Status Fibricor Unknown Drug Allergy Active atorvastatin Lipitor Unknown Drug Allergy Acti ve Results Component Value Reference Range Notes CT abdomen pelvis w con Reviewed date:04/08/2024 10:18:10 AM Interpretation: Performing Lab: Notes/Report: [facility] [address] [place] [address] CT Scan Report Signed Patient: Theresa Nagel MR#: [id number] : 1965 Acct:[id number] Age/Sex: 58 / M ADM Date: 04/02/24 Loc: HO.CT Attending Dr: Catracho Rodrigues MD Ordering Physician: Catracho Rodrigues MD Date of Service: 04/02/24 Procedure(s): CT abdomen pelvis w IV con Accession Number(s): [id number] cc: Catracho Rodrigues MD; Zahida King MD [...] 04/02/24 1123 DD/ 0829 TD/TT: 04/02/24 0849 Civil Engineering Professional: Creatinine GFR POC Reviewed date:04/08/2024 10:15:22 AM Interpretation: Performing Lab:[facility], [address], [place] [address] Notes/Report: [id number] 0.95 >60 0819 HOMandoTHEBODA Creatinine POC 1.0 [...] Problem Status W/U Status Risk Notes Problem 643346835 Colon cancer screening (Z12.11) Active confirmed Problem 964618303 Generalized abdominal pain (R10.84) Active confirmed Problem 423172501 Gastroesophageal reflux disease without esophagitis (K21.9) Active confirmed Problem 96909842 Irritable bowel syndrome, unspecified type (K58.9) Active confirmed Vital Signs Temperature 98.7 degrees Fahrenheit 02/02/2025 Blood pressure diastolic 01 mm Hg 02/02/2025 Height 70 in 02/02/2025 Blood pressure systolic 001 mm Hg 02/02/2025 Weight 249.4 lbs 02/02/2025 BMI 35.78 kg/m2 02/02/2025 Encounters Encounter Location Date Provider Diagnosis [facility] [address] [place] [id number] 02/02/2025 Catracho Rodrigues Jr Gastroesophageal reflux disease without esophagitis K21.9 ; Irritable bowel syndrome, unspecified type K58.9 and Colon cancer screening Z12.11 [facility] [address] [place] [phone] 04/08/2024 Catracho Rodrigues Jr Assessments Encounter Date [...] Provider Name:Catracho huddleston Jr, 02/02/2026 01:55:00 PM, [address] [place] [address], [address], [place], [address], Insurance Providers Payer Name Payer Address Payer Phone Subscriber Number Group Number Insured Name Patient Relationship to Insured Coverage Start Date [facility]age End Date [facility] [address] [address] [place], [place] [id number] THERESA NAGEL Self - patient is the insured MEDICAID OF [facility] [address] [place] [address] [id number] THERESA NAGEL Self - patient is the [...]
== END 2025-03-15 15:17 | disposition home or self-care (01) ==
LOC: HO.HCS 14:45
PROVIDERS: PCP Internal Medicine
DX: R00.2 Palpitations (principal); I25.10 Atherosclerotic heart disease of native coronary artery without angina pectoris; I10 Essential (primary) hypertension; E78.00 Pure hypercholesterolemia, unspecified; E11.65 Type 2 diabetes mellitus with hyperglycemia; E66.9 Obesity, unspecified; G47.33 Obstructive sleep apnea (adult) (pediatric); Z09 Encounter for follow-up examination after completed treatment for conditions other than malignant neoplasm
CPT/HCPCS: 99214

== ENCOUNTER → 2025-03-15 14:44 | Outpatient (BNVA) | payer OTHER, SELFPAY | PROVIDERS: PCP Internal Medicine | DX: R00.2 Palpitations (principal); I25.10 Atherosclerotic heart disease of native coronary artery without angina pectoris; I10 Essential (primary) hypertension; E78.00 Pure hypercholesterolemia, unspecified; E11.65 Type 2 diabetes mellitus with hyperglycemia; Z68.35 Body mass index [BMI] 35.0-35.9, adult; G47.33 Obstructive sleep apnea (adult) (pediatric); E66.9 Obesity, unspecified; Z09 Encounter for follow-up examination after completed treatment for conditions other than malignant neoplasm | CPT/HCPCS: 99212 ==

== ENCOUNTER → 2025-04-14 13:07 | Outpatient (REF) | payer OTHER, SELFPAY ==
--- NOTE | 2025-04-14 13:12 | HM_ITS ---
Conclusion: 1. Patient was monitored for total period of 7 days 2. Baseline was normal sinus rhythm with average heart of 80 beats per minute 3. No significant pauses noted 4. Frequent PVCs noted with total burden of 6% without significant tachyarrhythmias 5. No patient reported events MTDD
--- OUTSIDE RECORDS SUMMARY | 2025-04-14 17:50 | XMS_ITS | Patient Health Record ---
Author Organization [facility] Address [address] [place] [address] Care Team Providers Care Press Box Custodian Name Role Phone Zahida King MD Primary Care Provider Catracho Parra Jr Unavailable Allergies Allergen (clinical drug ingredient) Drug/Non Drug Allergy documented on EMR Reaction Allergy Type Onset Date Status Fibricor Unknown Drug Allergy Active atorvastatin Lipitor Unknown Drug Allergy Acti ve Reason For Referral No Information Medications Medication [...] Problem Status W/U Status Risk Notes Problem 969304964 Colon cancer screening (Z12.11) Active confirmed Problem 501202649 Generalized abdominal pain (R10.84) Active confirmed Problem 018634696 Gastroesophageal reflux disease without esophagitis (K21.9) Active confirmed Problem 33538765 Irritable bowel syndrome, unspecified type (K58.9) Active confirmed Vital Signs Temperature 98.7 degrees Fahrenheit 02/02/2025 Blood pressure diastolic 01 mm Hg 02/02/2025 Height 70 in 02/02/2025 Blood pressure systolic 001 mm Hg 02/02/2025 Weight 249.4 lbs 02/02/2025 BMI 35.78 kg/m2 02/02/2025 Encounters Encounter Location Date Provider Diagnosis [facility] [address] [facility] [address] [place] [phone] 02/02/2025 Catracho Rodrigues Jr Gastroesophageal reflux disease without esophagitis K21.9 ; Irritable bowel syndrome, unspecified type K58.9 and Colon cancer screening Z12.11 Assessments Encounter Date Diagnosis (ICD Code) Assessment [...] 03/25/2018 Next Appt Details Provider Name:Catracho huddleston , 02/02/2026 01:55:00 PM, [address] [place] [address], [address], [place], [address], Insurance Providers Payer Name Payer Address Payer Phone Subscriber Number Group Number Insured Name Patient Relationship to Insured Coverage Start Date Coverage End Date [facility] [address] [address] [place], [place] [id number] THERESA URBANO Self - patient is the insured MEDICAID OF [facility] [address] [place] [address] [phone] [id number] THERESA URBANO Self - patient is the insured Medical (General) History Medical History History ICD Code elevated cholesterol sleep apnea gastroesophageal reflux dise ase, EGD 02/26/08, no Sultana's esophagus or H. pylori depression fatty liver allergic rhinitis [place]-Schlatter disease Coronary artery disease Hiatal hernia carpal tunnel gallstones type II diabetes Colonoscopy 07/05/18, hyperplastic polyp , ten-year followup Surgical History Surgery Date(Month/Year) Cardiac stent placement x3 vasectomy deviated septum repair
== END ==
LOC: HO.CARD 13:07
PROVIDERS: PCP Internal Medicine
DX: R00.2 Palpitations (principal)
CPT/HCPCS: 93242

== ENCOUNTER → 2025-04-14 13:12 | Outpatient (BNV) | payer OTHER, SELFPAY | PROVIDERS: PCP Internal Medicine; Visit Provider Internal Medicine Cardiovascular Disease | DX: I49.3 Ventricular premature depolarization (principal) | CPT/HCPCS: 93244 ==

== ENCOUNTER 2025-05-11 12:45 | Outpatient (AMB) | payer OTHER, SELFPAY ==
[2025-05-11 12:48] VITALS: BMI 34.5
--- NOTE | 2025-05-11 12:48 | MHC.OFFVIS ---
Vital Signs 05/11/25 12:48 Height 5 ft 10 in Weight 240 lb 6 oz BMI 34.5 Intake Visit Reasons: localized swelling mass and lump neck Intake Note: This patient presents for an assessment for localized swelling mass and lump of neck. Pt c/o; lipoma right posterior head, no pain, no discharge or drainage. Alarm Field Technician Required: No Accompanied by: Self / Same As Patient Allergies atorvastatin (Lipitor) Allergy (Unknown, Verified 05/11/25 13:01) does not remember fenofibric acid (Fibricor) Allergy (Unknown, Verified 05/11/25 13:01) does not remember Medication List - Last Reconciled 05/11/25 by Chad Nava MD acetaminophen (Tylenol Extra Strength) 1,000 mg PO Q6H PRN alprazolam 0.25 mg PO TID PRN aspirin (Adult Aspirin Regimen) 81 mg PO DAILY cane As directed carvedilol 3.125 mg See Protocol PO BID cholecalciferol (vitamin D3) (Vitamin D3) 50 mcg PO DAILY empagliflozin (Jardiance) 25 mg PO DAILY Held on 02/13/25. Instructions: Hold for surgery ezetimibe 10 mg PO DAILY fenofibrate 160 mg PO DAILY 90 days lisinopril 5 mg PO DAILY metformin 500 mg PO BID 90 days Held on 02/13/25. Instructions: hold due to recent IV contrast nitroglycerin 0.4 mg sublingual Q5M PRN Held on 02/13/25. Instructions: Holter prevent hypotension omeprazole 40 mg PO DAILY@0630 oxycodone-acetaminophen 5-325 mg (Percocet) 1 tab PO Q8H PRN rosuvastatin 40 mg PO DAILY 90 days HPI HPI localized swelling mass and lump neck: Details: 59-year-old male referred for a mass on the back of his neck on the right side. He said that he does not know how long this has been there but he feels that it has been over a year now. He describes this to be increasing in size and has been causing some discomfort. He wants this removed He did have a right carotid endarterectomy last January 2025 for 90% occlusion. He said he has recovered from that surgery. [facility] Medical History (Updated 05/11/25 @ 13:24 by Chad Nava MD) Neck mass Transient ischemic attack Obesity (BMI 30-39.9) Type 2 diabetes mellitus with unspecified complications Morbid obesity Abdominal pain, chronic, bilateral lower quadrant Carpal tunnel syndrome Spondylosis of lumbar spine Spondylosis of cervical spine Type 2 diabetes mellitus Essential hypertension Atherosclerotic cardiovascular disease Dislocation of ring finger [place]-Schlatter's disease of both knees Depression Degenerative disc disease CAD (coronary artery disease) Obstructive sleep apnea Vitamin D deficiency Erectile dysfunction GERD (gastroesophageal reflux disease) Hypercholesterolemia Carpal tunnel syndrome on both sides Surgical History Stented coronary artery History of surgery History of vasectomy History of nasal surgery Family History Father Myocardial infarction Mother Myocardial infarction Social History Household Members: Spouse Housing: House Do you presently have visiting nurse or other home services: No Alcohol intake: never Comment: COUNTS CORRECT Patient Tobacco Use Status: Former Tobacco user Tobacco use type: Cigarette e-Cigarette/Vaping Use: Never Used Second Hand Smoke Exposure: Yes service: No Current occupational status: employed Current occupational exposures/hazards: No Cognitive needs: No Hearing needs: No Vision needs: Yes Review of Systems Const Denies chills and Denies fever(s) Card Denies chest pain, Denies dyspnea and Denies dyspnea on exertion Resp Denies cough, Denies dyspnea and Denies dyspnea on exertion GI Denies hematochezia and Denies change in bowel habits Denies hematuria and Denies difficulty urinating Musc Denies back pain and Denies limited range of motion Neuro Denies focal weakness and Denies convulsions Psych Denies depression and Denies mood swings Physical Exam Vital Signs: BMI result Body Mass Index 34.5 Const General: comfortable and no acute distress Orientation/consciousness: patient oriented x3 HEENT Other: On the right side of the neck posteriorly the occipital area is note of a lipomatous mass, about 4 cm, mobile, well-defined Neck Neck: Yes no lymphadenopathy Resp Auscultation: clear to auscultation bilaterally Cardio Rhythm: regular rhythm GI Palpation (GI): Soft to palpation, nontender and no guarding Neuro General: patient oriented x3 Assessment & Plan Assessment & Plan (1) Neck mass: Code(s): R22.1 - Localized swelling, mass and lump, neck Category: Medical Plan: He has a mass on the posterior neck at the base of the occipital area as described above. This appears to be a lipoma He wants this removed I explained the technique of excision which may be under anesthesia in view of the size and location. I reviewed the risks including but not limited to bleeding, infections, poor healing, as well as the benefits and alternatives. He understands and wants to proceed This has be scheduled under anesthesia in the operating room. He seems to be doing well after urgent carotid enterectomy in the right side last January,. Coding Level of Care Code New Pt Level 3 (26670) Diagnoses Neck mass R22.1
--- OUTSIDE RECORDS SUMMARY | 2025-05-11 17:41 | XMS_ITS | Patient Health Record ---
Author Organization [facility] Address [address] [place] [address] Care Team Providers Care Education Teacher Name Role Phone Zahida King MD Primary Care Provider Catracho Parra Jr Unavailable [phone] Allergies Allergen (clinical drug ingredient) Drug/Non [...] 1 capsule Orally Thr ee times a day; Duration: 30 day(s) Active Nitroglycerin Active Aspir-81 Active Cane - as directed Active Omeprazole 40 MG 1 capsule Orally Onc e a day Active Fenofibrate 160 MG 1 capsule with a carmelo l Orally Once a day Active Carvedilol 6.25 MG Oral; Duration: 90 Active amLODIPine Besylate 5 MG Oral; Duration: 90 Active Mounjaro 2.5 MG/0.5ML as directed Subcutaneous Active Meloxicam 15 MG Oral; Duration: 90 Active Vitamin D 400 UNIT 2 capsules Orally On ce a day; Duration: 30 day(s) Active metFORMIN HCl 1000 MG TAKE 1 TABLET BY M OUTH TWICE A DAY Oral; Duration: 90 Active Rosuvastatin Calcium 40 MG Oral; Duration: 90 Active Omeprazole 40 MG Oral; Duration: 90 Active metFORMIN HCl ER 500 MG Oral; Duration: 90 Active Jardiance 10 MG Oral; Duration: 30 Active Readi-Cat 2 2.1 % as directed Orally 02/23/2024 Active Dicyclomine HCl 20 MG TAKE 1 TABLET BY M OUT 2 TO 4 TIMES DAILY.; Duration: 90 Active Immunizations Vaccine Route Administration Date [...] Problem Status W/U Status Risk Notes Problem Colon cancer screening (602654750) Colon cancer screening (Z12.11) Active confirmed Problem Generalized abdominal pain (221817250) Generalized abdominal pain (R10.84) Active confirmed Problem Gastroesophageal reflux disease without esophagitis (900830607) Gastroesophageal reflux disease without esophagitis (K21.9) Active confirmed Problem Irritable bowel syndrome (72994807) Irritable bowel syndrome, unspecified type (K58.9) Active confirmed Vital Signs Temperature 98.7 degrees Fahrenheit 02/02/2025 Blood pressure diastolic 01 mm Hg 02/02/2025 Height 70 in 02/02/2025 Blood pressure systolic 001 mm Hg 02/02/2025 Weight 249.4 lbs 02/02/2025 BMI 35.78 kg/m2 02/02/2025 Encounters Encounter Location Date Provider Diagnosis [facility] 10 [facility] [address] [place] [id number] 02/02/2025 Catracho Rodrigues Jr Gastroesophageal reflux disease [...] Provider Name:Catracho huddleston Jr, 02/02/2026 01:55:00 PM, [address] [place] [address], [address], [place], [address], Insurance Providers Payer Name Payer Address Payer Phone Subscriber Number Group Number Insured Name Patient Relationship to Insured Coverage Start Date Coverage End Date [facility] [address] [address] [place], [place] [id number] [phone] [id number] THERESA URBANO Self - patient is the insured MEDICAID OF [facility] [address] [place] [address] [phone] [id number] THERESA URBANO Self - patient is the insured Medical (General) History Medical History History ICD Code elevated cholesterol sleep apnea gastroesophageal reflux dise ase, EGD 02/26/08, no Sultana's esophagus or H. pylori depression fatty liver allergic rhinitis [place]-Schlatter disease Coronary artery disease Hiatal hernia carpal tunnel gallstones type II diabetes Colonoscopy 07/05/18, hyperplastic polyp , ten-year followup Surgical History Surgery Date(Month/Year) Cardiac stent placement x3 vasectomy deviated septum repair
== END 2025-05-11 13:48 | disposition home or self-care (01) ==
LOC: HO.HGS 12:46
PROVIDERS: PCP Internal Medicine; Visit Provider Surgery
DX: R22.1 Localized swelling, mass and lump, neck (principal)
CPT/HCPCS: 99203

== ENCOUNTER → 2025-05-11 12:45 | Outpatient (BNVA) | payer OTHER, SELFPAY | PROVIDERS: PCP Internal Medicine; Visit Provider Surgery | DX: R22.1 Localized swelling, mass and lump, neck (principal) | CPT/HCPCS: 99202 ==

== ENCOUNTER 2025-05-12 01:53 | Emergency (ER) | payer OTHER, SELFPAY ==
--- NOTE | ~2025-05-12 | CT_ITS ---
CLINICAL HISTORY: RUQ pain, cristobal?? CT abdomen and pelvis with contrast Comparison: CT/NE/SR - CT ABDOMEN PELVIS WITH IV CONTRAST - 04/02/24 08:29 EDT Findings: There is minimal atelectasis in the right middle lobe and inferior lingula. There is coronary artery calcification. There is cholelithiasis. Gallbladder is not distended and there is no pericholecystic fat stranding. There is a cyst in the right lobe of the liver. The pancreas, spleen, and adrenal glands are unremarkable. There are multiple bilateral renal cysts. There is a small ovoid focus of indurated fat with mild surrounding fat stranding in the right midabdomen lateral to the ascending colon consistent with epiploic appendagitis. The appendix is normal. There is mild diverticulosis in the left hemicolon. The remainder of the gastrointestinal tract is unremarkable. The aorta is within normal limits in diameter. IVC is widely patent. There are no enlarged lymph nodes. The bladder is unremarkable. There is no fracture or suspicious lytic or sclerotic lesion. IMPRESSION: 1. Findings consistent with epiploic appendagitis in the right midabdomen lateral to the ascending colon. 2. Cholelithiasis without evidence of acute cholecystitis. 3. Mild colonic diverticulosis. This document has been electronically signed by: Jairo Metzger MD on 05/12/2025 03:57:17
[2025-05-12 01:56] VITALS: BP 155/86; PULSE 99; RESP 20; TEMP 36.1; O2SAT 97; BMI 34.4
--- OUTSIDE RECORDS SUMMARY | 2025-05-12 02:06 | XMS_ITS | Patient Health Record ---
Author Organization [facility] Address [address] [place] [address] Care Team Providers Care Field Sales Executive Name Role Phone Zahida King MD Primary Care Provider Catracho Parra Jr Unavailable [phone] Allergies Allergen (clinical drug ingredient) Drug/Non Drug [...] Status Risk Notes Problem Colon cancer screening (188284416) Colon cancer screening (Z12.11) Active confirmed Problem Generalized abdominal pain (133267861) Generalized abdominal pain (R10.84) Active confirmed Problem Gastroesophageal reflux disease without esophagitis (843463595) Gastroesophageal reflux disease without esophagitis (K21.9) Active confirmed Problem Irritable bowel syndrome (29575105) Irritable bowel syndrome, unspecified type (K58.9) Active confirmed Vital Signs Temperature 98.7 degrees Fahrenheit 02/02/2025 Blood pressure diastolic 01 mm Hg 02/02/2025 Height 70 in 02/02/2025 Blood pressure systolic 001 mm Hg 02/02/2025 Weight 249.4 lbs 02/02/2025 BMI 35.78 kg/m2 02/02/2025 Encounters Encounter Location Date Provider Diagnosis [facility] 10 [facility] [address] [place] [id number] 02/02/2025 Catracho Rodrigues Jr Gastroesophageal reflux disease [...] Provider Name:Catracho huddleston Jr, 02/02/2026 01:55:00 PM, [address] [place] [address], [address], [place], [address], Insurance Providers Payer Name Payer Address Payer Phone Subscriber Number Group Number Insured Name Patient Relationship to Insured Coverage Start Date Coverage End Date [facility] [address] [address] [place], [place] [id number] [phone] [id number] THERESA URBANO Self - patient is the insured MEDICAID OF [facility] [address] [place] [address] [phone] [id number] THERESA URBANO Self - patient is the insured Medical (General) History Medical History History ICD Code elevated cholesterol sleep apnea gastroesophageal reflux dise ase, EGD 02/26/08, no Sultana's esophagus or H. pylori depression fatty liver allergic rhinitis [place]-Schlatter disease Coronary artery disease Hiatal hernia carpal tunnel gallstones type II diabetes Colonoscopy 07/05/18, hyperplastic polyp , ten-year followup Surgical History Surgery Date(Month/Year) Cardiac stent placement x3 vasectomy deviated septum repair
[2025-05-12 02:41] LABS: MANUAL DIFF FLAG NO
[2025-05-12 02:43] LABS: Hematocrit 46.5 % (42.0-52.0); Hemoglobin 15.2 g/dl (14.0-18.0); Imm Gran Abs Auto 0.02 X10*3/uL (0.00-0.03); Imm Gran Pct Auto 0.2 % (0.0-0.4); Lymphocytes Absolute Auto 2.0 X10*3/uL (1.2-4.9); Mean Corpuscular HGB Conc 32.7 g/dl (31.0-36.0); Mean Corpuscular Hemoglobin 27.4 pg (27.0-33.0); Mean Corpuscular Volume 83.8 fL (80.0-98.0); NRBC Abs Auto 0.000 X10*3/uL (0.0-0.012); NRBC Pct Auto 0.0 /100WBC (0.0-0.2); Platelet Count 221 X10*3/uL (160-400); Red Blood Count 5.55 X10*6/uL (4.60-5.80); White Blood Count 8.1 X10*3/uL (4.8-10.8)
[2025-05-12 03:03] LABS: Alanine Aminotransferase 27 U/L (0-40); Albumin Level 4.4 g/dL (3.5-5.0); Anion Gap 15 (12-20); Aspartate Amino Transferase 31 U/L (5-37); Blood Urea Nitrogen 13 mg/dL (9-16); Calcium 9.7 mg/dL (8.4-10.2); Carbon Dioxide 20 mmol/L (22-29); Chloride 109 mmol/L (96-108); Creatinine Clr Calc Pharmacy 114.3; Estimated Glomerular Filt Rate > 60; Lipase 29 U/L (8-78); Magnesium 2.0 mg/dL (1.6-2.6); Potassium 4.9 mmol/L (3.3-5.1); Sodium 139 mmol/L (135-145); Total Protein 7.3 g/dL (6.5-8.0)
--- NOTE | 2025-05-12 03:10 | ED.GENADULT ---
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 Patient has been having intermittent episodes of right upper quadrant discomfort. The pain fluctuates in intensity, becoming severe at times, is nonradiating. Patient can not describe the nature of his discomfort. He does state that the pain is worse with lying flat. Associated poor p.o. intake secondary to the pain. Denies nausea vomiting fever. Denies diarrhea. Related Data Home Medications ?Medication ?Instructions ?Recorded ?Confirmed aspirin 81 mg tablet,delayed 81 mg PO DAILY 06/12/20 05/11/25 release (Adult Aspirin Regimen) nitroglycerin 0.4 mg sublingual 0.4 mg sublingual Q5M PRN Chest 06/12/20 05/11/25 tablet Pain Held on 02/13/25. Instructions: Holter prevent hypotension acetaminophen 500 mg tablet 1,000 mg PO Q6H PRN Fever Or Pain 10/24/20 05/11/25 (Tylenol Extra Strength) cholecalciferol (vitamin D3) 50 50 mcg PO DAILY 02/12/25 05/11/25 mcg (2,000 unit) tablet (Vitamin D3) empagliflozin 25 mg tablet 25 mg PO DAILY 02/12/25 05/11/25 (Jardiance) Held on 02/13/25. Instructions: Hold for surgery omeprazole 40 mg capsule,delayed 40 mg PO DAILY@0630 02/12/25 05/11/25 release Previous Rx's ?Medication ?Instructions ?Recorded cane #1 ea 05/25/21 metformin 500 mg tablet 500 mg PO BID 90 days #180 tabs 04/28/24 Held on 02/13/25. Instructions: hold due to recent IV contrast fenofibrate 160 mg tablet 160 mg PO DAILY 90 days #90 tabs 01/13/25 oxycodone-acetaminophen 5 mg-325 1 tab PO Q8H PRN pain #10 tabs 02/15/25 mg tablet (Percocet) alprazolam 0.25 mg tablet 0.25 mg PO TID PRN anxiety #20 tabs 03/04/25 carvedilol 3.125 mg tablet 3.125 mg PO BID #180 tabs 03/04/25 lisinopril 5 mg tablet 5 mg PO DAILY #90 tabs 03/04/25 rosuvastatin 40 mg tablet 40 mg PO DAILY 90 days #90 tabs 03/07/25 ezetimibe 10 mg tablet 10 mg PO DAILY #90 tabs 04/12/25 ketorolac 10 mg tablet 10 mg PO Q6H PRN pain #20 tabs 05/12/25 oxycodone 5 mg tablet 5 mg PO Q8H PRN pain #10 tabs 05/12/25 Allergies Allergy/AdvReac Type Severity Reaction Status Date / Time atorvastatin (Lipitor) Allergy Unknown does not Verified 05/12/25 01:57 remember fenofibric acid (Fibricor) Allergy Unknown does not Verified 05/12/25 01:57 remember Review of Systems Review of Systems: Yes all other systems are reviewed and are negative Constitutional: Constitutional: Denies fatigue and Denies fever(s) Cardiovascular: Cardiovascular: Denies chest pain and Denies dyspnea Respiratory: Respiratory: Denies dyspnea Gastrointestinal: Gastrointestinal: Reports abdominal pain, Denies diarrhea, Denies nausea and Denies vomiting Endocrine: Endocrine: Denies fatigue PMFSH Past Medical History Attestation statement: The following information was validated with the patient. Medical History (Updated 05/12/25 @ 04:31 by MARSHA Herrera) Neck mass Transient ischemic attack Obesity (BMI 30-39.9) Type 2 diabetes mellitus with unspecified complications Morbid obesity Abdominal pain, chronic, bilateral lower quadrant Carpal tunnel syndrome Spondylosis of lumbar spine Spondylosis of cervical spine Type 2 diabetes mellitus Essential hypertension Atherosclerotic cardiovascular disease Dislocation of ring finger [employer]-Schlatter's disease of both knees Depression Degenerative disc disease CAD (coronary artery disease) Obstructive sleep apnea Vitamin D deficiency Erectile dysfunction GERD (gastroesophageal reflux disease) Hypercholesterolemia Carpal tunnel syndrome on both sides Surgical History Stented coronary artery History of surgery History of vasectomy History of nasal surgery Family History Family History Father Myocardial infarction Mother Myocardial infarction Social History Social History Household Members: Spouse Housing: House Do you presently have visiting nurse or other home services: No Alcohol intake: never Comment: COUNTS CORRECT Patient Tobacco Use Status: Former Tobacco user Tobacco use type: Cigarette Smoked in Last 30 Days: No e-Cigarette/Vaping Use: Never Used Second Hand Smoke Exposure: Yes Use of substances other than those prescribed or required for medical reasons: No Advance Directives: No Advance Directives Information Provided: Yes service: No Current occupational status: employed Current occupational exposures/hazards: No Cognitive needs: No Hearing needs: No Vision needs: Yes Physical Exam ED Vital Signs: Vital Signs - 24 hr 05/12/25 01:56 05/12/25 03:33 Temperature 97 F 97.6 F Pulse Rate 99 86 Respiratory Rate 20 Blood Pressure 155/86 H 139/92 H Pulse Oximetry 97 95 Oxygen Delivery Method Room Air Room Air BMI result Body Mass Index 34.4 Const Other: Alert, ill-appearing, diaphoretic at times Orientation/consciousness: patient oriented x3 Resp Effort & Inspection: normal respiratory effort Cardio Other: Normal peripheral perfusion GI Other: Abdomen is soft, distended and obese, moderate tenderness right upper quadrant with mild involuntary guarding, positive Waters's on my exam Skin Other: Warm dry no rash Neuro General: patient oriented x3, gait normal, no focal motor deficits and CN's II-XI intact bilaterally Psych Other: Cooperative Medications Administered Discontinued Medications Generic Name Dose Route Start Last Admin Trade Name Freq PRN Reason Stop Dose Admin Sodium Chloride 500 mls @ 500 mls/hr 05/12/25 02:20 05/12/25 03:59 Ns IV 05/12/25 03:19 Infused .Q1H ONE Infusion Iohexol 100 ml 05/12/25 03:29 05/12/25 03:30 Iohexol 350 Mg/Ml 100 Ml Infus..Btl IV 05/12/25 03:30 100 ml ONCE ONE Administration Morphine Sulfate 4 mg 05/12/25 02:20 05/12/25 02:41 Morphine Sulfate 4 Mg/Ml Cartridge IVPUSH 05/12/25 02:21 4 mg ONCE ONE Administration Protocol Morphine Sulfate 4 mg 05/12/25 03:58 05/12/25 04:03 Morphine Sulfate 4 Mg/Ml Cartridge IVPUSH 05/12/25 03:59 4 mg ONCE ONE Administration Protocol Ondansetron HCl 4 mg 05/12/25 03:58 05/12/25 04:03 Ondansetron Hcl 4 Mg/2 Ml Vial IVPUSH 05/12/25 03:59 4 mg ONCE ONE Administration Medical Decision Making Medical Decision Making [facility] Narrative: 59-year-old male with a history of morbid obesity, hypertension, hyperlipidemia, diabetes, coronary artery disease, 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 Patient has been having intermittent episodes of right upper quadrant discomfort. The pain fluctuates in intensity, becoming severe at times, is nonradiating. Patient can not describe the nature of his discomfort. He does state that the pain is worse with lying flat. Associated poor p.o. intake secondary to the pain. Denies nausea vomiting fever. Denies diarrhea. Problem: Known vascular disease, known cholelithiasis, obesity History: Per patient I have considered the following differential diagnoses: Biliary colic, cholecystitis, GERD, pancreatitis Plan: Given distribution of discomfort in nature of pain, I am considering underlying biliary versus gastric versus pancreatic etiology as cause for symptoms. I am most concerned for biliary source given he has known cholelithiasis. We will screen basic labs including fractionated bilirubin, obtaining a CT scan. I did attempt bedside ultrasound, but secondary to the patient's habitus and bowel gas, I was unable to visualize the right upper abdomen, furthermore he was not tolerant of the ultrasound. We will be giving fluid and morphine. I have independently reviewed the following tests: Labs: No leukocytosis, not anemic, no electrolyte abnormality, LFTs stable, CT abdomen and pelvis:IMPRESSION: 1. Findings consistent with epiploic appendagitis in the right midabdomen lateral to the ascending colon. 2. Cholelithiasis without evidence of acute cholecystitis. 3. Mild colonic diverticulosis. Differential Diagnosis Differential Diagnoses: The differential diagnosis associated with the presentation includes See medical decision-making Admission/Observation Consideration of admission/observation: Escalation of care including admission/observation considered Lab Data [facility] Lab Attestation statement: I reviewed the patient's lab results. 05/12/25 02:37 05/12/25 02:37 Labs: Lab Results 05/12/25 Range/Units 02:37 WBC 8.1 (4.8-10.8) X10*3/uL RBC 5.55 (4.60-5.80) X10*6/uL Hgb 15.2 (14.0-18.0) g/dl Hct 46.5 (42.0-52.0) % MCV 83.8 (80.0-98.0) fL MCH 27.4 (27.0-33.0) pg MCHC 32.7 (31.0-36.0) g/dl RDW 12.7 (11.0-16.0) % Plt Count 221 D (160-400) X10*3/uL MPV 10.8 (9.4-12.4) fL Immature Gran % (Auto) 0.2 (0.0-0.4) % Neut % (Auto) 56.8 (45-73) % Lymph % (Auto) 25.2 (20-40) % [place] % (Auto) 12.0 H (2-11) % Eos % (Auto) 5.3 H (0-4) % Baso % (Auto) 0.5 (0-2) % Lymph # (Auto) 2.0 (1.2-4.9) X10*3/uL [place] # (Auto) 1.0 (0.1-1.2) X10*3/uL Eos # (Auto) 0.4 (0.0-0.4) X10*3/uL Baso # (Auto) 0.0 (0.0-0.2) X10*3/uL Abs Immat Gran (auto) 0.02 (0.00-0.03) X10*3/uL Absolute Neuts (auto) 4.6 (2.0-8.3) x10*3/uL Absolute Nucleated RBC 0.000 (0.0-0.012) X10*3/uL Nucleated RBC % (auto) 0.0 (0.0-0.2) /100WBC Sodium 139 (135-145) mmol/L Potassium 4.9 (3.3-5.1) mmol/L Chloride 109 H (96-108) mmol/L Carbon Dioxide 20 L (22-29) mmol/L Anion Gap 15 (12-20) BUN 13 (9-16) mg/dL Creatinine 0.87 (0.5-1.4) mg/dL Estim Creat Clear Calc 114.3 Estimated GFR > 60 Random Glucose 116 H (60-115) mg/dL Calcium 9.7 D (8.4-10.2) mg/dL Magnesium 2.0 (1.6-2.6) mg/dL Total Bilirubin 0.3 (0.0-1.0) mg/dL Direct Bilirubin 0.1 (0.0-0.5) mg/dL AST 31 (5-37) U/L ALT 27 (0-40) U/L Alkaline Phosphatase 70 (39-117) U/L Total Protein 7.3 (6.5-8.0) g/dL Albumin 4.4 (3.5-5.0) g/dL Lipase 29 (8-78) U/L Radiology Impression Discussion of test interpretation with radiology: I have reviewed the radiologist's reading. Discharge Plan Discharge Clinical Impression: Epiploic appendagitis Patient Disposition: Home, Self-Care Additional Instructions: You were found to have a region of intra-abdominal fat that was inflamed. This is called epiploic appendagitis. This is a self-limiting inflammatory process. Take the ketorolac as directed for pain, take it with food, this is an anti-inflammatory. Use the oxycodone for further breakthrough pain. To note this medication will cause constipation, you should take concurrent Colace while using the medication. You can follow up with your gospel worker as needed for this condition. We do not expect you to have sequelae from this inflammatory process. Return precautions if you develop severe constant abdominal pain, fever, intractable vomiting, seek medical attention. Prescriptions: New ketorolac 10 mg tablet 10 mg PO Q6H PRN (Reason: pain) Qty: 20 0RF Rx Instructions: maximum total duration of 5 days from all oral, intranasal, or parenteral formulations. Patient received an IV dose of Toradol here in the emergency room oxycodone 5 mg tablet 5 mg PO Q8H PRN (Reason: pain) Qty: 10 0RF Rx Instructions: Partial Fill upon patient request. No Action metformin 500 mg tablet 500 mg PO BID 90 Days Qty: 180 3RF fenofibrate 160 mg tablet 160 mg PO DAILY 90 Days Qty: 90 2RF rosuvastatin 40 mg tablet 40 mg PO DAILY 90 Days Qty: 90 3RF ezetimibe 10 mg tablet 10 mg PO DAILY Qty: 90 1RF Jardiance 25 mg tablet 25 mg PO DAILY omeprazole 40 mg capsule,delayed release(DR/EC) 40 mg PO DAILY@0630 cholecalciferol (vitamin D3) [Vitamin D3] 50 mcg (2,000 unit) Tablet 50 mcg PO DAILY oxycodone-acetaminophen [Percocet] 5-325 mg tablet 1 tab PO Q8H PRN (Reason: pain) Qty: 10 0RF Rx Instructions: Partial Fill upon patient request. aspirin [Adult Aspirin Regimen] 81 mg tablet,delayed release (DR/EC) 81 mg PO DAILY nitroglycerin 0.4 mg tablet, sublingual 0.4 mg sublingual Q5M PRN (Reason: Chest Pain) Rx Instructions: do not exceed 3 doses per episode acetaminophen [Tylenol Extra Strength] 500 mg tablet 1,000 mg PO Q6H PRN (Reason: Fever Or Pain) (DME) cane Device See Rx Instructions .Route Qty: 1 0RF Rx Instructions: As directed alprazolam 0.25 mg tablet 0.25 mg PO TID PRN (Reason: anxiety) Qty: 20 0RF lisinopril 5 mg tablet 5 mg PO DAILY Qty: 90 1RF carvedilol 3.125 mg tablet 3.125 mg PO BID Qty: 180 0RF Protocol: Hold for SBP/HR < HOLD for SBP < : 90 HOLD for HR < : 60 Print Language: Maori
[2025-05-12 03:30] LABS: Alkaline Phosphatase 70 U/L (39-117)
[2025-05-12] MEDS: iohexoL 350 MG/ML 100 ML INFUS..BTL IV (03:30)
[2025-05-12 03:33] VITALS: BP 139/92; PULSE 86; TEMP 36.4; O2SAT 95
--- NOTE | 2025-05-12 04:06 | PC.NURSE ---
medicated for nausea and pain.
[2025-05-12 04:30] VITALS: BP 134/90; PULSE 76; TEMP 36.4; O2SAT 96
--- NOTE | 2025-05-12 04:38 | PC.NURSE ---
Medicated per mar, Iv removed, reviewed discharge instructions with pt. pt verbalized understanding. no sign of distress upon discharge.
[2025-05-12 04:39] VITALS: BP 134/90; PULSE 76; RESP 20; TEMP 36.4; O2SAT 96
== END 2025-05-12 04:39 | disposition home or self-care (01) ==
PROVIDERS: Physician Assistant Medical; Emergency Provider Emergency Medicine; PCP Internal Medicine
DX: K63.89 Other specified diseases of intestine (principal); R10.9 Unspecified abdominal pain; I10 Essential (primary) hypertension; E11.9 Type 2 diabetes mellitus without complications; I25.10 Atherosclerotic heart disease of native coronary artery without angina pectoris
CPT/HCPCS: 36415; 74177; 80053; 82248; 83690; 83735; 85025; 96361; 96374; 96375; 96376; 99285; J1885; J2270; J2405; Q9967

== ENCOUNTER → 2025-05-12 02:20 | Outpatient (BNV) | payer OTHER, SELFPAY | PROVIDERS: Emergency Provider Emergency Medicine; PCP Internal Medicine; Visit Provider Radiology Diagnostic Radiology | DX: K80.20 Calculus of gallbladder without cholecystitis without obstruction (principal); K57.30 Diverticulosis of large intestine without perforation or abscess without bleeding | CPT/HCPCS: 74177 ==

== ENCOUNTER 2025-05-16 14:43 | Outpatient (AMB) | payer OTHER, SELFPAY ==
[2025-05-16 14:46] VITALS: BP 130/88; PULSE 90; TEMP 36.2; O2SAT 96; BMI 34.5
--- NOTE | 2025-05-16 14:46 | MHC.PC.OV ---
Vital Signs 05/16/25 14:46 Height 5 ft 10 in Weight 240 lb 2 oz BMI 34.5 BP 130/88 Blood Pressure Location Lt brachial Position Sitting Pulse 90 Pulse Source Pulse Oximeter Temp 97.1 F Temp Source Temporal Artery Scan Pulse Oximetry (%) 96 Oxygen Delivery Method Room Air Intake Visit Reasons: 3 mo follow up DM, obesity Allergies atorvastatin (Lipitor) Allergy (Unknown, Verified 05/16/25 14:49) does not remember fenofibric acid (Fibricor) Allergy (Unknown, Verified 05/16/25 14:49) does not remember Medication List - Last Reconciled 05/16/25 by Zahida Lopez PoMD acetaminophen (Tylenol Extra Strength) 1,000 mg PO Q6H PRN alprazolam 0.25 mg PO TID PRN aspirin (Adult Aspirin Regimen) 81 mg PO DAILY cane As directed carvedilol 3.125 mg See Protocol PO BID cholecalciferol (vitamin D3) (Vitamin D3) 50 mcg PO DAILY empagliflozin (Jardiance) 25 mg PO DAILY Held on 02/13/25. Instructions: Hold for surgery ezetimibe 10 mg PO DAILY fenofibrate 160 mg PO DAILY 90 days ketorolac 10 mg PO Q6H PRN lisinopril 5 mg PO DAILY metformin 500 mg PO BID 90 days nitroglycerin 0.4 mg sublingual Q5M PRN Held on 02/13/25. Instructions: Holter prevent hypotension omeprazole 40 mg PO DAILY@0630 oxycodone 5 mg PO Q8H PRN oxycodone-acetaminophen 5-325 mg (Percocet) 1 tab PO Q8H PRN rosuvastatin 40 mg PO DAILY 90 days Tobacco use date assessed: 05/16/25 Dental Screening Dental Screen Date: 05/16/25 Did you have a dental visit in the last 12 months?: Yes Did you have a dental problem in the last 6 months where you did not have access to dental care?: No Was dental information given to patient?: Patient has dentist [facility] Medical History Neck mass Transient ischemic attack Obesity (BMI 30-39.9) Type 2 diabetes mellitus with unspecified complications Morbid obesity Abdominal pain, chronic, bilateral lower quadrant Carpal tunnel syndrome Spondylosis of lumbar spine Spondylosis of cervical spine Type 2 diabetes mellitus Essential hypertension Atherosclerotic cardiovascular disease Dislocation of ring finger [place]-Schlatter's disease of both knees Depression Degenerative disc disease CAD (coronary artery disease) Obstructive sleep apnea Vitamin D deficiency Erectile dysfunction GERD (gastroesophageal reflux disease) Hypercholesterolemia Carpal tunnel syndrome on both sides Surgical History Stented coronary artery History of surgery History of vasectomy History of nasal surgery Family History Father Myocardial infarction Mother Myocardial infarction Social History Household Members: Spouse Housing: House Do you presently have visiting nurse or other home services: No Alcohol intake: never Comment: COUNTS CORRECT Patient Tobacco Use Status: Former Tobacco user Tobacco use type: Cigarette e-Cigarette/Vaping Use: Never Used Second Hand Smoke Exposure: Yes service: No Current occupational status: employed Current occupational exposures/hazards: No Cognitive needs: No Hearing needs: No Vision needs: Yes Questionnaire PHQ-9 Over the last 2 weeks, how often have you been bothered by any of the following problems? 1. Little interest or pleasure in doing things: not at all 2. Feeling down, depressed, or hopeless: nearly every day 3. Trouble falling or staying asleep, or sleeping too much: not at all 4. Feeling tired or having little energy: several days 5. Poor appetite or overeating: not at all 6. Feeling bad about yourself - or that you are a failure or have let yourself or your family down: not at all 7. Trouble concentrating on things, such as reading the newspaper or watching television: not at all 8. Moving or speaking so slowly that other people could have noticed. Or the opposite - being so fidgety or restless that you have been moving around a lot more than usual: not at all 9. Thoughts that you would be better off or of hurting yourself in some way: not at all Total score: 4 Source: Developed by Drs. Blaise Lake, Vicki Hebert, Yordy Barnes and colleagues, with an educational kelsi from [employer]ulate. Thrive Questionnaire Date Thrive assessed: 02/13/25 I am a: Patient What is your living situation today?: I have a steady place to live Within the past 12 months, did the food you bought not last and you didn't have the money to get more?: Never true Within the past 12 months, did you worry whether your food would run out before you got money to buy more?: Never true Are you currently unemployed and looking for a job?: I choose not to answer this question THRIVE Score: 0 AUDIT C Alcohol Use Questionnaire (AUDIT-C) 1. How often do you have a drink containing alcohol?: Never 3. How often do you have six or more drinks on one occasion?: Never Total Score: 0 FLORENCIA-7 AMB Questionnaire FLORENCIA-7 Date FLORENCIA - 7 assessed: 03/04/25 Feeling nervous, anxious, or on edge: 0 = Not at all Not being able to stop or control worryin = Not at all Worrying too much about different things: 0 = Not at all Trouble relaxin = Not at all Being so restless that it is hard to sit still: 0 = Not at all Becoming easily annoyed or irritable: 0 = Not at all Feeling afraid as if something awful might happen: 0 = Not at all Total FLORENCIA-7 score (0-4 normal; 5-9 mild; 10-14 moderate; 15-21 severe): 0 Source: Developed by Drs. Blaise Lake, Vicki Hebert, Yordy Barnes and colleagues, with an educational kelsi from [employer]ulate. Physical exam (Primary Care) Vital Signs: Last Vital Signs Temp 97.1 F 05/16/25 14:46 Pulse 90 05/16/25 14:46 BP 130/88 05/16/25 14:46 Pulse Ox 96 05/16/25 14:46 Oxygen Delivery Method Room Air 05/16/25 14:46 BMI result Body Mass Index 34.5 Tobacco/Smoking Status: Tobacco use Status Tobacco use date assessed 05/16/25 05/16/25 14:51 Patient Tobacco Use Status Former Tobacco user 05/16/25 14:51 Tobacco use type Cigarette 05/16/25 14:51 e-Cigarette/Vaping Use Never Used 05/16/25 14:51 PHQ-9: PHQ-9 Score PHQ-9: Total score 4 05/16/25 14:51 Thrive Assessment: Date of Thrive Assessment Date Thrive assessed 02/13/25 05/16/25 14:51 Const General: alert; No acute distress Eyes Conjunctivae: conjunctivae normal Resp Auscultation: clear to auscultation bilaterally Cardio Rate: regular rate Rhythm: regular rhythm GI Inspection: Yes normal to inspection Extrem General: Yes normal to inspection and No edema Results AMB Hemoglobin A1c AMB Hemoglobin A1c 6.1 % Last Edit by Amy Adair CMA on 05/16/25 14:56 Results Reviewed Results Reviewed: Laboratory Last Values Hgb A1c (Clinic) 6.1 % (4.0-6.0) H 05/16/25 14:51 Coding Level of Care Code Est Pt Level 4 (82504) Diagnoses Type 2 diabetes mellitus with hyperglycemia, without long-term current use of insulin E11.65 Diabetes mellitus mcfp insulin use: without medical terminologist use Obesity (BMI 30-39.9) E66.9 Essential hypertension I10 Coronary artery disease involving [place] coronary artery of [place] heart without angina pectoris I25.10 Coronary Disease-Associated Artery/Lesion type: [place] artery [place] vs. transplanted heart: [place] heart Associated angina: without angina Hypercholesterolemia E78.00 Neck mass R22.1 GERD (gastroesophageal reflux disease) K21.9 Epiploic appendagitis K63.89 Assessment & Plan Assessment & Plan (1) Type 2 diabetes mellitus with hyperglycemia: Comment: Dr. Hill Code(s): E11.65 - Type 2 diabetes mellitus with hyperglycemia Category: Medical Qualifiers: Diabetes mellitus mcfp insulin use: without medical terminologist use Qualified Code(s): E11.65 - Type 2 diabetes mellitus with hyperglycemia Plan: Decrease the amount of carbohydrate intake, pasta, bread, rice and potatoes are all sugar and that is aside from all the sweet stuff, remember that fruits are good but they are Sweet also. Patient on metformin 500 mg twice a day (2) Obesity (BMI 30-39.9): Code(s): E66.9 - Obesity, unspecified Category: Medical Plan: Diet and exercise (3) Essential hypertension: Code(s): I10 - Essential (primary) hypertension Category: Medical Plan: Continue with blood pressure medication. Decrease salt intake and exercise takes carvedilol 3.125 mg twice a day lisinopril 5 mg once a day (4) CAD (coronary artery disease): Comment: RCA stent 05/2019 Code(s): I25.10 - Atherosclerotic heart disease of [place] coronary artery without angina pectoris Category: Medical Qualifiers: Coronary Disease-Associated Artery/Lesion type: [place] artery [place] vs. transplanted heart: [place] heart Associated angina: without angina Qualified Code(s): I25.10 - Atherosclerotic heart disease of [place] coronary artery without angina pectoris Plan: Control the cholesterol, weight, blood pressure, diabetes on aspirin 81 mg once a day (5) Hypercholesterolemia: Code(s): E78.00 - Pure hypercholesterolemia, unspecified Category: Medical Plan: Avoid fried foods, chicken skin, eggs, butter margarine, pastries and meat. Be it pork or beef they have a lot of cholesterol LDL goal of less than 70 and triglyceride of less than 150 patient is on Zetia fenofibrate and rosuvastatin (6) Neck mass: Code(s): R22.1 - Localized swelling, mass and lump, neck Category: Medical Plan: Lipoma as seen by surgeon and planned excision (7) GERD (gastroesophageal reflux disease): Code(s): K21.9 - Gastro-esophageal reflux disease without esophagitis Category: Medical Plan: Avoid the foods that causes that usually spicy foods, tomato products, juices, coffee, soda and foods that your sensitive to. After eating do not lie down, allow 3-4 hours before in lie down. And keep the head of bed above 30 degrees to avoid the acid from going up. (8) Epiploic appendagitis: Code(s): K63.89 - Other specified diseases of intestine Category: Medical Plan: Conservative management Plan History of Present Illness The patient is a 59-year-old obese male presenting for a follow-up visit and management of chronic conditions. His past medical history is significant for hypercholesterolemia, coronary artery disease, atherosclerotic cardiovascular disease, hypertension, type 2 diabetes mellitus, obstructive sleep apnea for which he cannot tolerate CPAP, gastroesophageal reflux disease, lumbar spondylosis, generalized anxiety disorder, and a history of cholelithiasis. He has a history of carotid artery stenosis and is status post a right carotid endarterectomy in January 2025. He had an emergency room visit on May 13 for abdominal pain, where a CT scan revealed epiploic appendagitis in the right mid-abdomen. He has a neck mass which has been identified as a lipoma, and he has seen a surgeon with a plan for excision. A Holter monitor in March showed normal sinus rhythm with frequent PVCs at a 6% burden but no significant dysrhythmias. An echocardiogram from February 15 showed an ejection fraction of 65-70% with impaired relaxation. The patient reports a family history of open-heart surgery in both parents around his current age. His father had a defibrillator for a low ejection fraction, and his mother has multiple comorbidities including emphysema, COPD, and congestive heart failure. His last colonoscopy was in 2018. Health Maintenance Patient is overdue for a screening colonoscopy as his last one was in 2018. Social History - The patient reports significant stress and anxiety related to his mother's frequent hospitalizations. - He is making efforts to lose weight, and his current weight is 240-245 lbs. - His hobbies include building and racing cars. - He has a strong family history of heart disease, with both parents having undergone open-heart surgery. Review of Systems - Constitutional: Reports feeling slow in the mornings. - Eyes: Reports previous blurry vision has resolved since his carotid surgery. - Cardiovascular: Reports a history of palpitations. - Gastrointestinal: Reports recent severe abdominal pain, which was diagnosed as epiploic appendagitis and is now resolved. - Genitourinary: Reports nocturia, urinating 3-4 times per night. - Musculoskeletal: Denies joint-related issues. - Psychiatric: Reports stress and anxiety. Physical Exam - Neck: The prior right carotid endarterectomy incision site is non-erythematous and appears to be healing well. Results - Labs (05/12/2025): Normal blood count, no anemia, normal electrolytes, and normal renal function. - Labs: Hemoglobin A1c is 6.1%. - Labs: Liver function tests are normal. - Labs (01/2025): LDL cholesterol was 44 mg/dL. - Holter monitor (03/2025): Showed normal sinus rhythm, no pauses, and frequent PVCs with a 6% burden. - Echocardiogram (02/15/2025): Ejection fraction 65-70% with grade 1 diastolic dysfunction (impaired relaxation). - CT Abdomen (05/13/2025): Revealed epiploic appendagitis in the right mid-abdomen. Plan Patient was informed and verbally consented to the use of an ambient scribe for clinic note documentation during this visit. 1. Type 2 Diabetes Mellitus The patient's diabetes is well-controlled with a recent hemoglobin A1c of 6.1%. Continue current management with metformin 500 mg twice daily and Jardiance 25 mg daily. A refill for metformin was sent to the pharmacy. The patient was counseled that his nocturia is a side effect of Jardiance and was advised to limit fluid intake for two hours before bedtime. 2. Atherosclerotic Heart Disease Of [place] Coronary Artery Continue lifelong aspirin 81 mg once daily for secondary prevention. 3. Mixed Hyperlipidemia The treatment goals are an LDL cholesterol less than 70 mg/dL and triglycerides less than 150 mg/dL. Continue treatment with rosuvastatin, fenofibrate, and Zetia. 4. Essential (Primary) Hypertension Continue current regimen of carvedilol 3.125 mg twice daily and lisinopril 5 mg once daily. 5. Neck Lipoma The patient has been evaluated by a surgeon, Dr. Asencio, and is scheduled for an excision. 6. Epiploic Appendagitis The patient's recent abdominal pain was due to epiploic appendagitis, which is a self-limiting condition. Management consists of pain control. 7. Obstructive Sleep Apnea The patient remains intolerant of CPAP therapy. The importance of CPAP use was reiterated. 8. Obesity Continue to encourage lifestyle modifications including diet and exercise. The patient has had some success with weight loss on his own. He declined to try injectable weight loss medications again due to severe gastrointestinal side effects including nausea, vomiting, and diarrhea with a previous trial. Discussion Notes I reviewed the patient's recent emergency room visit for epiploic appendagitis. I explained that it is a mild, self-limiting inflammation of abdominal fat and that management is focused on pain control. We discussed his excellent diabetes control, with his A1c at 6.1%. I counseled him that his increased nighttime urination is a known side effect of Jardiance, which works by excreting sugar in the urine, and advised him to limit fluid intake two hours before bed. A prescription refill for metformin was sent to his pharmacy. I acknowledged his successful weight loss and encouraged him to continue with diet and exercise. We reviewed his prior intolerance to injectable weight loss medication, which caused significant nausea and vomiting, and he affirmed he does not want to retry it. We discussed his other chronic conditions, including the plan to continue his medications for cholesterol and blood pressure. I also reminded him about the importance of using his CPAP for obstructive sleep apnea. We noted his upcoming surgical excision for the neck lipoma. Patient Instructions - Continue taking your current medications for diabetes, high cholesterol, and blood pressure as prescribed. - A refill for your Metformin has been sent to your pharmacy. - The Jardiance medication is expected to make you urinate more, which helps lower your blood sugar. - To help with nighttime urination, try to stop drinking liquids about two hours before you go to bed. - Continue with your diet and exercise efforts to support weight loss. - It is important to try using your CPAP machine for your sleep apnea. - Follow up with your surgeon, Dr. Asencio, for the planned removal of the lump on your neck. - Remember to schedule a colonoscopy, as you are due for one. Orders: Orders AMB Hemoglobin A1c Today Z13.9 - Encounter for screening, unspecified Medications: Resumed metformin 500 mg PO BID 180 tabs 3RF 90 days E11.65 - Type 2 diabetes mellitus with hyperglycemia metformin 500 mg PO BID 90 days 180 tabs 3RF E11.65 - Type 2 diabetes mellitus with hyperglycemia
--- OUTSIDE RECORDS SUMMARY | 2025-05-16 18:11 | XMS_ITS | Patient Health Record ---
Author Organization [facility] Address [address] [place] [address] Care Team Providers Care Medical Detailist Name Role Phone Zahida King MD Primary Care Provider Catracho Parra Jr Unavailable [phone] Allergies Allergen (clinical drug ingredient) Drug/Non Drug [...] Status Risk Notes Problem Colon cancer screening (129041157) Colon cancer screening (Z12.11) Active confirmed Problem Generalized abdominal pain (997725620) Generalized abdominal pain (R10.84) Active confirmed Problem Gastroesophageal reflux disease without esophagitis (808474455) Gastroesophageal reflux disease without esophagitis (K21.9) Active confirmed Problem Irritable bowel syndrome (92419274) Irritable bowel syndrome, unspecified type (K58.9) Active confirmed Vital Signs Temperature 98.7 degrees Fahrenheit 02/02/2025 Blood pressure diastolic 01 mm Hg 02/02/2025 Height 70 in 02/02/2025 Blood pressure systolic 001 mm Hg 02/02/2025 Weight 249.4 lbs 02/02/2025 BMI 35.78 kg/m2 02/02/2025 Encounters Encounter Location Date Provider Diagnosis [facility] [address] [place] [id number] 02/02/2025 Catracho Rodrigues Jr Gastroesophageal reflux disease [...] Provider Name:Catracho huddleston Jr, 02/02/2026 01:55:00 PM, [address] [place] [address], [address], [place], [id number], Insurance Providers Payer Name Payer Address Payer Phone Subscriber Number Group Number Insured Name Patient Relationship to Insured Coverage Start Date Coverage End Date [facility] [address] [address] [place], [place] [id number] [phone] [id number] THERESA URBANO Self - patient is the insured MEDICAID OF [facility] [address] [place] [address] [phone] [id number] THERESA URBANO Self - patient is the insured Medical (General) History Medical History History ICD Code elevated cholesterol sleep apnea gastroesophageal reflux dise ase, EGD 02/26/08, no Sultana's esophagus or H. pylori depression fatty liver allergic rhinitis [place]-Schlatter disease Coronary artery disease Hiatal hernia carpal tunnel gallstones type II diabetes Colonoscopy 07/05/18, hyperplastic polyp , ten-year followup Surgical History Surgery Date(Month/Year) Cardiac stent placement x3 vasectomy deviated septum repair
== END 2025-05-16 15:33 | disposition home or self-care (01) ==
LOC: HO.HMCH 14:43
PROVIDERS: PCP Internal Medicine; Visit Provider Internal Medicine
DX: E11.65 Type 2 diabetes mellitus with hyperglycemia (principal); I10 Essential (primary) hypertension; E66.9 Obesity, unspecified; Z68.34 Body mass index [BMI] 34.0-34.9, adult; I25.10 Atherosclerotic heart disease of native coronary artery without angina pectoris; E78.00 Pure hypercholesterolemia, unspecified; R22.1 Localized swelling, mass and lump, neck; K21.9 Gastro-esophageal reflux disease without esophagitis; K63.89 Other specified diseases of intestine

== ENCOUNTER → 2025-05-16 14:43 | Outpatient (BNVA) | payer OTHER, SELFPAY | PROVIDERS: PCP Internal Medicine; Visit Provider Internal Medicine | DX: E11.65 Type 2 diabetes mellitus with hyperglycemia (principal); E66.9 Obesity, unspecified; I10 Essential (primary) hypertension; I25.10 Atherosclerotic heart disease of native coronary artery without angina pectoris; E78.00 Pure hypercholesterolemia, unspecified; R22.1 Localized swelling, mass and lump, neck; K21.9 Gastro-esophageal reflux disease without esophagitis; K63.89 Other specified diseases of intestine; E78.2 Mixed hyperlipidemia; D17.0 Benign lipomatous neoplasm of skin and subcutaneous tissue of head, face and neck; G47.33 Obstructive sleep apnea (adult) (pediatric); Z99.89 Dependence on other enabling machines and devices; Z68.34 Body mass index [BMI] 34.0-34.9, adult | CPT/HCPCS: 83036; 99212 ==

== ENCOUNTER 2025-06-06 13:43 | Outpatient (REF) | payer OTHER, SELFPAY ==
--- NOTE | ~2025-06-06 | US_ITS ---
EXAMINATION: US EXTRACRANIAL CAROTID DUPLEX, BILATERAL CLINICAL INFORMATION: I 65.21. Status post endarterectomy, right side. COMPARISON: Correlated to CT angiogram head neck dated February 12, 2025. TECHNIQUE: Real-time ultrasound and Doppler techniques (integrating B-mode 2-D vascular images, Doppler spectral analysis and color-flow Doppler imaging) were utilized to interrogate the extracranial carotid arteries, the vertebral arteries and proximal subclavian arteries bilaterally. The degree of stenosis is determined by criteria similar to NASCET. FINDINGS: Right Side: 1. There is a small noncalcified atherosclerotic plaque seen in the bifurcation/proximal ICA region. 2. The common carotid artery PSV proximally is 105 cm/s and distally 119 cm/s. 3. The proximal internal carotid artery velocities are 108 cm/s systolic and 39 cm/s diastolic. 4. The proximal external carotid artery PSV is 131 cm/s. 5. The vertebral artery shows antegrade flow. 6. The subclavian artery waveforms are normal. ICA/CCA ratio: 1.03. Left Side: 1. There is a small noncalcified atherosclerotic plaque seen in the bifurcation/proximal ICA region. 2. The common carotid artery PSV proximally is 110 cm/s and distally 91 cm/s. 3. The proximal internal carotid artery velocities are 97 cm/s systolic and 34 cm/s diastolic. 4. The proximal external carotid artery PSV is 95 cm/s. 5. The vertebral artery shows antegrade flow. 6. The subclavian artery waveforms are normal. ICA/CCA ratio: 0.88. US/US carotid duplex BI IMPRESSION: 1. RIGHT: 0-49% stenosis by ultrasound criteria. 2. LEFT: 0-49% stenosis by ultrasound criteria. Electronically signed by: Doroteo Hansen MD 06/07/2025 06:36 AM EST
== END 2025-06-06 13:44 | disposition home or self-care (01) ==
LOC: HO.US 13:43
PROVIDERS: PCP Internal Medicine; Visit Provider Surgery Vascular Surgery
DX: I65.21 Occlusion and stenosis of right carotid artery (principal)
CPT/HCPCS: 93880

== ENCOUNTER → 2025-06-06 13:45 | Outpatient (BNV) | payer OTHER, SELFPAY | PROVIDERS: PCP Internal Medicine; Visit Provider Radiology Diagnostic Radiology | DX: I65.23 Occlusion and stenosis of bilateral carotid arteries (principal) | CPT/HCPCS: 93880 ==

== ENCOUNTER 2025-06-09 14:19 | Outpatient (AMB) | payer OTHER, SELFPAY ==
--- NOTE | 2025-06-09 14:31 | A.OFFVIS_ITS ---
Intake Visit Reasons: 3 mo follow up carotid US 06/06/25 Intake Note: Patient presents for 3 month follow up , carotid ultrasound performed on 06/06/25. Patient has no complaints. Accompanied by: Spouse Allergies atorvastatin (Lipitor) Allergy (Unknown, Verified 06/09/25 14:34) does not remember fenofibric acid (Fibricor) Allergy (Unknown, Verified 06/09/25 14:34) does not remember HPI HPI 3 mo follow up carotid US 06/06/25: Details: The patient is a 59 year old individual presenting for a follow-up visit regarding carotid disease. The patient underwent a right carotid endarterectomy on 02/14/2025 and is now three months post-procedure. A follow-up bilateral carotid ultrasound on 06/06/2025 showed 0-49% stenosis. Past medical history is significant for coronary artery disease, for which the patient received three stents sometime prior to the COVID-19 pandemic. The patient takes a daily baby aspirin. The patient reports successful weight loss, from a weight of around 255 pounds down to the 230-235 pound range. The patient reports feeling nervous and experiencing stress and anxiety. He has had recent Holter monitor study. Going back to the original incident where he had undergone the carotid endarterectomy I do not believe that this was a crescendo TIA. It was actually more of an anxiety event as it related to left-sided arm and facial tingling. I do believe that this was more anxiety related. Nonetheless due to the high- grade carotid stenosis he has undergone carotid endarterectomy and now for surveillance carotid follow-up. [facility], [facility] Medical History Neck mass Transient ischemic attack Obesity (BMI 30-39.9) Type 2 diabetes mellitus with unspecified complications Morbid obesity Abdominal pain, chronic, bilateral lower quadrant Carpal tunnel syndrome Spondylosis of lumbar spine Spondylosis of cervical spine Type 2 diabetes mellitus Essential hypertension Atherosclerotic cardiovascular disease Dislocation of ring finger [place]-Schlatter's disease of both knees Depression Degenerative disc disease CAD (coronary artery disease) Obstructive sleep apnea Vitamin D deficiency Erectile dysfunction GERD (gastroesophageal reflux disease) Hypercholesterolemia Carpal tunnel syndrome on both sides Surgical History Stented coronary artery History of surgery History of vasectomy History of nasal surgery Family History Father Myocardial infarction Mother Myocardial infarction Social History Household Members: Spouse Housing: House Do you presently have visiting nurse or other home services: No Alcohol intake: never Comment: COUNTS CORRECT Patient Tobacco Use Status: Former Tobacco user Tobacco use type: Cigarette e-Cigarette/Vaping Use: Never Used Second Hand Smoke Exposure: Yes service: No Current occupational status: employed Current occupational exposures/hazards: No Cognitive needs: No Hearing needs: No Vision needs: Yes Review of Systems Const All systems reviewed & are unremarkable except as noted in HPI and below Reports no additional complaints ENT Reports Normal hearing present Card Denies chest pain, Denies chest pain at rest, Denies chest pain with activity and Denies pedal edema Resp Denies cough GI Denies abdominal pain Musc Denies abnormal gait, Denies muscle cramps and Denies radiating pain into limb Skin/Breast Denies skin ulcer and Denies wounds Neuro Reports Normal hearing present and Denies abnormal gait Psych Reports no additional complaints Physical Exam Const General: cooperative, healthy appearing and comfortable Orientation/consciousness: oriented to person, oriented to place and oriented to time HEENT Head: Yes normal to inspection Neck Neck: Yes normal visual inspection Carotids: no bruits Chest Chest palpation & inspection: normal inspection of the chest Resp Effort & Inspection: normal respiratory effort and able to speak in complete sentences Auscultation: clear to auscultation bilaterally, no crackles, no rales, no rhonchi and no wheezes Cardio Rate: regular rate Rhythm: regular rhythm Heart sounds: S1 normal heart sound present and S2 normal heart sound present Bruits: no carotid bruits Peripheral pulses: Peripheral pulses 2+ throughout GI Inspection: Yes normal to inspection Skin Wounds: no wounds Hair: normal Neuro General: oriented to person, oriented to place and oriented to time Cranial nerves: Yes CN's II-XII intact bilaterally and Yes Normal hearing present Cognition (Neuro): normal cognition Motor exam (neuro): 5/5 motor strength present throughout Extrem Other: venous exam: No significant superficial varicosities or spider telangiectasias, minimal edema General: No clubbing, No cyanosis and No edema Psych Appearance: grossly normal Mental Status: mental status grossly normal Speech and movement: Normal speech and movement present Results Reviewed Results Reviewed: Carotid ultrasound testing dated 06/06/2025 demonstrates bilateral 0-49% stenosis. Written report and images were reviewed. Assessment & Plan Assessment & Plan (1) Carotid stenosis, right: Comment: 02/14/2025 - right carotid endarterectomy Code(s): I65.21 - Occlusion and stenosis of right carotid artery Category: Medical Plan: In short patient has asymptomatic carotid disease. We have reviewed signs and symptoms of a stroke. We also discussed risk factor modification inclusive a healthy diet low in cholesterol. The patient will follow up with us with surveillance ultrasound of the carotids six-month. Should there be any changes or signs or symptoms of a stroke we will be happy to see them back sooner. Thank you for allowing us to participate in this patient's care. If there are any questions or concerns please do not hesitate to contact us. Plan Patient was informed and verbally consented to the use of an ambient scribe for clinic note documentation during this visit. Orders: Orders US carotid duplex BI 6 Months I65.21 - Occlusion and stenosis of right carotid artery Coding Level of Care Code Est Pt Level 4 (33521) Diagnoses Carotid stenosis, right I65.21
--- OUTSIDE RECORDS SUMMARY | 2025-06-09 19:45 | XMS_ITS | Patient Health Record ---
Author Organization [facility] Address [address] [place] [address] Care Team Providers Care Pharmacognosist Name Role Phone Zahida King MD Primary Care Provider Catracho Parra Jr Unavailable [phone] Allergies Allergen (clinical drug ingredient) Drug/Non Drug Allergy documented on EMR Reaction Allergy Type Onset Date Status atorvastatin Lipitor Unknown Drug Allergy Acti ve Fibricor Unknown Drug Allergy Active Reason For Referral No Information Medications Medication SIG (Take, Route, Frequency, Duration) Notes Start Date End Date Status Omeprazole 40 MG Capsule Delayed Release 1 capsule Orally Once a day Active Dicyclomine HCl 20 MG Tablet TAKE 1 TABLET BY MOUTH 2 TO 4 TIMES DAILY.; Duration: 90 Active Fenofibrate 160 MG Tablet 1 capsule with a meal Orally Once a day Active Carvedilol 6.25 MG Tablet Oral; Duration: 90 Active Vitamin D 400 UNIT Capsule 2 capsules Or ally Once a day; Duration: 30 day(s) Active metFORMIN HCl 1000 MG Tablet TAKE 1 TABLET BY MOUTH TWICE A DAY Oral; Duration: 90 Active Vitamin C & D3/Katelyn Hips 500-1000-20 MG-UNIT-MG Capsule as directed Orally Active Rosuvastatin Calcium 40 MG Tablet Oral; Duration: 90 Active amLODIPine Besylate 5 MG Tablet Oral; Duration: 90 Active Mounjaro 2.5 MG/0.5ML Solution Auto-injector as directed Subcutaneous Active Meloxicam 15 MG Tablet Oral; Duration: 90 Active Aspir-81 Active Jardiance 10 MG Tablet Oral; Duration: 30 Active Cane - Miscellaneous as directed Active Readi-Cat 2 2.1 % Suspension as directed Orally 02/23/2024 Active Fish Oil 1000 MG Capsule 1 capsule Orall y Three times a day; Duration: 30 day(s) Active Omeprazole 40 MG Capsule Delayed Release Oral; Duration: 90 Active Nitroglycerin Active metFORMIN HCl ER 500 MG Tablet Extended Release 24 Hour Oral; Duration: 90 Active Immunizations Vaccine Route Administration Date Status Comme nts Influenza Unknown 03/21/2021 Administered Influenza Unknown 04/20/2022 Administered Influenza Unknown 05/13/2023 Administered Influenza Unknown 05/12/2024 Administered Social History Tobacco Use: Social History Observation Description Date Details (start date - stop date) Former Smoker NA - NA Social History Drugs/Alcohol: Social Info Question Answer Notes Alcohol Screen Did you have a drink containing alcohol in the past year? No Points 0 Interpretation Negative Tobacco Use: Social Info Question Answer Notes Tobacco Use/Smoking Patient is a former smoker How long has it been since you last smoked? > 10 years Additional Details Category Social Info Options Details Miscellaneous: Marital status: single Occupation: retired Problems Problem Type SNOMED Code ICD Code Onset Dates Problem Status W/U Status Risk Notes Problem Colon cancer screening (415250653) Colon cancer screening (Z12.11) Active confirmed Problem Generalized abdominal pain (770933631) Generalized abdominal pain (R10.84) Active confirmed Problem Gastroesophageal reflux disease without esophagitis (197566476) Gastroesophageal reflux disease without esophagitis (K21.9) Active confirmed Problem Irritable bowel syndrome (79548951) Irritable bowel syndrome, unspecified type (K58.9) Active confirmed Vital Signs Temperature 98.7 degrees Fahrenheit 02/02/2025 Blood pressure diastolic 01 mm Hg 02/02/2025 Height 70 in 02/02/2025 Blood pressure systolic 001 mm Hg 02/02/2025 Weight 249.4 lbs 02/02/2025 BMI 35.78 kg/m2 02/02/2025 Encounters Encounter Location Date Provider Diagnosis [facility] [address] [place] [phone] 02/02/2025 Catracho Rodrigues Jr Gastroesophageal reflux disease without esophagitis K21.9 ; Irritable bowel syndrome, unspecified type K58.9 and Colon cancer screening Z12.11 [facility] [address] [place] [phone] 02/02/2025 Catracho Rodrigues Jr Assessments Encounter Date Diagnosis [...] Provider Name:Catracho huddleston Jr, 02/02/2026 01:55:00 PM, [address] [place] [address], [address], [place], [address], Insurance Providers Payer Name Payer Address Payer Phone Subscriber Number Group Number Insured Name Patient Relationship to Insured Coverage Start Date Coverage End Date [facility] [address] [address] [place], [place] [id number] [phone] [id number] THERESA URBANO Self - patient is the insured MEDICAID OF [facility] [address] [place] [address] [phone] [id number] THERESA URBANO Self - patient is the insured Medical (General) History Medical History History ICD Code elevated cholesterol sleep apnea gastroesophageal reflux dise ase, EGD 02/26/08, no Sultana's esophagus or H. pylori depression fatty liver allergic rhinitis [place]-Schlatter disease Coronary artery disease Hiatal hernia carpal tunnel gallstones type II diabetes Colonoscopy 07/05/18, hyperplastic polyp , ten-year followup Surgical History Surgery Date(Month/Year) deviated septum repair vasectomy Cardiac stent placement x3
== END 2025-06-09 14:53 | disposition home or self-care (01) ==
LOC: HO.HVS 14:19
PROVIDERS: PCP Internal Medicine; Visit Provider Surgery Vascular Surgery
DX: I65.21 Occlusion and stenosis of right carotid artery (principal)
CPT/HCPCS: 99214

== ENCOUNTER → 2025-06-09 14:19 | Outpatient (BNVA) | payer OTHER, SELFPAY | PROVIDERS: PCP Internal Medicine; Visit Provider Surgery Vascular Surgery | DX: I65.21 Occlusion and stenosis of right carotid artery (principal) | CPT/HCPCS: 99212 ==

== ENCOUNTER 2025-06-23 13:52 | Outpatient (AMB) | payer OTHER, SELFPAY ==
[2025-06-23 14:04] VITALS: BP 120/72; PULSE 90; BMI 35.0
--- NOTE | 2025-06-23 14:04 | A.OFFVIS_ITS ---
Vital Signs 06/23/25 14:04 Height 5 ft 10 in Weight 244 lb 4.355 oz BMI 35.0 BP 120/72 Blood Pressure Location Lt brachial Position Sitting Pulse 90 Pulse Source Monitor Intake Visit Reasons: Cardiac Clearance Counsellors Required: No Accompanied by: Self / Same As Patient Allergies atorvastatin (Lipitor) Allergy (Unknown, Verified 06/23/25 14:10) does not remember fenofibric acid (Fibricor) Allergy (Unknown, Verified 06/23/25 14:10) does not remember HPI Comments Details: This is a 59-year-old male patient coming in for a follow-up visit as well as a preop cardiac risk stratification for upcoming removal of lipoma in his neck. Patient with a history of hypertension, hyperlipidemia, coronary artery disease with prior RCA stent, diabetes, obesity, and sleep apnea. Patient also with a history of TIAs most recently in January of this year for which patient underwent a emergent right carotid endarterectomy with Dr. Bee. Patient has been following with Dr. Bee's office and most recently had a carotid ultrasound with mild disease. Today, patient is reporting feeling under a lot of stress due to his sick mother otherwise is denying any cardiac symptoms of exertional chest pain, shortness of breath, palpitations, dizziness, orthopnea, PND, leg edema, presyncope or syncope. Patient is reporting compliance with all his medications. [facility] Medical History (Updated 06/23/25 @ 15:24 by Garrett Cai NP) Palpitations Precordial chest pain Neck mass Transient ischemic attack Obesity (BMI 30-39.9) Type 2 diabetes mellitus with unspecified complications Morbid obesity Abdominal pain, chronic, bilateral lower quadrant Carpal tunnel syndrome Spondylosis of lumbar spine Spondylosis of cervical spine Type 2 diabetes mellitus Essential hypertension Atherosclerotic cardiovascular disease Dislocation of ring finger [place]-Schlatter's disease of both knees Depression Degenerative disc disease CAD (coronary artery disease) Obstructive sleep apnea Vitamin D deficiency Erectile dysfunction GERD (gastroesophageal reflux disease) Hypercholesterolemia Carpal tunnel syndrome on both sides Surgical History Stented coronary artery History of surgery History of vasectomy History of nasal surgery Family History Father Myocardial infarction Mother Myocardial infarction Other Epiploic appendagitis Social History Household Members: Spouse Housing: House Do you presently have visiting nurse or other home services: No Alcohol intake: never Comment: COUNTS CORRECT Patient Tobacco Use Status: Former Tobacco user Tobacco use type: Cigarette e-Cigarette/Vaping Use: Never Used Second Hand Smoke Exposure: Yes service: No Current occupational status: employed Current occupational exposures/hazards: No Cognitive needs: No Hearing needs: No Vision needs: Yes Review of Systems Const Denies daytime sleepiness, Denies difficulty sleeping, Denies snoring, Denies stops breathing during sleep and Denies weakness Card Denies chest pain, Denies rapid heart rate, Denies irregular heart rhythm, Denies claudication, Denies leg edema, Denies lightheadedness, Reports palpitations, Denies dyspnea, Denies dyspnea on exertion, Denies orthopnea, Denies paroxysmal nocturnal dyspnea and Denies slow heart rate Resp Denies cough, Denies dyspnea, Denies dyspnea on exertion and Denies snoring GI Reports no additional complaints, Denies hematochezia, Denies change in stool character and Denies dyspepsia Musc Denies abnormal gait, Denies muscle weakness and Denies numbness Neuro Denies abnormal gait, Denies numbness and Denies weakness Endo Reports palpitations Physical Exam Vital Signs: Last Vital Signs Pulse 90 06/23/25 14:04 BP 120/72 06/23/25 14:04 BMI result Body Mass Index 35.0 Const General: cooperative, healthy appearing, comfortable and no acute distress Orientation/consciousness: patient oriented x3 HEENT Head: Yes normal to inspection Neck Neck: Yes normal visual inspection, Yes trachea midline and Yes supple Chest Chest palpation & inspection: normal inspection of the chest Resp Effort & Inspection: normal respiratory effort Auscultation: clear to auscultation bilaterally, no crackles, no rales, no rhonchi and no wheezes Cardio Jugular venous distension: no JVD Palpation: normal PMI Rate: regular rate Rhythm: regular rhythm Heart sounds: S1 normal heart sound present, S2 normal heart sound present, no click, no gallops, no murmurs and no rubs Peripheral pulses: Peripheral pulses 2+ throughout GI Inspection: Yes normal to inspection Palpation (GI): Soft to palpation Auscultation: normal bowel sounds Skin General skin exam: no rashes or lesions noted Neuro General: patient oriented x3 Extrem General: Yes normal to inspection, No no pedal edema and No calf tenderness Psych Appearance: grossly normal Mental Status: mental status grossly normal Speech and movement: Normal speech and movement present Office Procedures EKG Details: EKG today showed normal sinus rhythm, rate 90 beats per minute, [place], [place]. [id number], Complete Results Reviewed Results Reviewed: 02/15/2025-echo study showed normal LV systolic function with the ejection fraction between 65-70% with mild LVH and grade 1 diastolic dysfunction. Assessment & Plan Assessment & Plan (1) CAD (coronary artery disease): Comment: RCA stent 05/2019 Code(s): I25.10 - Atherosclerotic heart disease of [place] coronary artery without angina pectoris Category: Medical Qualifiers: Coronary Disease-Associated Artery/Lesion type: [place] artery [place] vs. transplanted heart: [place] heart Associated angina: without angina Qualified Code(s): I25.10 - Atherosclerotic heart disease of [place] coronary artery without angina pectoris Plan: History of coronary artery disease with a prior PCI to the RCA. Clinically stable and without any cardiac symptoms. Continue lifelong aspirin therapy. No reported signs of bleeding. Most recent LDL at 44. Continue statin and Zetia therapy. Ideally, LDL goal less than 70. For reports of palpitations at his last visit, patient underwent a Holter study on 04/14/2025 that showed underlying sinus rhythm with frequent PVCs with total burden of 6%. Currently on low-dose carvedilol. In case of symptomatic PVCs, we discussed increasing his dose for carvedilol. At this time with no palpitations and therefore patient can continue the same dose. Advised on str ess medication strategies, regular exercise, losing weight, and avoiding stimulants such as caffeine. (2) Essential hypertension: Code(s): I10 - Essential (primary) hypertension Category: Medical Plan: Blood pressure today is well-controlled. Continue current regimen with a blood pressure goal less than 130/80. Advised monitoring blood pressures at home. Advised on low-salt diet. (3) Hypercholesterolemia: Code(s): E78.00 - Pure hypercholesterolemia, unspecified Category: Medical Plan: As above. (4) Type 2 diabetes mellitus with hyperglycemia: Comment: Dr. Hill Code(s): E11.65 - Type 2 diabetes mellitus with hyperglycemia Category: Medical Qualifiers: Diabetes mellitus exterminator helper insulin use: without intermediate use Qualified Code(s): E11.65 - Type 2 diabetes mellitus with hyperglycemia Plan: Continue aggressive diabetes management with an A1c goal less than 7%. Most recent A1c at 6.1%. Followed by PCP. (5) Obstructive sleep apnea: Comment: cannot tolerate CPAP 02/2021, sleep study March 2024 AHI of 44 Code(s): G47.33 - Obstructive sleep apnea (adult) (pediatric) Category: Medical Plan: History of sleep apnea who has been unable to tolerate CPAP in the past and therefore is not on any CPAP regimen. This has been discussed in the past but however we once again emphasized the need to treat sleep apnea for his cardiovascular well being. Patient verbalizes understanding. (6) Carotid stenosis, right: Comment: 02/14/2025 - right carotid endarterectomy Code(s): I65.21 - Occlusion and stenosis of right carotid artery Category: Medical Plan: Follows Dr. Bee. Most recent ultrasound with mild disease. (7) Preop cardiovascular exam: Code(s): Z01.810 - Encounter for preprocedural cardiovascular examination Plan: Patient has plans for upcoming lipoma report will from his neck with Dr. Nava. Patient can undergo this surgery with the consideration that patient is at a low cardiac risk. Advised on heart healthy diet, regular exercise, losing weight, med compliance, and aggressive management of vascular risk factors. Follow up in 6 months. In the interim, patient will call the office with any concerns or change in symptoms. This note was generated using voice recognition software. While every effort has been made to ensure accuracy and proper pulper tender, there may be occasional errors that could affect the content or meaning of the described symptoms. Orders: Orders AMB EKG-In Office Today Z01.810 - Encounter for preprocedural cardiovascular examination Coding Level of Care Code Est Pt Level 4 (31466) Complex visit Add On G2211 Diagnoses Coronary artery disease involving [place] coronary artery of [place] heart without angina pectoris I25.10 Coronary Disease-Associated Artery/Lesion type: [place] artery [place] vs. transplanted heart: [place] heart Associated angina: without angina Essential hypertension I10 Hypercholesterolemia E78.00 Type 2 diabetes mellitus with hyperglycemia, without long-term current use of insulin E11.65 Diabetes mellitus intermediate insulin use: without intermediate use Obstructive sleep apnea G47.33 Carotid stenosis, right I65.21 Preop cardiovascular exam Z01.810 CPT Codes EKG - CPT: 52915-[id number], Complete ([id number]) Time Spent (min) 32 Comment Time spent in reviewing the chart, test results, assessment, counseling and documentation.
== END 2025-06-23 14:50 | disposition home or self-care (01) ==
LOC: HO.HCS 13:53
PROVIDERS: PCP Internal Medicine
DX: I25.10 Atherosclerotic heart disease of native coronary artery without angina pectoris (principal); I10 Essential (primary) hypertension; E78.00 Pure hypercholesterolemia, unspecified; E11.65 Type 2 diabetes mellitus with hyperglycemia; G47.33 Obstructive sleep apnea (adult) (pediatric); I65.21 Occlusion and stenosis of right carotid artery; Z01.810 Encounter for preprocedural cardiovascular examination
CPT/HCPCS: 93010; 99214

== ENCOUNTER → 2025-06-23 13:52 | Outpatient (BNVA) | payer OTHER, SELFPAY | PROVIDERS: PCP Internal Medicine | DX: Z01.810 Encounter for preprocedural cardiovascular examination (principal); D17.0 Benign lipomatous neoplasm of skin and subcutaneous tissue of head, face and neck; I25.10 Atherosclerotic heart disease of native coronary artery without angina pectoris; I10 Essential (primary) hypertension; E78.00 Pure hypercholesterolemia, unspecified; E11.65 Type 2 diabetes mellitus with hyperglycemia; G47.33 Obstructive sleep apnea (adult) (pediatric); I65.21 Occlusion and stenosis of right carotid artery; Z79.82 Long term (current) use of aspirin; Z79.899 Other long term (current) drug therapy; Z98.890 Other specified postprocedural states; Z87.891 Personal history of nicotine dependence | CPT/HCPCS: 93005; 99212 ==